=== PATIENT | female | born 1965 | race Caucasian/White ===

== ENCOUNTER 2024-02-08 09:53 | Inpatient (IN) | payer OTHER, SELFPAY ==
[2024-02-07 16:32] VITALS: BP 182/103
--- NOTE | 2024-02-07 19:23 | ED.GENMED ---
History of Present Illness
General
Chief Complaint: Extremity Pain (non-traumatic)
Time Seen by Provider: 02/07/24 19:17
History of Present Illness
History of Present Illness:
58-year-old female presents to the emergency department for evaluation of redness, swelling, warmth, and pain to the right lower extremity for the past 4 to 5 days. Denies any known wounds or trauma, began around the foot and gradually progressed
toward the knee. No fevers or chills. She does have MS and is currently on Tecfidera.
Past History
Past History
ED Past Medical History: Other (MS)
ED Past Surgical History: Appendectomy, and Gynecological
Social History
Tobacco: Non-smoker
Review of Systems
Review of Systems
Allergies reviewed?: Yes
All Other Systems: ROS reviewed and negative except as documented in HPI and ROS
Phy Exam
Physical Exam
Physical Exam:
GEN: Well appearing, NAD, WDWN
HEENT: Oral mucosa moist, no scleral icterus
Cardiac: Regular rate
Lung: No respiratory distress, no tachypnea
MSK: No gross deformity or injuries
Skin: Good color, no pallor or jaundice. Circumferential erythema extending from the right midfoot proximally toward the knee, there is swelling to the right tibial tuberosity with minimal tenderness to palpation. No right knee joint effusion.
Neuro: AO x3, moves all extremities freely
Psych: Calm, cooperative
Course
Orders/Labs/Results
Orders:
Orders
02/07/24 16:35
US Legs, Right [US Periph Venous LOWER Ext RT] Urgent
Comment:
Reason For Exam: swelling/redness
02/07/24 19:23
CeFAZolin 2 GRAM [Ancef] 2 grams in 10 ml IV NOW
02/07/24 19:53
Complete Blood Count/With Diff Urgent
Comprehensive Metabolic Panel Urgent
Abnormal Lab Results
02/07/24
19:53
MCH 31.4 H pg
(27.0-31.0)
MPV 10.5 H fL
(7.4-10.4)
Absolute Neuts (auto) 7.0 H 10^3/uL
(1.4-6.5)
Absolute Monos (auto) 0.8 H 10^3/uL
(0.1-0.6)
Lymphocytes % 15.1 L %
(20.5-51.1)
Creatinine 0.5 L mg/dL
(0.6-1.0)
Glucose 102 H mg/dl
(70-99)
02/07/24 19:53
02/07/24 19:53
Vital Signs
Initial and Last Documented VS:
Initial Vital Signs
Temp Pulse Resp BP Pulse Ox
98.1 F 88 15 182/103 94
02/07/24 16:32 02/07/24 16:32 02/07/24 16:32 02/07/24 16:32 02/07/24 16:32
Last Documented Vital Signs
Temp Pulse Resp BP Pulse Ox
98.1 F 88 15 182/103 94
02/07/24 16:32 02/07/24 16:32 02/07/24 16:32 02/07/24 16:32 02/07/24 16:32
MDM/Problems Addressed
MDM/Problems Addressed:
Although the patient is clinically well she has extensive cellulitis of the right lower extremity with questionable infrapatellar bursa involvement. Given that she has a history of MS on immunomodulators she is higher risk for complicated infection
and feel it would be reasonable to admit this patient for IV antibiotics, IV cefazolin started in the emergency department.
*Critical Care Note
Total Time (30-74mins, 75-104mins- exclusive of procedures): Not Applicable
ED Attending Note
-
Portions of this chart may have been created with voice recognition software.� Occasional wrong word or��sound alike� substitutions may have occurred due to the inherent limitations of voice recognition software.
Discharge Plan
Departure
Patient Disposition: Admit
Date of Disposition: 02/07/24
Time of Disposition: 20:25
Presentation/result/management discussed w/ accepting MD/DO: Hospitalist
Discharge Problem:
Cellulitis of right lower extremity
Prescriptions:
No Action
ofloxacin 0.3 % Drops
1 drp BOTH EYES QID
tizanidine 4 mg Tablet
4 mg PO Q8H
gabapentin 400 mg Capsule
800 mg PO QID
oxycodone 30 mg Tablet
30 mg PO Q4HPRN PRN (Reason: severe pain)
Patient Comments:
02/07/24: last filled 02/06/24 for 180 tablets over 30 days
ibuprofen 600 mg Tablet
600 mg PO Q6HPRN PRN (Reason: mild pain)
Afrin (oxymetazoline) 0.05 % Mist
2 spray INTRANASAL TIDPRN PRN (Reason: conjestion)
pregabalin 100 mg Capsule
100 mg PO TID
dalfampridine 10 mg Tablet Extended Release 12 Hr
10 mg PO Q12H
oxycodone [OxyContin] 20 mg Tablet,Oral Only,Ext.Rel.12 Hr
20 mg PO Q8H
Patient Comments:
02/07/24: last filled 02/06/24 for 90 tablets over 30 days
Referrals:
Chel Oneill CRNP [Family Provider] -
Interventions
Interventions:
*Risk Screen - Suicide Last Done: 02/07/24 16:32
*General Assessment Last Done: 02/07/24 20:00
*Neglect/Abuse Screening Last Done: 02/07/24 20:00
ED-Skin Assessment Last Done: 02/07/24 20:00
ED-Peripheral Vascular Assessment Last Done: 02/07/24 20:00
ED-Musculoskeletal Assessment Last Done: 02/07/24 20:00
Discharge Date and Time
Print Language: BOLIVIAN
[2024-02-07] MEDS: ANCEF 10 IV (19:51)
[2024-02-07 20:16] LABS: % Basophils 0.9 % (0-2); % Eosinophils 1.9 % (0-6); % Immature Granulocytes 0.4 % (0-0.5); % Lymphocytes 15.1 % (20.5-51.1); % Monocytes 8.4 % (1.7-9.3); % Neutrophils 73.3 % (42.2-75.2); Absolute Basophils 0.1 10^3/uL (0-0.2); Absolute Eosinophils 0.2 10^3/uL (0-0.7); Absolute Lymphocytes 1.4 10^3/uL (1.2-3.4); Absolute Monocytes 0.8 10^3/uL (0.1-0.6); Hematocrit 39.7 % (37.0-47.0); Hemoglobin 13.2 g/dL (12.0-16.0); Mean Corp Hgb Conc. 33.2 g/dL (33.0-37.0); Mean Corpuscular Hgb 31.4 pg (27.0-31.0); Mean Corpuscular Volume 94.5 fL (81.0-99.0); Mean Platelet Volume 10.5 fL (7.4-10.4); Nucleated Red Blood Cells % 0 %; Platelet Count 244 10^3/uL (130-400); White Blood Cell Count 9.6 10^3/uL (4.8-10.8)
[2024-02-07 20:19] LABS: ALT (SGPT) 14 U/L (0-35); AST (SGOT) 16 U/L (14-36); Albumin 3.9 g/dl (3.5-5.0); Alkaline Phosphatase 106 U/L (38-126); Blood Urea Nitrogen 10 mg/dl (7-17); Carbon Dioxide 29 mmol/L (22-30); Chloride 102 mmol/L (98-107); Glucose 102 mg/dl (70-99); Potassium 4.6 mmol/L (3.5-5.1); Sodium 140 mmol/L (135-145); Total Bilirubin 0.3 mg/dl (0.2-1.3); Total Protein 6.3 g/dl (6.3-8.2); eGFR > 60.00
--- NOTE | 2024-02-07 20:27 | HPS.HSE ---
Addendum entered and electronically signed by Sung Norton DO 02/07/24 21:46:
Patient seen and examined independently. Agree with findings and plan as set forth by SALINA Courtney.
Patient is a 58y F with PMH significant for MS who presents to ED complaining of swelling and redness in the RLE. Patient denies any preceding injury or trauma; however, she notes that she 'crawls around' on her hardwood floors at home due to
weakness from her MS. Patient noted swelling and redness of the RLE for the past two days. She contacted her PCP today and was advised to present to the ED. Patient denies any fevers / chills, N/V/D, etc.
Ass:
RLE Cellulitis
Multiple Sclerosis
Chronic Pain Syndrome
Chronic Opioid Dependence
Plan:
Observe overnight for further evaluation and treatment.
Patient states that she is not taking Tecfidera at present - dalfampridine is not an immunosuppressant.
IV abx with Ancef for now.
Follow for clinical improvement.
Wound care evaluation for chronic / crusted lesions on bilateral knees and small / superficial ulceration on the R great toe.
Continue usual outpatient medications.
Original Note:
Family Physician
-
Family Physician: SALINA Meza
Chief Complaint
-
Right lower extremity redness and swelling
History of Present Illness
Patient is a 58-year-old female with PMH MS who presented for evaluation of right lower extremity redness and swelling for the past two days. Patient denies any knowledge of open wounds, or trauma to the left. She reports that redness and swelling
started in the foot and worked its way upwards over past two days. Patient denies any fever, chills, cough, shortness of breath, chest pain, urinary symptoms, constipation, diarrhea nausea or vomiting.
Medical History
Past Medical History
Past Medical History: Reports Other
Additional Past Medical History:
MS
Past Surgical History: Reports Other
Additional Past Surgical History:
Appendectomy
Social History
Tobacco: Smoker (1 pk per week)
Alcohol: None
Drug: None
Personal:
Living: With Family
Employment: Not Employed
Family History
Family History: Not pertinent
Allergies / Home Medications
Allergies reflects when Allergies were last updated in [facility].
Home Medications with original date entered in [facility]
Allergy/Medication List:
Allergies
Allergy/AdvReac Type Severity Reaction Status Date / Time
carbamazepine [From Tegretol] Allergy Unknown Verified 10/23/22 08:42
fentanyl Allergy Unknown Verified 10/23/22 08:42
fingolimod [From Gilenya] Allergy Unknown Verified 10/23/22 08:42
morphine Allergy Unknown Verified 10/23/22 08:42
natalizumab [From Tysabri] Allergy Unknown Verified 10/23/22 08:42
topiramate [From Topamax] Allergy Unknown Verified 10/23/22 08:42
Home Medications Table - record
�Medication �Instructions �Recorded �Confirmed
dalfampridine 10 mg 10 mg PO Q12H 02/07/24 02/07/24
tablet,extended release,12 hr
gabapentin 400 mg capsule 800 mg PO QID 02/07/24 02/07/24
ibuprofen 600 mg tablet 600 mg PO Q6HPRN PRN mild pain 02/07/24 02/07/24
ofloxacin 0.3 % eye drops 1 drp BOTH EYES QID 02/07/24 02/07/24
oxycodone 20 mg tablet,crush 20 mg PO Q8H 02/07/24 02/07/24
resistant,extended release 12 hr
(OxyContin)
oxycodone 30 mg tablet 30 mg PO Q4HPRN PRN severe pain 02/07/24 02/07/24
oxymetazoline 0.05 % nasal mist 2 spray intranasal TIDPRN PRN 02/07/24 02/07/24
(Afrin (oxymetazoline)) conjestion
pregabalin 100 mg capsule 100 mg PO TID 02/07/24 02/07/24
tizanidine 4 mg tablet 4 mg PO Q8H 02/07/24 02/07/24
Review of Systems
-
History Source: Patient and Family
Constitutional: Reports No Symptoms
EENT: Reports No Symptoms
Respiratory: Reports No Symptoms
Cardiac: Reports No Symptoms
Abdomen/GI: Reports No Symptoms
: Reports No Symptoms
Musculoskeletal: Reports Edema (right lower extremity redness and swelling)
Skin: Reports Other (right lower extremity redness and swelling)
Neurological: Reports No Symptoms
Endocrine: Reports No Symptoms
Hematologic/Lymphatic: Reports No Symptoms
Psych: Reports No Symptoms
Physical Exam
Vital Signs
Vital Signs
Temp Pulse Resp BP Pulse Ox
98.1 F 88 15 182/103 94
02/07/24 16:32 02/07/24 16:32 02/07/24 16:32 02/07/24 16:32 02/07/24 16:32
Physical Exam
General: Well Developed, Well Nourished, No Apparent Distress, Comfortable and Conversant
HEENT: NormoCephalic, Moist mucous membranes, Atraumatic, PERRLA, [place] Conjunctivae, Nose Appears Normal and Ears Appear Normal
Respiratory: Clear and Non Labored Respirations; No Wheezes, Rales, Rhonchi or Crackles
Cardiac: S1/S2 and Regular Rhythm; No Murmur, Rub or Gallop
Breast: Deferred by me
GI: Soft, Non Tender, Non Distended and Normal Bowel Sounds; No Organomegaly
Rectal: Deferred by Provider
Genito-urinary: Deferred by me
Musculoskeletal: No Clubbing, No Cyanosis, Edema, Right Lower Extremity and Other (wound to bilateral knees, wound to right great toe); No Edema, Left Upper Extremity, Edema, Right Upper Extremity or Edema, Left Lower Extremity
Skin: Warm, Dry and IV/Catheter Site; No Rash
Neuro: Awake, Alert, AO x 3, Nonfocal/grossly intact and Cranial Nerves Intact
Hematologic/Lymphatic: No Lymphadenopathy
Psych: Calm and Intact Judgment/Insight
Laboratory Results
-
02/07/24 19:53
02/07/24:53
Laboratory Results
Total Bilirubin 0.3 mg/dl (0.2-1.3) 02/07/24:53
AST 16 U/L (14-36) 02/07/24:53
ALT 14 U/L (0-35) 02/07/24:53
Alkaline Phosphatase 106 U/L (38-126) 02/07/24:53
Data Reviewed
-
Ultrasound: Report Reviewed by me (No evidence of right lower extremity deep venous thrombosis.)
Lab Data: Labs Reviewed by me
Impression/Plan
-
IMPRESSION/PLAN:
#Right lower extremity cellulitis vs. DVT
- RLE US - No evidence of right lower extremity deep venous thrombosis
- Ancef 2gm q8
- Consult wound care for right great toe and bilateral knee wounds
#MS
- continue home medications: dalfampridine, gabapentin, oxycodone, pregabalin, tizanidine
Full Code
DVT Px: Lovenox
[2024-02-07 21:55] VITALS: BP 129/80
--- NOTE | 2024-02-07 22:30 | PTCARENOTE ---
Pt. admitted from E.D., AAO x 3, vs stable, put pulled over from stretcher to bed, call gomez within reach.
[2024-02-07 22:45] VITALS: BMI 15.9
[2024-02-07] MEDS: NEURONTIN 800 MG PO (23:29)
[2024-02-07] MEDS: OCUFLOX 1 DROP BOTH EYES (23:29)
[2024-02-07] MEDS: LYRICA 100 MG PO (23:29)
[2024-02-07] MEDS: OXYCONTIN (CONTROLLED RELEASE) 20 MG PO (23:30)
[2024-02-07 23:35] VITALS: BP 116/78
[2024-02-08] MEDS: ZANAFLEX 4 MG PO ×2 (00:56→21:39)
[2024-02-08] MEDS: ROXICODONE 30 MG PO ×2 (01:03→12:31)
[2024-02-08] MEDS: AFRIN NASAL SPRAY NASAL (01:37)
[2024-02-08] MEDS: AFRIN NASAL SPRAY 1 SPRAYS NASAL (01:40)
[2024-02-08] MEDS: ANCEF 10 IV ×3 (04:15→20:11)
[2024-02-08 07:30] VITALS: BP 121/78
[2024-02-08] MEDS: LYRICA 100 MG PO ×3 (08:01→21:38)
[2024-02-08] MEDS: NEURONTIN 800 MG PO ×4 (08:01→21:38)
[2024-02-08] MEDS: OXYCONTIN (CONTROLLED RELEASE) 20 MG PO ×2 (08:01→16:21)
[2024-02-08] MEDS: OCUFLOX 1 DROP BOTH EYES ×4 (08:01→21:39)
[2024-02-08 08:27] LABS: Hematocrit 38.2 % (37.0-47.0); Hemoglobin 12.6 g/dL (12.0-16.0); Mean Corpuscular Hgb 31.7 pg (27.0-31.0); Mean Platelet Volume 10.9 fL (7.4-10.4); Platelet Count 231 10^3/uL (130-400); Red Blood Cell Count 3.98 10^6/uL (4.20-5.40); Red Cell Dist. Width 12.7 % (11.5-14.5); White Blood Cell Count 8.3 10^3/uL (4.8-10.8)
[2024-02-08 08:58] LABS: Blood Urea Nitrogen 10 mg/dl (7-17); Calcium 8.8 mg/dl (8.4-10.2); Carbon Dioxide 29 mmol/L (22-30); Chloride 102 mmol/L (98-107); Estimated Creatinine Clearance 67 ml/min; Glucose 87 mg/dl (70-99); Sodium 141 mmol/L (135-145); eGFR > 60.00
--- NOTE | 2024-02-08 09:24 | W.PN.HOSP.TC ---
Today's Communication/Plan
-
Continue cefazolin
Neurology consult
PT/OT
Nutrition consult
Assessment / Plan
Assessment / Plan
Gen-AAOx3, NAD
HEENT-NC, AT, anicteric, clear oral mm
Neck-supple
CV-reg, no M, +S1/S2
Lungs-clear B/L
Abd-soft, NT, ND
Ext-RLE edema
Musculoskeletal-no cyanosis, clubbing
Skin-warm and dry, diffuse right lower extremity erythema from the knee down to the ankle
Neuro-grossly non-focal
Psych-calm, cooperative
Right lower extremity cellulitis - continue cefazolin. Doppler ultrasound negative for DVT.
Bilateral lower extremity weakness -differential diagnosis includes MS flare versus other etiology. Perhaps cellulitis is causing a flare of MS. Patient denies back pain. Will consult neurology.
Consult PT/OT.
Multiple sclerosis -has not seen a neurologist in at least 8 months.
Chronic pain syndrome/chronic opiate dependence
Protein/calorie malnutrition -unknown severity. Consult nutrition. BMI 15.9.
Tobacco dependence
Full code
Anticipated Discharge: > 48 hours
Subjective/Interval History
-
Date of Service: February 08, 2024
Patient seen and examined. Complaining of lower extremity weakness.
Objective Data
-
Labs:
Laboratory Results
02/08/24
07:04
WBC 8.3
Hgb 12.6
Hct 38.2
Plt Count 231
Sodium 141
Potassium 4.0
Chloride 102
Carbon Dioxide 29
BUN 10
Creatinine 0.5 L
Glucose 87
Calcium 8.8
Vital Signs:
Vital Signs
Temp Pulse Resp BP Pulse Ox
98.3 F 71 16 121/78 96
02/08/24 07:30 10/19/24 07:30 02/08/24 07:30 02/08/24 07:30 02/08/24 07:30
Review of Systems
-
History Source: Patient
All other systems: Reviewed and negative
[2024-02-08] MEDS: HEPARIN 5000 UNITS SC ×2 (12:25→20:14)
--- NOTE | 2024-02-08 14:08 | CM ---
Initial assessment completed with pt at bedside.
Pt is a 58yr old female admitted for cellulitis.
Pt on OBS and Obs letter signed.
At baseline, pt lives with her in a split level home with 0steps to enter home, 4 additional to Family room and kitchen, and 8 more to bedroom and bath room. Per pt, she mostly stays on the level of her bedroom and bathroom.
Per pt, she is indep with mobility and getting to the bathroom, but does have her to aide with ADLs.
Pt does have altered demeanor and mental status during this assessment. She is falling asleep and weak.
Pt has the following equipment; RW, transport chair, shower bench, and raised toilet seat with bars.
Pt shares that she has been to [facility] multiple times and has had VN but does not remember thru who.
Pt says her is the only aide she has and has not ever hired caregivers.
PCP; Chel Oneill
Pharm; [facility]
PLAN; DC to home
[2024-02-08 15:00] VITALS: BP 164/89
--- NOTE | 2024-02-08 17:21 | CON.NEURO4 ---
Consultation - Neurology 4
-
CONSULTING PHYSICIAN: Adrian Hoffman MD(Neurology)
REFERRING PHYSICIAN: Hospitalist
DICTATED BY: Adrian Hoffman MD
DATE/TIME OF REQUEST: 02/08/2024
DATE/TIME OF CONSULTATION: 02/08/2024
Reason for Consultation: Weakness
History of Present Illness:
This is a 58 year old right) handed female) who has presented to the hospital with (chief complaint) of bilateral leg weakness and inflammation of her right leg. She gives a h/o MS, LE spasticity s/p Baclofen pump
Pat is on Tecfidera, Ampyra, Gabapentin, pregabalin
Pat stopped Tecfidera months ago as she is unable to obtain a refill.
She receive a refill of Baclofen and Dilaudid for control of LE spasticity and pain
She has been unable to stand and walk over the last 2-3 weeks. She remains incontinent
There are no previous medical records available.
previously seen by [facility]
Past Medical History: MS
Surgical History: Appendectomy,
Family History: NC
Social History: lives at home with her SO, Disabled. Smokes
Allergies: See addendum
Home Medications: See addendum
Review of Symptoms:
Patient denies any fever, headache, chest pain, shortness of breath, GI or symptoms.
�Per the HPI.�All systems are reviewed negative except above.
�-
Vital Signs:
The patient has
Temp Pulse Resp BP Pulse Ox
36.8 C 71 16 121/78 96
Physical Exam:
The patient is afebrile, heart sounds S1 and S2 are (regular / irregular), and chest is clear to auscultation bilaterally.
- If not clear, describe.
Neurologic Examination:
The patient is awake, alert and oriented x 3. She is able to follow commands and answer questions appropriately. Speech is fluent with intact comprehension reading and repetition There is no aphasia or dysarthria. Attention concentration and memory
are spared.
On cranial nerve assessment, pupils are 3 mm bilateral, round and sluggish reactive to light and accommodation. Visual quinones are full. Extraocular movements are intact. Facial sensations are intact and bilaterally symmetrical, there is no facial
asymmetry. Hearing is intact bilaterally to normal conversation volume. Tongue palate and uvula are midline. Sternocleidomastoid strengths are limited bilaterally.
Motor exam reveals increased tone with generalized weakness: :strengths are 4/5 bilateral upper extremities 2/5 and lower extremities..
Deep tendon reflexes are 2+ bilateral upper and lower extremities and Babinski is present bilaterally.
Sensations of pain, touch, temperature and vibration are impaired and asymmetrical. There was extinction noted on double simultaneous stimulation.
Coordination is impaired by finger to nose bilaterally. Rombergs and Gait cannot be tested as pat is bedbound.
Lab Results: See addendum
Neuro Imaging: Pending
Impression: Ms.) ERICA HELLER is a 58 year old F who has presented to the hospital with (symptoms/chief complaint).of cellulitis in her right leg . She also has ataxia secondary to MS exacerbation secondary to infection and may benefit from IV
Solumedrol infusion after initiation of antibiotic therapy
Differentials for the patient's presentation include:
1. Lumbar radiculopathy
2. Cervical/thoracic myelopathy
Recommendations:
1. IV Cefazolin
2. CT head
3. IV Solumedrol delayed initiation following control of cellulitis
4. PT/OT
Discussed patient care with: Hospitalist
Allergies
-
Allergies
Allergy/AdvReac Type Severity Reaction Status Date / Time
carbamazepine [From Tegretol] Allergy Unknown Verified 10/23/22 08:42
fentanyl Allergy Unknown Verified 10/23/22 08:42
fingolimod [From Gilenya] Allergy Unknown Verified 10/23/22 08:42
morphine Allergy Unknown Verified 10/23/22 08:42
natalizumab [From Tysabri] Allergy Unknown Verified 10/23/22 08:42
topiramate [From Topamax] Allergy Unknown Verified 10/23/22 08:42
Vital Signs and Labs
-
Vital Signs and Labs:
Vital Signs
Temp Pulse Resp BP Pulse Ox
36.8 C 71 16 121/78 96
02/08/24 07:30 02/08/24 07:30 02/08/24 07:30 02/08/24 07:30 02/08/24 07:30
Lab Results
02/08/24 07:04
02/08/24 07:04
Sodium 141 mmol/L (135-145) 02/08/24 07:04
Potassium 4.0 mmol/L (3.5-5.1) 02/08/24 07:04
BUN 10 mg/dl (7-17) 02/08/24 07:04
Glucose 87 mg/dl (70-99) 02/08/24 07:04
Calcium 8.8 mg/dl (8.4-10.2) 02/08/24 07:04
Medications
-
Active Medications
Generic Name Dose Route Start Last Admin
Trade Name Freq PRN Reason Stop Dose Admin
Gabapentin 800 mg 02/07/24 22:12 02/08/24 12:25
Gabapentin 400 Mg Capsule PO 03/06/24 22:11 800 mg
QID TROY Administration
Heparin Sodium 5,000 units 02/08/24 12:00 02/08/24 12:25
Heparin 5,000 Units/Ml 1 Ml Vial SC 03/07/24 11:59 5,000 units
Q12 TROY Administration
Cefazolin Sodium 2 grams in 10 mls @ 120 mls/hr 02/08/24 04:00 02/08/24 12:25
Ancef IV 10 mls
Q8H TROY Administration
Non-Formulary Medication 10 mg 02/07/24 22:12
Dalfampridine PO 03/06/24 22:11
Q12H TROY
Ofloxacin 0 drop 02/07/24 22:12 02/08/24 13:21
Ofloxacin 0.3% (Ophthalmic Solution) 5 Ml Bottle BOTH EYES 03/06/24 22:11 1 drop
QID TROY Administration
Oxycodone HCl 30 mg 02/07/24 22:14 02/08/24 12:31
Oxycodone 15 Mg Regular Release Tablet PO 02/21/24 22:13 30 mg
Q4HPRN PRN Administration
severe pain
Oxycodone HCl 20 mg 02/08/24 00:00 02/08/24 16:21
Oxycontin 20 Mg Controlled Release Tablet PO 02/22/24 00:00 20 mg
Q8 TROY Administration
Oxymetazoline HCl 0 sprays 02/08/24 01:03 02/08/24 01:40
Oxymetazoline 0.05% (Nasal [place]) 15 Ml Bottle NASAL 03/07/24 01:02 1 sprays
TIDPRN PRN Administration
nasal congestion
Pregabalin 100 mg 02/07/24 22:12 02/08/24 16:21
Pregabalin 100 Mg Capsule PO 03/06/24 22:11 100 mg
TID TROY Administration
Tizanidine HCl 4 mg 02/08/24 00:15 02/08/24 00:56
Tizanidine 4 Mg Tablet PO 03/07/24 00:14 4 mg
Q8HPRN PRN Administration
MS
Home Medications
�Medication �Instructions �Recorded
dalfampridine 10 mg 10 mg PO Q12H Multiple Sclerosis 02/07/24
tablet,extended release,12 hr
gabapentin 400 mg capsule 800 mg PO QID Neurological 02/07/24
Condition
ibuprofen 600 mg tablet 600 mg PO Q6HPRN PRN mild pain 02/07/24
ofloxacin 0.3 % eye drops 1 drp BOTH EYES QID Eye Condition 02/07/24
oxycodone 20 mg tablet,crush 20 mg PO Q8H Pain 02/07/24
resistant,extended release 12 hr
(OxyContin)
oxycodone 30 mg tablet 30 mg PO Q4HPRN PRN severe pain 02/07/24
oxymetazoline 0.05 % nasal mist 2 spray intranasal TIDPRN PRN 02/07/24
(Afrin (oxymetazoline)) congestion
pregabalin 100 mg capsule 100 mg PO TID Neurological 02/07/24
Condition
tizanidine 4 mg tablet 4 mg PO Q8H Muscle Spasms 02/07/24
[2024-02-08 23:30] VITALS: BP 152/84
[2024-02-09] MEDS: OXYCONTIN (CONTROLLED RELEASE) 20 MG PO ×4 (00:38→23:04)
[2024-02-09] MEDS: ANCEF 10 IV ×3 (04:02→20:11)
[2024-02-09 08:13] VITALS: BP 143/87
[2024-02-09] MEDS: OCUFLOX 1 DROP BOTH EYES ×4 (08:14→22:14)
[2024-02-09] MEDS: NEURONTIN 800 MG PO ×4 (08:14→22:12)
[2024-02-09] MEDS: LYRICA 100 MG PO ×3 (08:14→22:14)
[2024-02-09] MEDS: HEPARIN 5000 UNITS SC ×2 (08:14→20:09)
[2024-02-09 10:59] VITALS: BMI 15.9
--- NOTE | 2024-02-09 11:11 | W.PN.HOSP.TC ---
Today's Communication/Plan
-
Await neurology input
Continue antibiotics
PT/OT
Assessment / Plan
Assessment / Plan
Gen-AAOx3, NAD
HEENT-NC, AT, anicteric, clear oral mm
Neck-supple
CV-reg, no M, +S1/S2
Lungs-clear B/L
Abd-soft, NT, ND
Ext-RLE edema
Musculoskeletal-no cyanosis, clubbing
Skin-warm and dry, diffuse right lower extremity erythema from the knee down to the ankle
Neuro-grossly non-focal
Psych-calm, cooperative
Right lower extremity cellulitis - continue cefazolin. Doppler ultrasound negative for DVT. Erythema improved overnight.
Bilateral lower extremity weakness -differential diagnosis includes MS flare versus other etiology. Perhaps cellulitis is causing a flare of MS. Patient denies back pain. Neurology consult noted.
CT head without contrast shows moderate to severe white matter disease in the parietal lobes and mild periventricular white matter disease in the frontal lobes consistent with demyelinating disease. Recommend starting steroids for MS flare, defer
to neurology.
Multiple sclerosis -has not seen a neurologist in at least 8 months.
Chronic pain syndrome/chronic opiate dependence
Protein/calorie malnutrition -unknown severity. Consult nutrition. BMI 15.9.
Tobacco dependence
Full code
Dispo -anticipate SNF on discharge.
Anticipated Discharge: > 48 hours
Subjective/Interval History
-
Date of Service: February 09, 2024
Patient seen and examined. Still with significant weakness bilateral upper and lower extremities.
Objective Data
-
Vital Signs:
Vital Signs
Temp Pulse Resp BP Pulse Ox
97.8 F 81 18 143/87 94
02/09/24 08:13 02/09/24 08:13 02/09/24 08:13 02/09/24 08:13 02/09/24 08:13
I&O
02/08/24 02/09/24 02/10/24
06:59 06:59 06:59
Intake Total 480 / 480
Balance 480 / 480
Review of Systems
-
History Source: Patient
All other systems: Reviewed and negative
[2024-02-09 13:20] VITALS: BP 135/93; PULSE 91
[2024-02-09 16:05] VITALS: BP 170/90
[2024-02-09] MEDS: SOLU-MEDROL 108 MG IV (20:01)
--- NOTE | 2024-02-09 20:48 | W.PN.NEURO.1 ---
Today's Communication / Plan
-
Solumedrol 500mg IV q 12 daily for 3 days
Neuro Assessment/Plan
Assessment
58 yr. old lady with h/o chronic relapsing progressive MS who has right leg cellulitis responding to Cefazolin
Plan
Start IV Solumedrol 500 mg q 12
Subjective/Objective
Subjective Data
Date of Service: February 09, 2024
Pat legs feeling stronger. Cellulitis responding well to antibiotics erythema resolving. Pat willing to start Solumedrol therapy
Objective Data
Vital Signs
Temp Pulse Resp BP Pulse Ox
36.6 C 84 18 170/90 95
02/09/24 16:05 02/09/24 16:05 02/09/24 16:05 02/09/24 16:05 02/09/24 16:05
Lab Results
02/08/24 07:04
02/08/24 07:04
Sodium 141 mmol/L (135-145) 02/08/24 07:04
Potassium 4.0 mmol/L (3.5-5.1) 02/08/24 07:04
BUN 10 mg/dl (7-17) 02/08/24 07:04
Glucose 87 mg/dl (70-99) 02/08/24 07:04
Calcium 8.8 mg/dl (8.4-10.2) 02/08/24 07:04
Patient Allergies
carbamazepine [From Tegretol] Allergy (Verified 10/23/22 08:42)
Unknown
fentanyl Allergy (Verified 10/23/22 08:42)
Unknown
fingolimod [From Gilenya] Allergy (Verified 10/23/22 08:42)
Unknown
morphine Allergy (Verified 10/23/22 08:42)
Unknown
natalizumab [From Tysabri] Allergy (Verified 10/23/22 08:42)
Unknown
topiramate [From Topamax] Allergy (Verified 10/23/22 08:42)
Unknown
Physical Exam
-
General: Well Developed, No Apparent Distress, Comfortable and Appears Chronically Ill
Eyes: Able to visualize OU, Unremarkable and No Ptosis
HEENT: Normocephalic, Atraumatic and Anicteric
Neck: Full Range of Motion
Respiratory: Clear to Auscultation
Cardiac: Regular Rhythm
Extremities: No Clubbing, No Cyanosis and Other (Right leg cellulitis resolving)
Psych: Unremarkable and Intact Judgement/Insight
Extended Neurological Exam
Mood & Affect: Mood Unremarkable and Affect Unremarkable
Attention Span & Concentration: Awake, Alert, Interactive and No Difficulty with 2 Step Request
Memory: Unremarkable and Able to Recall
Tremor: Hand Tremor Absent and Head Tremor Absent
Involuntary Movement: None
Speech: Quality Unremarkable and Quantity Unremarkable
Cranial Nerve II: Left Eye: Pupillary Reactivity Unremarkable, Pupillary Size Unremarkable and Visual Yap Grossly Intact
Cranial Nerve II: Right Eye: Pupillary Reactivity Unremarkable, Pupillary Size Unremarkable and Visual Yap Grossly Intact
Cranial Nerves III, IV, : Extraocular Movement: Extraocular Movement Full in all Directions
Cranial Nerve V: Facial Sensation: Facial Sensation Unremarkable to Cold and Intact to Light Touch
Cranial Nerve VII: Facial Symmetry: Normal Facial Symmetry
Cranial Nerve VIII: Hearing: Unremarkable Hearing to Normal Conversational Volume
Cranial Nerves IX, X: Palate Movement: Palate Elevation Symmetric
Cranial Nerve XI: Shoulder Shrug: Unremarkable
Cranial Nerve XII: Tongue Protusion: Midline
Muscle Strength, Overall: Reduced Throughout and Reduced (Legs weaker than arms)
Muscle Bulk & Tone: Bulk Unremarkable and Tone Unremarkable
Pronator Drift: No Drift in Upper Extremities
Deep Tendon Reflexes: Trace Throughout
Cold Sensation: Reduced
Vibration Sensation: Reduced
Touch Sensation: Pin Prick Reduced
Coordination: Reaches for Objects without Difficulty
Babinski Sign: Present Bilaterally
Gait & Station: Up from Lying with Difficulty and Other (Unable to stand or walk)
[2024-02-09] MEDS: PEPCID 20 MG PO (22:12)
[2024-02-09 23:04] VITALS: BP 149/84
[2024-02-10] MEDS: ANCEF 10 IV ×3 (05:18→20:36)
[2024-02-10 07:00] VITALS: BP 144/93
[2024-02-10] MEDS: OXYCONTIN (CONTROLLED RELEASE) 20 MG PO ×3 (07:59→23:45)
[2024-02-10] MEDS: LYRICA 100 MG PO (07:59)
[2024-02-10] MEDS: OCUFLOX 1 DROP BOTH EYES ×4 (08:00→21:07)
[2024-02-10] MEDS: HEPARIN 5000 UNITS SC ×2 (08:00→20:35)
[2024-02-10] MEDS: NEURONTIN 800 MG PO (08:00)
[2024-02-10] MEDS: ZANAFLEX 4 MG PO (08:08)
[2024-02-10] MEDS: AFRIN NASAL SPRAY 1 SPRAYS NASAL (08:11)
[2024-02-10] MEDS: SOLU-MEDROL 108 MG IV (09:04)
--- NOTE | 2024-02-10 09:17 | W.PN.NEURO.1 ---
Today's Communication / Plan
-
Started IV methylprednisolone 500 mg q 12, may be discontinued to improve infection improvement
Would only evaluate further for multiple sclerosis if patient has decline
As outpatient, patient needs to restart usual dimethyl fumarate; must consider alternative medication if patient actually does have correct diagnosis of chronic progressive multiple sclerosis
Continue rehabilitation evaluations
Neuro Assessment/Plan
Assessment
58 yr. old with presumed chronic progressive MS who has right leg cellulitis responding to Cefazolin
Plan
Started IV methylprednisolone 500 mg q 12, may be discontinued to improve infection improvement
Would only evaluate further for multiple sclerosis if patient has decline
As outpatient, patient needs to restart usual dimethyl fumarate; must consider alternative medication if patient actually does have correct diagnosis of chronic progressive multiple sclerosis
Continue rehabilitation evaluations
We will follow peripherally
Subjective/Objective
Subjective Data
Date of Service: February 10, 2024
B/L weakness and heavy legs - same as yesterday
Improves as the day progresses
Hx of MS, diagnosed in September 1999
Last MS flare was 7 yrs ago, pt received steroids
Currently using Tecfidera (started 4-5 months ago), previously and failed: Fingolimod, Tysabri (hives)
Pt currently not under care of neurologist, looking for new one
unable to do stairs at home, uses walker in the home, assists with bathing
Objective Data
Vital Signs
Temp Pulse Resp BP Pulse Ox
36.8 C 91 18 149/84 94
02/09/24 23:04 02/09/24 23:04 02/09/24 23:04 02/09/24 23:04 02/09/24 23:04
Lab Results
02/08/24 07:04
02/08/24 07:04
Sodium 141 mmol/L (135-145) 02/08/24 07:04
Potassium 4.0 mmol/L (3.5-5.1) 02/08/24 07:04
BUN 10 mg/dl (7-17) 02/08/24 07:04
Glucose 87 mg/dl (70-99) 02/08/24 07:04
Calcium 8.8 mg/dl (8.4-10.2) 02/08/24 07:04
Patient Allergies
carbamazepine [From Tegretol] Allergy (Verified 10/23/22 08:42)
Unknown
fentanyl Allergy (Verified 10/23/22 08:42)
Unknown
fingolimod [From Gilenya] Allergy (Verified 10/23/22 08:42)
Unknown
morphine Allergy (Verified 10/23/22 08:42)
Unknown
natalizumab [From Tysabri] Allergy (Verified 10/23/22 08:42)
Unknown
topiramate [From Topamax] Allergy (Verified 10/23/22 08:42)
Unknown
Review of Systems
-
History Source: Patient
All other systems: Reviewed and negative
EENT: Negative Other (Dysphagia)
Neuro: Other (grogginess)
Physical Exam
-
plantar flexion 3/5
protonar drift (-)
primary gaze nystagmus
Discussed steroids may improve MS but are likely delaying sepsis improvement, pt demonstrates understanding
General: No Apparent Distress and Appears Stated Age
Eyes: Round OU, Esparto Conjunctivae and No Ptosis
HEENT: Anicteric and Moist Mucous Membranes
Neck: Full Range of Motion
Respiratory: No Dyspnea
Cardiac: No JVD
GI: Non-distended
Skin: Unremarkable
Extremities: No Cyanosis and No Edema; Negative No Clubbing
Psych: Negative Intact Judgement/Insight
Extended Neurological Exam
Mood & Affect: Mood Unremarkable and Affect Unremarkable
Attention Span & Concentration: Awake, Alert and Interactive
Memory: Unable to Recall Personal History (With clarity or prompting)
Tremor: Hand Tremor Absent and Head Tremor Absent
Involuntary Movement: None
Speech: Quality Unremarkable and Quantity Unremarkable
Cranial Nerve II: Left Eye: Pupillary Size Unremarkable and Visual Yap Grossly Intact
Cranial Nerve II: Right Eye: Pupillary Size Unremarkable and Visual Yap Grossly Intact
Cranial Nerves III, IV, : Extraocular Movement: Nystagmus with Extreme Gaze to Left, Nystagmus with Extreme Gaze to Right and Other (Central gaze nystagmus with up beating movement)
Cranial Nerve VIII: Hearing: Unremarkable Hearing to Normal Conversational Volume
Muscle Strength, Overall: Reduced (Globally, proximally slightly greater than distally)
Muscle Bulk & Tone: Tone Unremarkable and Decreased Bulk
Pronator Drift: No Drift in Upper Extremities
Coordination: [id number] Testing Unremarkable
Gait & Station: Unable to Assess
Data Reviewed
-
Labs: Report Reviewed
Reviewed with: Physician and Patient
Old Records: Summarized
--- NOTE | 2024-02-10 09:25 | W.PN.HOSP.TC ---
Today's Communication/Plan
-
Continue IV antibiotics. PT OT eval. Neurology reeval
Assessment / Plan
Assessment / Plan
Gen-AAOx3, NAD
HEENT-NC, AT, anicteric, clear oral mm
Neck-supple
CV-reg, no M, +S1/S2
Lungs-clear B/L
Abd-soft, NT, ND
Ext-RLE edema
Musculoskeletal-no cyanosis, clubbing
Skin-warm and dry, diffuse right lower extremity erythema improving from the knee down to the ankle
Neuro-grossly non-focal
Psych-calm, cooperative
A/P:
Right lower extremity cellulitis - continue cefazolin. Doppler ultrasound negative for DVT. Erythema improving.
Bilateral lower extremity weakness -differential diagnosis includes MS flare versus other etiology. Perhaps cellulitis is causing a flare of MS. Patient denies back pain. Neurology consult noted.
CT head without contrast shows moderate to severe white matter disease in the parietal lobes and mild periventricular white matter disease in the frontal lobes consistent with demyelinating disease. She was started on IV high doses of steroids
yesterday 02/08 by neurology but today on 02/09 reevaluated by neuro and stopped steroids in light of infection and would not do steroids unless patient has declined.
Multiple sclerosis -has not seen a neurologist in at least 8 months.
Chronic pain syndrome/chronic opiate dependence
Protein/calorie malnutrition -unknown severity. Consult nutrition. BMI 15.9.
Tobacco dependence
Full code
Dispo -anticipate SNF on discharge.
Anticipated Discharge: > 48 hours
Subjective/Interval History
-
Date of Service: February 10, 2024
Patient still has some erythema on right lower extremity, she still has generalized weakness. No chest pain or shortness of breath. Afebrile
Objective Data
-
Vital Signs:
Vital Signs
Temp Pulse Resp BP Pulse Ox
98.2 F 91 18 149/84 94
02/09/24 23:04 02/09/24 23:04 02/09/24 23:04 02/09/24 23:04 02/09/24 23:04
I&O
02/09/24 02/10/24 02/11/24
06:59 06:59 06:59
Intake Total 480 / 480 700 / 700
Balance 480 / 480 700 / 700
--- NOTE | 2024-02-10 10:47 | WOUNDNOTE ---
R PLANTAR GREAT TOE
--- NOTE | 2024-02-10 10:47 | WOUNDNOTE ---
R THUMB AND 4TH FINGER
--- NOTE | 2024-02-10 10:48 | WOUNDNOTE ---
SACRUM AND R BUTTOCK
--- NOTE | 2024-02-10 10:54 | WOUNDNOTE ---
[facility] RN note: Patient admitted with R leg cellulitis.
See H&P for complete history.
PMH: MS-on Tecfidera, smoker, melanoma and fibromyalgia.
Wound Location and type/assessment: Patient admitted with: abrasions to R and L knee, patient reports from crawling on floor, R leg much less red and swollen. + palpable pedal pulses both feet. Heels and sacrum are blanchable red. R buttock with
scratch cheyanne, patient confirmed she did scratch her buttock. R thumb and 4th finger with cracked dry scabbed fissures. R 1st toe plantar with tiny dry fissure.
Appetite:Good.
Pressure redistribution devices in place:On [employer] bed, able to turn self.
Plan: Moisturized legs and feet with A&D ointment. Will order Mineral oil for legs and R fingers. Air cushion on pillow under calves. Leg elevation. Can use chair cushion when sitting with legs elevated. Will confirm orders with hospitalist and
updated nurse Brandi.
Updated care plan and will follow as needed.
Note to case management of equipment requested for discharge: None.
Recommend follow with pump stitcher.
[2024-02-10 11:00] VITALS: BP 144/93
[2024-02-10] MEDS: ROXICODONE 30 MG PO ×3 (12:26→22:11)
--- NOTE | 2024-02-10 14:14 | CM ---
production stage manager reviewed patient's chart and met with patient and spoke with patient's spouse by phone, per patient's spouse he works from home, and would be able to help patient. production stage manager reviewed physical therapy notes and offered patient rehab
however patient declined stating that she wants to return to home, patient is agreeable to visiting nurses, visiting nurse options were reviewed and patient has selected [facility], [facility] contacted for home care services.
Plan: Home with [facility].
[2024-02-10 14:22] LABS: TSH Reflex To Free T4 0.12 uIU/ml (0.47-4.68)
[2024-02-10 14:48] LABS: Free T4 1.07 ng/dl (0.78-2.19)
[2024-02-10 14:51] LABS: Vitamin B12 549 pg/ml (239-931)
[2024-02-10 15:00] VITALS: BP 161/96
[2024-02-10] MEDS: LYRICA 200 MG PO ×2 (15:30→20:37)
--- NOTE | 2024-02-10 15:34 | VNURNOTE ---
Home Health Liaison spoke with patient to discuss [facility] nurse/therapy, visits, schedule and homebound status. Patient is agreeable and understands that visits at home will be 2-3 x per week to assess and teach medical management. Patient is aware
that [facility] will contact them for start of care in 1-2 days after discharge from . [facility] referral completed in [facility].
[2024-02-10 21:12] LABS: Folate > 20.0 ng/ml (2.76-20)
[2024-02-10 23:30] VITALS: BP 178/96
--- NOTE | 2024-02-10 23:39 | PTCARENOTE ---
pt b/p noted to be 178/96 HR 70-80's manual. Notified Annabelle HOISTING [employer]INE[employer], will cont to monitor d/t patient was on steriods per [employer].
[2024-02-11] VITALS (7 sets, daily range): BP systolic 113–194; BP diastolic 78–101
[2024-02-11] MEDS: ANCEF 10 IV ×3 (02:46→20:57)
[2024-02-11 08:14] LABS: Blood Urea Nitrogen 24 mg/dl (7-17); Calcium 10.1 mg/dl (8.4-10.2); Carbon Dioxide 32 mmol/L (22-30); Chloride 100 mmol/L (98-107); Estimated Creatinine Clearance 67 ml/min; Glucose 104 mg/dl (70-99); Potassium 4.6 mmol/L (3.5-5.1); Sodium 142 mmol/L (135-145); eGFR > 60.00
[2024-02-11 08:17] LABS: % Basophils 0.1 % (0-2); % Immature Granulocytes 0.6 % (0-0.5); % Lymphocytes 6.8 % (20.5-51.1); % Monocytes 7.4 % (1.7-9.3); % Neutrophils 85.1 % (42.2-75.2); Absolute Immature Granulocytes 0.1 10^3/uL (0-0.05); Absolute Lymphocytes 1.2 10^3/uL (1.2-3.4); Absolute Monocytes 1.3 10^3/uL (0.1-0.6); Absolute Neutrophils 14.6 10^3/uL (1.4-6.5); Hematocrit 45.4 % (37.0-47.0); Hemoglobin 15.5 g/dL (12.0-16.0); Mean Corp Hgb Conc. 34.1 g/dL (33.0-37.0); Mean Corpuscular Hgb 31.4 pg (27.0-31.0); Mean Corpuscular Volume 92.1 fL (81.0-99.0); Mean Platelet Volume 10.3 fL (7.4-10.4); Nucleated Red Blood Cells % 0 %; Platelet Count 356 10^3/uL (130-400); Red Blood Cell Count 4.93 10^6/uL (4.20-5.40); Red Cell Dist. Width 12.5 % (11.5-14.5); White Blood Cell Count 17.1 10^3/uL (4.8-10.8)
[2024-02-11] MEDS: LYRICA 200 MG PO ×3 (08:53→21:05)
[2024-02-11] MEDS: HYDROPHOR 1 APPLIC TOPICAL (08:53)
[2024-02-11] MEDS: APRESOLINE 10 MG IV (08:53)
[2024-02-11] MEDS: OXYCONTIN (CONTROLLED RELEASE) 20 MG PO ×3 (08:53→23:01)
[2024-02-11] MEDS: OCUFLOX 1 DROP BOTH EYES ×3 (08:53→21:05)
[2024-02-11] MEDS: HEPARIN 5000 UNITS SC ×2 (08:54→20:58)
--- NOTE | 2024-02-11 08:56 | W.PN.HOSP.TC ---
Today's Communication/Plan
-
EKG, chest x-ray, echocardiogram.
Assessment / Plan
Assessment / Plan
Gen-AAOx3, in acute distress because of chest discomfort and anxiety
HEENT-NC, AT, anicteric, clear oral mm
Neck-supple
CV-reg, no M, +S1/S2
Lungs-clear B/L
Abd-soft, NT, ND
Ext-RLE edema
Musculoskeletal-no cyanosis, clubbing
Skin-warm and dry, diffuse right lower extremity erythema improving from the knee down to the ankle
Neuro-grossly non-focal
Psych-calm, cooperative
A/P:
Right lower extremity cellulitis - continue cefazolin. Doppler ultrasound negative for DVT. Erythema improving.
Chest pain-sounds atypical, obtain EKG, chest x-ray troponin, BNP, D-dimer. Troponin normal but T wave inversion in V2 V3 (seen EKG and interpreted by myself)-->proceed to Echocardiogram and repeat ekg down the road. Anxiolytics and pain
medications as needed.
Elevated blood pressure without diagnosis of hypertension (probably secondary to steroids or pain)-give 1 dose of IV hydralazine. Monitor blood pressure afterwards.
Bilateral lower extremity weakness -differential diagnosis includes MS flare versus other etiology. Perhaps cellulitis is causing a flare of MS. Patient denies back pain. Neurology consult noted.
CT head without contrast shows moderate to severe white matter disease in the parietal lobes and mild periventricular white matter disease in the frontal lobes consistent with demyelinating disease. She was started on IV high doses of steroids
yesterday 02/08 by neurology but today on 02/09 reevaluated by neuro and stopped steroids in light of infection and would not do steroids unless patient has declined.
Multiple sclerosis -has not seen a neurologist in at least 8 months. Neurology following here. Restart dalfampridine today.
Chronic pain syndrome/chronic opiate dependence
Protein/calorie malnutrition -unknown severity. Consult nutrition. BMI 15.9.
Tobacco dependence
Full code
Dispo -anticipate SNF on discharge.
Total time spent on today's encounter was 52 minutes which included time spent in counseling the patient/family regarding diagnosis and treatment plan as listed above, goals of care, and symptom management. Case was discussed with nursing staff,
specialists, and care coordinators/case management. All labs and imaging personally reviewed by me. Remainder the time spent in detailed review of previous records, lab data, imaging, and other medical provider documentation.
Anticipated Discharge: 24 - 48 hours
Subjective/Interval History
-
Date of Service: February 11, 2024
Patient had some chest pain earlier this morning. She admits to be very 'anxious'. Weak overall.
Objective Data
-
Labs:
Laboratory Results
02/11/24
07:13
WBC 17.1 H
Hgb 15.5 D
Hct 45.4
Plt Count 356 D
Sodium 142
Potassium 4.6
Chloride 100
Carbon Dioxide 32 H
BUN 24 H
Creatinine 0.6
Glucose 104 H
Calcium 10.1
Vital Signs:
Vital Signs
Temp Pulse Resp BP Pulse Ox
98.1 F 72 18 190/94 93
02/11/24 07:30 02/11/24 08:53 02/11/24 07:30 02/11/24 08:53 02/11/24 07:30
I&O
02/10/24 02/11/24 02/12/24
06:59 06:59 06:59
Intake Total 700 / 700 1080 / 1080
Output Total 1650 / 1650
Balance 700 / 700 -570 / -570
--- NOTE | 2024-02-11 09:45 | PTCARENOTE ---
Patient appears anxious, complaining of chest tightness and shortness of breath. Stated 'I feel like I can't breathe.' SpO2 on RA 93%. Encouraged deep breathing and provided therapeutic support. Notified covering provider. Labs, EKG, Portable Chest
X-Ray and one time Ativan ordered per Dr. Sethi.
[2024-02-11] MEDS: NSS (PRESERVATIVE FREE) 0.25 ML IV (10:13)
[2024-02-11] MEDS: ATIVAN 0.5 MG IV (10:13)
--- NOTE | 2024-02-11 10:15 | CM ---
manager in home reviewed patient's chart and met with patient this am, case technician reviewed patient's physical therapy evaluation, offered to send a referral to [facility] [place] [facility] where patient has been in the past however patient declined. Plan
remains to home with [facility].
Plan; Home with [facility].
[2024-02-11 10:50] LABS: D-Dimer 0.46 ug/mlFEU (0.00-0.50)
[2024-02-11 10:53] LABS: NT-proBNP 838 pg/ml; Troponin I < 0.012 ng/ml
[2024-02-11] MEDS: MIRALAX PO ×2 (11:46→12:00)
[2024-02-11] MEDS: NON-FORMULARY ITEM 10 MG PO ×2 (11:46→20:57)
[2024-02-11] MEDS: SENOKOT-S 1 TABLET PO ×2 (11:46→21:00)
[2024-02-11] MEDS: OCUFLOX BOTH EYES (13:00)
[2024-02-11] MEDS: XANAX 0.25 MG PO (17:32)
[2024-02-12] MEDS: ANCEF 10 IV ×3 (03:01→21:03)
[2024-02-12 07:30] VITALS: BP 185/110
[2024-02-12] MEDS: HEPARIN 5000 UNITS SC ×2 (08:35→21:03)
[2024-02-12] MEDS: SENOKOT-S 1 TABLET PO ×2 (08:35→21:02)
[2024-02-12] MEDS: LYRICA 200 MG PO ×3 (08:35→21:02)
[2024-02-12] MEDS: OXYCONTIN (CONTROLLED RELEASE) 20 MG PO ×3 (08:35→23:25)
[2024-02-12] MEDS: MIRALAX PO (08:38)
[2024-02-12 08:47] LABS: % Basophils 0.2 % (0-2); % Eosinophils 0.2 % (0-6); % Immature Granulocytes 0.4 % (0-0.5); % Lymphocytes 16.4 % (20.5-51.1); % Monocytes 8.5 % (1.7-9.3); % Neutrophils 74.3 % (42.2-75.2); Absolute Immature Granulocytes 0.1 10^3/uL (0-0.05); Absolute Lymphocytes 1.9 10^3/uL (1.2-3.4); Absolute Neutrophils 8.5 10^3/uL (1.4-6.5); Hematocrit 48.4 % (37.0-47.0); Hemoglobin 16.6 g/dL (12.0-16.0); Mean Corp Hgb Conc. 34.3 g/dL (33.0-37.0); Mean Corpuscular Hgb 32.5 pg (27.0-31.0); Mean Corpuscular Volume 94.7 fL (81.0-99.0); Mean Platelet Volume 10.3 fL (7.4-10.4); Nucleated Red Blood Cells % 0 %; Platelet Count 332 10^3/uL (130-400); Red Blood Cell Count 5.11 10^6/uL (4.20-5.40); Red Cell Dist. Width 12.5 % (11.5-14.5); White Blood Cell Count 11.4 10^3/uL (4.8-10.8)
--- NOTE | 2024-02-12 09:15 | W.PN.HOSP.TC ---
Today's Communication/Plan
-
Antibiotics. Antihypertensives.
Assessment / Plan
Assessment / Plan
Gen-AAOx3, in acute distress because of chest discomfort and anxiety
HEENT-NC, AT, anicteric, clear oral mm
Neck-supple
CV-reg, no M, +S1/S2
Lungs-clear B/L
Abd-soft, NT, ND
Ext-RLE edema
Musculoskeletal-no cyanosis, clubbing
Skin-warm and dry, diffuse right lower extremity erythema improving from the knee down to the ankle
Neuro-grossly non-focal
Psych-calm, cooperative
A/P:
Right lower extremity cellulitis - continue cefazolin. Doppler ultrasound negative for DVT. Erythema improving. Will change antibiotics to oral tomorrow. Patient does not want to go to rehab rather on going home.
Atypical Chest pain-chest x-ray normal, BNP decent, D-dimer normal. Troponin normal x2. EKG with some T wave inversion in V2 V3 but normalized V2 after repeat. (seen EKG and interpreted by myself)-->proceed to Echocardiogram and normal echo so no
need further cardiac w/u. Anxiolytics and pain medications as needed.
Elevated blood pressure without diagnosis of hypertension but probable diagnosis of hypertension (probably secondary to steroids or pain)-give 1 dose of IV hydralazine yesterday. Blood pressure elevated again. Today on 02/11 will start her on
amlodipine 5 mg p.o. daily and will add IV hydralazine as needed.
Bilateral lower extremity weakness -differential diagnosis includes MS flare versus other etiology. Perhaps cellulitis is causing a flare of MS. Patient denies back pain. Neurology consult noted.
CT head without contrast shows moderate to severe white matter disease in the parietal lobes and mild periventricular white matter disease in the frontal lobes consistent with demyelinating disease. She was started on IV high doses of steroids
yesterday 02/08 by neurology but today on 02/09 reevaluated by neuro and stopped steroids in light of infection and would not do steroids unless patient has declined.
Multiple sclerosis -has not seen a neurologist in at least 8 months. Neurology following here. Restart dalfampridine today.
Chronic pain syndrome/chronic opiate dependence
Protein/calorie malnutrition -unknown severity. Consult nutrition. BMI 15.9.
Tobacco dependence
Full code
Anticipated Discharge: Within 24 hours
Subjective/Interval History
-
Date of Service: February 12, 2024
Patient does feel better overall but still with erythema on the leg and weakness. Blood pressure going up again.
Objective Data
-
Labs:
Laboratory Results
02/12/24
08:12
WBC 11.4 H
Hgb 16.6 H
Hct 48.4 H
Plt Count 332
Sodium Pending
Potassium Pending
Chloride Pending
Carbon Dioxide Pending
BUN Pending
Creatinine Pending
Glucose Pending
Calcium Pending
Vital Signs:
Vital Signs
Temp Pulse Resp BP Pulse Ox
98.5 F 75 18 185/110 90
02/12/24 07:30 02/12/24 07:30 02/12/24 07:30 02/12/24 07:30 02/12/24 07:30
I&O
02/11/24 02/12/24 02/13/24
06:59 06:59 06:59
Intake Total 1080 / 1080 1080 / 1080
Output Total 1650 / 1650 1950 / 1949
Balance -570 / -570 -870 / -870
[2024-02-12 09:20] LABS: Blood Urea Nitrogen 21 mg/dl (7-17); Calcium 9.7 mg/dl (8.4-10.2); Carbon Dioxide 30 mmol/L (22-30); Chloride 97 mmol/L (98-107); Estimated Creatinine Clearance 67 ml/min; Glucose 85 mg/dl (70-99); Potassium 4.6 mmol/L (3.5-5.1); Sodium 139 mmol/L (135-145); eGFR > 60.00
[2024-02-12] MEDS: NON-FORMULARY ITEM 10 MG PO ×2 (09:20→21:03)
[2024-02-12] MEDS: OCUFLOX 1 DROP BOTH EYES ×4 (09:21→21:04)
[2024-02-12] MEDS: HYDROPHOR 1 APPLIC TOPICAL (09:21)
[2024-02-12] MEDS: ZANAFLEX 4 MG PO (09:25)
--- NOTE | 2024-02-12 09:38 | CM ---
Addendum entered by Francy Holland 02/12/24 13:58:
Patient and spouse are now agreeable to rehab. Options reviewed and patient has selected [facility] and [place] as back up. Physiatry consulted.
Original Note:
Chart reviewed and plan remains for patient to return to home when stable, patient has declined rehab, director of casework reached out to patient's spouse who works from home, possible rehab for patient and he stated that patient will make her own decision
on rehab and if she declines then family will respect her decision. Patient's physician made aware.
Plan; Home with spouse and 2 sons and [facility].
[2024-02-12] MEDS: ROXICODONE 30 MG PO ×2 (11:00→19:10)
[2024-02-12] MEDS: NORVASC 5 MG PO (13:10)
[2024-02-12 13:38] VITALS: BP 155/104; PULSE 67; O2SAT 93
[2024-02-12] MEDS: XANAX 0.25 MG PO (13:50)
[2024-02-12 15:20] VITALS: BP 143/91
[2024-02-12 22:57] VITALS: BP 155/88
[2024-02-13] MEDS: ROXICODONE 30 MG PO ×3 (03:03→20:09)
[2024-02-13] MEDS: ANCEF 10 IV ×2 (03:04→12:11)
[2024-02-13 07:46] LABS: % Basophils 0.3 % (0-2); % Eosinophils 0.3 % (0-6); % Immature Granulocytes 0.6 % (0-0.5); % Lymphocytes 14.6 % (20.5-51.1); % Monocytes 9.3 % (1.7-9.3); % Neutrophils 74.9 % (42.2-75.2); Absolute Immature Granulocytes 0.1 10^3/uL (0-0.05); Absolute Lymphocytes 1.7 10^3/uL (1.2-3.4); Absolute Monocytes 1.1 10^3/uL (0.1-0.6); Absolute Neutrophils 8.9 10^3/uL (1.4-6.5); Hematocrit 46.7 % (37.0-47.0); Hemoglobin 16.2 g/dL (12.0-16.0); Mean Corp Hgb Conc. 34.7 g/dL (33.0-37.0); Mean Corpuscular Hgb 31.6 pg (27.0-31.0); Mean Corpuscular Volume 91.2 fL (81.0-99.0); Mean Platelet Volume 10.3 fL (7.4-10.4); Nucleated Red Blood Cells % 0 %; Platelet Count 373 10^3/uL (130-400); Red Blood Cell Count 5.12 10^6/uL (4.20-5.40); Red Cell Dist. Width 12.4 % (11.5-14.5); White Blood Cell Count 11.9 10^3/uL (4.8-10.8)
[2024-02-13 08:09] VITALS: BP 172/89
[2024-02-13 08:25] LABS: Blood Urea Nitrogen 18 mg/dl (7-17); Calcium 9.8 mg/dl (8.4-10.2); Carbon Dioxide 24 mmol/L (22-30); Chloride 94 mmol/L (98-107); Estimated Creatinine Clearance 67 ml/min; Glucose 97 mg/dl (70-99); Potassium 4.8 mmol/L (3.5-5.1); Sodium 133 mmol/L (135-145); eGFR > 60.00
[2024-02-13] MEDS: LYRICA 200 MG PO ×3 (08:41→21:45)
[2024-02-13] MEDS: OXYCONTIN (CONTROLLED RELEASE) 20 MG PO ×3 (08:42→23:21)
[2024-02-13] MEDS: NORVASC 5 MG PO (08:42)
[2024-02-13] MEDS: ZANAFLEX 4 MG PO (08:42)
[2024-02-13] MEDS: MIRALAX 17 GRAMS PO (08:42)
[2024-02-13] MEDS: SENOKOT-S 1 TABLET PO ×2 (08:42→20:07)
[2024-02-13] MEDS: HEPARIN 5000 UNITS SC ×2 (08:44→20:07)
[2024-02-13] MEDS: NON-FORMULARY ITEM 1 MG PO (08:44)
[2024-02-13] MEDS: HYDROPHOR 1 APPLIC TOPICAL (08:48)
[2024-02-13] MEDS: OCUFLOX 1 DROP BOTH EYES ×4 (08:49→21:43)
--- NOTE | 2024-02-13 08:59 | W.PN.HOSP.TC ---
Today's Communication/Plan
-
Changed to oral antibiotics. Discharge planning
Assessment / Plan
Assessment / Plan
Gen-AAOx3, in acute distress because of chest discomfort and anxiety
HEENT-NC, AT, anicteric, clear oral mm
Neck-supple
CV-reg, no M, +S1/S2
Lungs-clear B/L
Abd-soft, NT, ND
Ext-RLE edema
Musculoskeletal-no cyanosis, clubbing
Skin-warm and dry, diffuse right lower extremity erythema improving from the knee down to the ankle
Neuro-grossly non-focal
Psych-calm, cooperative
A/P:
Right lower extremity cellulitis - continue cefazolin. Doppler ultrasound negative for DVT. Erythema improving. Will change antibiotics to oral today. Patient now agreeable to go to rehab-rehab consulted yesterday.
Atypical Chest pain-chest x-ray normal, BNP decent, D-dimer normal. Troponin normal x2. EKG with some T wave inversion in V2 V3 but normalized V2 after repeat. (seen EKG and interpreted by myself)-->proceed to Echocardiogram and normal echo so no
need further cardiac w/u. Anxiolytics and pain medications as needed.
Elevated blood pressure without diagnosis of hypertension but probable diagnosis of hypertension. Blood pressure elevated again. On 02/11 start her on amlodipine 5 mg p.o. daily and will add IV hydralazine as needed.
Bilateral lower extremity weakness -differential diagnosis includes MS flare versus other etiology. Perhaps cellulitis is causing a flare of MS. Patient denies back pain. Neurology consult noted.
CT head without contrast shows moderate to severe white matter disease in the parietal lobes and mild periventricular white matter disease in the frontal lobes consistent with demyelinating disease. She was started on IV high doses of steroids
yesterday 02/08 by neurology but on 02/09 reevaluated by neuro and stopped steroids in light of infection and would not do steroids unless patient has declined.
Multiple sclerosis -has not seen a neurologist in at least 8 months. Neurology following here. Restart dalfampridine today.
Chronic pain syndrome/chronic opiate dependence
Protein/calorie malnutrition -unknown severity. Consult nutrition. BMI 15.9.
Tobacco dependence
Full code
Anticipated Discharge: Today
Subjective/Interval History
-
Date of Service: February 13, 2024
pte feels better overall, afebrile
Objective Data
-
Labs:
Laboratory Results
02/13/24
06:35
WBC 11.9 H
Hgb 16.2 H
Hct 46.7
Plt Count 373
Sodium 133 L
Potassium 4.8
Chloride 94 L
Carbon Dioxide 24
BUN 18 H
Creatinine 0.5 L
Glucose 97
Calcium 9.8
Vital Signs:
Vital Signs
Temp Pulse Resp BP Pulse Ox
98.5 F 76 19 172/89 92
02/13/24 08:09 02/13/24 08:09 02/13/24 08:09 02/13/24 08:09 02/13/24 08:09
I&O
02/12/24 02/13/24 02/14/24
06:59 06:59 06:59
Intake Total 1080 / 1080 1620 / 1620
Output Total 1950 / 1950 1315 / 1315
Balance -870 / -870 305 / 305
--- NOTE | 2024-02-13 09:22 | CM ---
Addendum entered by Francy Holland 02/13/24 16:05:
Patient was accepted at [facility] tomorrow, Auth submitted to patient's insurance [facility], pending reference number [id number], .
Original Note:
Patient and spouse are now agreeable to rehab, physical therapy are recommending acute rehab. Referrals sent to [place] [facility] and [place] [facility]. Physiatry consult pending. Patient will need Auth from her [facility].
Plan; Referrals sent to [place] [facility], will await physiatry recommendations.
[2024-02-13] MEDS: XANAX 0.25 MG PO (12:26)
[2024-02-13] MEDS: KEFLEX 500 MG PO ×2 (16:07→21:43)
[2024-02-13 16:11] VITALS: BP 105/79
--- NOTE | 2024-02-13 17:25 | CON.MD ---
Documented by User: Dulce Maria Chi PA-C 02/14/24 07:14
Consultation - Medical
-
Referring Provider: Dr. Sethi
Chief Complaint: Ambulatory Dysfunction, MS, Cellulitis
History of Present Illness: 58-year-old female with PMH of (Multiple Sclerosis on Tecfidera. ) presented to the emergency department on 02/06 for evaluation of redness, swelling, warmth, and pain to the right lower extremity for the past 4 -5 days.
Found to have cellulitis of the the right lower extremity that is responding to IV antibiotics. Received IV steroids for a few days that was discontinued. She continues to have weakness of lower extremities more than upper due to relapsing
progressing MS. Patient with Baclofen pump that neuro thinks may not be functioning leading to legs weakness and ambulatory dysfunction.
Past Medical History: MS dx in 1999 on Baclofen pump.
Procedure History: Appendectomy,
Family History: non contributory
Social History:
Functional Level Premorbidly: ambulates with RW, assisted with ADLs
Functional Level Currently: ADLs-Max assist, bed mobility-max assist, transfers- max assist, ambulates 1-2 feet with max assist of 2 ,
Tobacco: smokes
Alcohol: Denies
Drug use: Denies
Lives with: family
24-hour assistance available:
Number of floors: split level
# steps to enter: none, 4 to kitchen and FM
# steps to second floor: 8 steps to bedroom
Potential First floor set up: stays in bedroom most of time, second floor
Driving: no
Occupation: unemployed
Allergies:
Allergy/AdvReac Type Severity Reaction Status Date / Time
carbamazepine [From Tegretol] Allergy Unknown Verified 10/23/22 08:42
fentanyl Allergy Unknown Verified 10/23/22 08:42
fingolimod [From Gilenya] Allergy Unknown Verified 10/23/22 08:42
morphine Allergy Unknown Verified 10/23/22 08:42
natalizumab [From Tysabri] Allergy Unknown Verified 10/23/22 08:42
topiramate [From Topamax] Allergy Unknown Verified 10/23/22 08:42
Review of Systems:
Constitutional: (x) Normal _
Eye: (x) Normal _
Ear/Nose/Throat: (x) Normal _
Respiratory: (x) Normal _
Cardiovascular: (x) Normal _
Gastrointestinal: (x) Normal _
Genitourinary: (x) Normal _
Musculoskeletal: (x) legs weakness, spasticity
Integumentary: (x) cellulitis
Neurologic: (x) MS
Psychiatric: (x) Normal _
Endocrine: (x) Normal _
Hematologic/Lymphatic: (x) Normal _
Allergic/Immunologic: (x) Normal _
Medications:
Active Current Visit Medication List
Category Date Time Status
Alprazolam [Xanax] Med 02/11/24 11:01 Active
0.25 mg PO Q8HPRN PRN
Amlodipine [Norvasc] Med 02/12/24 12:00 Active
5 mg PO DAILY
Cephalexin Monohydrate [Keflex] Med 02/13/24 18:00 Active
500 mg PO QID
Dalfampiridine Med 02/11/24 11:00 Active
See Dose Instructions PO BID
Docusate W/Senna [Senokot-S] Med 02/11/24 12:00 Active
1 tablet PO BID
Flush (0.9% Sodium Chloride) [Flush (Nss)] Med 02/09/24 18:00 Active
See Dose Instructions IV PER PROTOCOL
Heparin Med 02/08/24 12:00 Active
5,000 units SC Q12
HydrALAZINE [Apresoline] Med 02/12/24 11:37 Active
10 mg IV Q6HPRN PRN
Ofloxacin [Ocuflox] Med 02/07/24 22:12 Active
See Dose Instructions BOTH EYES QID
Oxycodone Controlled Release [Oxycontin (Controlled Med 02/08/24 00:00 Active
Release)]
20 mg PO Q8
Oxycodone [Roxicodone] Med 02/07/24 22:14 Active
30 mg PO Q4HPRN PRN
Oxymetazoline HCl [Afrin Nasal [place]] Med 02/08/24 01:03 Active
See Dose Instructions NASAL TIDPRN PRN
Petrolatum/Mineral Oil [Hydrophor] Med 02/11/24 08:00 Active
See Dose Instructions TOPICAL DAILY
Polyethylene Glycol Powder [Miralax] Med 02/11/24 12:00 Active
17 grams PO DAILY
Pregabalin [Lyrica] Med 02/10/24 08:23 Active
200 mg PO TID
Tizanidine [Zanaflex] Med 02/08/24 00:15 Active
4 mg PO Q8HPRN PRN
Vitals:
Temp Pulse Resp BP Pulse Ox
98.4 F 80 18 141/86 95
02/13/24 23:47 02/13/24 23:47 02/13/24 23:47 02/13/24 23:47 02/13/24 23:47
Height 5 ft 3 in
Actual Weight 40.823 kg
Body Mass Index (BMI) 15.9
Physical Exam:
General Appearance/Observation: thin individual in no apparent distress.
Pain/Comfort Assessment: Denies
Mood/Affect: Appropriate
Integumentary/Operative Site:
Pressure Ulcer Evaluation: absent over heels.
Eyes: Conjunctiva/Lids: normal Pupils: pupils equal round and reactive to light and Accommodation
Ears/Nose/Throat: oral mucosa moist, throat clear. Lips/Teeth/Gums: normal
Neck: No muscle spasm or tenderness
Cardiovascular: Heart: regular, no murmur
Pulses: dorsalis pedis 2+ bilaterally
Respiratory: Respiratory Effort/Chest Expansion: normal Auscultation: Clear to auscultation bilaterally
Gastrointestinal: abdomen not tender, no distension, normal abdominal bowel sounds
Genitourinary: No Eckert
Extremities: Edema: None Cyanosis: None Trophic changes: None
Neurology Exam:
Orientation: Alert, Oriented to self, Time, Place
Memory: Intact for immediate medical concerns
Comprehension: Intact
Two step command: Intact
Naming: Intact
Cranial Nerves:
CNII: Pupillary light reflex: Intact Visual Field: Intact
CN III, IV, : Extraocular muscles: Intact
CN V: Facial Sensation at Forehead: Intact, Maxilla: Intact, Mandible: Intact
CN VII: Facial movement: Symmetric
CN VIII: Hearing: Normal
CN IX/X: Speech & swallow: Normal, Position of Uvula: Midline
CN XI: Shoulder shrug: Symmetric
CN XII: Tongue protrusion: Midline
Sensory:
Light touch: hypoesthesia in bilateral upper and lower extremities
Reflexes:
Biceps: trace bilaterally
Brachioradialis: trace bilaterally
Triceps: trace bilaterally
Patellar: trace bilaterally
Achilles: trace bilaterally
Babinski: up going bilaterally
Shaquille: Negative bilaterally
Cerebellar: Dysmetria/Ataxia: NT
Musculoskeletal:
Motor: (Manual muscle scale 0-5)
Muscle: bilateral upper extremities- 4/5 bilaterally, HF: 2/5, KE:2/5, DF:0/5, PF:1+/5
Tone: increased
Range of Motion: Passively diminished in all extremities
Lab Results:
Labs
WBC 11.9 10^3/uL (4.8-10.8) H 02/12/ 06:35
RBC 5.12 10^6/uL (4.20-5.40) 02/13/24 06:35
Hgb 16.2 g/dL (12.0-16.0) H 02/13/24 06:35
Hct 46.7 % (37.0-47.0) 02/13/24 06:35
MCV 91.2 fL (81.0-99.0) 02/13/24 06:35
MCH 31.6 pg (27.0-31.0) H 02/13/24 06:35
MCHC 34.7 g/dL (33.0-37.0) 02/13/24 06:35
RDW 12.4 % (11.5-14.5) 02/13/24 06:35
Plt Count 373 10^3/uL (130-400) 02/13/24 06:35
MPV 10.3 fL (7.4-10.4) 02/13/24 06:35
Abs Immat Gran (auto) 0.1 10^3/uL (0-0.05) H 02/13/24 06:35
Absolute Neuts (auto) 8.9 10^3/uL (1.4-6.5) H 02/13/24 06:35
Absolute Lymphs (auto) 1.7 10^3/uL (1.2-3.4) 02/13/24 06:35
Absolute Monos (auto) 1.1 10^3/uL (0.1-0.6) H 02/13/24 06:35
Absolute Eos (auto) 0.0 10^3/uL (0-0.7) 02/13/24 06:35
Absolute Basos (auto) 0.0 10^3/uL (0-0.2) 02/13/24 06:35
Immature Gran % 0.6 % (0-0.5) H 02/13/24 06:35
Neutrophils % 74.9 % (42.2-75.2) 02/13/24 06:35
Lymphocytes % 14.6 % (20.5-51.1) L 02/13/24 06:35
Monocytes % 9.3 % (1.7-9.3) 02/13/24 06:35
Eosinophils % 0.3 % (0-6) 02/13/24 06:35
Basophils % 0.3 % (0-2) 02/13/24 06:35
Nucleated RBC % 0 % 02/13/24 06:35
D-Dimer 0.46 ug/mlFEU (0.00-0.50) 02/11/24 10:11
Sodium 133 mmol/L (135-145) L 02/13/24 06:35
Potassium 4.8 mmol/L (3.5-5.1) 02/13/24 06:35
Chloride 94 mmol/L (98-107) L 02/13/24 06:35
Carbon Dioxide 24 mmol/L (22-30) 02/13/24 06:35
BUN 18 mg/dl (7-17) H 02/13/24 06:35
Creatinine 0.5 mg/dL (0.6-1.0) L 02/13/24 06:35
Estimated Creat Clear 67 ml/min 02/13/24 06:35
eGFR > 60.00 02/13/24 06:35
Glucose 97 mg/dl (70-99) 02/13/24 06:35
Calcium 9.8 mg/dl (8.4-10.2) 02/13/24 06:35
Ferritin 168.0 ng/ml (11.1-264.0) 02/10/24 10:27
Total Bilirubin 0.3 mg/dl (0.2-1.3) 02/07/24 19:53
AST 16 U/L (14-36) 02/07/24 19:53
ALT 14 U/L (0-35) 02/07/24 19:53
Alkaline Phosphatase 106 U/L (38-126) 02/07/24 19:53
Troponin I Cancelled 02/11/24 16:00
Lrl-Y-[id number] Pept 838 pg/ml 02/11/24 10:15
Total Protein 6.3 g/dl (6.3-8.2) 02/07/24 19:53
Albumin 3.9 g/dl (3.5-5.0) 02/07/24 19:53
Vitamin B12 549 pg/ml (239-931) 02/10/24 10:27
Vitamin D 25-Hydroxy 34.0 ng/mL (30-80) 02/10/24 10:27
Folate > 20.0 ng/ml (2.76-20) H 02/10/24 10:27
TSH (Reflex) 0.12 uIU/ml (0.47-4.68) L 02/10/24 10:
Free T4 1.07 ng/dl (0.78-2.19) 02/10/24 10:27
Diagnostic Results: as per HPI
Assessment: 58 yr. old with bilateral legs weakness associated with MS who has right leg cellulitis responding to Cefazolin
Plan
PT/OT to increase independence with ADLs, improve balance, coordination, endurance, strength, mobility, community reintegration, decreased burden of care on others and family education.
Right lower extremity cellulitis - continue cefazolin. Doppler ultrasound negative for DVT. Erythema improving. Will change antibiotics to oral today. Patient now agreeable to go to rehab-rehab consulted yesterday.
Multiple sclerosis -has not seen a neurologist in at least 8 months. Restart dalfampridine
Bilateral lower extremity weakness/ambulatory dysfunction -differential diagnosis includes MS flare versus other etiology. Perhaps cellulitis is causing a flare of MS. Patient denies back pain. Neurology consult noted.
CT head without contrast shows moderate to severe white matter disease in the parietal lobes and mild periventricular white matter disease in the frontal lobes consistent with demyelinating disease. She was started on IV high doses of steroids
yesterday 02/08 by neurology but on 02/09 reevaluated by neuro and stopped steroids in light of infection and would not do steroids unless patient has declined.
Atypical Chest pain-chest x-ray normal, BNP decent, D-dimer normal. Troponin normal x2. EKG with some T wave inversion in V2 V3 but normalized V2 after repeat. (seen EKG and interpreted by myself)-->proceed to Echocardiogram and normal echo so no
need further cardiac w/u. Anxiolytics and pain medications as needed.
Elevated blood pressure without diagnosis of hypertension 02/11 started on amlodipine 5 mg p.o. daily and IV hydralazine as needed.
Chronic pain syndrome: chronic opiate dependence, oxycodone, Lyrica, tizanidine
Protein/calorie malnutrition -. Consult nutrition. BMI 15.9.
Spasticity: Tizanidine. Has baclofen pump- not functional? Adjust medications as needed. Continue range of motion exercises and stretching program.
Psych/anxiety: Psychology consult. Monitor mood, adjust medications as needed.
Skin: monitor for pressure sores/rashes/lesions.
Bowel: Colace and Senna, PRN bisacodyl.
Bladder: Time void, PVRs, PRN straight cath.
GI Prophylaxis: consider adding Pantoprazole
DVT Prophylaxis: Heparin sc
Pulmonary: Incentive spirometry
Safety: Continue to reinforce assistance with all transfers.
Code Status: Full code
Dispo (date/plan/equipment needs): Home with family care. Social history reviewed.
Functional and Medical Goals: Modified Independent with ADL�s, ambulation, transfers
Discharge Destination: Acute Inpatient rehabilitation at [facility]. Patient known to facility.
Summary of recommendations: Acute inpatient rehabilitation at [facility] for diagnostic evaluation and management of baclofen pump therefore improving spasticity, increased tone that is affecting ambulation and PT/OT to increase independence with
ADLs, improve balance, coordination, endurance, strength, mobility back to baseline and functionality.
Bilateral lower extremity weakness/ambulatory dysfunction/MS -differential diagnosis includes MS flare versus other etiology. Perhaps cellulitis is causing a flare of MS. Patient denies back pain. Neurology consult noted.
CT head without contrast shows moderate to severe white matter disease in the parietal lobes and mild periventricular white matter disease in the frontal lobes consistent with demyelinating disease. She was started on IV high doses of steroids
yesterday 02/08 by neurology but on 02/09 reevaluated by neuro and stopped steroids in light of infection and would not do steroids unless patient has declined.
Right lower extremity cellulitis - continue cefazolin.
Skin: monitor for pressure sores/rashes/lesions. Treat accordingly. Would recommend bilateral multi podus boots in patient with immobility to prevent pressure sores.
Bowel: Colace and Senna, PRN bisacodyl.
Bladder: Time void, PVRs, PRN straight cath.
GI Prophylaxis: consider adding Pantoprazole
DVT Prophylaxis: Heparin sc
Pulmonary: Incentive spirometry
Safety: Continue to reinforce assistance with all transfers.
Code Status: Full code
Thank you for allowing me to care for your patient. Please contact me with any questions or concerns.

Documented by User: Pito Ellsworth MD 02/14/24 10:56
Consultation - Medical
-
Referring Provider: Dr. Sethi
Chief Complaint: Ambulatory Dysfunction, MS, Cellulitis
History of Present Illness: 58-year-old female with PMH of (Multiple Sclerosis on T[place]. ) presented to the emergency department on 02/06 for evaluation of redness, swelling, warmth, and pain to the right lower extremity for the past 4 -5 days.
Found to have cellulitis of the the right lower extremity that is responding to IV antibiotics. Received IV steroids for a few days that was discontinued. She continues to have weakness of lower extremities more than upper due to relapsing
progressing MS. Patient with Baclofen pump that neuro thinks may not be functioning leading to legs weakness and ambulatory dysfunction.
Past Medical History: MS dx in 1999 on Baclofen pump.
Procedure History: Appendectomy,
Family History: non contributory
Social History:
Functional Level Premorbidly: ambulates with RW, assisted with ADLs
Functional Level Currently: ADLs-Max assist, bed mobility-max assist, transfers- max assist, ambulates 1-2 feet with max assist of 2 ,
Tobacco: smokes
Alcohol: Denies
Drug use: Denies
Lives with: family
24-hour assistance available: Yes
Number of floors: split level
# steps to enter: none, 4 to kitchen and FM
# steps to second floor: 8 steps to bedroom
Potential First floor set up: stays in bedroom most of time, second floor
Driving: no
Occupation: unemployed
Allergies:
Allergy/AdvReac Type Severity Reaction Status Date / Time
carbamazepine [From Tegretol] Allergy Unknown Verified 10/23/22 08:42
fentanyl Allergy Unknown Verified 10/23/22 08:42
fingolimod [From Gilenya] Allergy Unknown Verified 10/23/22 08:42
morphine Allergy Unknown Verified 10/23/22 08:42
natalizumab [From Tysabri] Allergy Unknown Verified 10/23/22 08:42
topiramate [From Topamax] Allergy Unknown Verified 10/23/22 08:42
Review of Systems:
Constitutional: (x) abNormal _fatigue
Eye: (x) Normal _
Ear/Nose/Throat: (x) Normal _
Respiratory: (x) Normal _
Cardiovascular: (x) Normal _
Gastrointestinal: (x) Normal _
Genitourinary: (x) Normal _
Musculoskeletal: (x) legs weakness, spasticity
Integumentary: (x) cellulitis
Neurologic: (x) MS
Psychiatric: (x) Normal _
Endocrine: (x) Normal _
Hematologic/Lymphatic: (x) Normal _
Allergic/Immunologic: (x) Normal _
Medications:
Active Current Visit Medication List
Category Date Time Status
Alprazolam [Xanax] Med 02/11/24 11:01 Active
0.25 mg PO Q8HPRN PRN
Amlodipine [Norvasc] Med 02/12/24 12:00 Active
5 mg PO DAILY
Cephalexin Monohydrate [Keflex] Med 02/13/24 18:00 Active
500 mg PO QID
Dalfampiridine Med 02/11/24 11:00 Active
See Dose Instructions PO BID
Docusate W/Senna [Senokot-S] Med 02/11/24 12:00 Active
1 tablet PO BID
Flush (0.9% Sodium Chloride) [Flush (Nss)] Med 02/09/24 18:00 Active
See Dose Instructions IV PER PROTOCOL
Heparin Med 02/08/24 12:00 Active
5,000 units SC Q12
HydrALAZINE [Apresoline] Med 02/12/24 11:37 Active
10 mg IV Q6HPRN PRN
Ofloxacin [Ocuflox] Med 02/07/24 22:12 Active
See Dose Instructions BOTH EYES QID
Oxycodone Controlled Release [Oxycontin (Controlled Med 02/08/24 00:00 Active
Release)]
20 mg PO Q8
Oxycodone [Roxicodone] Med 02/07/24 22:14 Active
30 mg PO Q4HPRN PRN
Oxymetazoline HCl [Afrin Nasal [place]] Med 02/08/24 01:03 Active
See Dose Instructions NASAL TIDPRN PRN
Petrolatum/Mineral Oil [Hydrophor] Med 02/11/24 08:00 Active
See Dose Instructions TOPICAL DAILY
Polyethylene Glycol Powder [Miralax] Med 02/11/24 12:00 Active
17 grams PO DAILY
Pregabalin [Lyrica] Med 02/10/24 08:23 Active
200 mg PO TID
Tizanidine [Zanaflex] Med 02/08/24 00:15 Active
4 mg PO Q8HPRN PRN
Vitals:
Temp Pulse Resp BP Pulse Ox
98.4 F 80 18 141/86 95
02/13/24 23:47 02/13/24 23:47 02/13/24 23:47 02/13/24 23:47 02/13/24 23:47
Height 5 ft 3 in
Actual Weight 40.823 kg
Body Mass Index (BMI) 15.9
Physical Exam:
General Appearance/Observation: thin female in no apparent distress.
Pain/Comfort Assessment: Denies
Mood/Affect: Appropriate
Integumentary/Operative Site:
Pressure Ulcer Evaluation: absent over heels.
Eyes: Conjunctiva/Lids: normal Pupils: pupils equal round and reactive to light and Accommodation
Ears/Nose/Throat: oral mucosa moist, throat clear. Lips/Teeth/Gums: normal
Neck: No muscle spasm or tenderness
Cardiovascular: Heart: regular, no murmur
Pulses: dorsalis pedis 2+ bilaterally
Respiratory: Respiratory Effort/Chest Expansion: normal Auscultation: Clear to auscultation bilaterally
Gastrointestinal: abdomen not tender, no distension, normal abdominal bowel sounds
Genitourinary: No Eckert
Extremities: Edema: None Cyanosis: None Trophic changes: None
Neurology Exam:
Orientation: Alert, Oriented to self, Time, Place
Memory: Intact for immediate medical concerns
Comprehension: Intact
Two step command: Intact
Naming: Intact
Cranial Nerves:
CNII: Pupillary light reflex: Intact Visual Field: Intact
CN III, IV, : Extraocular muscles: Intact
CN V: Facial Sensation at Forehead: Intact, Maxilla: Intact, Mandible: Intact
CN VII: Facial movement: Symmetric
CN VIII: Hearing: Normal
CN IX/X: Speech & swallow: Normal, Position of Uvula: Midline
CN XI: Shoulder shrug: Symmetric
CN XII: Tongue protrusion: Midline
Sensory:
Light touch: hypoesthesia in bilateral upper and lower extremities
Reflexes:
Biceps: 0 bilaterally
Brachioradialis: 0 bilaterally
Triceps: 0 bilaterally
Patellar: 0 bilaterally
Achilles: 0 bilaterally
Babinski: up going bilaterally
Shaquille: Negative bilaterally
Cerebellar: Dysmetria/Ataxia: Not tested
Musculoskeletal:
Motor: (Manual muscle scale 0-5)
Muscle: bilateral upper extremities- 4/5 bilaterally, HF: 2/5, KE:2/5, DF:1/5, PF:1/5
Tone: increased in lower extremities
Range of Motion: Passively diminished in all extremities
Lab Results:
Labs
WBC 11.9 10^3/uL (4.8-10.8) H 02/13/24 06:35
RBC 5.12 10^6/uL (4.20-5.40) 02/13/24 06:35
Hgb 16.2 g/dL (12.0-16.0) H 02/13/24 06:35
Hct 46.7 % (37.0-47.0) 02/13/24 06:35
MCV 91.2 fL (81.0-99.0) 02/13/24 06:35
MCH 31.6 pg (27.0-31.0) H 02/13/24 06:35
MCHC 34.7 g/dL (33.0-37.0) 02/13/24 06:35
RDW 12.4 % (11.5-14.5) 02/13/24 06:35
Plt Count 373 10^3/uL (130-400) 02/13/24 06:35
MPV 10.3 fL (7.4-10.4) 02/13/24 06:35
Abs Immat Gran (auto) 0.1 10^3/uL (0-0.05) H 02/13/24 06:35
Absolute Neuts (auto) 8.9 10^3/uL (1.4-6.5) H 02/13/24 06:35
Absolute Lymphs (auto) 1.7 10^3/uL (1.2-3.4) 02/13/24 06:35
Absolute Monos (auto) 1.1 10^3/uL (0.1-0.6) H 02/13/24 06:35
Absolute Eos (auto) 0.0 10^3/uL (0-0.7) 02/13/24 06:35
Absolute Basos (auto) 0.0 10^3/uL (0-0.2) 02/13/24 06:35
Immature Gran % 0.6 % (0-0.5) H 02/13/24 06:35
Neutrophils % 74.9 % (42.2-75.2) 02/13/24 06:35
Lymphocytes % 14.6 % (20.5-51.1) L 02/13/24 06:35
Monocytes % 9.3 % (1.7-9.3) 02/13/24 06:35
Eosinophils % 0.3 % (0-6) 02/13/24 06:35
Basophils % 0.3 % (0-2) 02/13/24 06:35
Nucleated RBC % 0 % 02/13/24 06:35
D-Dimer 0.46 ug/mlFEU (0.00-0.50) 02/11/24 10:11
Sodium 133 mmol/L (135-145) L 02/13/24 06:35
Potassium 4.8 mmol/L (3.5-5.1) 02/13/24 06:35
Chloride 94 mmol/L (98-107) L 02/13/24 06:35
Carbon Dioxide 24 mmol/L (22-30) 02/13/24 06:35
BUN 18 mg/dl (7-17) H 02/13/24 06:35
Creatinine 0.5 mg/dL (0.6-1.0) L 02/13/24 06:35
Estimated Creat Clear 67 ml/min 02/13/24 06:35
eGFR > 60.00 02/13/24 06:35
Glucose 97 mg/dl (70-99) 02/13/24 06:35
Calcium 9.8 mg/dl (8.4-10.2) 02/13/24 06:35
Ferritin 168.0 ng/ml (11.1-264.0) 02/10/24 10:27
Total Bilirubin 0.3 mg/dl (0.2-1.3) 02/07/24 19:53
AST 16 U/L (14-36) 02/07/24 19:53
ALT 14 U/L (0-35) 02/07/24 19:53
Alkaline Phosphatase 106 U/L (38-126) 02/07/24 19:53
Troponin I Cancelled 02/11/24 16:00
Yjw-D-Jbxwvwcabpj Pept 838 pg/ml 02/11/24 10:15
Total Protein 6.3 g/dl (6.3-8.2) 02/07/24 19:53
Albumin 3.9 g/dl (3.5-5.0) 02/07/24 19:53
Vitamin B12 549 pg/ml (239-931) 02/10/24 10:27
Vitamin D 25-Hydroxy 34.0 ng/mL (30-80) 02/10/24 10:27
Folate > 20.0 ng/ml (2.76-20) H 02/10/24 10:27
TSH (Reflex) 0.12 uIU/ml (0.47-4.68) L 02/10/24 10:27
Free T4 1.07 ng/dl (0.78-2.19) 02/10/24 10:27
Diagnostic Results: as per HPI
Assessment: 58 yr. old F with bilateral legs weakness associated with worsening MS, who has right leg cellulitis responding to Cefazolin and resulting in worsening ADL/Ambulatory dysfunction.
Plan
PT/OT to increase independence with ADLs, improve balance, coordination, endurance, strength, mobility, community reintegration, decreased burden of care on others and family education.
Right lower extremity cellulitis - continue cefazolin. Doppler ultrasound negative for DVT. Erythema improving. Will change antibiotics to oral today. Patient now agreeable to go to rehab-rehab consulted yesterday.
Multiple sclerosis exacerbation/progression-has not seen a neurologist in at least 8 months. Restart dalfampridine.
-Bilateral lower extremity weakness/ambulatory dysfunction -MS exacerbation versus cellulitis causing worsening of MS symptoms. Patient denies back pain. Neurology consult noted.
CT head without contrast shows moderate to severe white matter disease in the parietal lobes and mild periventricular white matter disease in the frontal lobes consistent with demyelinating disease. She was started on IV high doses of steroids
yesterday 02/08 by neurology but on 02/09 reevaluated by neuro and stopped steroids in light of infection and would not do steroids unless patient has declined.
Atypical Chest pain-chest x-ray normal, BNP decent, D-dimer normal. Troponin normal x2. EKG with some T wave inversion in V2 V3 but normalized V2 after repeat. (seen EKG and interpreted by myself)-->proceed to Echocardiogram and normal echo so no
need further cardiac w/u. Anxiolytics and pain medications as needed.
Elevated blood pressure without diagnosis of hypertension 02/11 started on amlodipine 5 mg p.o. daily stop IV hydralazine and make PO PRN if still needed.
Chronic pain syndrome: chronic opiate dependence, oxycodone, Lyrica, tizanidine
Protein/calorie malnutrition - Consult nutrition. BMI 15.9.
Spasticity: Tizanidine. Has baclofen pump- Needs refill next week as discussed with Dr. Woods's office. Continue range of motion exercises and stretching program.
Psych/anxiety: Psychology consult. Monitor mood, adjust medications as needed.
Skin: monitor for pressure sores/rashes/lesions.
Bowel: Colace and Senna, PRN bisacodyl.
Bladder: Time void, PVRs, PRN straight cath.
GI Prophylaxis: consider adding Pantoprazole
DVT Prophylaxis: mechanical, Heparin
Pulmonary: Incentive spirometry
Safety: Continue to reinforce assistance with all transfers.
Code Status: Full code
Dispo (date/plan/equipment needs): Acute inpatient rehabilitation. Social history reviewed.
Functional and Medical Goals: Resume to baseline wheelchair user with Mod I for transfers and ADL's.
Discharge Destination: Acute Inpatient rehabilitation at [facility]. Patient known to facility.
Summary of recommendations: Acute inpatient rehabilitation at [facility] for diagnostic evaluation and management of baclofen pump therefore improving spasticity, increased tone that is affecting ambulation and PT/OT to increase independence with
ADLs, improve balance, coordination, endurance, strength, mobility back to baseline and functionality.
Right lower extremity cellulitis - antibiotics per ID.
Multiple sclerosis exacerbation/progression-has not seen a neurologist in at least 8 months. Restart dalfampridine.
-She was started on IV high doses of steroids yesterday 02/08 by neurology but on 02/09 reevaluated by neuro and stopped steroids in light of infection and would not do steroids unless patient has declined.
Atypical Chest pain-Anxiolytics and pain medications as needed.
Elevated blood pressure without diagnosis of hypertension 02/11 started on amlodipine 5 mg p.o. daily stop IV hydralazine and make PO PRN if still needed.
Chronic pain syndrome: chronic opiate dependence, oxycodone, Lyrica, tizanidine
Protein/calorie malnutrition - Consult nutrition.
Spasticity: Tizanidine. Has baclofen pump- Needs refill next week as discussed with Dr. Woods's office. Continue range of motion exercises and stretching program.
Psych/anxiety: Psychology consult.
Bowel: Colace and Senna, PRN bisacodyl.
Bladder: Time void, PVRs, PRN straight cath.
GI Prophylaxis: consider adding Pantoprazole
Thank you for allowing me to care for your patient. Please contact me with any questions or concerns.
Attending Statement:
I saw and examined the patient 02/14/24, late entry.� Reviewed care plan with patient, therapy, nursing, and physician assistant auditor.� I agree with the above subjective and physical exam, and plan as documented by WALTER Chi with adjustments made as
necessary.
A total of 60 minutes were spent with the patient preparing for the evaluation, obtaining history, performing examination and evaluation, counseling, data review, case management, care coordination, back order clerk, and EMR documentation.
[2024-02-13] MEDS: NON-FORMULARY ITEM 10 MG PO (20:08)
[2024-02-13 23:47] VITALS: BP 141/86
[2024-02-14 07:00] VITALS: BP 157/88
[2024-02-14] MEDS: LYRICA 200 MG PO (07:34)
[2024-02-14] MEDS: MIRALAX 17 GRAMS PO (07:34)
[2024-02-14] MEDS: OXYCONTIN (CONTROLLED RELEASE) 20 MG PO (07:34)
[2024-02-14] MEDS: SENOKOT-S 1 TABLET PO (07:35)
[2024-02-14] MEDS: HEPARIN 5000 UNITS SC (07:35)
[2024-02-14] MEDS: KEFLEX 500 MG PO ×2 (07:35→13:11)
[2024-02-14] MEDS: NORVASC 5 MG PO (07:39)
[2024-02-14] MEDS: HYDROPHOR 1 APPLIC TOPICAL (07:39)
[2024-02-14] MEDS: OCUFLOX 1 DROP BOTH EYES ×2 (07:40→13:12)
[2024-02-14] MEDS: NON-FORMULARY ITEM 10 MG PO (07:41)
--- NOTE | 2024-02-14 09:07 | W.PN.HOSP.TC ---
Today's Communication/Plan
-
Discharge planning
Assessment / Plan
Assessment / Plan
Gen-AAOx3, no acute distress
HEENT-NC, AT, anicteric, clear oral mm
Neck-supple
CV-reg, no M, +S1/S2
Lungs-clear B/L
Abd-soft, NT, ND
Ext-RLE edema
Musculoskeletal-no cyanosis, clubbing
Skin-warm and dry, cellulitis improved
Neuro-grossly non-focal
Psych-calm, cooperative
A/P:
Right lower extremity cellulitis - continue cefazolin. Doppler ultrasound negative for DVT. Erythema improving. Already changed antibiotics to oral on 02/12. Patient now agreeable to go to rehab-rehab consulted on 02/11. Planning to discharge
today.
Atypical Chest pain-chest x-ray normal, BNP decent, D-dimer normal. Troponin normal x2. EKG with some T wave inversion in V2 V3 but normalized V2 after repeat. (seen EKG and interpreted by myself)-->proceed to Echocardiogram and normal echo so no
need further cardiac w/u. Anxiolytics and pain medications as needed.
Elevated blood pressure without diagnosis of hypertension but probable diagnosis of hypertension. Blood pressure elevated again. On 02/11 start her on amlodipine 5 mg p.o. daily and will add IV hydralazine as needed.
Bilateral lower extremity weakness -differential diagnosis includes MS flare versus other etiology. Perhaps cellulitis is causing a flare of MS. Patient denies back pain. Neurology consult noted.
CT head without contrast shows moderate to severe white matter disease in the parietal lobes and mild periventricular white matter disease in the frontal lobes consistent with demyelinating disease. She was started on IV high doses of steroids
yesterday 02/08 by neurology but on 02/09 reevaluated by neuro and stopped steroids in light of infection and would not do steroids unless patient has declined.
Multiple sclerosis -has not seen a neurologist in at least 8 months. Neurology following here. Restart dalfampridine today.
Chronic pain syndrome/chronic opiate dependence
Protein/calorie malnutrition -unknown severity. Consult nutrition. BMI 15.9.
Tobacco dependence
Full code
Anticipated Discharge: Today
Subjective/Interval History
-
Date of Service: February 14, 2024
No new complaints.
Objective Data
-
Vital Signs:
Vital Signs
Temp Pulse Resp BP Pulse Ox
98.4 F 83 18 157/88 95
02/13/24 23:47 02/14/24 07:39 02/13/24 23:47 02/14/24 07:39 02/13/24 23:47
I&O
02/13/24 02/14/24 02/15/24
06:59 06:59 06:59
Intake Total 1620 / 1620 480 / 480
Output Total 1315 / 1315 300 / 300
Balance 305 / 305 180 / 180
[2024-02-14] MEDS: ROXICODONE 30 MG PO ×2 (09:33→13:41)
--- NOTE | 2024-02-14 09:40 | W.DCSUMMARY ---
Discharge Summary
Discharge Data
Date of Admission: 02/08/24
Date of Discharge: 02/14/24
-
Pending Results: No
Hospital Course
58 years old female history of multiple sclerosis presented to the hospital with redness swelling warmth and pain on the right lower extremity. She was found to have right lower extremity cellulitis and started on IV antibiotics. Her infection
improved and she was able to be switched to oral antibiotics. She has some worsening weakness and neurology was consulted. Initially started on IV steroids high doses but then subsequently discontinued after neurology reevaluated the patient. Her
baclofen pump has not been refilled and that might be also causing some of the issues. Otherwise, patient is hemodynamically stable and afebrile. She is determined to be a good candidate for acute rehab and physiatry is evaluated the patient. She
is going to be discharged in relatively stable condition today for further rehabilitation.
Discharge duration: 35 minutes
Discharge Plan
-
Patient Disposition: Acute Rehab Facility
Discharge Diagnosis/Procedures: Right lower extremity cellulitis. Chronic pain syndrome with chronic opiate dependence and a baclofen pump. Moderate protein calorie malnutrition. Multiple sclerosis. Anxiety. Hypertension.
Diet: Low Cholesterol and 2 Gram Sodium
Activity: As tolerated
Blood Work: Please PCP to order CBC, BMP within 1 week
Activity Restrictions/Additional Instructions:
Wound Care Instructions
R thumb and 4th finger: clean with soap and water, Mineral oil daily
follow up with gear machine operator general for toe nail trimming
leg elevation when sitting
Air chair cushion when sitting, can take upon discharge.
Referrals:
Chel Oneill CRNP [Family Provider] - in less than 1 week
Adrian Hoffman MD [Active] - in two to four weeks
Prescriptions:
New
cephalexin 500 mg Capsule
500 mg PO QID 5 Days Qty: 20 0RF
polyethylene glycol 3350 [HealthyLax] 17 gram Powder In Packet
17 g PO DAILY Qty: 14 0RF
amlodipine 5 mg Tablet
5 mg PO DAILY Qty: 30 0RF
alprazolam 0.25 mg Tablet
0.25 mg PO Q8HPRN PRN (Reason: anxiety) Qty: 14 0RF
Continued
ofloxacin 0.3 % Drops
1 drp BOTH EYES QID
tizanidine 4 mg Tablet
4 mg PO Q8H
gabapentin 400 mg Capsule
800 mg PO QID
oxycodone 30 mg Tablet
30 mg PO Q4HPRN PRN (Reason: severe pain)
Patient Comments:
02/07/24: last filled 02/06/24 for 180 tablets over 30 days
ibuprofen 600 mg Tablet
600 mg PO Q6HPRN PRN (Reason: mild pain)
Afrin (oxymetazoline) 0.05 % Mist
2 spray INTRANASAL TIDPRN PRN (Reason: congestion)
pregabalin 100 mg Capsule
100 mg PO TID
dalfampridine 10 mg Tablet Extended Release 12 Hr
10 mg PO Q12H
oxycodone [OxyContin] 20 mg Tablet,Oral Only,Ext.Rel.12 Hr
20 mg PO Q8H
Patient Comments:
02/07/24: last filled 02/06/24 for 90 tablets over 30 days
Discharge Orders:
Discharge Patient (As Directed); Ordered 02/14/24
Ordered By: Hernán Sethi
Discharge Date and Time
Discharge Date/Time: 02/14/24 15:41
Print Language: OMANI
[2024-02-14] MEDS: AFLURIA (36 mos+) 2024-2025 FORMULA 0.5 ML IM (10:42)
--- NOTE | 2024-02-14 11:35 | CM ---
Addendum entered by Francy Holland 02/14/24 12:04:
Auth [id number]
Original Note:
Patient has been approved for [facility] at [place] and per admissions at [facility] they have a bed for patient today, Auth received from [facility] for 10 days acute rehab 02/14/24-02/24/24, from [place], patient and spouse
are aware of plan, ambulance has been set up for 3pm.
[facility]
Report [phone]
[2024-02-14 14:30] VITALS: BP 98/61
== END 2024-02-14 15:41 | DRG 603 ==
LOC: 4 WEST ACU 09:53
PROVIDERS: Nurse Practitioner Family; Physician Assistant; ADMITTING PHYSICIAN Hospitalist; ATTENDING PHYSICIAN Hospitalist; CONSULT PHYSICIAN Physical Medicine & Rehabilitation; CONSULT PHYSICIAN Psychiatry & Neurology Neurology; EMERGENCY PHYSICIAN Emergency Medicine; FAMILY PHYSICIAN Registered Nurse
DX: L03.115 Cellulitis of right lower limb (principal); F11.20 Opioid dependence, uncomplicated; E44.0 Moderate protein-calorie malnutrition; Z68.1 Body mass index [BMI] 19.9 or less, adult; G95.9 Disease of spinal cord, unspecified; G35 Multiple sclerosis; G89.4 Chronic pain syndrome; Z56.0 Unemployment, unspecified; F17.200 Nicotine dependence, unspecified, uncomplicated; F41.9 Anxiety disorder, unspecified; I10 Essential (primary) hypertension; M54.16 Radiculopathy, lumbar region; Z90.49 Acquired absence of other specified parts of digestive tract
CPT/HCPCS: 70450; 71045; 80048; 80053; 82306; 82607; 82728; 82746; 83880; 84439; 84443; 84484; 85025; 85027; 85379; 87070; 90686; 93005; 93306; 93971; 96374; 97110; 97163; 97167; 97530; 97535; 99284; 99406; G0008

== ENCOUNTER 2024-12-26 12:40 | Inpatient (IN) | payer OTHER, SELFPAY ==
[2024-12-26] VITALS (43 sets, daily range): BP systolic 72–154; BP diastolic 54–106
--- NOTE | 2024-12-26 11:18 | PHANOTE ---
med rec note- patient unable to help answer medication questions. spouse does not her medication, patient not in ecw and patient came with 2020 medication list
[2024-12-26 11:23] LABS: Venous Blood Gas B.E. -4.1 mmol/L (-4 to +4); Venous Blood Gas O2 Sat % 94.1 %
[2024-12-26 11:26] LABS: ALT (SGPT) < 10 U/L (0-35); AST (SGOT) 19 U/L (14-36); Albumin 3.1 g/dl (3.5-5.0); Alkaline Phosphatase 100 U/L (38-126); Blood Urea Nitrogen 8 mg/dl (7-17); Calcium 8.4 mg/dl (8.4-10.2); Carbon Dioxide 21 mmol/L (22-30); Chloride 82 mmol/L (98-107); Glucose 72 mg/dl (70-99); Potassium 4.2 mmol/L (3.5-5.1); Sodium 112 mmol/L (135-145); Total Protein 5.6 g/dl (6.3-8.2); eGFR > 60.00
[2024-12-26 11:32] LABS: Hematocrit 33.3 % (37.0-47.0); Hemoglobin 11.6 g/dL (12.0-16.0); Mean Corp Hgb Conc. 34.8 g/dL (33.0-37.0); Mean Corpuscular Volume 79.9 fL (81.0-99.0); Nucleated Red Blood Cells % 0 %; Platelet Count 208 10^3/uL (130-400); Red Cell Dist. Width 12.7 % (11.5-14.5)
[2024-12-26 11:33] LABS: Troponin I < 0.012 ng/ml
--- NOTE | 2024-12-26 11:33 | ED.GENMED ---
History of Present Illness
General
Chief Complaint: Fall
Source: patient and spouse
Time Seen by Provider: 12/26/24 09:59
History of Present Illness
History of Present Illness:
Note:
CHIEF COMPLAINT(S)
Severe back pain and recent seizure activity.
HISTORY OF PRESENT ILLNESS
The patient is a 59-year-old female who presented to the emergency department with complaints of severe back pain and a recent seizure. According to the patient, she has experienced chronic back pain in the past, but in the last two days, it has
become significantly worse. The pain, described as 'on fire,' extends to her hips and legs, making movement difficult. Additionally, the patient�s , who called the ambulance, reported increased swelling in her feet, which did not improve
despite elevating her legs. The patient was in such pain that she cried out when moved. She also experienced a tonic-clonic seizure lasting less than one minute during evaluation and became unresponsive following the seizure. The seizure is a newly
emerged symptom not reported in the patient�s medical history.
ADDITIONAL HISTORY OBTAINED FROM SOURCES OTHER THAN THE PATIENT
Per the patients , he initially noticed worsening of back pain two days ago, accompanied by swelling in her feet and increased frequency of falls. He also reported difficulty moving the patient due to her pain, with her pain exacerbated by
movement.
SOCIAL HISTORY
The patient is a smoker, consuming cigarettes throughout the day. There is no reported history of diagnosed chronic lung disease.
REVIEW OF SYSTEMS
- General: Severe pain, recent seizure activity.
- Musculoskeletal: Severe back pain, hip and leg pain, difficulty moving.
- Respiratory: History of smoking, low oxygen saturation upon arrival, no report of chronic lung disease symptoms such as emphysema.
- Neurological: Recent seizure, described as tonic-clonic in nature.
- Cardiovascular: Swelling noted in extremities.
PHYSICAL EXAM
General: Alert post-seizure, significant pain observed.
Skin: Trace bilateral pitting edema, right periorbital edema.
Respiratory: Bilateral wheezing, slightly tachypneic.
Musculoskeletal: Kyphotic posture, severe tenderness in back reported.
Neurological: Alert post-seizure, no focal deficits noted after regaining consciousness.
PLAN
- Initiate pain management for severe back pain.
- Conduct imaging studies to evaluate for possible injury or contributing factors to back pain.
- Order blood work, including a venous blood gas, to evaluate for metabolic or respiratory causes of the seizure.
- Monitor for recurring seizure activity and provide supportive care.
- Administer benzodiazepines if indicated for seizure management.
- Consider potential need for ventilation support if the patients respiratory status declines.
- Investigate potential contributing factors to edema and respiratory symptoms, considering the patients smoking history.
DIFFERENTIAL DIAGNOSIS
The Differential Diagnosis includes, in no particular order and is not limited to:
1. Acute exacerbation of chronic back pain
2. New onset seizure disorder
3. Respiratory compromise due to chronic smoking
4. Lower extremity edema secondary to heart failure
5. Neuropathic pain
6. Medication-induced seizure
7. Postural orthostatic tachycardia syndrome (POTS) related processes
8. Hypoxia-induced seizure
9. Rhabdomyolysis secondary to prolonged immobility
10. Possible electrolyte imbalance
CARE-UPDATE
12/26/24 - 11:41
Severe hyponatremia noted with a sodium level of 112, correlated with recent seizure activity. Nephrology and intercell connector placer consultations conducted. Plan includes administration of a 50cc bolus of 3% saline, then continuous infusion at 10 cc/hr. Due
to concurrent chest pain and lactic acidosis, initiation of broad-spectrum antibiotics is advised. Patient to be admitted to ICU for close monitoring and management.
CARE-UPDATE
12/26/24 - 11:46
Nephrology recommends administering a 30 cc bolus.
CARE-UPDATE
12/26/24 - 11:52
The pharmacy will be providing the patient with a saline solution as discussed with the intensive care team.
EKG
My independent EKG interpretation is:
- Rhythm: Normal sinus rhythm
- Notable Finding: Poor anterior R wave progression
- ST Segment and T Wave: Nonspecific ST and T wave changes
- Intervals: Otherwise normal intervals
Disposition:
SUMMARY OF ENCOUNTER
The patient, a 59-year-old female with a known history of multiple sclerosis and chronic back pain, presented to the emergency department with severe intractable back pain. During her stay, she experienced a seizure that was witnessed and is likely
attributed to severe hyponatremia, which was noted on her chemistry panel with a sodium level of 112 mEq/L. Additionally, the patient had severe lactic acidosis with a lactate level of 3.6 mmol/L. A chest X-ray revealed right lower lobe pneumonia,
which could possibly be contributing to her overall condition. Management in the emergency department included addressing her electrolyte imbalance and respiratory status, assessing the seizures etiology, and planning for intensive monitoring and
treatment in the ICU.
DISPOSITION
Admit to the ICU.
ASSESSMENT
The patient�s seizure appears to be related to severe hyponatremia, possibly influenced by pneumonia or underlying lung disease. The severe back pain and lactic acidosis also contribute to the complexity of her current presentation.
EMERGENCY TREATMENTS ADMINISTERED
Initiation of 3% saline for hyponatremia management.
MANAGEMENT OF THE PATIENTS CARE WAS DISCUSSED WITH
Patients care was discussed with the intercell connector placer and nephrology, who provided recommendations for treatment and monitoring in the ICU.
PLAN
Admit the patient to the ICU for close monitoring and management of his hyponatremia with 3% saline and lactic acidosis. Initiate treatment for suspected pneumonia with broad-spectrum antibiotics. Further evaluation of contributing factors to
seizure activity and respiratory symptoms.
INDEPENDENT REVIEW OF LABS AND INTERPRETATION OF TESTS
- My independent review of the CBC shows a total blood count with 16,000 WBCs and 90% neutrophils, indicating possible infection.
- My independent review of the chemistry panel shows severe hyponatremia at 112 mEq/L and lactic acidosis with a lactate level of 3.6 mmol/L.
- My independent review of the LFTs is normal.
My independent chest x-ray interpretation is indicative of suspected right lower lobe pneumonia.
MEDICAL DECISION MAKING
- Number and Complexity of Problems Addressed: Chronic conditions affecting care, including chronic back pain and multiple sclerosis. Differential diagnosis includes acute exacerbation of chronic back pain, new onset seizure disorder, respiratory
compromise due to chronic smoking, lower extremity edema secondary to heart failure, neuropathic pain, medication-induced seizure, rhabdomyolysis secondary to prolonged immobility, possible electrolyte imbalance.
- Data:
- Category 1: Tests and documents including CBC, chemistry panel, chest X-ray, and LFTs were reviewed.
- Category 2: Clinical information was obtained from an independent historian, the patients .
- Category 3: Discussion of management occurred with the intercell connector placer and nephrology, ensuring comprehensive care planning.
DIAGNOSIS
1. Seizure activity possibly secondary to severe hyponatremia (ICD-10: E87.1).
2. Right lower lobe pneumonia (ICD-10: J18.1).
3. Chronic back pain (ICD-10: M54.9).
4. Multiple sclerosis (ICD-10: G35).
Past History
Past History
ED Past Medical History: Other (MS)
ED Past Surgical History: Appendectomy, and Gynecological
Social History
Tobacco: Non-smoker
Phy Exam
Physical Exam
Physical Exam:
.
Course
Orders/Labs/Results
Orders:
Orders
12/26/24 10:46
EKG [Electrocardiogram (*1)] Urgent
Reason for Study: Fatigue / Weakness
EKG- Treatment ONCE
12/26/24 10:47
Midazolam HCl [Versed] 5 mg .ROUTE .STK-MED ONE
12/26/24 10:52
Cardiac Monitoring- Treatment ONCE
IV Insert/Care/Rem.- Treatment PRN
CR Chest Portable - 1 View Urgent
Comment:
Reason For Exam: sob
Reason Study Needs to be Portable: Patient Unstable
O2 Therapy [RESP] Urgent
Titrate/Wean O2 to maintain O2 sat greater than (%): 90
Special Instructions: Maintain sats >/=90%
Pulse Ox/spot Check [RESP] Urgent
Quantity: 1
Special Instructions: ON ROOM AIR
12/26/24 10:53
Complete Blood Count/With Diff Urgent
Comprehensive Metabolic Panel Urgent
Troponin I Urgent
12/26/24 11:08
Lactic Acid Urgent
Venous Blood Gas Urgent
%Oxygen/Room Air: 100
12/26/24 11:18
CT Head W/o Iv Contrast Urgent
Comment:
Reason For Exam: seizure
12/26/24 11:40
Piperacillin/Tazo 3.375 Gram [Zosyn] 3.375 gram in 50 ml IV NOW
Vancomycin 1 Gram/200 ml [Vancocin] 1 gram in 200 ml IV NOW
12/26/24 11:45
3% Sodium Chloride 50 ml [Sodium Chloride 3%] 30 ml IV ONCE
12/26/24 11:54
Urinalysis Reflex To Culture Urgent
Date Specimen was Collected: 12/26/24
Time Specimen was Collected: 11:38
Urine Microscopic Reflex Cult Urgent
Urine Sodium Urgent
Date Specimen was Collected: 12/26/24
Time Specimen was Collected: 11:38
Blood Culture Q30M
PRNAEETH Source: Blood/Venous
Specimen Description:
Blood Culture Q30M
PRANEETH Source: Blood/Venous
Specimen Description:
Urine Culture Urgent
PRANEETH Source: U
Specimen Description:
Date Specimen was Collected: 12/26/24
Time Specimen was Collected: 11:38
12/26/24 12:00
3% Sodium Chloride 250 ml [Sodium Chloride 3%] 250 ml IV ONCE
12/26/24 12:10
Admit/Transfer Patient As Directed
Co-Sign Provider:
Level of Care: Inpatient admission
Assign to:: ICU
Physician / Group: Hospitalist
Diagnosis: Acute Hyponatremia
Patient Condition: Serious
Reason for Hospitalization: Acute Hyponatremia
Expected length of stay greater than two midnights?: Yes
ELOS- Estimated Length of Stay in days: 3
I certify the patient meets the requirements for IP care: Yes
PRN Pain Medication Management As Directed
May give lesser potent ordered pain med per pt: Yes
preference::
Protocol:: Medication orders for pain may be administered in a
manner that supports deferring to patient preference
when the pt is:
- Requesting an ordered lesser potent pain medication.
Least to most potent pain medications are defined
as: acetaminophen < NSAID < tramadol < opioids
(morphine, oxycodone, hydromorphone).
- Requesting a lesser dose of the same medication IF
ORDERED.
- Requesting a less intrusive route of administration
if both routes are prescribed by the provider (PO <
IV).
12/26/24 12:11
Code Status As Directed
Resuscitation Status: Full Code
12/26/24 12:29
Vancomycin 1 Gram/200 ml [Vancocin] 1 gram in 200 ml .ROUTE .STK-MED
12/26/24 14:42
Operating Room Surgical Technician Consult Routine
Consulting Provider: Geraldo Lopez
Was physician already notified: Yes
Reason for consult: Acute Hyponatremia
Activity As Directed
Activity Level: As Tolerated
Notify MD As Directed
Notify physician if: Bridge Admission orders placed.
Notify attending physician:
-- upon arrival to unit
OR
-- when patient is identified as an ED hold
Vital Signs As Directed
Frequency: Per unit guidelines
O2 Therapy [RESP] Routine
Titrate/Wean O2 to maintain O2 sat greater than (%): 92
DX Deep Vein Thrombosis Video Routine
12/26/24 18:00
Enoxaparin Sodium [Lovenox] 40 mg SC QPM
Abnormal Lab Results
12/26/24 12/26/24 12/26/24
10:53 11:08 11:54
WBC 16.3 H 10^3/uL
(4.8-10.8)
RBC 4.17 L 10^6/uL
(4.20-5.40)
Hgb 11.6 L g/dL
(12.0-16.0)
Hct 33.3 L %
(37.0-47.0)
MCV 79.9 L fL
(81.0-99.0)
MPV 12.0 H fL
(7.4-10.4)
Abs Immat Gran (auto) 0.1 H 10^3/uL
(0-0.05)
Absolute Neuts (auto) 14.8 H 10^3/uL
(1.4-6.5)
Absolute Lymphs (auto) 0.5 L 10^3/uL
(1.2-3.4)
Absolute Monos (auto) 0.9 H 10^3/uL
(0.1-0.6)
Immature Gran % 0.7 H %
(0-0.5)
Neutrophils % 90.3 H %
(42.2-75.2)
Lymphocytes % 3.1 L %
(20.5-51.1)
VBG pH 7.25 L
(7.32-7.43)
VBG pCO2 54 H mmHg
(35-48)
VBG pO2 72 H mmHg
(30-50)
Sodium 112 L* mmol/L
(135-145)
Chloride 82 L mmol/L
(98-107)
Carbon Dioxide 21 L mmol/L
(22-30)
Lactic Acid 3.6 H mmol/L
(0.7-2.0)
Total Bilirubin 1.5 H mg/dl
(0.2-1.3)
Total Protein 5.6 L g/dl
(6.3-8.2)
Albumin 3.1 L g/dl
(3.5-5.0)
Urine Ketones 3+ A
(Negative)
Ur Occult Blood Reflex 2+ A
(Negative)
Urine Urobilinogen 2+ A
(Neg - 1+)
Urine RBC 3-6 A /HPF
(0-2)
Urine Bacteria (Reflex) Moderate A
(Negative)
Urine Albumin (Reflex) 2+ A
(Neg - Trace)
12/26/24 10:53
12/26/24 10:53
Vital Signs
Initial and Last Documented VS:
Initial Vital Signs
Temp Pulse Resp BP Pulse Ox
98.1 F 89 18 136/77 84
12/26/24 09:44 12/26/24 09:44 12/26/24 09:44 12/26/24 09:44 12/26/24 09:44
Last Documented Vital Signs
Temp Pulse Resp BP Pulse Ox
98.0 F 84 16 122/91 96
12/26/24 14:34 12/26/24 14:10 12/26/24 14:10 12/26/24 14:10 12/26/24 14:10
*Pulse Oximetry
SaO2: 90
Nasal Cannula flow liters per minute: 4
Oxygen Mode of Delivery: Room air
Patient hypoxic: yes
*Critical Care Note
Total Time (30-74mins, 75-104mins- exclusive of procedures): 55 minutes
ED Attending Note
-
Portions of this chart may have been created with voice recognition software.� Occasional wrong word or��sound alike� substitutions may have occurred due to the inherent limitations of voice recognition software.
Discharge Plan
Departure
Patient Disposition: Admit
Date of Disposition: 12/26/24
Time of Disposition: 11:34
Admit to: ICU
Presentation/result/management discussed w/ accepting MD/DO: Hospitalist
Discharge Problem:
Acute hyponatremia, Seizure, Chronic back pain, Pneumonia
Interventions
Interventions:
*Risk Screen - Suicide Last Done: 12/26/24 09:44
*General Assessment Last Done: 12/26/24 09:44
*Neglect/Abuse Screening Last Done: 12/26/24 09:44
*ED- Fall Risk Assessment Last Done: 12/26/24 10:10
*ED COVID-19 Vaccine History Last Done: 12/26/24 14:43
*Nursing Disposition Last Done: 12/26/24 14:43
ED-Musculoskeletal Assessment Last Done: 12/26/24 10:10
ED- Neurological Assessment Last Done: 12/26/24 10:10
ED-Skin Assessment Last Done: 12/26/24 10:10
Discharge Date and Time
Discharge Date/Time: 12/26/24 14:34
[2024-12-26] MEDS: ZOSYN 50 IV ×3 (11:51→23:55)
[2024-12-26] MEDS: SODIUM CHLORIDE 3% 30 IV (11:57)
[2024-12-26] MEDS: SODIUM CHLORIDE 3% 250 IV (12:03)
[2024-12-26 12:25] LABS: Urine Character Clear (Clear)
[2024-12-26] MEDS: VANCOCIN 200 IV (12:32)
--- NOTE | 2024-12-26 12:40 | W.CON.NEPH ---
Consultation
-
Date/Time Consultation Requested: 12/26/24 1130
Date/Time Consultation Performed: 12/26/24 1240
Requesting Provider: Donaldo Medrano
Performing Provider: Amanda Teixeira
Reason for Consultation: Hyponatremia
Medical History
-
Chief Complaint: back and leg pain
History of Present Illness:
59-year-old female with progressive multiple sclerosis on Tecfidera, Dalfampridine, cervical myelopathy, hypertension, malnutrition, chronic pain s/p baclofen pump, also on lyrica,oxycontin, gabapentin , current tobacco user that is presenting to
the hospital today with severe back pain and had seizure while in ER. Patient states over the last 2 days her chronic back pain has significantly worsened and feels like 'it is on fire-gallardo' with extension to her hips and legs making ambulation
difficult and she has been taking multiple meds for that including Ibuprofen too. Per her he noticed increased swelling in her feet which did not improve with leg elevation. She drinks lot of liquids >80ounces/day. No change in appetite.
Stacy terese her for pain control, howwever during ER doc visit she has tonic clonic SZ for 1 min. Labs returned with sodium level of 112. Nephrology consulted and 30cc HTS given base don her wt. She is still post ictal and confused.
provided most of the history. He also noted that her eye lids were swollen today. She normally sits in WC or chair and dose not ambulate much. denies any history of seizures prior to this episode. Has chr cough, no h/o fever, n/v, no abd pain or
diarrhea. No dysuria.
Past Medical History
Chronic back pain. Chronic opioid dependence. Baclofen pump. POTS. Multiple sclerosis on Tecfidera. Cigarette smoker. Protein calorie malnutrition. Appendectomy. .
Social History
Tobacco: Smoker (fro several yrs, currently 0.5packperday)
Alcohol: None
Personal:
Living: With Family
Family History
Family History: Not Pertinent
Allergies / Home Medications
Allergy/AdvReac Type Severity Reaction Status Date / Time
carbamazepine (From Tegretol) Allergy Unknown Verified 12/26/24 09:44
fentanyl Allergy Unknown Verified 12/26/24 09:44
fingolimod (From Gilenya) Allergy Unknown Verified 12/26/24 09:44
morphine Allergy Unknown Verified 12/26/24 09:44
natalizumab (From Tysabri) Allergy Unknown Verified 12/26/24 09:44
topiramate (From Topamax) Allergy Unknown Verified 12/26/24 09:44
�Medication �Instructions �Recorded �Confirmed �Type
dalfampridine 10 mg 10 mg PO Q12H Multiple Sclerosis 02/07/24 12/26/24 History
tablet,extended release,12 hr
gabapentin 400 mg capsule 800 mg PO QID Neurological 02/07/24 12/26/24 History
Condition
oxycodone 20 mg tablet,crush 20 mg PO Q8H Pain 02/07/24 12/26/24 History
resistant,extended release 12 hr
(OxyContin)
oxycodone 30 mg tablet 30 mg PO Q4HPRN PRN severe pain 02/07/24 12/26/24 History
pregabalin 100 mg capsule 100 mg PO TID Neurological 02/07/24 12/26/24 History
Condition
dimethyl fumarate 240 mg 240 mg PO BID Multiple Sclerosis 12/26/24 12/26/24 History
capsule,delayed release (Tecfidera)
sumatriptan succinate 100 mg 0 mg PO .COMPLEX Headache 12/26/24 12/26/24 History
tablet (Imitrex)
Review of Systems
-
Unable to obtain full review of systems at this time due to: Acuity
Physical Exam
Vital Signs
Vital Signs
Temp Pulse Resp BP Pulse Ox
98.1 F 84 16 122/91 96
12/26/24 09:44 12/26/24 14:10 12/26/24 14:10 12/26/24 14:10 12/26/24 14:10
Lab Results
WBC 16.3 10^3/uL (4.8-10.8) H 12/26/24 10:53
RBC 4.17 10^6/uL (4.20-5.40) L 12/26/24 10:53
Hgb 11.6 g/dL (12.0-16.0) L 12/26/24 10:53
Hct 33.3 % (37.0-47.0) L 12/26/24 10:53
Plt Count 208 10^3/uL (130-400) 12/26/24 10:53
Sodium 112 mmol/L (135-145) L* 12/26/24 10:53
Potassium 4.2 mmol/L (3.5-5.1) 12/26/24 10:53
Chloride 82 mmol/L (98-107) L 12/26/24 10:53
Carbon Dioxide 21 mmol/L (22-30) L 12/26/24 10:53
BUN 8 mg/dl (7-17) 12/26/24 10:53
Creatinine 0.6 mg/dL (0.6-1.0) 12/26/24 10:53
eGFR > 60.00 12/26/24 10:53
Glucose 72 mg/dl (70-99) 12/26/24 10:53
Calcium 8.4 mg/dl (8.4-10.2) 12/26/24 10:53
Albumin 3.1 g/dl (3.5-5.0) L 12/26/24 10:53
Physical Exam
General: Awake, No Distress and Nontoxic
HEENT: Anicteric, Facial Symmetry and Neck Supple
Respiratory: Rhonchi, Normal Excursion and Nonlabored Respirations
Cardiac: S1/S2 and Regular Rate/Rhythm
Breast: Deferred by me
Abdomen: Soft, Nontender and Nondistended
Musculoskeletal: Edema (1+)
Skin: No Rash
Neuro: Other (difficulty to assess-post ictal, pt able to move extremities)
Psych: Appropriate
Data Reviewed
-
Labs: Labs Reviewed by me, Discussed with Nurse, Discussed with Patient and Discussed with Family
Assessment/Plan
-
IMP:
Severe symptomatic hyponatremia
First-time seizure episode, tonic-clonic.
Acute hypoxemic respiratory insufficiency due to aspiration pneumonia
Periorbital/peripheral edema
Hypercapnia-suspect chronic
Leukocytosis
Mild microcytic anemia
Lactic acidosis
Hypoalbuminemia
Protein calorie malnutrition
UTI suspected
COPD suspected without acute exacerbation
Acute on chronic back pain. S/p baclofen pump.
Secondary progressive multiple sclerosis.
Chronic malnutrition
Plan:
A/w worsening back pain, had SZ in ER with sodium 112
Severe symptomatic hyponatremia likely multifactorial
likely has high ADH state from pain and PNA superimposed with polydipsia
given edema-check BNP
correction of sodium 6-8meq/day strictly
need Q4h checks, await U osmo and S osmo
check TSH and cortisol
she is s/p small bolus HTS and cont 10cc/hr with expected correction 0.5meq/hr
leucocytosis, high Lactate-pending cxs, abx per primary
BP are stable
avoid NSAIDs
d/w at bedside in detail
d/w primary
--- NOTE | 2024-12-26 12:53 | CON.INTV ---
Consultation
Consultation Request
Date/Time Consultation Requested: 12/26/2024-12:30 PM
Date/Time Consultation Performed: 12/26/2024-12:30 PM
Requesting Provider: Hospitalist
Performing Provider: Dr. Lopez
Reason for Consultation: Seizure/pneumonia/critical care management
Medical History
-
Chief Complaint: Pneumonia/hyponatremia/seizure
History of Present Illness:
59-year-old smoking chronically ill-appearing cachectic female with MS, baclofen pump, chronic back pain admitted with periorbital and pedal edema, hyponatremia, seizure, and pneumonia-tool analyst consulted for pneumonia, seizure, severe
hyponatremia and critical care management 12/26/2024. The patient was seen in the emergency room postictal. She cannot answer questions appropriately. She keeps asking 'what time is it'. is at the bedside. She has not any respiratory
distress. reports she was in her usual state of health but in chronic pain and quite sedentary.
Past Medical History
Past Medical History: None (Chronic back pain. Chronic opioid dependence. Baclofen pump. POTS. Multiple sclerosis on Tecfidera. Cigarette smoker. Protein calorie malnutrition. Appendectomy. .)
Social History
Tobacco: Smoker (Less than a half a pack a day)
Alcohol: None
Drug: None
Personal:
Living: With Family
Occupational Exposures: No known asbestos exposure
Environmental Exposures: No known tuberculosis exposure
Family History
Family History: Reviewed & Not Pertinent
Allergies / Home Medications
Allergies
Allergy/AdvReac Type Severity Reaction Status Date / Time
carbamazepine (From Tegretol) Allergy Unknown Verified 12/26/24 09:44
fentanyl Allergy Unknown Verified 12/26/24 09:44
fingolimod (From Gilenya) Allergy Unknown Verified 12/26/24 09:44
morphine Allergy Unknown Verified 12/26/24 09:44
natalizumab (From Tysabri) Allergy Unknown Verified 12/26/24 09:44
topiramate (From Topamax) Allergy Unknown Verified 12/26/24 09:44
Home Medications
�Medication �Instructions �Recorded �Confirmed �Last Taken �Type
dalfampridine 10 mg 10 mg PO Q12H Multiple Sclerosis 02/07/24 12/26/24 Unknown History
tablet,extended release,12 hr
gabapentin 400 mg capsule 800 mg PO QID Neurological 02/07/24 12/26/24 Unknown History
Condition
oxycodone 20 mg tablet,crush 20 mg PO Q8H Pain 02/07/24 12/26/24 Unknown History
resistant,extended release 12 hr
(OxyContin)
oxycodone 30 mg tablet 30 mg PO Q4HPRN PRN severe pain 02/07/24 12/26/24 Unknown History
pregabalin 100 mg capsule 100 mg PO TID Neurological 02/07/24 12/26/24 Unknown History
Condition
dimethyl fumarate 240 mg 240 mg PO BID 12/26/24 12/26/24 Unknown History
capsule,delayed release (Tecfidera)
sumatriptan succinate 100 mg 0 mg PO .COMPLEX 12/26/24 12/26/24 Unknown History
tablet (Imitrex)
Review of Systems
-
Unable to Obtain full review of systems at this time due to: Other (Per HPI)
Vitals / Labs / Diagnostic Testing
Vital Signs
Temp Pulse Resp BP Pulse Ox
98.1 F 85 18 124/77 95
12/26/24 09:44 12/26/24 12:40 12/26/24 12:40 12/26/24 12:40 12/26/24 12:23
Lab Data
12/26/24 10:53
12/26/24 10:53
Diagnostic Testing:
Physical Exam
-
Exam:
patient is a thin chronically ill-appearing cachectic woman appearing older than stated age
HEENT-atraumatic, normocephalic, temporal wasting, cachexia
Neck-supple, no JVD, no bruit
Heart-regular rate and rhythm-no murmurs, rubs or gallops
Chest with diminished breath sounds, prolonged expiratory time, rare basilar crackle and no wheezes
Back-no tenderness
Abdomen-soft, nontender, nondistended, no hepatosplenomegaly
Extremities-no cyanosis, clubbing, edema and good peripheral pulses
Integument-intact, no rashes, lesions or ecchymosis
Neurologically alert, not oriented, moving all extremities
Assessment
-
59-year-old smoking chronically ill-appearing cachectic female with MS, baclofen pump, chronic back pain admitted with periorbital and pedal edema, hyponatremia, seizure, and pneumonia-tool analyst consulted for pneumonia, seizure, severe
hyponatremia and critical care management 12/26/2024.
Community-acquired pneumonia-aspiration risk
Severe hyponatremia-serum sodium 112
Tonic-clonic seizure
Periorbital/peripheral edema
Hypercapnia-suspect chronic
Leukocytosis
Mild microcytic anemia
Lactic acidosis
Hypoalbuminemia
Protein calorie malnutrition
UTI suspected
COPD suspected without acute exacerbation
Conditions present prior to admission:
Chronic back pain.
Chronic opioid dependence.
Baclofen pump.
POTS.
Multiple sclerosis on Tecfidera.
Cigarette smoker.
Multiple bilateral pulmonary nodules incidentally noted measuring up to 1.[address] abdomen 03/2022-PET scan was recommended-never obtained
Protein calorie malnutrition.
Appendectomy. .
Plan
Patient critically ill with severe hyponatremia, seizure and pneumonia-admit to medical intensive care unit
Supplemental oxygen as needed-high flow if needed
BiPAP or noninvasive ventilation if respiratory status declines
Intubated mechanically ventilated if necessary-Dr. Lopez reviewed CODE STATUS with patient's -for now would like full code including intubation, CPR, shocking if needed
Nebulizers
Aspiration precautions
Mucolytic's
Check cultures
Sputum culture
Urine for Legionella and streptococcal antigen
MRSA screen
Empiric antibiotics to cover atypicals as well
Follow leukocytosis and fever curve
Follow radiographically
Follow serum sodium level closely
3% saline-cautious administration
Goal correction 6 mEq/liter in the first 24 hours
Monitor neurologic status closely-rapid correction can rarely leads to osmotic demyelination syndrome
Nephrology evaluation
Diuretics and potential use of Samsca per nephrology
Check TSH
Check cortisol
Check urine osmolarity and sodium
Monitor for recurrent seizure
Seizure probably related to severe hyponatremia-? Timeline and etiology of hyponatremia
Check CT head
Consider MRI head
Ativan and shortage-midazolam or diazepam as needed
EEG
Neurology evaluation
Antiepileptics per neurology
Smoking cessation counseling ongoing
DVT prophylaxis
Early nutrition
Early mobilization
Reviewed with in the emergency room as well as emergency room physician and nursing
Pulmonary nodule recommendation was seen from 04/19/2022-letter was written 05/14/2022 that a pulmonary nodule was seen on an image study done [facility] emergency room and PET scan was recommended-I do not see a PET scan or pulmonary
follow-up thereafter
Outpatient radiographic follow-up recommended
Patient qualifies for yearly low-dose lung cancer screening CT-obtain CT chest and pulmonary follow-up after pneumonia clears
Outpatient pulmonary [id number]-[facility], smoking cessation counseling, yearly low-dose lung cancer screening CT, etc.
Critical care statement: A total of 65 minutes of critical care time was provided for this patient today. This includes management of unstable vital signs, evaluation of the patient at bedside, reviewing the patient�s pertinent medical records
including radiographs, microbiology, laboratory evaluations, and��discussion with primary team, consultants, pharmacy, nutrition, physical therapy, case management, charge nurse, critical care nursing, and respiratory therapy.
Diagnostic data:
Chest x-ray 10/23/2022-NAD
Chest x-ray 02/11/2024-NAD
Chest x-ray 12/26/2024-right basilar pneumonia
CT head 01/22/2024-moderate to severe white matter disease, mild bilateral parietal lobe volume loss,
CT abdomen and pelvis 04/19/2022-no acute fracture T12, severe biliary dilation without obstructing mass, prior cholecystectomy, hepatic hemangioma, severe constipation, multiple solid pulmonary nodules both lower lobes measuring up to 1.2 cm
Echocardiogram 02/11/2024-EF 60-65%, normal diastolic function, mild mitral regurgitation, PA systolic 20
Data Reviewed
-
EKG: Discussed with Physician
Radiology: Discussed with Physician
CT Scan: Discussed with Physician
Labs: Labs reviewed by me
Old Records: Reviewed
Critical Care Time (in minutes): 65
--- NOTE | 2024-12-26 13:10 | HPS.HSE ---
Family Physician
-
Family Physician: Matthew Walls
Chief Complaint
-
Low back, hip, leg pain
History of Present Illness
Eliana Lucas is a 59-year-old female with a past medical history notable for secondary progressive MS and chronic pain who presents with acute worsening of low back, hip, & bilateral leg pain in the s/o chronic decline in appetite, multiple falls
at home, and subacute swelling of bilateral feet.
History obtained from patient's . Reports that patient at baseline spends much time in wheelchair and in bed but is able to ambulate to the bathroom on her own; he usually helps her up out of bed in the morning by lifting her. This morning
patient had extreme tenderness to touch on low back and hips and bilateral legs. States she was screaming in pain with being touched and with moving. This triggered trip to ED.
Also notes that patient noticed bilateral foot swelling last night. Patient does have chronic pain in the setting of her MS. She takes dalfampridine at home for help with walking, and gabapentin (versus pregabalin? not sure of meds) for
neuropathic pain. She also has a baclofen pump implanted in abdomen which was recently refilled; helps with muscle spasms. notes an increase in recent falls at home. Over the last 1 to 2 days she has had a few falls for which she has had
to yell for help from family members. No loss of consciousness, no trauma to the head. Just has bruising/scabs on right arm from falls. Not sure of status of MS progression most recently. No history of seizures, episode of epilepsy.
notes that sometimes she has episodes of consciousness in the setting of hypotension, as well as episodes of tensing up and appearing to be choking and/or struggling to breathe while eating. However, no seizures.
Denies any fever/chills at home. No diarrhea or vomiting. Has had rhinorrhea for the last few days. Has a chronic cough in the setting of lifetime smoking (about 10 cigarettes/day for 'forever '), but no noticeable changes to that cough. No
recent travel except to the [place] last [place]. Lives at home with , father, son, and daughter�daughter has had a sore throat for the last few days and is taking DayQuil.
notes that since October there has been a decline in the patient's overall appetite. She has stopped eating dinner with the family and just use in her room. All she eats every day is a piece of toast and coffee in the breakfast, followed by 2
grilled cheese sandwiches throughout the rest of the day. He endorses good p.o. water intake, she drinks a lot of water each day.
Patient follows with outpatient neurologist; not sure of name, was last seen about a year ago and is part of [facility]. Patient's primary care physician is Chel Oneill in [place]. states that medication list given in ED is
from 4 years ago and that PCP would have updated list; not sure of meds.
In the ED, patient experienced event witnessed by and ED provider thought to be a seizure. describes episode of torso tensing up shaking/twitching of arms/face, grimace. He has not seen an episode like this before. Patient was
given 5 mg midazolam. AVSS on admission. Notable labs on admission: Leukocytosis (WBC 16.3) with right shift, hyponatremia (Na 112), lactic acid 3.6, chloride 82, bicarb 21, albumin 3.1. Chest x-ray in ED demonstrated right basilar opacity
concerning for pneumonia. Head CT in ED demonstrated moderate bilateral volume loss and severe white matter disease in both parietal lobes, mild white matter disease in the frontal lobes, severe sinusitis and right maxillary and right ethmoid air
cells; no evidence of intracranial bleed, mass, ventricular dilation. Patient given 3% saline and vancomycin/Zosyn.
On exam in the ED, patient confused, continually asking what time it is, unable to respond to questions. at bedside.
Medical History
Past Medical History
Past Medical History: Reports None
Additional Past Medical History:
Secondary progressive multiple sclerosis
Past Surgical History: Reports None
Social History
Unable to obtain full social history at this time due to: Acuity
Tobacco: Smoker (20 pack years, current smoker)
Personal:
Living: With Family (With father, son, daughter, at home)
Family History
Family History: Not pertinent
Allergies / Home Medications
Allergies reflects when Allergies were last updated in [facility].
Home Medications with original date entered in [facility]
Allergy/Medication List:
Carbamazepine, fentanyl, fingolimod, morphine, natalizumab, topiramate�historically listed drug allergies
If medication reconciliation has not been performed, why?: Unresponsive and Other
If Other, explain: Patient unresponsive and unsure of meds
Review of Systems
-
Unable to obtain full review of systems at this time due to: Patient Non-verbal
History Source: Family
Constitutional: Reports See HPI
EENT: Reports See HPI
Respiratory: Reports See HPI
Cardiac: Reports No Symptoms
Abdomen/GI: Reports See HPI
: Reports No Symptoms
Musculoskeletal: Reports See HPI
Neurological: Reports See HPI
Physical Exam
Vital Signs
Vital Signs
Temp Pulse Resp BP Pulse Ox
98.1 F 85 18 124/77 95
12/26/24 09:44 12/26/24 12:40 12/26/24 12:40 12/26/24 12:40 12/26/24 12:23
Physical Exam
General: Other (Very thin, appears chronically ill, appears older than stated age, lying in bed appearing disoriented)
HEENT: NormoCephalic, Anicteric, Atraumatic and Good Dentition (Poor dentition)
Respiratory: Clear (Unable to auscultate lower lung quinones due to condition of the patient) and Non Labored Respirations
Cardiac: Regular Rhythm
GI: Soft, Non Tender, Non Distended and Other (Subcutaneous baclofen pump in place)
Musculoskeletal: Other (1+ pitting edema in bilateral feet to ankle)
Skin: Warm, Dry and Lesions (Patient with scabs on bilateral shins; bruising and scabs on right forearm)
Neuro: No Sensory Deficits (Pupils symmetric) and Sedated (Confused, sedated, unable to communicate (status post midazolam and suspected seizure event))
Laboratory Results
-
12/26/24 10:53
12/26/24 10:53
Laboratory Results
Lactic Acid 3.6 mmol/L (0.7-2.0) H 12/26/24 11:08
Total Bilirubin 1.5 mg/dl (0.2-1.3) H 12/26/24 10:53
AST 19 U/L (14-36) 12/26/24 10:53
ALT < 10 U/L (0-35) 12/26/24 10:53
Alkaline Phosphatase 100 U/L (38-126) 12/26/24 10:53
Troponin I < 0.012 ng/ml 12/26/24 10:53
Data Reviewed
-
Critical Care Time (in minutes): 60
Diagnostic Radiology: Image Personally Visualized and interpreted and Report Reviewed by me
Medical Tests (Nuc Med, Echo, EKG etc): Report Reviewed by me
Lab Data: Labs Reviewed by me and Discussed with Physician
Impression/Plan
-
Eliana Lucas is a 59yo F with a pmh notable for secondary progressive MS, chronic back pain, & tobacco use who p/w acute worsening of back/bilateral LE pain, w episode c/f seizure in ED, found to have R-sided PNA & severe hyponatremia.
#Severe hyponatremia
Na 112 on admission. Per , pt stopped eating full dinners in October. She only eats a piece of toast & coffee, plus two cheese sandwiches daily. Does drink a fair amount of water. Not hypotensive on admission. Pt low weight, thin appearing.
Hyponatremia likely in s/o malnutrition, 'tea & toast' syndrome. Pt eating protein-deficient diet, limiting solute excretion. 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 Pending urine osmolality. Pt with normal eGFR. unsure about
recent med changes, but none on the list provided are known to cause hyponatremia other than gabapentin/pregabalin.
- S/p 250ml bolus of 3% saline, followed by 30ml bolus of 3% saline (total 280ml) in ED
- Goal increasing Na by 4-6meq/L over few hours
- Recheck Na in few hours, continue to monitor
- BMP q4hr
- Continue 10ml/hr 3% saline infusion
- Urine osmolality & urine sodium pending
- Request updated medication list from PCP (Dr. Chel Oneill in [place])
- Nephrology consulted, appreciate recs
#Metabolic acidosis, non-gap
Albumin-corrected anion gap of 11.5, suggesting non-gap metabolic acidosis (Na 112, bicarb 12, Cl 82, albumin 3.1). Denies diarrhea. Acidosis & hyponatremia can also co-occur in Homeworth's dz - less likely given lack of hypotension and normal K.
Likely in s/o elevated lactate/seizure.
- Continue to monitor as Na repleted & normalizes
- Could consider checking cortisol levels
- Nephrology consulted, appreciate recs
#Pneumonia
CXR (12/26) demonstrating R basilar airspace opacity concerning for pneumonia. Lactic acid elevated 3.6. Leukocytosis WBC 16.3 w R shift. Sat 93% on 2L NC. Afebrile. Lives w family, daughter has had sore throat for last few days, taking dayquil. Only
recent travel to [place] last week. No change to her chronic (smoker's) cough in last few days, no f/c. Pt did have new rhinorrhea in the last few days. Ddx includes CAP vs. aspiration PNA give RLL location of consolidation and reported hx of
choking events.
- Continue broad spectrum abx, vancomycin & zosyn IV for 24hr (12/26-)
- If improvement & high suspicion for CAP, switch to doxycycline & ceftriaxone
- If SLT demonstrates aspiration, suspicion for aspiration PNA and switch to amox-clav 875/125mg bid
- Blood cx pending
- Wean off O2 NC as tolerated
- Appreciate recs from pulm/ICU - follow additional orders from taem (MRSA screen, legionella, sputum cx)
#Back/hip/leg pain
#Feet swelling
Pt was initially brought to ED because of complaints of severe pain in low back, hips, & legs this am. Per , screaming in pain when touched or trying to get to toilet. Pt with chronic nerve pain in s/o MS, this is different. Muscle cramps
more common in s/o chronic hyponatremia than acute. Potentially worsening baseline neuropathic MS pain in s/o acute inflammatory state 2/2 infection & electrolyte imbalance. Dalfampridine can also cause back pain. Less likely radicular pain but can
eval w MRI. Feet swelling likely 2/2 hyponatremia and over-drinking fluid given low PO solids.
- Continue gabapentin 800mg qid home dose
- Continue home dose oxycodone 20mg q8h & 30mg q4h prn
- MRI lumbar spine to eval for radiculopathy
- Compression socks to address JAYMIE
- Fluid restriction diet to 48oz
#Recent falls
reports a few recent falls at home over the last 2-3 days. Pt never hit head or lost consciousness. Had some scrapes/bruises on R arm 2/2 falls. Usually in wheelchair or bed but ambulates on own to bathroom. 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
weakness in s/o poor nutritional status, deconditioning.
- Fall precautions
- PT/OT consulted
- Continue to address other causes of dz as above
#Seizure
No known hx of seizures. Likely precipitated by severe hyponatremia. S/p 5mg midazolam in ED. CT head (12/26) without signs of ICH, mass effect, ventricular dilation; likely MS progression. Pt also with dx of secondary progressive MS. Unknown date of
last MRI, potential contribution of underlying MS flare or progression. unsure about current med regimen, last documented 4yrs ago as tecfidera 240mg as dz modifying therapy & dalfampridine for sx mgmt. Also w baclofen pump, recently
refilled.
- Hyponatremia mgmt as above
- Order EEG, pending
- Continue MS meds (tecfidera, baclofen via pump, dalfampridine)
- If begins seizing, give midazolam 5g nasal spray PRN; if c/f ongoing seizure, give levetiracetam 1g IV PRN
- Consider MRI head
- Follow up w OP neurologist (seen last yr at , name unknown)
- Neurology consulted, appreciate recs
#Chronic
-Tobacco use - smokes ~5-10 cigarettes/day since 'forever' (likely 40 yrs), 20 pack-yrs; order nicotine patch 14mg
-MS - continue home meds (tecfidera, baclofen via pump, dalfampridine)
#Global
- DVT ppx: lovenox
- Diet: full liquids w fluid restriction until speech eval
- Code: full
- Dispo: lives at home w , father, & son/daughter; pending hyponatremia resolution, consider w VN/PT/OT
--- NOTE | 2024-12-26 13:38 | CM ---
CM reviewed chart and met with pt's bedside in ED. Pt was sleeping.
Lives with in split level home, no GASTON, 4 steps to FR/Kitchen, 8 more steps to BR/full BA. Pt mainly stays on this level.
Needs assistance with ADLs and personal care, is caregiver. Has RW but said she is not using it, stays in her wheelchair, stands to pivot into bathroom. Also has raised toilet seat and grab bar and shower bench.
confirms prescription coverage.
Hx several acute rehab stays at [facility] but unsure of which agency.
PCP: Chel DOWNING
Pharmacy: [facility]
CM will continue to follow for all discharge planning needs.
[2024-12-26] MEDS: VANCOCIN 100 MG IV (14:03)
--- NOTE | 2024-12-26 14:16 | W.PN.UPDATE ---
Update Note
Progress Note Update
59-year-old female with progressive multiple sclerosis, cervical myelopathy, hypertension, malnutrition, chronic pain s/p baclofen pump, current tobacco user that is presenting to the hospital today with severe back pain and recent seizure. Patient
states over the last 2 days her chronic back pain has significantly worsened and feels like 'it is on fire' with extension to her hips and legs making ambulation difficult. Per her he noticed increased swelling in her feet which did not
improve with leg elevation. Also reported a tonic-clonic seizure episode lasting less than 1 minute with subsequent unresponsiveness, denies any history of seizures prior to this episode. AFVSS on arrival with SpO2 90%, improved to 97% on 2 L.
Labs with WBC 16.3 with neutrophilic predominance, Hgb 11.6 with MCV 79.9, sodium 112, chloride 82, lactate 3.6, T. bili 1.5, albumin 3.1. UA with sodium 35, 3+ ketones, 2+ blood and moderate bacteria though no pyuria. VBG with pH 7.25, pCO2 54,
bicarb 24. ECG with poor R wave progression though otherwise unremarkable, no acute ST or T wave abnormality. CXR showed airspace opacity at the right lung base. CT head without contrast without obvious transcortical infarct, ICH, mass effect on
my prelim read. Blood and urine cultures obtained in the ED patient was started on IV vancomycin and Zosyn in the ED as well as 3% saline.
AAO x 4, appears in pain. RRR without murmur, normal S1 and 2. Bilateral rhonchi, mildly tachypneic but no accessory muscle use. Abdomen benign. Trace pedal edema, palpable pulses. Skin warm and dry. Fatigue, postictal though no FND
Severe hyponatremia. Suspect hypervolemic phenotype from polydipsia/tea and toast diet though may also have a degree of SIADH due to pain and hypoxemia, urine osmolality pending. Was evaluated in the ED by nephrology who recommended 3% saline.
Will continue with 3% saline and trend BMP every 4 hours. Goal sodium correction 6 to 8 mEq per 24-hour period, consider DDAVP for overcorrection. Follow-up urine osmolality. Dietary fluid restriction
First-time seizure episode, tonic-clonic. Suspect that this is predominantly driven by severe hyponatremia, which is being corrected as above. Will order EEG and consider neurology consult. Order as needed benzodiazepines for recurrent seizure
episode. Will need [employer] form filled out prior to discharge to restrict driving. Seizure precautions
Acute hypoxemic respiratory insufficiency due to aspiration pneumonia. Describes likely aspiration events prior to arrival. WBC 16.3, CXR with right lower consolidation, rhonchi on exam. Started on IV vancomycin and Zosyn after cultures. Check
sputum culture. Continue broad-spectrum IV antibiotics and follow cultures of blood. Trend CBC and temperature curve. Wean oxygen for SpO2 >90%
Acute on chronic back pain. S/p baclofen pump. Question severe hyponatremia leading to peripheral nerve sensitivity and hyperalgesia. Home regimen includes oxycodone every 8 hours as well as every 4 hours as needed, and pregabalin/gabapentin.
Unclear reason for acute worsening. Will consider MRI with and without contrast of lumbosacral spine to further assess.
Secondary progressive multiple sclerosis. Home regimen includes dimethyl fumarate and dalfampridine. Do not suspect current symptoms associated with MS flare. Will monitor neurologic status closely
Chronic malnutrition. Plan for calorie counts when awake and tolerating oral feeds
FLD with FR pending SHIPS OR BARGES LOADER consult
SQ Lovenox
Full code
I will be admitting Eliana Lucas to ICU. She is at high risk of worsening morbidity due to severe hyponatremia and seizures. She will require intensive monitoring of her labs and neurologic status as well as readjustment of her home pain regimen
and antiepileptic therapy. I have discussed this case with the ED attending, combination technician, neurologist, boat fueler. I reviewed this case with the resident and agree with all documentation unless otherwise specified
Please see resident H&P for more detail when available
--- NOTE | 2024-12-26 15:11 | PHA.VAN.IN ---
Assessment
- Assessment
Renal Function: Appears similar to baseline
Concomitant Antimicrobials: zosyn
Plan
- Plan
Initial / Loading Dose: 1000mg
Maintenance Regimen: prn by level
Monitoring: random 12/27 in am
MRSA Screen: Ordered per protocol
500mg given from 1gm premix, dr. duckworth requested the remaining 500mg to be given from nss bag instead of d5w
Pharmacokinetics Vancomycin I
- -
Patient Age: 59
Patient Sex: Female
Vancomycin Day #: 1
Indication: Pulmonary/Respiratory
Requesting Provider: resident Alf
Height / Weight:
Height 5 ft 3 in
Actual Weight 41.3 kg
- Vital Signs / Lab Results
Temp Pulse Resp BP Pulse Ox
98.0 F 84 16 122/91 96
12/26/24 14:34 12/26/24 14:10 12/26/24 14:10 12/26/24 14:10 12/26/24 14:10
Lab Results - Hematology
12/26/24
10:53
WBC 16.3 H
Lab Results - Chemistry
12/26/24
10:53
BUN 8
Creatinine 0.6
Albumin 3.1 L
12/26/24
11:08
Lactic Acid 3.6 H
Lab Results - Urine
12/26/24
11:54
Urine Nitrite (Reflex) Negative
Leukocyte Esterase Rfl Negative
Urine WBC (Reflex) 3-5
Ur Squamous Epith Cells 3-5
Urine Bacteria (Reflex) Moderate A
[2024-12-26 15:56] LABS: Blood Urea Nitrogen 8 mg/dl (7-17); Calcium 7.8 mg/dl (8.4-10.2); Carbon Dioxide 21 mmol/L (22-30); Chloride 86 mmol/L (98-107); Estimated Creatinine Clearance 67 ml/min; Glucose 73 mg/dl (70-99); Potassium 4.0 mmol/L (3.5-5.1); Sodium 112 mmol/L (135-145); eGFR > 60.00
--- NOTE | 2024-12-26 16:04 | PTCARENOTE ---
pt admitted to icu. pt wakes to touch oriented to self. will wake spont and ask where she is and what time it is. un able to orient. 3% saline running as ordered. foams placed on bilat heels and sacrum. pt at bedside reviewed pt
condition and plan of care. nc2l. breath sounds diminished rhonchi. pt has harsh non productive cough.
[2024-12-26] MEDS: NICODERM TRANSDERMAL TRANSDERM (16:07)
[2024-12-26] MEDS: OXYCONTIN (CONTROLLED RELEASE) PO (16:07)
[2024-12-26] MEDS: NEURONTIN PO ×2 (17:14→21:39)
[2024-12-26] MEDS: LOVENOX 30 MG SC (17:17)
--- NOTE | 2024-12-26 19:30 | PTCARENOTE ---
Received pt. at 1900. Pt. currently in bed. Lethargic but arouses to voice. Oriented to self. Forgetful. Denies pain/discomfort. Afebrile. Heart rhythm sinus. Blood pressure normotensive. Currently on 2L nasal cannula. Lungs sound diminished. NPO.
Purewick drainage device in place. Skin as documented. Discussed plan of care with patient. Vital signs stable at this time.
[2024-12-26] MEDS: LASIX 20 MG IV (19:38)
[2024-12-26 19:49] LABS: Blood Urea Nitrogen 9 mg/dl (7-17); Calcium 7.9 mg/dl (8.4-10.2); Carbon Dioxide 23 mmol/L (22-30); Chloride 86 mmol/L (98-107); Estimated Creatinine Clearance 67 ml/min; Glucose 66 mg/dl (70-99); Potassium 4.2 mmol/L (3.5-5.1); Sodium 113 mmol/L (135-145); eGFR > 60.00
[2024-12-26 22:43] LABS: Blood Urea Nitrogen 9 mg/dl (7-17); Calcium 7.5 mg/dl (8.4-10.2); Carbon Dioxide 23 mmol/L (22-30); Chloride 88 mmol/L (98-107); Estimated Creatinine Clearance 67 ml/min; Glucose 62 mg/dl (70-99); Potassium 3.6 mmol/L (3.5-5.1); Sodium 116 mmol/L (135-145); eGFR > 60.00
[2024-12-26] MEDS: DEXTROSE 50% SYRINGE 25 GRAMS IV (23:07)
[2024-12-26 23:10] LABS: Glucose - Point of Care 66 mg/dl (70-99)
[2024-12-26 23:33] LABS: Glucose - Point of Care 178 mg/dl (70-99)
[2024-12-27] VITALS (36 sets, daily range): BP systolic 66–124; BP diastolic 46–87; PULSE 73–771; O2SAT 96–97; BMI 16.1
--- NOTE | 2024-12-27 | PTCARENOTE ---
Pt. assessment unchanged. Remains confused and forgetful. Trending sodium level. Vital signs stable at this time.
[2024-12-27] MEDS: OXYCONTIN (CONTROLLED RELEASE) 20 MG PO ×2 (00:20→15:47)
[2024-12-27 01:38] LABS: Glucose - Point of Care 115 mg/dl (70-99)
[2024-12-27 03:03] LABS: Blood Urea Nitrogen 9 mg/dl (7-17); Calcium 7.5 mg/dl (8.4-10.2); Carbon Dioxide 24 mmol/L (22-30); Chloride 86 mmol/L (98-107); Estimated Creatinine Clearance 67 ml/min; Glucose 93 mg/dl (70-99); Potassium 3.2 mmol/L (3.5-5.1); Sodium 116 mmol/L (135-145); eGFR > 60.00
--- NOTE | 2024-12-27 03:30 | PTCARENOTE ---
Hypoglycemic over night. IV dextrose given. Blood glucose initially increased. Rechecked blood glucose at 3:30 am per protocol, glucometer reading 76. Notified FILM REPRODUCER. Another dose of IV dextrose given to prevent patient becoming hypoglycemic again.
Continuing to trend BMPs. Vital signs stable at this time.
[2024-12-27] MEDS: KCL 270 MEQ IV (03:33)
[2024-12-27] MEDS: DEXTROSE 50% SYRINGE 25 GRAMS IV ×2 (03:37→22:15)
[2024-12-27] MEDS: SODIUM CHLORIDE 3% 250 IV ×2 (04:14→22:24)
[2024-12-27] MEDS: ZOSYN 50 IV (05:54)
--- NOTE | 2024-12-27 06:04 | W.PN.UPDATE ---
Update Note
Progress Note Update
12/26/[address] Quigley, environmental advisor updated on Na result 113, unchanged from previous result. Hypertonic saline order rate increased recently to 20ml/hr, continue with current rate and repeat at 2200.
2200- Bmp resulted Na 116, results communicated with Dr. Quigley. Urine output from lasix now 250cc, yellow. Hold hypertonic not to correct too quickly, repeat labs at 0200.
0200- Na resultsed 116, resume hypertonic saline at 10ml/hr, results communicated with Dr. Quigley environmental advisor and repeat labs 0600.
[2024-12-27 06:06] LABS: Hematocrit 33.1 % (37.0-47.0); Hemoglobin 11.7 g/dL (12.0-16.0); Mean Corp Hgb Conc. 35.3 g/dL (33.0-37.0); Mean Corpuscular Volume 80.9 fL (81.0-99.0); Nucleated Red Blood Cells % 0 %; Platelet Count 204 10^3/uL (130-400); Red Cell Dist. Width 12.6 % (11.5-14.5)
[2024-12-27 06:11] LABS: INR 0.97; PT 13.2 Sec (11.4-14.6)
[2024-12-27 06:12] LABS: APTT 28.8 Sec (23.4-35.0)
[2024-12-27 06:40] LABS: ALT (SGPT) < 10 U/L (0-35); AST (SGOT) 17 U/L (14-36); Albumin 2.6 g/dl (3.5-5.0); Alkaline Phosphatase 80 U/L (38-126); Blood Urea Nitrogen 9 mg/dl (7-17); Calcium 7.7 mg/dl (8.4-10.2); Carbon Dioxide 23 mmol/L (22-30); Chloride 90 mmol/L (98-107); Estimated Creatinine Clearance 66 ml/min; Glucose 106 mg/dl (70-99); Magnesium 1.8 mg/dl (1.6-2.3); Potassium 5.1 mmol/L (3.5-5.1); Sodium 117 mmol/L (135-145); Total Protein 5.0 g/dl (6.3-8.2); eGFR > 60.00
--- NOTE | 2024-12-27 07:41 | PHA.VAN.FU ---
Vancomycin Assessment / Plan
- Assessment
Renal Function: Stable
WBC's are: Trending Down
In the past 24 hrs, patient has been: Afebrile
Concomitant Antimicrobials: ZOSYN
- Assessment - Therapeutic Drug Monitoring
Random Level: 5.8
- Dosing Plan
Adjust Regimen to: 500MG Q12H
Dosing by Level: Re-dose today (750MG)
- Monitoring Plan
No level(s) ordered at this time: CONSIDER AT STEADY STATE
- Follow Up
Pharmacy will continue to follow.
Vancomycin Follow UP
- -
Patient Age: 59
Patient Sex: Female
Vancomycin Day #: 2
Indication: Pulmonary/Respiratory
Requesting Provider: Amy Magana resident
Height / Weight:
Height 5 ft 3 in
Actual Weight 41.2 kg
- Vital Signs / Lab Results
Temp Pulse Resp BP Pulse Ox
98.2 F 67 9 108/70 94
12/26/24 19:45 12/27/24 06:30 12/27/24 06:30 12/27/24 06:00 12/27/24 06:30
Lab Results - Hematology
12/26/24 12/27/24
10:53 05:47
WBC 16.3 H 14.2 H
Lab Results - Chemistry
12/26/24 12/26/24 12/26/24
10:53 15:17 19:13
BUN 8 8 9
Creatinine 0.6 0.4 L 0.6
Estimated Creat Clear 67 67
Albumin 3.1 L
12/26/24 12/27/24 12/27/24
22:15 01:56 05:47
BUN 9 9 9
Creatinine 0.6 0.6 0.5 L
Estimated Creat Clear 67 67 66
Albumin 2.6 L
12/26/24 12/26/24
11:08 19:13
Lactic Acid 3.6 H 0.8
Lab Results - Urine
12/26/24
11:54
Urine Nitrite (Reflex) Negative
Leukocyte Esterase Rfl Negative
Ur Squamous Epith Cells 3-5
Therapeutic Drug Monitoring
Random Vancomycin 5.8 ug/ml 12/27/24 05:47
[2024-12-27] MEDS: NEURONTIN PO ×3 (07:43→21:53)
[2024-12-27] MEDS: OXYCONTIN (CONTROLLED RELEASE) PO ×2 (07:43→23:53)
--- NOTE | 2024-12-27 07:48 | PTCARENOTE ---
pt wakes to name oriented to self. refuses to take any liquids unable to take po meds. inc of urine. pt repositioned.
[2024-12-27] MEDS: NICODERM TRANSDERMAL 14 MG TRANSDERM (07:58)
--- NOTE | 2024-12-27 08:03 | W.PN.HOSP.TC ---
Today's Communication/Plan
-
- Continue 10ml/hr 3% saline infusion until Na>120
- BMP q4hr
- Nephrology consulted, appreciate recs
- Switch abx to unasyn given high suspicion for aspiration PNA (12/27- ; s/vanc & zosyn 12/26-12/27)
- Blood cx, urine legionella, urine strep pneumo, MRSA screen pending
- Pending speech eval
- Wean off O2 NC as tolerated
- Appreciate recs from pulm team
- Continue gabapentin 800mg qid home dose
- Continue home dose oxycodone 20mg q8h & 30mg q4h prn
- Compression socks to address JAYMIE
- Fluid restriction diet to 48oz
- Continue MS meds (tecfidera, baclofen via pump, dalfampridine)
- EEG pending
Assessment / Plan
Assessment / Plan
Eliana Lucas is a 59yo F with a pmh notable for secondary progressive MS, chronic back pain, & tobacco use who p/w acute worsening of back/bilateral LE pain, w episode c/f seizure in ED, found to have R-sided PNA & severe hyponatremia.
#Severe hyponatremia
Na 112 on admission. Per , pt stopped eating full dinners in October; only eats a piece of toast & coffee, plus two cheese sandwiches daily. Does drink a fair amount of water. Not hypotensive on admission. Pt low weight, thin appearing.
Hyponatremia likely in s/o malnutrition, 'tea & toast' syndrome. Pt eating protein-deficient diet, limiting solute excretion. 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 Urine Na 35, urine osm order cancelled. Pt with normal eGFR.
unsure about recent med changes, but none on the list provided are known to cause hyponatremia other than gabapentin/pregabalin.
S/p 250ml bolus of 3% saline, followed by 30ml bolus of 3% saline (total 280ml) in ED; yesterday 10ml/hr 3% saline, increased to 20ml/hr overnight for 1-2 hrs. Today 6am, Na 117.
- Continue 10ml/hr 3% saline infusion until Na>120
- BMP q4hr
- Nephrology consulted, appreciate recs
- Requested updated medication list from PCP (Dr. Chel Oneill in [place])
#Pneumonia, likely 2/2 aspiration
CXR (12/26) demonstrating R basilar airspace opacity concerning for pneumonia. On admission, lactic acid elevated 3.6. Leukocytosis WBC 16.3 w R shift. Sat 93% on 2L NC. Afebrile. Lives w family, daughter has had sore throat for last few days, taking
dayquil. Only recent travel to [place] last week. No change to her chronic (smoker's) cough in last few days, no f/c. Pt did have new rhinorrhea in the last few days. Ddx includes CAP vs. aspiration PNA (suspected) given RLL location of
consolidation and reported hx of choking events.
This am, satting 96% on 2L NC. Afebrile. WBC: 16.3>14.2 downtrending.
- Switch abx to unasyn 1.5g q6hr for 5-day course given high suspicion for aspiration PNA (12/27- ; s/vanc & zosyn 12/26-12/27)
- Blood cx, urine legionella, urine strep pneumo, MRSA screen pending
- Pending speech eval
- Wean off O2 NC as tolerated
- Appreciate recs from pulm team
#Back/hip/leg pain
#Feet swelling
Pt was initially brought to ED because of complaints of severe pain in low back, hips, & legs this am. Per , screaming in pain when touched or trying to get to toilet. Pt with chronic nerve pain in s/o MS, this is different. Muscle cramps
more common in s/o chronic hyponatremia than acute. Potentially worsening baseline neuropathic MS pain in s/o acute inflammatory state 2/2 infection & electrolyte imbalance. Dalfampridine can also cause back pain. Less likely radicular pain but can
eval w MRI. Feet swelling likely 2/2 hyponatremia and over-drinking fluid given low PO solids.
Today, feet appear less swollen.
- Continue gabapentin 800mg qid home dose
- Continue home dose oxycodone 20mg q8h & 30mg q4h prn
- Compression socks to address JAYMIE
- Fluid restriction diet to 48oz
#Seizure
#Encephalopathy
No known hx of seizures. Likely precipitated by severe hyponatremia. S/p 5mg midazolam in ED. CT head (12/26) without signs of ICH, mass effect, ventricular dilation; likely MS progression. Pt also with dx of secondary progressive MS. Unknown date of
last MRI, potential contribution of underlying MS flare or progression. unsure about current med regimen, last documented 4yrs ago as tecfidera 240mg as dz modifying therapy & dalfampridine for sx mgmt. Also w baclofen pump, recently
refilled. 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
No events overnight c/f seizure.
- Hyponatremia mgmt as above
- Continue MS meds (tecfidera, baclofen via pump, dalfampridine)
- To confirm if baclofen pump also includes dilaudid
- EEG pending
- Consider MRI head
- If begins seizing, give midazolam 5g nasal spray PRN; if c/f ongoing seizure, give levetiracetam 1g IV PRN
#Metabolic acidosis, non-gap, resolving
On admission, albumin-corrected anion gap of 11.5, suggesting non-gap metabolic acidosis (Na 112, bicarb 12, Cl 82, albumin 3.1). Denies diarrhea. Acidosis & hyponatremia can also co-occur in Chaffee's dz - less likely given lack of hypotension and
normal K. Likely in s/o elevated lactate/seizure.
Today, bicarb normalized 23, Cl trending up 90, Na trending up 117.
- Continue to monitor as Na repleted & normalizes
- Nephrology consulted, appreciate recs
#Recent falls
reports a few recent falls at home over the last 2-3 days. Pt never hit head or lost consciousness. Had some scrapes/bruises on R arm 2/2 falls. Usually in wheelchair or bed but ambulates on own to bathroom. 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
weakness in s/o poor nutritional status, deconditioning.
- Fall precautions
- PT/OT consulted
- Continue to address other causes of dz as above
#Chronic
-Tobacco use - smokes ~5-10 cigarettes/day since 'forever' (likely 40 yrs), 20 pack-yrs; order nicotine patch 14mg
-MS - continue home meds (tecfidera, baclofen via pump, dalfampridine)
#Global
- DVT ppx: lovenox
- Diet: full liquids w fluid restriction until speech eval
- Code: full
- Dispo: lives at home w , father, & son/daughter; pending hyponatremia resolution, consider w VN/PT/OT
Anticipated Discharge: > 48 hours
Subjective/Interval History
-
Date of Service: December 27, 2024
Patient in bed this morning, hard to arouse. Opens eyes and says hello. But then unable to respond to any questions. Fell back asleep. Seems to be sleeping comfortably with nonlabored respirations. Per RN, patient occasionally wakes up and has
the same couple of questions/statement such as 'where am I?', 'what time is it?', 'help me.' No acute changes in mental status. No events concerning for seizure overnight.
Objective Data
-
Labs:
Laboratory Results
12/26/24 12/27/24 12/27/24
22:15 01:56 05:47
WBC 14.2 H
Hgb 11.7 L
Hct 33.1 L
Plt Count 204
PT 13.2
INR 0.97
APTT 28.8
Sodium 116 L* 116 L* 117 L*
Potassium 3.6 3.2 L 5.1 D
Chloride 88 L 86 L 90 L
Carbon Dioxide 23 24 23
BUN 9 9 9
Creatinine 0.6 0.6 0.5 L
Glucose 62 L 93 106 H
Calcium 7.5 L 7.5 L 7.7 L
Total Bilirubin 0.8
AST 17
ALT < 10
Alkaline Phosphatase 80
12/27/24 12/27/24 12/27/24
09:30 13:30 17:30
WBC
Hgb
Hct
Plt Count
PT
INR
APTT
Sodium Pending Pending Pending
Potassium
Chloride
Carbon Dioxide
BUN
Creatinine
Glucose
Calcium
Total Bilirubin
AST
ALT
Alkaline Phosphatase
12/27/24
21:30
WBC
Hgb
Hct
Plt Count
PT
INR
APTT
Sodium Pending
Potassium
Chloride
Carbon Dioxide
BUN
Creatinine
Glucose
Calcium
Total Bilirubin
AST
ALT
Alkaline Phosphatase
Vital Signs:
Vital Signs
Temp Pulse Resp BP Pulse Ox
98.0 F 82 19 119/73 96
12/27/24 07:48 12/27/24 07:38 12/27/24 07:38 12/27/24 07:38 12/27/24 07:38
I&O
12/26/24 12/27/24 12/28/24
06:59 06:59 06:59
Intake Total 130 / 140
Output Total 400 / 400
Balance -270 / -260
Review of Systems
-
Unable to obtain full review of systems at this time due to: Acuity and Patient Non-verbal
Physical Exam
-
General: Other (Thin, appears chronically ill)
HEENT: Normocephalic, Atraumatic and Anicteric
Respiratory: Non Labored Respirations and Chest Tubes (nasal cannula)
Cardiac: Regular Rhythm and S1/S2
GI: Nontender, Nondistended and Other (Baclofen pump subcutaneous and abdomen)
Musculoskeletal: Other (Feet appear less swollen than on admission)
Neuro: Other (Asleep, confused upon awakening, nonconversant)
Data Reviewed
-
Total Time Spent with Patient (in minutes): 5
Critical Care Time (in minutes): 45
Labs: Labs Reviewed by me
[2024-12-27] MEDS: VANCOCIN 150 IV (08:15)
--- NOTE | 2024-12-27 09:32 | W.PN.INTV ---
Today's Communication / Plan
Recommendations
Slow sodium correction
Antibiotics
Monitor for recurrent seizures
Assessment
-
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
hyponatremia and critical care management 12/26/2024.
Community-acquired pneumonia-aspiration risk
Severe hyponatremia-serum sodium 112
Tonic-clonic seizure
Periorbital/peripheral edema
Hypercapnia-suspect chronic
Leukocytosis
Mild microcytic anemia
Lactic acidosis
Hypoalbuminemia
Protein calorie malnutrition
UTI suspected
COPD suspected without acute exacerbation
Severe right maxillary and right ethmoid sinusitis
Conditions present prior to admission:
Chronic back pain.
Chronic opioid dependence.
Baclofen pump.
POTS.
Multiple sclerosis on Tecfidera.
Cigarette smoker.
Multiple bilateral pulmonary nodules incidentally noted measuring up to 1.[address] abdomen 03/2022-PET scan was recommended-never obtained
Protein calorie malnutrition.
Appendectomy. .
Plan
Patient critically ill with severe hyponatremia, seizure and pneumonia (suspected aspiration)-admit to medical intensive care unit
Supplemental oxygen as needed-high flow if needed
BiPAP or noninvasive ventilation if respiratory status declines
Intubated mechanically ventilated if necessary-Dr. Lopez reviewed CODE STATUS with patient's 12/26/2024-for now would like full code including intubation, CPR, shocking if needed
Nebulizers as needed-currently not bronchospastic
Aspiration precautions
Mucolytic's
Cultures reviewed
Sputum culture-unable to produce
Urine for Legionella and streptococcal antigen-pending
MRSA screen-pending
Pneumonia and severe sinusitis noted
Empiric antibiotics-vancomycin and Zosyn initiated-if MRSA screen negative can discontinue vancomycin
Follow leukocytosis and fever curve-afebrile and WBCs improved
Follow radiographically-recheck chest x-ray 12/28/2024
Follow serum sodium level closely-increased from 112 on admission to 117 in 24 hours
3% saline-cautious administration
Goal correction 6 mEq/liter in the first 24 hours
Monitor neurologic status closely-rapid correction can rarely leads to osmotic demyelination syndrome
Nephrology evaluation ongoing-correspondence reviewed
Diuretics and potential use of Samsca per nephrology
TSH-normal 2.4
Random cortisol-36
Check urine osmolarity -pending
Urine sodium 35
Monitor for recurrent seizure-no recurrence
Seizure probably related to severe hyponatremia
Check EEG
Consider neurology evaluation
CT head 12/26/2024-moderate bilateral volume loss with severe white matter disease probably demyelinating disease from multiple sclerosis which is increased since 01/2024, severe right maxillary and right ethmoid air cell sinusitis
Consider MRI head
Ativan and shortage-midazolam or diazepam as needed
EEG pending
Smoking cessation counseling ongoing
DVT prophylaxis-on Lovenox
Early nutrition with aspiration precautions
Bedside range of motion/early mobilization/eventual physical therapy/Occupational Therapy
Dr. Lopez reviewed with in the emergency room as well as emergency room physician and nursing 12/26/2024
Pulmonary nodule recommendation was seen from 04/19/2022-letter was written 05/14/2022 that a pulmonary nodule was seen on an image study done [facility] emergency room and PET scan was recommended-I do not see a PET scan or pulmonary
follow-up thereafter
Outpatient radiographic follow-up recommended
Patient qualifies for yearly low-dose lung cancer screening CT-obtain CT chest and pulmonary follow-up after pneumonia clears
Outpatient pulmonary [id number], smoking cessation counseling, yearly low-dose lung cancer screening CT, etc.
Critical care statement: A total of 45 minutes of critical care time was provided for this patient today. This includes management of unstable vital signs, evaluation of the patient at bedside, reviewing the patient�s pertinent medical records
including radiographs, microbiology, laboratory evaluations, and��discussion with primary team, consultants, pharmacy, nutrition, physical therapy, case management, charge nurse, critical care nursing, and respiratory therapy.
Diagnostic data:
Chest x-ray 10/23/2022-NAD
Chest x-ray 02/11/2024-NAD
Chest x-ray 12/26/2024-right basilar pneumonia
CT head 01/22/2024-moderate to severe white matter disease, mild bilateral parietal lobe volume loss,
CT abdomen and pelvis 04/19/2022-no acute fracture T12, severe biliary dilation without obstructing mass, prior cholecystectomy, hepatic hemangioma, severe constipation, multiple solid pulmonary nodules both lower lobes measuring up to 1.2 cm
Echocardiogram 02/11/2024-EF 60-65%, normal diastolic function, mild mitral regurgitation, PA systolic 20
Subjective Dataa
Subjective Data
Date of Service:
Date of Service: December 27, 2024
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
Subjective:
Lethargic, inappropriate and answering questions, arousable, no shortness of breath or complaints of pain
Review of Systems
General: Other (Per HPI)
Objective Data
Data Reviewed
Vital Signs / I&O / Oxygen:
Vital Signs
Temp Pulse Resp BP Pulse Ox
98.0 F 82 19 119/73 96
12/27/24 07:48 12/27/24 07:38 12/27/24 07:38 12/27/24 07:38 12/27/24 07:38
Intake and Output
12/26/24 12/27/24 12/28/24
06:59 06:59 06:59
Intake Total 130 / 140 20 / 20
Output Total 400 / 400
Balance -270 / -260 20 / 20
SaO2 96
Nasal Cannula flow liters per 2
minute
Physical Exam
General: Respiratory Distress (n) and Comfortable
HEENT: Normocephalic, Anicteric and Moist Mucous Membranes
Cardiovascular: Regular Rhythm
Respiratory: Clear ( diminished breath sounds and prolonged expiratory time), Crackles, Non-Labored Respirations, Accessory Resp Muscle Use (n) and Stridor
GI: Soft, Non Distended and Non Tender
Neurology: Alert, No Motor Deficits, Lethargic and Other (Confused)
Skin: Warm, Good Color, Cyanosis, Jaundice (n) and Other (Cachexia)
Labs/Micro/Reports
Lab Data
12/27/24 05:47
Laboratory Results
12/27/24
05:47
PT 13.2
INR 0.97
APTT 28.8
[2024-12-27 10:21] LABS: Sodium 117 mmol/L (135-145)
[2024-12-27 10:56] LABS: Cortisol, Random 35.9 ug/dl; TSH 2.41 uIU/ml (0.47-4.68)
--- NOTE | 2024-12-27 11:13 | W.PN.NEPH.PH ---
Today's Communication / Plan
-
see plan
Assessment/Plan
-
IMP:
Severe symptomatic hyponatremia
First-time seizure episode, tonic-clonic.
Acute hypoxemic respiratory insufficiency due to aspiration pneumonia
Periorbital/peripheral edema
Hypercapnia-suspect chronic
Leukocytosis
Mild microcytic anemia
Lactic acidosis
Hypoalbuminemia
Protein calorie malnutrition
UTI suspected
COPD suspected without acute exacerbation
Acute on chronic back pain. S/p baclofen pump.
Secondary progressive multiple sclerosis.
Chronic malnutrition
Plan:
A/w worsening back pain, had SZ in ER with sodium 112
Severe symptomatic hyponatremia likely multifactorial
likely has high ADH state from pain and PNA superimposed with polydipsia, osmo still pending
BNP is high suspect she also has mild hypervolemia-check echo
will increase HTS at 20cc/hr, adjust rate accordingly with lasix
correction of sodium 6-8meq/day strictly
cont Q4h checks, pending U osmo and S osmo
normal TSH and cortisol
abx per primary
hypoalbuminemia-check U PCR
BP are soft, monitor
avoid NSAIDs
d/w nursing
-
-
Date of Service: December 27, 2024
CC / HPI / ROS
-
Chief Complaint:
Hypoantremia
History of Present Illness:
na improving to 117 this am, non oliguric
Bp soft
no fever, on 2lit of O2
Review of Systems:
confused and limited history
offers no cp or sob
Labs
-
Labs:
WBC 14.2 10^3/uL (4.8-10.8) H 12/27/24 05:47
RBC 4.09 10^6/uL (4.20-5.40) L 12/27/24 05:47
Hgb 11.7 g/dL (12.0-16.0) L 12/27/24 05:47
Hct 33.1 % (37.0-47.0) L 12/27/24 05:47
Plt Count 204 10^3/uL (130-400) 12/27/24 05:47
Potassium 5.1 mmol/L (3.5-5.1) D 12/27/24 05:47
Chloride 90 mmol/L (98-107) L 12/27/24 05:47
Carbon Dioxide 23 mmol/L (22-30) 12/27/24 05:47
BUN 9 mg/dl (7-17) 12/27/24 05:47
Creatinine 0.5 mg/dL (0.6-1.0) L 12/27/24 05:47
eGFR > 60.00 12/27/24 05:47
Glucose 106 mg/dl (70-99) H 12/27/24 05:47
Calcium 7.7 mg/dl (8.4-10.2) L 12/27/24 05:47
Phosphorus 3.2 mg/dl (2.5-4.5) 12/27/24 05:47
Riy-T-Xdzimhyfvvh Pept 3060 pg/ml 12/26/24 15:17
Albumin 2.6 g/dl (3.5-5.0) L 12/27/24 05:47
Physical Exam
-
Vital Signs:
Vital Signs
Temp Pulse Resp BP Pulse Ox
98.0 F 63 9 88/61 97
12/27/24 07:48 12/27/24 09:30 12/27/24 09:30 12/27/24 09:00 12/27/24 09:30
Cardiovascular:: Regular rate and rhythm
Respiratory:: Bilateral: Coarse and Bilateral: Rhonchi
Lung Excursion:: Normal
Abdomen:: Nontender and Soft
Extremity Edema:: +1: Bilateral:
Eckert Catheter: No
[2024-12-27] MEDS: UNASYN IV ×3 (11:54→23:53)
[2024-12-27 12:08] LABS: Glucose - Point of Care 75 mg/dl (70-99)
[2024-12-27] MEDS: LASIX 20 MG IV (13:31)
--- NOTE | 2024-12-27 13:31 | EEGC.RPT ---
Continuous EEG Report
Recording
Start Date of Data Reviewed: 12/26/24
Start Time of Data Reviewed: 11:21
End Date of Data Reviewed: 12/26/24
End Time of Data Reviewed: 12:27
Type of EEG: Continuous
Done with Video Recording: No
Report
Clinical Background:�she is a 59 year old woman with tonic clonic seizure, severe hyponatremia
Introduction: An emergent EEG was done using Cerib[employer] device in the ED
Background: In the most alert state, the there is continuous generalized slowing with polymorphic delta and theta activity.
Sleep: No sleep is seen.�
Focal/epileptiform: There were no focal or epileptiform discharges. No clinical or electrographic seizures occurred during this recording.
Impression: Moderate generalized cerebral dysfunction
[2024-12-27] MEDS: NON-FORMULARY ITEM PO ×2 (13:32→20:30)
[2024-12-27 14:11] LABS: Sodium 117 mmol/L (135-145)
[2024-12-27] MEDS: NEURONTIN 800 MG PO (15:47)
[2024-12-27] MEDS: LOVENOX 30 MG SC (17:30)
[2024-12-27 18:01] LABS: Sodium 119 mmol/L (135-145)
--- NOTE | 2024-12-27 20:00 | PTCARENOTE ---
Rec'd pt lethargic,but arousable, forgetful, follows simple commands w/ stimulation, UJN at 2mm, no seizure activity noted, SR, weak distal pulses, skin warm/dry, denies pain, o2 2 liters nc, lungs decr, scat rhonchi, sat 98, npc, hypo bowel
sounds, inc sm amt brown stool, paddy care given, npo due to lthargy, bladder scanned for 216 ml; 3%NSS at 20ml/hr
[2024-12-27 21:11] LABS: Sodium 121 mmol/L (135-145)
--- NOTE | 2024-12-27 21:20 | PTCARENOTE ---
Dr lopes notified of NA 121- to cont present treatment
[2024-12-27] MEDS: LEVOPHED 250 IV (22:05)
--- NOTE | 2024-12-27 22:05 | PTCARENOTE ---
levophed gtt started at 2mic- to keep MAP > 65- see flow sheet for updates
--- NOTE | 2024-12-27 22:15 | PTCARENOTE ---
accu-60, 1 amp d50 IV given, repeat accu 160
[2024-12-27 22:26] LABS: Glucose - Point of Care 60 mg/dl (70-99)
[2024-12-27 22:46] LABS: Glucose - Point of Care 160 mg/dl (70-99)
[2024-12-28] VITALS (65 sets, daily range): BP systolic 77–150; BP diastolic 51–114; BMI 14.6
--- NOTE | 2024-12-28 | PTCARENOTE ---
sys reviewed, still lethargic, but arousable, bladder scanned for 340ml
[2024-12-28 00:10] LABS: Glucose - Point of Care 161 mg/dl (70-99)
[2024-12-28 01:36] LABS: Blood Urea Nitrogen 9 mg/dl (7-17); Calcium 8.2 mg/dl (8.4-10.2); Carbon Dioxide 24 mmol/L (22-30); Chloride 94 mmol/L (98-107); Estimated Creatinine Clearance 66 ml/min; Glucose 127 mg/dl (70-99); Potassium 3.4 mmol/L (3.5-5.1); Sodium 124 mmol/L (135-145); eGFR > 60.00
--- NOTE | 2024-12-28 02:00 | PTCARENOTE ---
Sd Antonio NP aware of chem result, 40 kcl/250 hung over 4hr per order, bladder scanned for 600ml, str cath for 700ml yellow urine, CHG bath done, linens changed
[2024-12-28] MEDS: KCL 270 MEQ IV (02:25)
--- NOTE | 2024-12-28 04:03 | PTCARENOTE ---
3%nss dc'd per order
[2024-12-28 05:28] LABS: Sodium 125 mmol/L (135-145)
--- NOTE | 2024-12-28 05:36 | PTCARENOTE ---
Sd Antonio NP aware of na level
[2024-12-28] MEDS: LEVOPHED 250 IV ×2 (05:53→13:48)
[2024-12-28 06:06] LABS: Glucose - Point of Care 130 mg/dl (70-99)
[2024-12-28] MEDS: UNASYN IV ×3 (06:35→17:02)
[2024-12-28] MEDS: NON-FORMULARY ITEM PO ×2 (07:26→20:40)
[2024-12-28] MEDS: NEURONTIN PO ×4 (07:26→22:24)
[2024-12-28] MEDS: OXYCONTIN (CONTROLLED RELEASE) PO ×2 (07:26→15:05)
[2024-12-28] MEDS: NICODERM TRANSDERMAL 14 MG TRANSDERM (07:52)
--- NOTE | 2024-12-28 07:53 | PTCARENOTE ---
Received patient from shift manager, patient is extremely lethargic, arousable to repeated tactile stimuli. Is cachetic appearing, barely opening her eyes, but was able to state she is at the hospital. patient is on 2L nasal cannula, she is sinus
rhythm on monitor with levophed running at 8mcg for MAP>65. Patient will be kept NPO due to lethargy. has been straight cathed x3, will ask for potential use of salas. SKin to be charted in focused shift assessment. all orders reviewed.
--- NOTE | 2024-12-28 07:55 | PTCARENOTE ---
Call to PICC team for line placement
--- NOTE | 2024-12-28 08:04 | W.PN.HOSP.TC ---
Addendum entered and electronically signed by Sean Maria MD 12/30/24 16:26:
h3% saline held overnight
na up on morning recheck
per neph no additional fluids
no further sexiures
mri ordered but since seziure likely related to na will hold off
case disccused with ICU attending while on round
wean pressors are tolerated.
Original Note:
Today's Communication/Plan
-
- See plan for details
- continue levophed
- full liquid diet
- pending speech eval
- continue unasyn
- brain MRI today
- repeat urine Na, osm, Cr
Assessment / Plan
Assessment / Plan
Eliana Lucas is a 59yo F with a pmh notable for secondary progressive MS, chronic back pain, & tobacco use who p/w acute worsening of back/bilateral LE pain, w episode c/f seizure in ED, found to have R-sided PNA & severe hyponatremia.
#Severe hyponatremia
Na 112 on admission. Per , pt stopped eating full dinners in October; only eats a piece of toast & coffee, plus two cheese sandwiches daily. Does drink a fair amount of water. Not hypotensive on admission. Pt low weight, thin appearing.
Hyponatremia likely in s/o malnutrition, 'tea & toast' syndrome. Pt eating protein-deficient diet, limiting solute excretion. 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 Urine Na 35, urine osm order cancelled. Random cortisol
unremarkable. Pt with normal eGFR. unsure about recent med changes, but none on the list provided are known to cause hyponatremia other than gabapentin/pregabalin.
S/p hypertonic saline 12/26-12/27 w lasix. Na: 125 this am.
- BMP q4hr
- Repeat urine osm, cr, na today
- Nephrology consulted, appreciate recs
- Requested updated medication list from PCP (Dr. Chel Oneill in [place])
#Bradycardia
#Hypotension, resolving
#Depressed RR
Pt w systolic BP in 60s & 70s in evening of 12/27 - started on levophed 12/27. RR has been in low teens with some dips to 8-9 over last few days; likely 2/2 opioid pain mgmt.
This am, normotensive (113/81), HR 57. RR 7-8 this am. O2 sat 99% on 2L NC. Fingers/toes cold but without discoloration today.
- Continue to monitor
- Continue 4mg Levophed
- Warm blanket
- Add nonrebreather, bipap if respiratory status declines
#Pneumonia, likely 2/2 aspiration
#Sinusitis
CXR (12/26) demonstrating R basilar airspace opacity concerning for pneumonia. On admission, lactic acid elevated 3.6. Leukocytosis WBC 16.3 w R shift. Sat 93% on 2L NC. Afebrile. Lives w family, daughter has had sore throat for last few days, taking
dayquil. Only recent travel to [place] last week. No change to her chronic (smoker's) cough in last few days, no f/c. Pt did have new rhinorrhea in the last few days. Ddx includes CAP vs. aspiration PNA (suspected) given RLL location of
consolidation and reported hx of choking events. Urine antigen negative for legionella & strep pneumo. Blood cx negative.
This am, afebrile. WBC: 16.3>14.2 downtrending.
- Unasyn 1.5g q6hr for 5-day course given high suspicion for aspiration PNA (12/27- ; s/vanc & zosyn 12/26-12/27)
- MRSA screen pending
- Pending speech eval, pt thus far not alert enough for eval
- Saline nasal spray mucolytic
- Appreciate recs from pulm team
#Seizure
#Metabolic encephalopathy
No known hx of seizures. Likely precipitated by severe hyponatremia. S/p 5mg midazolam in ED. CT head (12/26) without signs of ICH, mass effect, ventricular dilation; likely MS progression. Pt also with dx of secondary progressive MS. Unknown date of
last MRI, potential contribution of underlying MS flare or progression. unsure about current med regimen, last documented 4yrs ago as tecfidera 240mg as dz modifying therapy & dalfampridine for sx mgmt. Also w baclofen pump, recently
refilled - this pump contains dilaudid (dose pending, Dr. Woods at [place]). 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
No new events c/f seizure. EEG (12/27) with moderate generalized cerebral dysfunction, no focal epileptiform activity.
- Hyponatremia mgmt as above
- Continue MS meds (tecfidera, baclofen via pump, dalfampridine)
- MRI head today (confirmed baclofen pump MRI safe)
- Adjust pain med dosing given dilaudid from baclofen pump, pending info from Dr. Peters
- If begins seizing, give midazolam 5g nasal spray PRN; if c/f ongoing seizure, give levetiracetam 1g IV PRN
#Metabolic acidosis, non-gap, resolved
On admission, albumin-corrected anion gap of 11.5, suggesting non-gap metabolic acidosis (Na 112, bicarb 12, Cl 82, albumin 3.1). Denies diarrhea. Acidosis & hyponatremia can also co-occur in [place]'s dz - less likely given lack of hypotension and
normal K. Likely in s/o elevated lactate/seizure.
Today, bicarb normalized, Cl trending up, Na trending up.
- Continue to monitor as Na repleted & normalizes
- Nephrology consulted, appreciate recs
#Back/hip/leg pain
#Feet swelling
Pt was initially brought to ED because of complaints of severe pain in low back, hips, & legs this am. Per , screaming in pain when touched or trying to get to toilet. Pt with chronic nerve pain in s/o MS, this is different. Muscle cramps
more common in s/o chronic hyponatremia than acute. Potentially worsening baseline neuropathic MS pain in s/o acute inflammatory state 2/2 infection & electrolyte imbalance. Dalfampridine can also cause back pain. Less likely radicular pain but can
eval w MRI. Feet swelling likely 2/2 hyponatremia and over-drinking fluid given low PO solids.
Today, swelling in feet improved.
- Continue gabapentin 800mg qid home dose
- Continue home dose oxycodone 20mg q8h & 30mg q4h prn
- Adjust pain med dosing given dilaudid from baclofen pump as above
- Compression socks to address JAYMIE
- Fluid restriction diet to 48oz
#Recent falls
reports a few recent falls at home over the last 2-3 days. Pt never hit head or lost consciousness. Had some scrapes/bruises on R arm 2/2 falls. Usually in wheelchair or bed but ambulates on own to bathroom. 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
weakness in s/o poor nutritional status, deconditioning.
- Fall precautions
- PT/OT consulted
- Continue to address other causes of dz as above
#Chronic
-Tobacco use - smokes ~5-10 cigarettes/day since 'forever' (likely 40 yrs), 20 pack-yrs; order nicotine patch 14mg
-MS - continue home meds (tecfidera, baclofen via pump, dalfampridine)
#Global
- DVT ppx: lovenox
- Diet: full liquids w fluid restriction until speech eval
- Code: full
- Dispo: lives at home w , father, & son/daughter; pending hyponatremia resolution, consider w VN/PT/OT
Anticipated Discharge: > 48 hours
Subjective/Interval History
-
Date of Service: December 28, 2024
Patient with improvement of status today, more conversant and awake than prior. Able to respond to questions appropriately. Patient states that she is having pain in her low back and a little bit in her legs. Denies any shortness of breath or
chest pain. Says that she feels cold, requesting warm blankets. Just finished having PICC placed.
Objective Data
-
Labs:
Laboratory Results
12/27/24 12/28/24 12/28/24
20:55 01:01 05:06
WBC
Hgb
Hct
Plt Count
Sodium 121 L 124 L Pending
Potassium 3.4 L D
Chloride 94 L
Carbon Dioxide 24
BUN 9
Creatinine 0.5 L
Glucose 127 H
Calcium 8.2 L
Total Bilirubin
AST
ALT
Alkaline Phosphatase
12/28/24 12/28/24
05:06 06:00
WBC Pending
Hgb Pending
Hct Pending
Plt Count Pending
Sodium 125 L
Potassium Pending
Chloride Pending
Carbon Dioxide Pending
BUN Pending
Creatinine Pending
Glucose Pending
Calcium Pending
Total Bilirubin Pending
AST Pending
ALT Pending
Alkaline Phosphatase Pending
Vital Signs:
Vital Signs
Temp Pulse Resp BP Pulse Ox
97.6 F 57 8 113/81 99
12/28/24 03:48 12/28/24 07:30 12/28/24 07:30 12/28/24 07:30 12/28/24 07:00
I&O
12/27/24 12/28/24 12/29/24
06:59 06:59 06:59
Intake Total 130 / 140 870.0 / 900.0
Output Total 400 / 400 1925 / 1925
Balance -270 / -260 -1055.0 / -1025.0
Review of Systems
-
History Source: Patient
Constitutional: Reports Chills (Cold)
Respiratory: Reports Trouble Breathing (Denies)
Cardiac: Reports Chest Pain (Denies)
Musculoskeletal: Reports Other (Back pain, leg pain)
Physical Exam
-
General: Appears Chronically Ill (Thin, frail-appearing) and Other (Conversant intermittently with closing eyes, somewhat groggy)
HEENT: Normocephalic, Atraumatic and Anicteric
Respiratory: Clear to Auscultation and Non Labored Respirations
Cardiac: Regular Rhythm and Other (Fingers, toes cold but without discoloration)
GI: Nontender, Nondistended and Other (Baclofen pump in place)
Musculoskeletal: Other (Edema bilateral feet much improved, trace in both feet)
Skin: IV Access / Catheter Site (R brachial PICC )
Neuro: Other (Mental status much improved from yesterday, awake, able to respond to questions; still groggy/somnolent)
Data Reviewed
-
Total Time Spent with Patient (in minutes): 15
Critical Care Time (in minutes): 45
Labs: Labs Reviewed by me
--- NOTE | 2024-12-28 08:10 | W.PN.INTV ---
Today's Communication / Plan
Recommendations
Slow sodium correction
Antibiotics
Vasopressors, weaning down as tolerated
MRI brain
Monitor for recurrent seizures
Consider neuro eval
Property Management Coordinator will continue to follow along given she remains on vasopressors
Assessment
-
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
hyponatremia and critical care management 12/26/2024.
Community-acquired pneumonia involving RLL/RML-aspiration risk
Severe hyponatremia-serum sodium 112
Circulatory shock on vasopressors
Tonic-clonic seizure
Periorbital/peripheral edema
Hypercapnia-suspect chronic
Leukocytosis
Mild microcytic anemia
Lactic acidosis - resolved as of 12/26/2024
Hypoalbuminemia
Protein calorie malnutrition
UTI suspected
COPD suspected without acute exacerbation
Severe right maxillary and right ethmoid sinusitis
Conditions present prior to admission:
Chronic back pain.
Chronic opioid dependence.
Baclofen pump.
POTS.
Multiple sclerosis on Tecfidera.
Cigarette smoker.
Multiple bilateral pulmonary nodules incidentally noted measuring up to 1.[address] abdomen 03/2022-PET scan was recommended-never obtained
Protein calorie malnutrition.
Appendectomy. .
Plan
Pt remains minimally responsive although is arousable to verbal + tactile stimulation and tries answering questions appropriately but then quickly falls back asleep
Serum Na is improving; 3% NS off since this AM
MRI brain is ordered tadeo given her Hx of MS, pt is also has a baclofen pump, unclear if functioning or what dose thats being infused --> will confirm this today
Remains on vasopressors, which we will wean down as tolerated while keeping MAP >65
Administer calcium gluconate and trend ionized calcium level, also administer albumin
Supplemental oxygen as needed-high flow if needed
BiPAP or noninvasive ventilation if respiratory status declines
Intubated mechanically ventilated if necessary-Dr. Lopez reviewed CODE STATUS with patient's 12/26/2024-for now would like full code including intubation, CPR, shocking if needed
Nebulizers as needed-currently not bronchospastic
Aspiration precautions
Mucolytics
Cultures reviewed
Sputum culture-unable to produce
Urine for Legionella and streptococcal antigen-pending
MRSA screen-negative
Pneumonia and severe right maxillary + ethmoid air cell sinusitis noted
Continue with antibiotics, currently on Unasyn s/p vanc/Zosyn
Trend WBC and monitor temperature curve
Follow radiographically; ultimately she will need repeat CXR in 4-6 weeks to assess for resolution of her pneumonia
Follow serum sodium level closely
Goal correction of <8-10 mmol/L in 24 hours and <16-18 mL/L in 48 hours
Monitor neurologic status closely-rapid correction can rarely lead to osmotic demyelination syndrome
Nephrology evaluation ongoing-correspondence reviewed
Diuretics and potential use of Samsca per nephrology
TSH-normal 2.4
Random cortisol-36
Check urine osmolarity -pending
Urine sodium 35
Monitor for recurrent seizure-no recurrence
Seizure probably related to severe hyponatremia
Consider neurology evaluation with EEG if seizures recur or if mental status worsens
CT head 12/26/2024-moderate bilateral volume loss with severe white matter disease probably demyelinating disease from multiple sclerosis which is increased since 01/2024, severe right maxillary and right ethmoid air cell sinusitis
Awaiting MRI brain as stated above
Ativan and shortage-midazolam or diazepam as needed
Smoking cessation counseling ongoing
DVT prophylaxis-on Lovenox
Early nutrition with aspiration precautions
Bedside range of motion/early mobilization/eventual physical therapy/Occupational Therapy
Dr. Lopez reviewed with in the emergency room as well as emergency room physician and nursing 12/26/2024
Pulmonary nodule recommendation was seen from 04/19/2022-letter was written 05/14/2022 that a pulmonary nodule was seen on an image study done [facility] emergency room and PET scan was recommended-I do not see a PET scan or pulmonary
follow-up thereafter
Outpatient radiographic follow-up recommended
Patient qualifies for yearly low-dose lung cancer screening CT-obtain CT chest and pulmonary follow-up after pneumonia clears
Outpatient pulmonary [id number], smoking cessation counseling, yearly low-dose lung cancer screening CT, etc.
Critical care statement: A total of 38 minutes of critical care time was provided for this patient today. This includes management of unstable vital signs, evaluation of the patient at bedside, reviewing the patient�s pertinent medical records
including radiographs, microbiology, laboratory evaluations, and��discussion with primary team, consultants, pharmacy, nutrition, physical therapy, case management, charge nurse, critical care nursing, and respiratory therapy.
Diagnostic data:
Chest x-ray 10/23/2022-NAD
Chest x-ray 02/11/2024-NAD
Chest x-ray 12/26/2024-right basilar pneumonia
CT head 01/22/2024-moderate to severe white matter disease, mild bilateral parietal lobe volume loss,
CT abdomen and pelvis 04/19/2022-no acute fracture T12, severe biliary dilation without obstructing mass, prior cholecystectomy, hepatic hemangioma, severe constipation, multiple solid pulmonary nodules both lower lobes measuring up to 1.2 cm
Echocardiogram 02/11/2024-EF 60-65%, normal diastolic function, mild mitral regurgitation, PA systolic 20
Subjective Dataa
Subjective Data
Date of Service:
Date of Service: December 28, 2024
Chief Complaint: Property Management Coordinator Follow Up and Pulmonary Follow Up
Subjective:
Patient seen and evaluated this morning. Resting in bed no acute distress. Current heart rate is 75, saturating 97% and BP 88/60 open on Levophed at 8 mcg/min. Patient is lethargic this morning and responsive by stimulation only.
Review of Systems
General: Unobtainable - Pat Unresp
Objective Data
Data Reviewed
Vital Signs / I&O / Oxygen:
Vital Signs
Temp Pulse Resp BP Pulse Ox
97.5 F 63 7 82/59 96
12/28/24 08:00 12/28/24 10:00 12/28/24 10:00 12/28/24 10:00 12/28/24 09:30
Intake and Output
12/27/24 12/28/24 12/29/24
06:59 06:59 06:59
Intake Total 130 / 140 870.0 / 900.0 105.0 / 105.0
Output Total 400 / 400 1925 / 1925 575 / 575
Balance -270 / -260 -1055.0 / -1025.0 -470.0 / -470.0
SaO2 96
Nasal Cannula flow liters per 2
minute
Physical Exam
General: Respiratory Distress (n) and Comfortable
HEENT: Normocephalic, Anicteric and Moist Mucous Membranes
Cardiovascular: S1-S2 and Peripheral Edema (+1 LE edema b/l)
Respiratory: Crackles (bilateral), Non-Labored Respirations, Accessory Resp Muscle Use (n), Stridor (n) and Other ( diminished breath sounds and prolonged expiratory time)
GI: Soft, Non Distended and Non Tender
Neurology: Tremors (n), Lethargic (Arousable to tactile + verbal stimulation and answering questions appropriately but then quickly falls back asleep) and Other (Confused)
Skin: Warm, Dry, Good Color, Cyanosis, Jaundice (n) and Other (Cachexia)
Labs/Micro/Reports
Lab Data
12/28/24 09:54
12/28/24 09:54
Microbiology
12/26/24 11:54 Blood/Venous Blood Culture - Preliminary
No Growth in 48 hours- Final report to follow
12/26/24 11:54 Blood/Venous Blood Culture - Preliminary
No Growth in 48 hours- Final report to follow
12/26/24 15:17 Nose MRSA Screen - Final
No Methicillin Resistant Staphylococcus aureus isolated.
12/27/24 09:38 Urine Legionella Urinary Antigen - Final
Negative for Legionella pneumophila Serogroup 1 antigen.
A negative result does not rule out the possiblity of
Legionella infection due to other serogroups or species of
Legionella. Clinical correlation is recommended.
12/27/24 09:38 Urine Streptococcus pneumoniae Antigen (M - Final
Negative for Streptococcus pneumoniae antigen.
A negative result does not exclude infection with
Streptococcus pneumoniae. Clinical correlation is
recommended.
12/26/24 11:54 Urine Urine Culture - Final
NO GROWTH
[2024-12-28 09:40] LABS: Glucose - Point of Care 76 mg/dl (70-99)
--- NOTE | 2024-12-28 10:07 | PTCARENOTE ---
PICC placement confirmed, labs sent and iv tubing switched.
[2024-12-28 10:31] LABS: Hematocrit 32.0 % (37.0-47.0); Hemoglobin 10.7 g/dL (12.0-16.0); Mean Corp Hgb Conc. 33.4 g/dL (33.0-37.0); Mean Corpuscular Volume 86.0 fL (81.0-99.0); Platelet Count 215 10^3/uL (130-400); Red Cell Dist. Width 13.2 % (11.5-14.5)
[2024-12-28 10:54] LABS: ALT (SGPT) < 10 U/L (0-35); AST (SGOT) 12 U/L (14-36); Albumin 2.0 g/dl (3.5-5.0); Alkaline Phosphatase 65 U/L (38-126); Blood Urea Nitrogen 5 mg/dl (7-17); Calcium 6.9 mg/dl (8.4-10.2); Carbon Dioxide 24 mmol/L (22-30); Chloride 106 mmol/L (98-107); Estimated Creatinine Clearance 60 ml/min; Glucose 109 mg/dl (70-99); Magnesium 1.8 mg/dl (1.6-2.3); Potassium 3.4 mmol/L (3.5-5.1); Sodium 131 mmol/L (135-145); Total Protein 4.1 g/dl (6.3-8.2); eGFR > 60.00
[2024-12-28 11:19] LABS: Nucleated Red Blood Cells % 0 %
[2024-12-28 11:56] LABS: Glucose - Point of Care 122 mg/dl (70-99)
--- NOTE | 2024-12-28 13:05 | W.PN.NEPH.PH ---
Today's Communication / Plan
-
follow BMP
Assessment/Plan
-
IMP:
Severe symptomatic hyponatremia
First-time seizure episode, tonic-clonic.
Acute hypoxemic respiratory insufficiency due to aspiration pneumonia
Periorbital/peripheral edema
Hypercapnia-suspect chronic
Leukocytosis
Mild microcytic anemia
Lactic acidosis
Hypoalbuminemia
Protein calorie malnutrition
UTI suspected
COPD suspected without acute exacerbation
Acute on chronic back pain. S/p baclofen pump.
Secondary progressive multiple sclerosis.
Chronic malnutrition
Plan:
follow BMP
replete lytes
recheck urine studies
no 3% this morning
continue pressors, keep MAP > 65
critical care time 31 minutes
-
-
Date of Service: December 28, 2024
CC / HPI / ROS
-
Chief Complaint:
Hypoantremia
History of Present Illness:
Na improving to 131 this am after 3%
critically ill in ICU on pressors
BP low stable
no fever, on 2lit of O2
Calcium low 6.9
K low 3.4
Review of Systems:
no fever
offers no cp or sob
Labs
-
Labs:
WBC 20.2 10^3/uL (4.8-10.8) H 12/28/24 09:54
RBC 3.72 10^6/uL (4.20-5.40) L 12/28/24 09:54
Hgb 10.7 g/dL (12.0-16.0) L 12/28/24 09:54
Hct 32.0 % (37.0-47.0) L 12/28/24 09:54
Plt Count 215 10^3/uL (130-400) 12/28/24 09:54
eGFR > 60.00 12/28/24 09:54
Syd-N-Pwikydaeuti Pept 3060 pg/ml 12/26/24 15:17
Albumin 2.0 g/dl (3.5-5.0) L 12/28/24 09:54
Physical Exam
-
Vital Signs:
Vital Signs
Temp Pulse Resp BP Pulse Ox
97.8 F 63 7 82/59 96
12/28/24 12:00 12/28/24 10:00 12/28/24 10:00 12/28/24 10:00 12/28/24 09:30
Cardiovascular:: Regular rate and rhythm
Respiratory:: Bilateral: Coarse
Lung Excursion:: Normal
Abdomen:: Nontender and Soft
Bowel Sounds:: Normal
Extremity Edema:: None: Bilateral:
[2024-12-28] MEDS: CALCIUM GLUCONATE 100 IV (13:48)
--- NOTE | 2024-12-28 14:15 | PTCARENOTE ---
Pt yelling out ' help, help, help' and stated she had to go to the bathroom. Bladder scanned for 97 ml's at this time.
[2024-12-28] MEDS: FLEXBUMIN 100 IV ×3 (15:03→22:18)
--- NOTE | 2024-12-28 15:33 | PTCARENOTE ---
MRI on hold pending official report of pump to see if patient's baclofen pump is MRI compatible.
--- NOTE | 2024-12-28 15:48 | W.PN.UPDATE ---
Update Note
Progress Note Update
Confirmed w Dr. Woods at [facility] - patient's baclofen pump was refilled within the last month and contains the followin mcg/day of baclofen and 5.5 mg/day of hydromorphone. It is MRI safe.
--- NOTE | 2024-12-28 16:06 | CM ---
Addendum entered by Magdi Lopez 12/28/24 16:18:
not in room. Patient sleeping. Will provide [employer] list when able.
Original Note:
IV/Levophed/AB/Flexbumin, full liq diet, speech eval, MRI brain. Discharge POC: Therapy recommending SNF. Will provide [employer] list and request 4-5 preferences.
--- NOTE | 2024-12-28 16:06 | PN.CDI ---
CDI
- -
CDI:
Physician Documentation Request
Admit Date: 12/26/24 12:40
Dear Doctor Amy,
Patient is being managed for severe hyponatremia.
Progress notes include a diagnosis of 'Encephalopathy'
12/27 PN states 'Patient in bed this morning, hard to arouse...Per RN, patient occasionally wakes up and has the same couple of questions/statement such as 'where am I?', 'what time is it?', 'help me.'
Could you please further clarify the type of encephalopathy:
Metabolic Encephalopathy
Toxic metabolic
Other- please specify
Use of terms such as suspected, likely, concern for, or probable (associated with a specific diagnosis that is being evaluated, monitored, or treated as if it exists) are acceptable and can be coded in the inpatient setting, when documented at the
time of discharge.
Thank you,
Sirisha Cueto RN, BSN
CDI Specialist
tiger text
Please use your independent medical judgment in providing your response.
[2024-12-28] MEDS: LOVENOX 30 MG SC (17:03)
[2024-12-28 17:28] LABS: Blood Urea Nitrogen 3 mg/dl (7-17); Calcium 8.1 mg/dl (8.4-10.2); Carbon Dioxide 26 mmol/L (22-30); Chloride 101 mmol/L (98-107); Estimated Creatinine Clearance 60 ml/min; Glucose 146 mg/dl (70-99); Magnesium 1.8 mg/dl (1.6-2.3); Potassium 3.5 mmol/L (3.5-5.1); Sodium 130 mmol/L (135-145); eGFR > 60.00
[2024-12-28 18:00] LABS: Glucose - Point of Care 111 mg/dl (70-99)
[2024-12-28] MEDS: POTASSIUM PHOSPHATE 259.0909 MEQ IV (20:39)
[2024-12-28 21:22] LABS: Glucose - Point of Care 97 mg/dl (70-99)
[2024-12-28] MEDS: REMOVE NICOTINE PATCH 1 PATCH REMOVE (22:19)
[2024-12-28 23:32] LABS: Glucose - Point of Care 92 mg/dl (70-99)
[2024-12-29] VITALS (25 sets, daily range): BP systolic 109–170; BP diastolic 59–105; PULSE 94–96; O2SAT 94; BMI 14.7
[2024-12-29] MEDS: OXYCONTIN (CONTROLLED RELEASE) PO (00:19)
[2024-12-29] MEDS: UNASYN IV ×5 (00:50→23:01)
[2024-12-29 04:57] LABS: Hematocrit 29.1 % (37.0-47.0); Hemoglobin 9.5 g/dL (12.0-16.0); Mean Corp Hgb Conc. 32.6 g/dL (33.0-37.0); Mean Corpuscular Volume 86.1 fL (81.0-99.0); Nucleated Red Blood Cells % 0 %; Platelet Count 182 10^3/uL (130-400); Red Cell Dist. Width 13.2 % (11.5-14.5)
[2024-12-29 05:21] LABS: ALT (SGPT) < 10 U/L (0-35); AST (SGOT) 11 U/L (14-36); Albumin 3.4 g/dl (3.5-5.0); Alkaline Phosphatase 54 U/L (38-126); Blood Urea Nitrogen 3 mg/dl (7-17); Calcium 8.5 mg/dl (8.4-10.2); Carbon Dioxide 29 mmol/L (22-30); Chloride 99 mmol/L (98-107); Estimated Creatinine Clearance 60 ml/min; Glucose 77 mg/dl (70-99); Potassium 4.0 mmol/L (3.5-5.1); Sodium 134 mmol/L (135-145); Total Protein 5.2 g/dl (6.3-8.2); eGFR > 60.00
[2024-12-29 05:39] LABS: Glucose - Point of Care 76 mg/dl (70-99)
--- NOTE | 2024-12-29 06:36 | PTCARENOTE ---
Pt drowsy, awakens with gentle touch/voice. Aox2, mentation waxes and weans. NSR on the monitor. LEVO off. Antibiotic continued. PICC in right upper arm. Straight completed. Rectal trumpet in place for liquid brown stool.
--- NOTE | 2024-12-29 07:55 | W.PN.HOSP.TC ---
Addendum entered and electronically signed by Sean Maria MD 12/30/24 16:30:
mri l and t spine pending
on novmenitn for potentioal aspiration
-eventually transition to augmentin
video study per speech
Original Note:
Today's Communication/Plan
-
- Downgrade to tele
- Continue pain mgmt
- Continue unasyn
- Trend CMP
- Video swallow study
- MRI lumbar/thoracic spine
- Diet advanced per SLT
Assessment / Plan
Assessment / Plan
Eliana Lucas is a 59yo F with a pmh notable for secondary progressive MS, chronic back pain, & tobacco use who p/w acute worsening of back/bilateral LE pain, w episode c/f seizure in ED, found to have R-sided PNA & severe hyponatremia, now
improving.
#Severe hyponatremia
Na 112 on admission. Per , pt stopped eating full dinners in October; only eats a piece of toast & coffee, plus two cheese sandwiches daily. Does drink a fair amount of water. Not hypotensive on admission. Pt low weight, thin appearing.
Hyponatremia likely in s/o malnutrition, 'tea & toast' syndrome. Pt eating protein-deficient diet, limiting solute excretion. Likely also element of SIADH in s/o MENU PLANNER dz (MS) and pain. Urine Na 35, urine osm order cancelled. Random cortisol
unremarkable. Pt with normal eGFR. unsure about recent med changes, but none on the list provided are known to cause hyponatremia other than gabapentin/pregabalin.
S/p hypertonic saline 12/26-12/27 w lasix. Na: 134 this am.
- BMP q4hr
- Repeat urine osm, cr, na pending (incomplete)
- Nephrology consulted, appreciate recs
#Pneumonia, likely 2/2 aspiration
#Sinusitis
CXR (12/26) demonstrating R basilar airspace opacity concerning for pneumonia. On admission, lactic acid elevated 3.6. Leukocytosis WBC 16.3 w R shift. Sat 93% on 2L NC. Afebrile. Lives w family, daughter has had sore throat for last few days, taking
dayquil. Only recent travel to [place] last week. No change to her chronic (smoker's) cough in last few days, no f/c. Pt did have new rhinorrhea in the last few days. Ddx includes CAP vs. aspiration PNA (suspected) given RLL location of
consolidation and reported hx of choking events. Urine antigen negative for legionella & strep pneumo. Blood cx negative. MRSA negative.
This am, afebrile, without dyspnea. WBC: 16.3>14.2>16.0.
- Unasyn 1.5g q6hr for 5-day course given high suspicion for aspiration PNA (12/27- ; s/vanc & zosyn 12/26-12/27)
- Pending video swallow study
- Saline nasal spray mucolytic
- Appreciate recs from pulm team
#Urinary retention
Pt last independent void on 12/27. Does not straight cath at home. RN has been doing straight cath. On bladder scan 12/29, had 400 cc. Given low back pain, bilat LE pain, new urinary retention, lumbar MRI indicated. Pt with bilat LE weakness at baseline
& chronic neuropathic pain at baseline in s/o MS.
- Lumbar & thoracic MRI today
- Continue straight cath for now
#Bradycardia
#Hypotension, resolving
#Depressed RR
Pt w systolic BP in 60s & 70s in evening of 12/27 - started on levophed 12/27. RR has been in low teens with some dips to 8-9 over last few days; likely 2/2 opioid pain mgmt.
This am, increases in BP 141/91, HR 82, RR 15. O2 sat 96% on 3L NC.
- Continue to monitor
- Discontinue 4mg Levophed (12/27-12/28)
- Downgrade to telemetry
- Wean off O2 NC today, discussed w RN
#Metabolic encephalopathy, improving
#Seizure, one-time
No known hx of seizures. Likely precipitated by severe hyponatremia. S/p 5mg midazolam in ED. CT head (12/26) without signs of ICH, mass effect, ventricular dilation; likely MS progression. Pt also with dx of secondary progressive MS. Unknown date of
last MRI, potential contribution of underlying MS flare or progression. unsure about current med regimen, last documented 4yrs ago as tecfidera 240mg as dz modifying therapy & dalfampridine for sx mgmt. Also w baclofen pump, recently
refilled - this pump contains dilaudid (dose pending, Dr. Woods at [place]). Encephalopathic/AMS likely 2/2 hyponatremia +/- pain meds & underlying MENU PLANNER dz.
No new events c/f seizure. EEG (12/27) with moderate generalized cerebral dysfunction, no focal epileptiform activity.
- Hyponatremia mgmt as above
- Continue MS meds (tecfidera, baclofen via pump, dalfampridine)
- Will hold on MRI head given improved mental status w Na normalization; to be followed by her outpatient MS neurologist
- F/u w neurology outpatient
#Back/hip/leg pain
#Feet swelling, improving
Pt was initially brought to ED because of complaints of severe pain in low back, hips, & legs this am. Per , screaming in pain when touched or trying to get to toilet. Pt with chronic nerve pain in s/o MS, this is different. Muscle cramps
more common in s/o chronic hyponatremia than acute. Potentially worsening baseline neuropathic MS pain in s/o acute inflammatory state 2/2 infection & electrolyte imbalance. Dalfampridine can also cause back pain. Less likely radicular pain but can
eval w MRI outpatient. Feet swelling likely 2/2 hyponatremia and over-drinking fluid given low PO solids.
Today, swelling in feet improved. Pt continues to endorse chronic back/leg pain, worse given lack of PO pain meds yesterday.
- Continue home dose oxycodone 20mg q8h & 30mg q4h prn
- Dilaudid via baclofen pump
- Continue gabapentin 800mg qid home dose
- Compression socks to address JAYMIE
- Fluid restriction diet to 48oz
#Recent falls
reports a few recent falls at home over the last 2-3 days. Pt never hit head or lost consciousness. Had some scrapes/bruises on R arm 2/2 falls. Usually in wheelchair or bed but ambulates on own to bathroom. 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
weakness in s/o poor nutritional status, deconditioning.
- Fall precautions
- PT/OT consulted
- Continue to address other causes of dz as above
#Chronic
-Tobacco use - smokes ~5-10 cigarettes/day since 'forever' (likely 40 yrs), 20 pack-yrs; order nicotine patch 14mg
-MS - continue home meds (tecfidera, baclofen via pump, dalfampridine)
-Malnutrition - chronic, severe via ASPEN criteria (in s/o <75% dietary intake for >1 mo, muscle & fat loss); in s/o chronic dz, MS; advancing diet inpt IDDsl
#Global
- DVT ppx: lovenox
- Diet: per SLT (12/29) - IDDsl 5 minced & moist solids & thin liquids
- Code: full
- Dispo: lives at home w , father, & son/daughter; pending hyponatremia resolution, consider w VN/PT/OT
Anticipated Discharge: 24 - 48 hours
Subjective/Interval History
-
Date of Service: December 29, 2024
Patient awake and alert this morning, requesting to be sat up from lying in bed. Watching TV. States that she is in a lot of pain in her back and legs because her pain medications were not given over the last 24 hours. Per bedside nurse, this is
because she was lethargic so was temporarily made NPO. Her ordered diet has been full liquids for the duration of her stay. We discussed that she can have foods such as puddings and Jell-O's for today; she will be ordering breakfast. Discussed
plans for speech to come see her and evaluate for her swallowing. Patient understands that she is being treated for suspected aspiration pneumonia. States that she is not on O2 NC at home, denies any dyspnea or shortness of breath currently. Not
complaining of cold/chills this am.
Objective Data
-
Labs:
Laboratory Results
12/29/24
04:44
WBC 16.0 H
Hgb 9.5 L
Hct 29.1 L
Plt Count 182
Sodium 134 L
Potassium 4.0
Chloride 99
Carbon Dioxide 29
BUN 3 L
Creatinine 0.4 L
Glucose 77
Calcium 8.5
Total Bilirubin 0.8
AST 11 L
ALT < 10
Alkaline Phosphatase 54
Vital Signs:
Vital Signs
Temp Pulse Resp BP Pulse Ox
98.1 F 82 15 141/91 96
12/29/24 07:46 12/29/24 05:30 12/29/24 05:30 12/29/24 05:30 12/29/24 05:30
I&O
12/28/24 12/29/24 12/30/24
06:59 06:59 06:59
Intake Total 870.0 / 900.0 710.0 / 710.0
Output Total 1924 / 1924 975 / 975
Balance -1055.0 / -1025.0 -265.0 / -265.0
Review of Systems
-
History Source: Patient
Respiratory: Reports Cough (mild) and Trouble Breathing (denies)
Musculoskeletal: Reports Other (low back & leg pain, severe )
Physical Exam
-
General: Conversant and Appears Chronically Ill (Thin, frail-appearing)
HEENT: Normocephalic, Atraumatic and Anicteric
Respiratory: Clear to Auscultation and Non Labored Respirations
Cardiac: Regular Rhythm
GI: Nontender, Nondistended and Other (Baclofen pump in place)
Musculoskeletal: Other (Edema bilateral feet much improved, trace in both feet)
Skin: IV Access / Catheter Site (R brachial PICC )
Neuro: Awake, Alert and Oriented
Psych: Calm
Data Reviewed
-
Total Time Spent with Patient (in minutes): 15
Critical Care Time (in minutes): 40
Labs: Labs Reviewed by me
[2024-12-29 08:32] LABS: Glucose - Point of Care 89 mg/dl (70-99)
[2024-12-29] MEDS: PROTONIX 40 MG PO (09:11)
[2024-12-29] MEDS: NEURONTIN 800 MG PO ×4 (09:11→21:29)
[2024-12-29] MEDS: OXYCONTIN (CONTROLLED RELEASE) 20 MG PO ×3 (09:11→23:01)
[2024-12-29] MEDS: NON-FORMULARY ITEM 240 MG PO ×2 (09:12→19:55)
[2024-12-29] MEDS: NICODERM TRANSDERMAL 14 MG TRANSDERM (09:17)
--- NOTE | 2024-12-29 09:27 | PN.CDI ---
CDI
- -
CDI:
Physician Documentation Request
Admit Date: 12/26/24 12:40
Dear Doctor Amy,
Progress notes include a diagnosis of malnutrition.
12/28 note states ' pt low weight, thin appearing. Due to decreased intakes estimated as <75% estimated energy needs for > 1 month and appearance of fat/muscle loss, pt meeting criteria for severe protein/calorie malnutrition (ASPEN/AND guidelines,
chronic illness).'
Please provide in your progress notes, additional specificity regarding the severity of the malnutrition:
Severe
Other (please specify)
Proctor Criteria ([facility] Hospitalist 2017)
2 or more criteria must be present for either
non severe or severe malnutrition
Note that the criteria differs related to the
presence of an acute or chronic illness
Acute Illness Chronic Illness
Energy Intake Non Severe: <75% for >7 days Non Severe: <75% for >1 month
Severe: <50% for >5 days Severe: <75% for >1 month
Weight Loss Non Severe: 1-2% over 1 week Non Severe: 5% over 1 month
5% over 1 month 7.5% over 3 months
7.5% over 3 months 10% over 6 months
1 year N/A 20% over 1 year
Severe: >2% over 1 week Severe: >5% over 1 month
>5% over 1 month >7.5% over 3 months
>7.5% over 3 months >10% over 6 months
1 year N/A >20% over 1 year
Body Fat Non Severe: Mild Decrease Non Severe: Mild Loss
Severe: Moderate Decrease Severe: Severe Loss
Muscle Mass Non Severe: Mild Decrease Non Severe: Mild Loss
Severe: Moderate Decrease Severe: Severe Loss
Fluid Accumulation Non Severe: Mild Accumulation Non Severe: Mild Accumulation
Severe: Moderate to severe Severe: Moderate to severe
accumulation accumulation
Reduced Consultative Sales Associate Strength Non Severe: N/A Non Severe: N/A
Severe: Measurably reduced Severe: Measurably reduced
Use of terms such as suspected, likely, concern for, or probable (associated with a specific diagnosis that is being evaluated, monitored, or treated as if it exists) are acceptable and can be coded in the inpatient setting, when documented at the
time of discharge.
Thank you,
Sirisha Cueto RN, BSN
CDI Specialist
tiger text
Please use your independent medical judgment in providing your response.
--- NOTE | 2024-12-29 09:29 | W.PN.NEPH.PH ---
Today's Communication / Plan
-
await urine
Assessment/Plan
-
IMP:
Severe symptomatic hyponatremia
First-time seizure episode, tonic-clonic.
Acute hypoxemic respiratory insufficiency due to aspiration pneumonia
Periorbital/peripheral edema
Hypercapnia-suspect chronic
Leukocytosis
Mild microcytic anemia
Lactic acidosis
Hypoalbuminemia
Protein calorie malnutrition
UTI suspected
COPD suspected without acute exacerbation
Acute on chronic back pain. S/p baclofen pump.
Secondary progressive multiple sclerosis.
Chronic malnutrition
Plan:
follow BMP
recheck urine studies
no 3%
-
-
Date of Service: December 29, 2024
CC / HPI / ROS
-
Chief Complaint:
Hypoantremia
History of Present Illness:
Na improving to 134
off pressors, BP high now
Calcium better now 8.5
K better 4.0
Review of Systems:
no fever
offers no cp or sob
Labs
-
Labs:
WBC 16.0 10^3/uL (4.8-10.8) H 12/29/24 04:44
RBC 3.38 10^6/uL (4.20-5.40) L 12/29/24 04:44
Hgb 9.5 g/dL (12.0-16.0) L 12/29/24 04:44
Hct 29.1 % (37.0-47.0) L 12/29/24 04:44
Plt Count 182 10^3/uL (130-400) 12/29/24 04:44
Sodium 134 mmol/L (135-145) L 12/29/24 04:44
Potassium 4.0 mmol/L (3.5-5.1) 12/29/24 04:44
Chloride 99 mmol/L (98-107) 12/29/24 04:44
Carbon Dioxide 29 mmol/L (22-30) 12/29/24 04:44
BUN 3 mg/dl (7-17) L 12/29/24 04:44
Creatinine 0.4 mg/dL (0.6-1.0) L 12/29/24 04:44
eGFR > 60.00 12/29/24 04:44
Glucose 77 mg/dl (70-99) 12/29/24 04:44
Calcium 8.5 mg/dl (8.4-10.2) 12/29/24 04:44
Phosphorus 2.4 mg/dl (2.5-4.5) L 12/28/24 16:54
Juw-W-Omkbizhtoer Pept 3060 pg/ml 12/26/24 15:17
Albumin 3.4 g/dl (3.5-5.0) L 12/29/24 04:44
Physical Exam
-
Vital Signs:
Vital Signs
Temp Pulse Resp BP Pulse Ox
98.1 F 83 12 148/79 94
12/29/24 07:46 12/29/24 08:00 12/29/24 08:00 12/29/24 08:00 12/29/24 09:20
Cardiovascular:: Regular rate and rhythm
Respiratory:: Bilateral: Coarse
Lung Excursion:: Normal
Abdomen:: Nontender and Soft
Bowel Sounds:: Normal
Extremity Edema:: None: Bilateral:
--- NOTE | 2024-12-29 10:05 | PTCARENOTE ---
Patient downgraded to tele level. VSS.
--- NOTE | 2024-12-29 10:17 | PTOTSP ---
Dysphagia Evaluation
Patient presents with signs concerning for prolonged oral stage related to many missing teeth and pharyngeal vs esophageal dysphagia resulting in difficulty swallowing larger pills, sensation of stasis, and delayed coughing. Acute dysphagia risk
factors include encephalopathy related to acute processes (UTI, PNA) and need for feeding assistance. Chronic dysphagia risk factors include MS and COPD.
Recommend:
1. IDDSI 5 Minced/moist, Thin Liquids
2. Full supervision and assist
3. Medications: crushed in puree if medically cleared
4. Strategies: upright to 90 degrees, small single sips/bites, slow rate, alternate sips/bites, reflux precautions
5. Video swallow study to objectively assess pharyngeal swallow, screen esophageal stage of swallowing, and further develop tx plan. Consider using barium tablet during test to assess ability to swallow pills.
--- NOTE | 2024-12-29 10:39 | PTCARENOTE ---
Patient transported to [facility].
--- NOTE | 2024-12-29 10:40 | PTOTSP ---
Speech Language Pathology
VIDEOFLUOROSCOPIC SWALLOWING EXAMINATION (VSE) completed. Mild-mod oral and mild pharyngeal dysphagia noted. No penetration/aspiration or pharyngeal residue noted despite pt continuously stating she was having trouble swallowing/complaining of
globus sensation in throat. Also seen with barium tablet with no difficulty noted.
Recommend:
(1) IDDSI Level 6 (soft/bite-sized) and thin liquids
(2) Aspiration precautions: slow rate, assist as needed
(3) Meds can be trialed whole with liquids as tolerated
(4) CLOTHING MANAGER to continue to follow
--- NOTE | 2024-12-29 10:50 | W.PN.PUL3 ---
Today's Communication / Plan
-
Slow sodium correction - Na almost at normal range
Antibiotics
MAP>65
MRI brain
Monitor for recurrent seizures
Consider neuro eval
Start DuoNebs and mucinex due to wet-sounding cough with difficulty expectorating; low threshold to start 3% +/- vest; start acapella
Pulmonary service will continue to briefly follow along
Assessment
-
59-year-old smoking chronically ill-appearing cachectic female with MS, baclofen pump, chronic back pain admitted with periorbital and pedal edema, hyponatremia, seizure, and pneumonia-benefits officer consulted for pneumonia, seizure, severe
hyponatremia and critical care management 12/26/2024.
Impression:
Community-acquired pneumonia involving RLL/RML-increased aspiration risk with oral + pharyngeal dysphagia per video swallow exam on 12/29/2024
Severe hyponatremia-serum sodium 112 - now near normal at 134 as of 12/29/2024
Circulatory shock on vasopressors - resolved as of 12/28/2024
Tonic-clonic seizure - resolved
Periorbital/peripheral edema
Hypercapnia-suspect chronic
Leukocytosis
Mild microcytic anemia
Lactic acidosis - resolved as of 12/26/2024
Hypoalbuminemia
Protein calorie malnutrition
UTI suspected (although negative UCx)
COPD suspected without acute exacerbation
Severe right maxillary and right ethmoid sinusitis
Conditions present prior to admission:
Chronic back pain.
Chronic opioid dependence.
Baclofen pump.
POTS.
Multiple sclerosis on Tecfidera.
Cigarette smoker.
Multiple bilateral pulmonary nodules incidentally noted measuring up to 1.[address] abdomen 03/2022-PET scan was recommended-never obtained
Protein calorie malnutrition.
Appendectomy. .
Plan
Patient's mental status has markedly improved compared to 12/28/2024 where she was minimally responsive
Serum sodium continues to improve; she is s/p 3% NS per nephrology (last dose given on evening of 12/27)
MRI brain is ordered tadeo given her Hx of MS
Pt also has a baclofen pump --> per ICU pharmacist, patient's pump includes baclofen and hydromorphone. She receives 5.5 mg/day of hydromorphone and 1070 mcg/day of baclofen. Pump last filled on 12/08/2024. No recent change in dose. Patient
follows with Dr. Woods ([phone]), with next appointment 01/19 and next time to fill pump is 01/27/2025
Patient off vasopressors since evening of 12/28/2024; keep MAP>65
Supplemental oxygen as needed-currently on room air breathing comfortably, saturating 94% as of 12/29
Intubated mechanically ventilated if necessary-Dr. Lopez reviewed CODE STATUS with patient's 12/26/2024-for now would like full code including intubation, CPR, shocking if needed
Nebulizers as needed-currently not bronchospastic
Aspiration precautions
Mucolytics
Cultures reviewed
Sputum culture-unable to produce
Urine for Legionella and streptococcal antigen-pending
MRSA screen-negative
Pneumonia and severe right maxillary + ethmoid air cell sinusitis noted
Continue with antibiotics, currently on Unasyn s/p vanc/Zosyn
Given her shock state, would favor 10-14-day course of antibiotics assuming she continues to clinically improve and remains afebrile for 48 hours prior to stopping antibiotics
Trend WBC and monitor temperature curve
Follow radiographically; ultimately she will need repeat CXR in 4-6 weeks to assess for resolution of her pneumonia
Patient has a wet sounding cough with difficulty expectorating
Start DuoNebs TID with mucinex
Low threshold to start hypertonic 3% with vest therapy if mucus thickens or if cough worsens
Follow serum sodium level closely
Goal correction of <8-10 mmol/L in 24 hours and <16-18 mL/L in 48 hours
Monitor neurologic status closely-rapid correction can rarely lead to osmotic demyelination syndrome
Nephrology evaluation ongoing-correspondence reviewed
Diuretics and potential use of Samsca per nephrology
TSH-normal 2.4
Random cortisol-36
Urine osmolarity - 533 (12/29/2024)
Urine sodium 35 --> 109 (12/29/2024)
Monitor for recurrent seizure-no recurrence
Seizure probably related to severe hyponatremia in setting of infection
Consider neurology evaluation with EEG if seizures recur or if mental status worsens
CT head 12/26/2024-moderate bilateral volume loss with severe white matter disease probably demyelinating disease from multiple sclerosis which is increased since 01/2024, severe right maxillary and right ethmoid air cell sinusitis
Awaiting MRI brain as stated above, however now that she is improving each day unclear if this MRI is still needed; defer to primary team
Ativan and shortage-midazolam or diazepam as needed
Smoking cessation counseling ongoing
DVT prophylaxis-on Lovenox
Early nutrition with aspiration precautions
Bedside range of motion/early mobilization/eventual physical therapy/Occupational Therapy
Dr. Lopez reviewed with in the emergency room as well as emergency room physician and nursing 12/26/2024
Pulmonary nodule recommendation was seen from 04/19/2022-letter was written 05/14/2022 that a pulmonary nodule was seen on an image study done [facility] emergency room and PET scan was recommended-I do not see a PET scan or pulmonary
follow-up thereafter
Outpatient radiographic follow-up recommended
Patient qualifies for yearly low-dose lung cancer screening CT-obtain CT chest and pulmonary follow-up after pneumonia clears
Outpatient pulmonary edyrps-tl-PBGk, smoking cessation counseling, yearly low-dose lung cancer screening CT, etc.
Pulmonary service will continue to briefly follow along.
Diagnostic data:
Chest x-ray 10/23/2022-NAD
Chest x-ray 02/11/2024-NAD
Chest x-ray 12/26/2024-right basilar pneumonia
CT head 01/22/2024-moderate to severe white matter disease, mild bilateral parietal lobe volume loss,
CT abdomen and pelvis 04/19/2022-no acute fracture T12, severe biliary dilation without obstructing mass, prior cholecystectomy, hepatic hemangioma, severe constipation, multiple solid pulmonary nodules both lower lobes measuring up to 1.2 cm
Echocardiogram 02/11/2024-EF 60-65%, normal diastolic function, mild mitral regurgitation, PA systolic 20
Total time spent today was 56 minutes for this encounter. Time includes reviewing laboratory test/imaging results, reviewing pertinent medical records, obtaining and reviewing medical history, performing an appropriate exam, ordering medications,
tests and procedures. Time also includes documentation of this encounter, coordinating patient care and communicating with other healthcare professionals. Total time does not include separately billed tests performed on this date of service.
Subjective Data
-
Date of Service:
Date of Service: December 29, 2024
Chief Complaint: Pulmonary Follow Up
Subjective:
Patient seen this morning. Much more awake today compared to yesterday. Currently saturating 94% on room air with heart rate 86 and BP 109/91. She has a wet sounding cough and has difficulty bringing up phlegm. Currently denies chest pain, DOSS,
nausea, fevers or chills. She feels generalized weakness.
Review of Systems
General: Other (Negative unless mentioned above)
Objective Data
Data Reviewed
Vital Signs / I&O / Oxygen:
Vital Signs
Temp Pulse Resp BP Pulse Ox
97.5 F 79 16 149/92 92
12/29/24 19:00 12/29/24 19:35 12/29/24 19:35 12/29/24 19:00 12/29/24 19:35
Intake and Output
12/28/24 12/29/24 12/30/24
06:59 06:59 06:59
Intake Total 870.0 / 900.0 710.0 / 710.0 60 / 60
Output Total 1925 / 1925 975 / 975 430 / 430
Balance -1055.0 / -1025.0 -265.0 / -265.0 -370 / -370
SaO2 92
Nasal Cannula flow liters per 3
minute
Physical Exam
General: Respiratory Distress (negative), Comfortable, Chills (negative), Sweats (negative) and Other (chronically ill-appearing/deconditioned)
HEENT: Normocephalic and Anicteric
Cardiovascular: S1-S2, Regular Rhythm and Peripheral Edema (negative)
Respiratory: Wheeze (negative), Crackles (negative), Rhonchi (Bilaterally), Non-Labored Respirations and Stridor (negative)
GI: Soft, Non Distended, Non Tender and Normal Bowel Sounds
Neurology: Tremors (negative) and Lethargic (Easily arousable and answer my questions appropriately)
Skin: Warm, Dry, Cyanosis (negative) and Jaundice (negative)
Labs/Micro/Reports
Lab Data
12/29/24 04:44
12/29/24 04:44
Microbiology
12/26/24 11:54 Blood/Venous Blood Culture - Preliminary
No Growth in 72 hours- Final report to follow
12/26/24 11:54 Blood/Venous Blood Culture - Preliminary
No Growth in 72 hours- Final report to follow
12/26/24 15:17 Nose MRSA Screen - Final
No Methicillin Resistant Staphylococcus aureus isolated.
12/27/24 09:38 Urine Legionella Urinary Antigen - Final
Negative for Legionella pneumophila Serogroup 1 antigen.
A negative result does not rule out the possiblity of
Legionella infection due to other serogroups or species of
Legionella. Clinical correlation is recommended.
12/27/24 09:38 Urine Streptococcus pneumoniae Antigen (M - Final
Negative for Streptococcus pneumoniae antigen.
A negative result does not exclude infection with
Streptococcus pneumoniae. Clinical correlation is
recommended.
12/26/24 11:54 Urine Urine Culture - Final
NO GROWTH
--- NOTE | 2024-12-29 11:40 | PTCARENOTE ---
VSE completed. Patient requiring intermittent straight caths since 12/27. Hospitalist notified. RN instructed to continue to straight cath. 430 cc's of yellow urine drained. Urine sample obtained for ordered tests. MRI of thoracic and lumbar spine
ordered. Vitals stable. Pulse ox 95% on RA.
[2024-12-29 11:59] LABS: Glucose - Point of Care 165 mg/dl (70-99)
--- NOTE | 2024-12-29 13:45 | VATNOTE ---
Spoke with extractor operator helper re: need for PICC line, states we should leave the line for 24 hours more, will address 12/30.
--- NOTE | 2024-12-29 15:38 | TRANSFER ---
Patient transferred in bed to 4W.
[2024-12-29] MEDS: LOVENOX 30 MG SC (15:49)
[2024-12-29] MEDS: MUCINEX 1200 MG PO ×2 (15:49→19:56)
--- NOTE | 2024-12-29 15:54 | CM ---
Video Swallow, Diet increased, MRI Lumbar/thoracic spine, IV/Unasyn. Discharge POC: SNF. Medicare [employer] list provided to patient today. She will have her review and choose 5 preferences.
--- NOTE | 2024-12-29 16:24 | PTCARENOTE ---
Received patient from ICU via bed, awake and alert. Answering questions appropriately. Denied pain when asked. Limited mobility. Took meds crushed in applesauce without difficulty. She spoke with her via phone . Oriented to room , call
gomez in reach
[2024-12-29 17:22] LABS: Glucose - Point of Care 124 mg/dl (70-99)
[2024-12-29] MEDS: DUONEB 3 ML INH (19:32)
[2024-12-29] MEDS: REMOVE NICOTINE PATCH 1 PATCH REMOVE (21:29)
[2024-12-30 04:38] VITALS: BP 142/84
[2024-12-30] MEDS: UNASYN IV ×4 (05:11→23:54)
[2024-12-30 06:04] LABS: Venous Blood Gas B.E. 1.7 mmol/L (-4 to +4); Venous Blood Gas O2 Sat % 94.5 %
[2024-12-30 06:09] LABS: Hematocrit 30.7 % (37.0-47.0); Hemoglobin 9.9 g/dL (12.0-16.0); Mean Corp Hgb Conc. 32.2 g/dL (33.0-37.0); Mean Corpuscular Volume 86.0 fL (81.0-99.0); Platelet Count 161 10^3/uL (130-400); Red Cell Dist. Width 13.2 % (11.5-14.5)
[2024-12-30 06:33] LABS: Blood Urea Nitrogen 7 mg/dl (7-17); Calcium 8.5 mg/dl (8.4-10.2); Carbon Dioxide 29 mmol/L (22-30); Chloride 96 mmol/L (98-107); Estimated Creatinine Clearance 61 ml/min; Glucose 98 mg/dl (70-99); Magnesium 1.8 mg/dl (1.6-2.3); Potassium 3.7 mmol/L (3.5-5.1); Sodium 131 mmol/L (135-145); eGFR > 60.00
[2024-12-30 07:29] VITALS: BP 123/63
[2024-12-30] MEDS: DUONEB 3 ML INH ×3 (07:37→19:22)
--- NOTE | 2024-12-30 07:41 | W.PN.HOSP.TC ---
Addendum entered and electronically signed by Izzy Reyes MD, Resident 01/01/25 13:21:
CDI: SIRs criteria was without end organ dysfunction
Addendum entered and electronically signed by Sean Maria MD 12/30/24 16:32:
Presented with severe hyponatremia precipitating seizures requiring hypertonic saline. Suspect SIADH in the setting of pain and pain meds. Continue fluid restriction. No further seizure activity. Initially was going to obtain MRI however now
that we suspect related to sodium we will hold off on this. Per nephrology avoid salt tabs due to le edema on admission and cocnern this could worsen. kalani 48oz fwr
Noted to have urinary retention lower extremity weakness along with baclofen/Dilaudid pump. Will check a L/T spine MRI.
Original Note:
Today's Communication/Plan
-
- Consider salt tabs, pending nephrology
- MRI lumbar/thoracic spine today
- Reduce opioid analgesia in s/o difficult arousal
- Finish unasyn course tmrw
- Duonebs & guaifenisin
Assessment / Plan
Assessment / Plan
Eliana Lucas is a 59yo F with a pmh notable for secondary progressive MS, chronic back pain, & tobacco use who p/w acute worsening of back/bilateral LE pain, w episode c/f seizure in ED, found to have R-sided PNA & severe hyponatremia, now
improving.
#Severe hyponatremia, resolved
Na 112 on admission. Per , pt stopped eating full dinners in October; only eats a piece of toast & coffee, plus two cheese sandwiches daily. Does drink a fair amount of water. Not hypotensive on admission. Pt low weight, thin appearing.
Hyponatremia likely in s/o malnutrition, 'tea & toast' syndrome. Pt eating protein-deficient diet, limiting solute excretion. 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 Urine Na 35, urine osm order cancelled. Random cortisol
unremarkable. Pt with normal eGFR. No meds on home list are known to cause hyponatremia other than gabapentin/pregabalin. S/p hypertonic saline 12/26-12/27 w lasix.
12/29: Urine Cr 52.9, urine Na 109, urine osm 533. Hyponatremia w urine osm>100 supports suspected SIADH.
Na: 134 on 12/29, down to 131 this am (12/30). Potentially 2/2 ongoing SIADH. Pt began PO solid intake 12/29.
- Monitor BMP
- Consider salt tablets, t/b with nephrology
- Continue to encourage PO intake
- 48oz fluid restriction to diet
- Nephrology consulted, appreciate recs
#Pneumonia, likely 2/2 aspiration
#Sinusitis
CXR (12/26) demonstrating R basilar airspace opacity concerning for pneumonia. On admission, lactic acid elevated 3.6. Leukocytosis WBC 16.3 w R shift. Sat 93% on 2L NC. Afebrile. Lives w family, daughter has had sore throat for last few days, taking
dayquil. Only recent travel to [place] last week. No change to her chronic (smoker's) cough in last few days, no f/c. Pt did have new rhinorrhea in the last few days. Ddx includes CAP vs. aspiration PNA (suspected) given RLL location of
consolidation and reported hx of choking events. Urine antigen negative for legionella & strep pneumo. Blood cx negative. MRSA negative.
On thin liquids w IDDSl6 diet per video swallow study 12/29 ('No fluoroscopic evidence for airway aspiration').
CXR 12/29 (for picc placement verification) showed: 'parenchymal opacity within the right lower lung; mild blunting of the right lateral costophrenic angle compatible with a small right pleural effusion; peribronchial thickening in the left lower
lung, suggesting bronchitis; patchy parenchymal opacity within the medial left lower lung, increased from earlier radiograph.'
This am, afebrile (slight hypothermia). Satting 93-94% on RA (off NC 12/29). WBC: 16.3>14.2>20.2>16.0>14.0.
- Unasyn 1.5g q6hr for 5-day course given suspected aspiration PNA (12/27- ; s/vanc & zosyn 12/26-12/27)
- Sputum cx ordered, incomplete
- Saline nasal spray mucolytic
- Per pulm, start DuoNebs TID & mucinex 1200mg q12h due to wet-sounding cough with difficulty expectorating
- Low threshold to start 3% +/- vest; start acapella
- Pulm following, appreciate recs
#Low temperature
#SIRS criteria, resolving
Pt temperatures 96.7-96.9 from 12/29 evening to 12/30 morning. Does not meet hypothermia criteria. Temp<96.8F is component of SIRS criteria (96.9 this am) & pt has WBC>12 & suspected source of infection. Temp normalized by 10am 12/30.
- Continue PNA mgmt as above
- Warming blanket/bearhugger PRN
#Urinary retention
Pt last independent void on 12/27. Does not straight cath at home. RN has been doing straight cath since 12/28. On bladder scan 12/29, had 400 cc. Given low back pain, bilat LE pain, new urinary retention, lumbar MRI indicated. Pt with bilat LE weakness
at baseline & chronic neuropathic pain at baseline in s/o MS.
- Lumbar & thoracic MRI ordered, pending
- Continue straight cath for now
#Back/hip/leg pain
#Feet swelling, improving
Pt was initially brought to ED because of complaints of severe pain in low back, hips, & legs this am. Per , screaming in pain when touched or trying to get to toilet. Pt with chronic nerve pain in s/o MS, this is different. Muscle cramps
more common in s/o chronic hyponatremia than acute. Potentially worsening baseline neuropathic MS pain in s/o acute inflammatory state 2/2 infection & electrolyte imbalance. Dalfampridine can also cause back pain. Less likely radicular pain but can
eval w MRI outpatient. Feet swelling likely 2/2 hyponatremia and over-drinking fluid given low PO solids. Swelling in feet improved over admission.
Pt continues to endorse back/leg pain.
- Given patient difficult to arouse this am, will hold oxycodone PRN & touch base with gilbert re: adjusting dilaudid dose in pump
- Continue home dose oxycodone 20mg q8h & 30mg q4h prn
- Dilaudid via baclofen pump
- Continue gabapentin 800mg qid home dose
- Compression socks to address JAYMIE
- Fluid restriction diet to 48oz
#Metabolic encephalopathy, improving
#Seizure, one-time
No known hx of seizures. Likely precipitated by severe hyponatremia. S/p 5mg midazolam in ED. CT head (12/26) without signs of ICH, mass effect, ventricular dilation; likely MS progression. Pt also with dx of secondary progressive MS. Unknown date of
last MRI, potential contribution of underlying MS flare or progression. unsure about current med regimen, last documented 4yrs ago as tecfidera 240mg as dz modifying therapy & dalfampridine for sx mgmt. Also w baclofen pump, recently
refilled - this pump contains dilaudid (dose pending, Dr. Woods at [facility]). 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
No new events c/f seizure. EEG (12/27) with moderate generalized cerebral dysfunction, no focal epileptiform activity.
Pt with improved mental status to baseline one Na >130.
- Hyponatremia mgmt as above
- Continue MS meds (tecfidera, baclofen via pump, dalfampridine)
- F/u outpatient with neurologist who follows her MS
#Bradycardia, resolved
#Hypotension, resolved
#Depressed RR, resolved
Pt w systolic BP in 60s & 70s in evening of 12/27 - started on levophed 12/27. RR has been in low teens with some dips to 8-9 over last few days; likely 2/2 opioid pain mgmt.
BP, RR, and HR now normalized.
- Continue to monitor
- Discontinue PICC
#Recent falls
reports a few recent falls at home over the last 2-3 days. Pt never hit head or lost consciousness. Had some scrapes/bruises on R arm 2/2 falls. Usually in wheelchair or bed but ambulates on own to bathroom. 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
weakness in s/o poor nutritional status, deconditioning.
- Fall precautions
- PT/OT consulted
- Continue to address other causes of dz as above
#Chronic
-Tobacco use - smokes ~5-10 cigarettes/day since 'forever' (likely 40 yrs), 20 pack-yrs; order nicotine patch 14mg
-MS - continue home meds (tecfidera, baclofen via pump, dalfampridine)
-Malnutrition - chronic, severe via ASPEN criteria (in s/o <75% dietary intake for >1 mo, muscle & fat loss); in s/o chronic dz, MS; advancing diet inpt IDDsl
#Global
- DVT ppx: lovenox
- Diet: per SLT (12/29) - IDDsl 6 w thin liquids, with fluid restriction 48oz
- Code: full
- Dispo: lives at home w , father, & son/daughter; pending hyponatremia resolution, consider w VN/PT/OT
Anticipated Discharge: 24 - 48 hours
Subjective/Interval History
-
Date of Service: December 30, 2024
Pt somnolent this am, difficult to arouse. Opened eyes briefly and said hello, then back to sleep. Per RN, patient had just finished eating breakfast & had been awake for that/able to eat most of bfast. She had been conversant with nurse, although
with some confusion. Pt denied feeling cold. Per RN, patient has not been having worsening of cough.
Objective Data
-
Labs:
Laboratory Results
12/30/24
05:51
WBC 14.0 H
Hgb 9.9 L
Hct 30.7 L
Plt Count 161
Sodium 131 L
Potassium 3.7
Chloride 96 L
Carbon Dioxide 29
BUN 7
Creatinine 0.4 L
Glucose 98
Calcium 8.5
Vital Signs:
Vital Signs
Temp Pulse Resp BP Pulse Ox
96.9 F L 73 16 142/84 93
12/30/24 04:38 12/30/24 07:38 12/30/24 07:38 12/30/24 04:38 12/30/24 07:38
I&O
12/29/24 12/30/24 12/31/24
06:59 06:59 06:59
Intake Total 710.0 / 710.0 300 / 300
Output Total 975 / 975 430 / 430
Balance -265.0 / -265.0 -130 / -130
Review of Systems
-
Unable to obtain full review of systems at this time due to: Dementia and Other (difficult to arouse)
History Source: Patient
Constitutional: Reports No Symptoms
Physical Exam
-
General: Conversant and Appears Chronically Ill (Thin, frail-appearing)
HEENT: Normocephalic, Atraumatic and Anicteric
Respiratory: Non Labored Respirations
Cardiac: Regular Rhythm and Other (extremities do not feel cold to the touch )
GI: Nontender, Nondistended and Other (Baclofen pump in place)
Musculoskeletal: Other (Edema bilateral feet resolved)
Skin: IV Access / Catheter Site (R brachial PICC )
Neuro: Other (somnolent)
Data Reviewed
-
Total Time Spent with Patient (in minutes): 10
Critical Care Time (in minutes): 50
Diagnostic Radiology: Report Reviewed by me
Labs: Labs Reviewed by me
[2024-12-30] MEDS: NICODERM TRANSDERMAL 14 MG TRANSDERM (08:08)
[2024-12-30] MEDS: NON-FORMULARY ITEM 240 MG PO ×2 (08:10→21:24)
[2024-12-30] MEDS: NEURONTIN 800 MG PO ×3 (08:11→21:24)
[2024-12-30] MEDS: MUCINEX 1200 MG PO ×2 (08:11→21:24)
[2024-12-30] MEDS: PROTONIX 40 MG PO (08:12)
[2024-12-30] MEDS: OXYCONTIN (CONTROLLED RELEASE) 20 MG PO ×2 (08:12→15:11)
--- NOTE | 2024-12-30 08:53 | VATNOTE ---
Discussed need for PICC line with internal medicine resident, states no need and will place a D/C PICC order.
--- NOTE | 2024-12-30 10:04 | CM ---
Chart reviewed. Patient being rec for SNF at d/c. Per chart, patient was provided a SNF list to be reviewed w/ spouse.
CM spoke w/ spouse as patient was in bed resting. Spouse stated he wasn't aware of a list and patient was 'out of it' yesterday. Spouse stated he didn't have plans to come to the hospital until later this evening as he is currently working. Spouse
stated he only is aware of [facility] and would like patient to go there for therapy. CM explained to spouse that patient's last admission and current admission are different and that patient is not being recommended for acute rehab. Spouse understood
this and stated he prefers facilities in the [facility] or nearby.
CM will discuss w/ patient as well but will place referrals according to spouse's preference
Will need insurance auth prior to d/c
Plan: SNF
[2024-12-30 11:02] VITALS: BP 156/82
--- NOTE | 2024-12-30 12:47 | PTCARENOTE ---
Patient awake and yelling for help this am, when I answered her she stated that she 'needed help getting into bed' I reoriented her and she was able to tell me she was in [facility]. She did not know what the day or date were . Was incont
liquid bm x2 today . Stated her back pain was 'excruciating'. Appetite 50 percent at breakfast. 1130 pt was asleep , aroused when changing and bladder scanning. Bladder scanned for 414, straight cathed without difficulty for 400 levi color
urine .
--- NOTE | 2024-12-30 13:24 | W.PN.UPDATE ---
Update Note
Progress Note Update
Spoke with patient's , updated him on pt status & care plan.
provided updates on patient's baseline status: she is able to move herself from bed, to wheelchair, to toilet, to chair. Usually she can dress herself, sometimes with assistance. She typically stays upstairs during the day watching TV. Her
daughter is a home health aid and helps with her care daily (not there all day, comes in evenings).
Often sleeps during the day but is typically easy to arouse.
She does not straight cath at home. Typically is able to urine & defecate. However, notes that recently she has complained of instances of feeling like she needs to urinate or defecate but nothing comes out.
They have had home PT/nursing in the past after her prior discharges. She goes to [facility] for outpatient rehab. Would be interested in home PT after discharge to address any deconditioning.
She has '6-7 water bottles' next to her during the day that the family comes up to refill throughout the day. Drinks a lot of water. Only has toast with jam/butter and cheese sandwich during the day. Very low appetite, will order a baked potato at
dinner when at restaurant. We discussed importance of limiting over-hydration with water in the setting of poor PO intake to avoid another episode of severe hyponatremia.
Pt has tried nutritional supplements like Ensure in the past, with limited success (does not like the taste).
Confirmed desire for full code status.
--- NOTE | 2024-12-30 15:02 | W.PN.NEPH.PH ---
Today's Communication / Plan
-
lasix 20mg MWF
Assessment/Plan
-
IMP:
Severe symptomatic hyponatremia
First-time seizure episode, tonic-clonic.
Acute hypoxemic respiratory insufficiency due to aspiration pneumonia
Periorbital/peripheral edema
Hypercapnia-suspect chronic
Leukocytosis
Mild microcytic anemia
Lactic acidosis
Hypoalbuminemia
Protein calorie malnutrition
UTI suspected
COPD suspected without acute exacerbation
Acute on chronic back pain. S/p baclofen pump.
Secondary progressive multiple sclerosis.
Chronic malnutrition
Plan:
sodium slightly down to 131, U OSmo 533
no HTS needed
she had hypervolemia on admit with edema, high BNP
may benefit from low dose lasix MWF at d/c
salt tab likely will worsen her edema so avoid use
echo normal EF, mild to mod TR
for now maintain FR 48ounces/day and follow BMP
increase solute intake
follow bladder scan and sc as needed-may benefit from out pt
Bp now increasing trend
d/w resident
-
-
Date of Service: December 30, 2024
CC / HPI / ROS
-
Chief Complaint:
Hypoantremia
History of Present Illness:
Na down to 131
BP high now
Calcium better now 8.5
K better 4.0
Review of Systems:
no fever
required SC x1
too sleepy during visit
Labs
-
Labs:
WBC 14.0 10^3/uL (4.8-10.8) H 12/30/24 05:51
RBC 3.57 10^6/uL (4.20-5.40) L 12/30/24 05:51
Hgb 9.9 g/dL (12.0-16.0) L 12/30/24 05:51
Hct 30.7 % (37.0-47.0) L 12/30/24 05:51
Plt Count 161 10^3/uL (130-400) 12/30/24 05:51
Sodium 131 mmol/L (135-145) L 12/30/24 05:51
Potassium 3.7 mmol/L (3.5-5.1) 12/30/24 05:51
Chloride 96 mmol/L (98-107) L 12/30/24 05:51
Carbon Dioxide 29 mmol/L (22-30) 12/30/24 05:51
BUN 7 mg/dl (7-17) 12/30/24 05:51
Creatinine 0.4 mg/dL (0.6-1.0) L 12/30/24 05:51
eGFR > 60.00 12/30/24 05:51
Glucose 98 mg/dl (70-99) 12/30/24 05:51
Calcium 8.5 mg/dl (8.4-10.2) 12/30/24 05:51
Phosphorus 2.3 mg/dl (2.5-4.5) L 12/30/24 05:51
Tpf-N-Xkfbiqmcyvz Pept 3060 pg/ml 12/26/24 15:17
Albumin 3.4 g/dl (3.5-5.0) L 12/29/24 04:44
Physical Exam
-
Vital Signs:
Vital Signs
Temp Pulse Resp BP Pulse Ox
97.5 F 74 18 156/82 99
12/30/24 11:02 12/30/24 12:10 12/30/24 12:10 12/30/24 11:02 12/30/24 12:10
Cardiovascular:: Regular rate and rhythm
Respiratory:: Bilateral: Coarse
Lung Excursion:: Normal
Abdomen:: Nontender and Soft
Bowel Sounds:: Normal
Extremity Edema:: +1: Bilateral: (trace)
Eckert Catheter: No
[2024-12-30] MEDS: NEURONTIN PO (15:11)
[2024-12-30] MEDS: LYRICA 50 MG PO ×2 (15:12→21:28)
[2024-12-30] MEDS: LASIX 20 MG PO (15:13)
[2024-12-30 15:50] VITALS: BP 99/63
[2024-12-30] MEDS: LOVENOX 30 MG SC (16:58)
--- NOTE | 2024-12-30 19:04 | PTCARENOTE ---
Patient refused her dinner, was sleeping , woke and yelled,'no!' Will offer again .
[2024-12-30 19:38] VITALS: BP 162/93
[2024-12-30] MEDS: REMOVE NICOTINE PATCH 1 PATCH REMOVE (22:02)
[2024-12-30 23:02] VITALS: BP 138/88
[2024-12-30] MEDS: OXYCONTIN (CONTROLLED RELEASE) PO (23:55)
[2024-12-31] VITALS (67 sets, daily range): BP systolic 82–166; BP diastolic 49–98
[2024-12-31 03:31] LABS: Glucose - Point of Care 110 mg/dl (70-99)
--- NOTE | 2024-12-31 03:33 | PTCARENOTE ---
Pt noted to be 85% on 4L on VS check. Pt increased to 7L NC to bring O2 sat to 90-92%. BP 141/98, HR 94, rectal T 98.5. Pt not responding to verbal or tactile stimuli when she had been responding earlier in shift, although quite drowsy. Accucheck
110. Rapid response called and pt transferred to ICU.
--- NOTE | 2024-12-31 03:37 | RR ---
A Rapid Response was called on this patient, please see Rapid Response form.
[2024-12-31 03:52] LABS: B.E. 8.6 mmol/L; HCO3 34.4 mmol/L (21-28); O2 Saturation % 97.5 % (94-98); O2 Therapy 7L NG RIGHT RADIAL; PCO2 53 mmHg (32-35); PO2 71 mmHg (83-108)
--- NOTE | 2024-12-31 03:55 | W.PN.ANESINT ---
Anesthesia Intubation Note
- Intubation Note
Intubation Note:
Diagnosis: acute respiratory failure
Blade: mac 4
Tube Size: 8.0
Depth: 22cm
Side Taped: right
Drugs Used: propofol 30mg, succ 60mg, phenlyephrine 100mcg
Grade View: 1
EtCO2 Present: yes
Atraumatic: yes
Attempts: 1
Insertion Start and Stop Time:
SaO2 Pre: 92
SaO2 Post: 100
Glidescope Used: yes
Other Airway Adjustments:
Pre-Oxygenated: yes
Portable Chest X-Ray: pending
RSI: yes
Suctioned: no
Bilateral Breath Sounds Confirmed: yes
Vent Settings:
Settings per Attending Physician
[2024-12-31] MEDS: LEVOPHED 250 IV ×3 (04:00→17:27)
--- NOTE | 2024-12-31 04:00 | PTCARENOTE ---
Resumed care of pt. Tsx'd pt post rapid response to ICU. Pt unresponsive. Pt intubated in the unit. Levo gtt initiated via peripheral IV site. OG inserted connected to low intermitten suctioning. Eckert cath placed.
[2024-12-31 04:18] LABS: Hematocrit 28.6 % (37.0-47.0); Hemoglobin 9.4 g/dL (12.0-16.0); Mean Corp Hgb Conc. 32.9 g/dL (33.0-37.0); Mean Corpuscular Volume 86.4 fL (81.0-99.0); Nucleated Red Blood Cells % 0 %; Platelet Count 172 10^3/uL (130-400); Red Cell Dist. Width 13.2 % (11.5-14.5)
--- NOTE | 2024-12-31 04:20 | W.PN.UPDATE ---
Update Note
Progress Note Update
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
-Patient is not responding to verbal / tactile stimuli, hypoxic with Spo2 85 % on 4 L, and noted with slow breathing. Afebrile. BP 141/98, hr 94, BS 110.
-Did not receive Narc/Pain meds during the night time.
-Patient was transferred urgently to ICU for intubation.
-Spoke to the and updated with the changes including intubation and transfer to ICU.
--- NOTE | 2024-12-31 05:05 | W.PN.UPDATE ---
Update Note
Progress Note Update
12/31/2024
0340- Patient transferred to ICU, after rapid response was called for unresponsiveness. Patient was found to be hypoxic and unresponsive to noxious stimuli. She continued to be unresponsive to noxious stimuli and required bagging via ambu bag for
oxygenation. No reported witness seizure activity or abnormal shaking. Patient upon transfer to the ICU was still unresponsive to noxious stimuli. It was felt she could no protect her airway and anesthesia LEAD CUSTODIAN was called for intubation. Abg
results showed hypoxemic and hypercapnic respiratory failure. Rapid EEG, Ceribell, was applied for change in mental status to evaluate for seizure activity. Sedation will be held until patient becomes more responsive (nightshift nurse did not give
nighttime narcotics/opioids). Patient remains afebrile. Levophed gtt for hypotension. Chest xray ordered for ETT placement and evaluation of pneumonia. Ctscan of the head ordered for change in mental status.
[2024-12-31 05:12] LABS: ALT (SGPT) < 10 U/L (0-35); AST (SGOT) 13 U/L (14-36); Albumin 2.9 g/dl (3.5-5.0); Alkaline Phosphatase 58 U/L (38-126); Blood Urea Nitrogen 8 mg/dl (7-17); Calcium 8.0 mg/dl (8.4-10.2); Carbon Dioxide 33 mmol/L (22-30); Chloride 95 mmol/L (98-107); Estimated Creatinine Clearance 61 ml/min; Glucose 97 mg/dl (70-99); Potassium 4.4 mmol/L (3.5-5.1); Sodium 130 mmol/L (135-145); Total Protein 4.9 g/dl (6.3-8.2); Triglycerides 75 mg/dl (10-149); eGFR > 60.00
--- NOTE | 2024-12-31 06:00 | PTCARENOTE ---
Pt brought to CT for imaging per order. Post scan pt is responsive. Pt able to nod head appropriately to yes or no questions. Pt can also move upper extremities.
[2024-12-31] MEDS: UNASYN IV ×4 (06:37→23:50)
[2024-12-31 06:44] LABS: B.E. 9.3 mmol/L; HCO3 35.7 mmol/L (21-28); O2 Saturation % 98.8 % (94-98); PCO2 55 mmHg (32-35); PO2 84 mmHg (83-108)
--- NOTE | 2024-12-31 07:00 | PTCARENOTE ---
07:00 Assumed care. Patient intubated, Not on Sedation; Restraints to b/l UE for protection; on Levophed 12 mcg infusing via Rt AC; +gag reflex; +cough; react to pain stimuli
RASS -3 (open eye to voice, able to follow simple commands, not able to make eye contact). Pupils reactive, Equal;
Normal Sinus Rhythm 66; BP via RT upper arm: 1025/88 MAP 69; Levophed 12mcg for Goal of MAP 65; Will try to wean down levophed
ETT: #8/center; Vent: (S)CMV: 20/300/+5/40% Peak 23; own VT 331; own RR 20; Suction small white thin secretion. Oral care done
Abdomen soft flat, Hypoactive bowel sound, Last BM: 12/31 during previous shift ; Incontinent Baclofen pump left lower quadrant
indwelling salas in place, draining clear yellow urine, Monitor I/O salas care done
Peripheral lines : RT AC _levophed; left aC capped
pt's at bedside updated on plan of care
--- NOTE | 2024-12-31 07:06 | W.PN.HOSP.TC ---
Addendum entered and electronically signed by Sean Maria MD 12/31/24 13:33:
Acute hypoxemic respiratory failure overnight requiring mechanical ventilation
Intubated for airway protection as altered
Daily SAT SBT
GI prophylaxis with PPI
Chest x-ray in the morning
ICD manage mechanical ventilator
Right-sided likely aspiration
Continue Unasyn. He completed 5 days will extend
Hyponatremia�severe improved to 134 downtrending again
Initiate tube feeds when possible
Follow recommendations per nephrology
Multiple sclerosis
Concern for progressive MS with decompensation
Unsure if some of this hypoxemia is related to restrictive lung disease. Would only be able to diagnose that with PFTs/flow-volume unfortunately not able to do that at this time due to her being intubated
Will speak with outpatient neurologist
Original Note:
Today's Communication/Plan
-
- Goals of care conversation with family today
- Patient intubated and sedated on ventilator
- Sodium 130 continuing to monitor for now
- Today is day 5 of Unasyn for suspected aspiration pneumonia
- Appreciate ICU team recs and management
- Much her presentation is secondary to progression of underlying MS
- See rest of plan above for details
Assessment / Plan
Assessment / Plan
Eliana Lucas is a 59yo F with a pmh notable for secondary progressive MS, chronic back pain, & tobacco use who p/w acute worsening of back/bilateral LE pain, w episode c/f seizure in ED, found to have R-sided PNA & severe hyponatremia, now
improving.
#Pneumonia, likely 2/2 aspiration
#Sinusitis
CXR (12/26) demonstrating R basilar airspace opacity concerning for pneumonia. On admission, lactic acid elevated 3.6. Leukocytosis WBC 16.3 w R shift. Sat 93% on 2L NC. Afebrile. Lives w family, daughter has had sore throat for last few days, taking
dayquil. Only recent travel to [place] last week. No change to her chronic (smoker's) cough in last few days, no f/c. Pt did have new rhinorrhea in the last few days. Ddx includes CAP vs. aspiration PNA (suspected) given RLL location of
consolidation and reported hx of choking events. Urine antigen negative for legionella & strep pneumo. Blood cx negative. MRSA negative.
On thin liquids w IDDSl6 diet per video swallow study 12/29 ('No fluoroscopic evidence for airway aspiration').
CXR 12/29 (for picc placement verification) showed: 'parenchymal opacity within the right lower lung; mild blunting of the right lateral costophrenic angle compatible with a small right pleural effusion; peribronchial thickening in the left lower
lung, suggesting bronchitis; patchy parenchymal opacity within the medial left lower lung, increased from earlier radiograph.'
WBC: 16.3>14.2>20.2>16.0>14.0>10.6. Normalized today. Patient this a.m. spiked a fever of 101.1.
- Unasyn 1.5g q6hr for 5-day course given suspected aspiration PNA (12/27- ; s/vanc & zosyn 12/26-12/27)
- Today is day 5, likely continue to extend course or alter antibiotics given fever this morning, will consult with ICU team, appreciate recs
- Sputum cx ordered, incomplete
- S/p DuoNebs TID & mucinex 1200mg q12h due to wet-sounding cough with difficulty expectorating, prior to intubation overnight 12/30
- Pulm following, appreciate recs
#Hypercapneic hypoxemic resp failure
12/31 early am: not responding to verbal / tactile stimuli, hypoxic with Spo2 85 % on 4 L, and noted with slow breathing; transferred to ICU and intubated. Pt RR was ranging 16-18 in lead-up to decompensation on 12/31 early am, so unlikely 2/2
opioid-induced respiratory depression. Pt remained afebrile with WBC tending down to wnl on 12/31 on unasyn abx course for RLL PNA (likely aspiration), so unlikely to be able to pneumonia. Most likely cause is her underlying secondary progressive MS
and ongoing progression, leading to a restrictive�type of picture of poor oxygenation and ventilation.
- Intubated & ventilated (12/31-)
- Ventilator mgmt per ICU/pulm teams
#Hypotension
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
- Continue management of Levophed per ICU team
#Severe hyponatremia, resolving
Na 112 on admission. Per , pt stopped eating full dinners in October; only eats a piece of toast & coffee, plus two cheese sandwiches daily. Does drink a fair amount of water. Not hypotensive on admission. Pt low weight, thin appearing.
Hyponatremia likely in s/o malnutrition, 'tea & toast' syndrome. Pt eating protein-deficient diet, limiting solute excretion. 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 Urine Na 35, urine osm order cancelled. Random cortisol
unremarkable. Pt with normal eGFR. No meds on home list are known to cause hyponatremia other than gabapentin/pregabalin. S/p hypertonic saline 12/26-12/27 w lasix.
12/29: Urine Cr 52.9, urine Na 109, urine osm 533. Hyponatremia w urine osm>100 supports suspected SIADH.
Na: 134 on 12/29, down to 130 this am (12/31). Potentially 2/2 ongoing SIADH. Pt began PO solid intake 12/29-12/30. S/p 20mg lasix 12/30.
- Monitor BMP
- Per nephro, will continue to monitor Na levels while respiratory/hemodynamic status stabilized
- Nephrology consulted, appreciate recs
- 48oz fluid restriction to diet
#AMS
#Seizure, one-time
No known hx of seizures. Likely precipitated by severe hyponatremia. S/p 5mg midazolam in ED. CT head (12/26) without signs of ICH, mass effect, ventricular dilation; likely MS progression. Pt also with dx of secondary progressive MS. Unknown date of
last MRI, potential contribution of underlying MS flare or progression. unsure about current med regimen, last documented 4yrs ago as tecfidera 240mg as dz modifying therapy & dalfampridine for sx mgmt. Also w baclofen pump, recently
refilled - this pump contains dilaudid (dose pending, Dr. Woods at [place]). 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
No new events c/f seizure. EEG (12/27) with moderate generalized cerebral dysfunction, no focal epileptiform activity. Patient mental status had been improving to baseline when sodium levels had increased to 134. However, on morning of 12/30 patient
was more tired/groggy. 12/30 night, patient narcotic medications were held. Patient unresponsive to noxious stimuli on 12/31 terrazzo worker apprentice. EEG at that time did not demonstrate any epileptiform activity. CT scan of the head did not demonstrate any
intracranial hemorrhage or mass effect. AMS is likely multifactorial but primarily driven by progression of underlying secondary progressive MS, ongoing resolution of severe hyponatremia event, malnutrition, narcotic use, poor respiratory effort
and hypoxemia.
- Continue MS meds (tecfidera, baclofen via pump, dalfampridine)
- Continue management of other conditions as above
- Will follow-up with outpatient neurologist today to discuss patient's overall decline in status (Pito Colvin [phone])
- To plan for goals of care conversation with family today
#Pulmonary congestion
CXR on 12/31 demonstrated increase of pulmonary congestion throughout bilateral lung quinones. Appearance not concerning for ARDS. Increased congestion potentially in the setting of increased PEEP due to intubation/ventilation terrazzo worker apprentice 12/31,
leading to increased preload and venous congestion. Patient is overall not volume overloaded; received 20 mg Lasix on 12/30 afternoon.
-Continue to monitor respiratory status per respiratory team and ICU team on ventilation
#Malnutrition
Patient with BMI 14 and subacute decline in p.o. intake at home, per . Patient only intaking pieces of toast, occasional cheese sandwiches. Drinking lots of water. Per , patient previously failed trial of Ensure. Patient appears
malnourished. Per nutrition and neurology curbside, likely in setting of underlying secondary progressive MS. Patient lacking motivation to eat. At this time not considering appetite stimulant medications, as options like Remeron are also
sedating. Patient could be candidate for PEG tube, however this will be influenced by upcoming goals of care conversation with family.
- Could consider PEG tube placement, pending goals of care conversation with family
- Nutrition following, appreciate recs
#Urinary retention
Pt last independent void on 12/27. Does not straight cath at home. RN has been doing straight cath since 12/28. On bladder scan 12/29, had 400 cc. Pt with bilat LE weakness at baseline & chronic neuropathic pain at baseline in s/o MS. per , patient
had began to complain of episodes of urge to urinate but inability to urinate over the past few weeks at home prior to admission, although she had been able to still urinate independently at times. Patient intubated/ventilated on 12/31 terrazzo worker apprentice,
now with Eckert catheter in place. Worsening urinary retention likely a symptom of suspected progression of her underlying MS; neurology curbside agreed 12/31.
- Eckert catheter while intubated in ICU
- Pending goals of care conversation with family and likely permanent/progression of retention in setting of her progressing MS, patient to be discharged with straight cathing versus chronic Eckert with antibiotic prophylaxis; to be discussed at
later point in time
#Back/hip/leg pain
#Feet swelling, improving
Pt was initially brought to ED because of complaints of severe pain in low back, hips, & legs this am. Per , screaming in pain when touched or trying to get to toilet. Pt with chronic nerve pain in s/o MS, this is different. Muscle cramps
more common in s/o chronic hyponatremia than acute. Potentially worsening baseline neuropathic MS pain in s/o acute inflammatory state 2/2 infection & electrolyte imbalance. Dalfampridine can also cause back pain. Less likely radicular pain but can
eval w MRI outpatient. Feet swelling likely 2/2 hyponatremia and over-drinking fluid given low PO solids. Swelling in feet improved over admission.
- Holding home dose oxycodone 20mg q8h & 30mg q4h prn
- Dilaudid via baclofen pump
- Consider holding home gabapentin & pregabalin
- Compression socks to address JAYMIE
- Fluid restriction diet to 48oz
#Recent falls
reports a few recent falls at home over the last 2-3 days. Pt never hit head or lost consciousness. Had some scrapes/bruises on R arm 2/2 falls. Usually in wheelchair or bed but ambulates on own to bathroom. 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
weakness in s/o poor nutritional status, deconditioning.
- Fall precautions
- PT/OT consulted
- Continue to address other causes of dz as above
#Chronic
-Tobacco use - smokes ~5-10 cigarettes/day since 'forever' (likely 40 yrs), 20 pack-yrs; order nicotine patch 14mg
-MS - continue home meds (tecfidera, baclofen via pump, dalfampridine)
-Malnutrition - chronic, severe via ASPEN criteria (in s/o <75% dietary intake for >1 mo, muscle & fat loss); in s/o chronic dz, MS; advancing diet inpt IDDsl
#Global
- DVT ppx: lovenox
- Diet: Ventilated/intubated currently (prior with IDDSI 6 with thin liquids)
- Code: full; pending goals of care conversation with family
- Dispo: lives at home w , father, & son/daughter; likely discharge to SNF; pending goals of care conversation with family, hopefully today
Anticipated Discharge: > 48 hours
Subjective/Interval History
-
Date of Service: December 31, 2024
Patient intubated and sedated this morning. Opens eyes slightly when you say her name.
Objective Data
-
Labs:
Laboratory Results
12/31/24 12/31/2412/31/25
03:40 03:56 06:17
WBC 10.6
Hgb 9.4 L
Hct 28.6 L
Plt Count 172
HCO3 34.4 H 35.7 H
Sodium 130 L
Potassium 4.4
Chloride 95 L
Carbon Dioxide 33 H
BUN 8
Creatinine 0.4 L
Glucose 97
Calcium 8.0 L
Total Bilirubin 0.6
AST 13 L
ALT < 10
Alkaline Phosphatase 58
Vital Signs:
Vital Signs
Temp Pulse Resp BP Pulse Ox
98.5 F 66 20 83/65 99
12/31/24 03:15 12/31/24 06:35 12/31/24 06:35 12/31/24 06:35 12/31/24 06:35
I&O
12/30/24 12/31/24 01/01/25
06:59 06:59 06:59
Intake Total 300 / 300 180.0 / 180.0
Output Total 430 / 430 1191 / 1191
Balance -130 / -130 -1011.0 / -1011.0
Review of Systems
-
Unable to obtain full review of systems at this time due to: Acuity
History Source: Patient
Physical Exam
-
General: Intubated, Appears Chronically Ill and Cachectic
HEENT: Normocephalic, Atraumatic and Anicteric
Respiratory: Clear to Auscultation, Non Labored Respirations and Other (intubated, ventilated)
Cardiac: Regular Rhythm
GI: Nondistended
Genito-urinary: Eckert
Musculoskeletal: No Edema and Other (Patient with capillary refill in bilateral upper and lower digits; radial pulses palpable; fingertips and tips of toes feel cold, but without discoloration)
Neuro: Sedated
Data Reviewed
-
Total Time Spent with Patient (in minutes): 10
Critical Care Time (in minutes): 60
Diagnostic Radiology: Report Reviewed by me
Labs: Labs Reviewed by me
[2024-12-31] MEDS: DUONEB 3 ML INH ×3 (07:41→20:00)
[2024-12-31 08:11] LABS: Magnesium 1.8 mg/dl (1.6-2.3)
--- NOTE | 2024-12-31 08:11 | W.PN.INTV ---
Today's Communication / Plan
Recommendations
Mechanical ventilation
Daily SAT/SBT � hopefully I can extubate her tomorrow if she wakes up
Antibiotics
Vasopressors, weaning down as tolerated
MRI brain although need to coordinate with Dr. Woods to assure pump does not turn off and also to lower the dose being pumped
Monitor for recurrent seizures
Continue ICU level of care for this critically ill patient
Assessment
-
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
hyponatremia and critical care management 12/26/2024.
Impression:
Unresponsiveness s/p intubation for airway protection
Acute hypoxic respiratory failure now on mechanical ventilation (intubated 12/31/2024)
Community-acquired pneumonia involving RLL/RML-increased aspiration risk with oral + pharyngeal dysphagia per video swallow exam on 12/29/2024
Severe hyponatremia-serum sodium 112 - now near normal at 134 as of 12/29/2024
Circulatory shock on vasopressors - resolved as of 12/28/2024
Tonic-clonic seizure - resolved
Periorbital/peripheral edema (improved)
Hypercapnia-suspect chronic
Leukocytosis (resolved as of 12/31/2024)
Mild microcytic anemia
Lactic acidosis - resolved as of 12/26/2024
Hypoalbuminemia
Protein calorie malnutrition
UTI suspected (although negative UCx)
COPD suspected without acute exacerbation
Severe right maxillary and right ethmoid sinusitis
Conditions present prior to admission:
Chronic back pain.
Chronic opioid dependence.
Baclofen pump.
POTS.
Multiple sclerosis on Tecfidera.
Cigarette smoker.
Multiple bilateral pulmonary nodules incidentally noted measuring up to 1.[address] abdomen 03/2022-PET scan was recommended-never obtained
Protein calorie malnutrition.
Appendectomy. .
Plan
Patient was just in the ICU on 12/29/2024 and downgraded to IMU where she was found to be minimally responsive overnight and was subsequently intubated and brought here to the ICU and required Levophed
Patient at baseline is lethargic and sleeps a lot and believe this is due to her baclofen/hydromorphone pump and her use of oxycodone, gabapentin and Lyrica
Believe that in the setting of her recent pneumonia and hyponatremia with deconditioning that the narcotics combined with her pump caused her to become unresponsive
I do not feel that she is having worsening sepsis although her CXR today does show increased opacification in the right lower lobe consistent with worsening pneumonia; her WBC count is improved and she has had no fevers overnight.
Previously she was minimally responsive on 12/28/2024 and then this improved on 12/29/2024
Her serum sodium is stable at 130 and she is s/p 3% NS (last dose given on the evening of 12/27)
MRI brain is ordered tadeo given her Hx of MS --> it would be good to see if her MS has worsened radiographically ( would likely need to compare to prior studies done with her neurologist)
Per ICU pharmacist, patient's pump includes baclofen and hydromorphone. She receives 5.5 mg/day of hydromorphone and 1070 mcg/day of baclofen. Pump last filled on 12/08/2024. No recent change in dose. Patient follows with Dr. Woods ([phone]),
with next appointment 01/19 and next time to fill pump is 01/27/2025
- I would like Dr. Woods to come here to hospital to lower the dose that she is receiving through this pump - it could always be adjusted later. Also we were told by radiology that the MRI machine may turn off the pump, hence we would need to check
to see if the pump is functional after the MRI
Patient was off vasopressors since evening of 12/28/2024, and now she is back on levophed
Titrate to keep MAP>65
Continue with mechanical ventilation with daily SAT/SBT if clinically appropriate
- Maintain plateau pressure <30 and titrate FiO2 + PEEP to keep SpO2 >90-94%
- Continue aspiration precautions; keep HOB >30-45�
- prn nebulized bronchodilators - not currently bronchospastic
- Oropharyngeal + deep ETT suctioning with subglottic as needed
- Daily CXR + blood gas
- Daily vent adjustments as needed based on blood gas and SaO2
- Low level of sedation with goal RASS as 0 to -2
Dr. Lopez reviewed CODE STATUS with patient's 12/26/2024-for now would like full code including intubation, CPR, shocking if needed
Cultures reviewed
Sputum culture-previously patient was unable to produce however now that she is intubated I will get a sputum culture from the ETT especially in the setting of her worsening pneumonia on CXR
Urine for Legionella and streptococcal antigen-negative
MRSA screen-negative
Pneumonia and severe right maxillary + ethmoid air cell sinusitis noted
Continue with antibiotics, currently on Unasyn s/p vanc/Zosyn
Given her shock state, would favor 10-14-day course of antibiotics assuming she continues to clinically improve and remains afebrile for 48 hours prior to stopping antibiotics
Trend WBC and monitor temperature curve
Follow radiographically; ultimately she will need repeat CXR in 4-6 weeks to assess for resolution of her pneumonia
Patient had a wet sounding cough with difficulty expectorating
Continue DuoNebs TID with mucinex
Low threshold to start hypertonic 3% with vest therapy if mucus thickens or if cough worsens
Given the patient's significant right arm swelling, check RUE duplex US to rule out DVT; if thrombus is seen in the deep veins then will transition from prophylactic Lovenox to heparin drip
Follow serum sodium level closely
Goal correction of <8-10 mmol/L in 24 hours and <16-18 mL/L in 48 hours
Monitor neurologic status closely-rapid correction can rarely lead to osmotic demyelination syndrome
Nephrology evaluation ongoing-correspondence reviewed
Diuretics and potential use of Samsca per nephrology
TSH-normal 2.4
Random cortisol-36
Urine osmolarity - 533 (12/29/2024)
Urine sodium 35 --> 109 (12/29/2024)
Monitor for recurrent seizure-no recurrence
Ceribell placed onto patient on 12/31 overnight after coming to ICU, and there was zero percent burden of status epilepticus
Here initial seizure earlier this hospital course was probably related to severe hyponatremia in setting of infection
Consider neurology evaluation with EEG if seizures recur or if mental status worsens
CT head 12/26/2024-moderate bilateral volume loss with severe white matter disease probably demyelinating disease from multiple sclerosis which is increased since 01/2024, severe right maxillary and right ethmoid air cell sinusitis
Awaiting MRI brain as stated above
Ativan and shortage-midazolam or diazepam as needed
Smoking cessation counseling ongoing
DVT prophylaxis-on Lovenox
Early nutrition with aspiration precautions
Bedside range of motion/early mobilization/eventual physical therapy/Occupational Therapy
Dr. Michelle reviewed case with her , Estuardo, and answered all his questions
Pulmonary nodule recommendation was seen from 04/19/2022-letter was written 05/14/2022 that a pulmonary nodule was seen on an image study done [facility] emergency room and PET scan was recommended-I do not see a PET scan or pulmonary
follow-up thereafter
Outpatient radiographic follow-up recommended
Patient qualifies for yearly low-dose lung cancer screening CT-obtain CT chest and pulmonary follow-up after pneumonia clears
Outpatient pulmonary [id number], smoking cessation counseling, yearly low-dose lung cancer screening CT, etc.
Continue ICU level of care for this critically ill patient.
Critical care statement: A total of 43 minutes of critical care time was provided for this patient today. This includes management of unstable vital signs, evaluation of the patient at bedside, reviewing the patient�s pertinent medical records
including radiographs, microbiology, laboratory evaluations, and��discussion with primary team, consultants, pharmacy, nutrition, physical therapy, case management, charge nurse, critical care nursing, and respiratory therapy.
Diagnostic data:
Chest x-ray 10/23/2022-NAD
Chest x-ray 02/11/2024-NAD
Chest x-ray 12/26/2024-right basilar pneumonia
CT head 01/22/2024-moderate to severe white matter disease, mild bilateral parietal lobe volume loss,
CT abdomen and pelvis 04/19/2022-no acute fracture T12, severe biliary dilation without obstructing mass, prior cholecystectomy, hepatic hemangioma, severe constipation, multiple solid pulmonary nodules both lower lobes measuring up to 1.2 cm
Echocardiogram 02/11/2024-EF 60-65%, normal diastolic function, mild mitral regurgitation, PA systolic 20
Subjective Dataa
Subjective Data
Date of Service:
Date of Service: December 31, 2024
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
Subjective:
Pt transferred here to ICU due to AMS and hypotension. Intubated and started on levophed. Levophed currently at 10mcg/min. BP 145/68, HR 74 and saturating 100% on AC/CMV at 28/300/5/40% with PIP 21 cmH2O, VTe 491 cc and breathing at 20
breaths/min. RUE is swollen and she recently had a PICC line that was removed 2 days ago. Ceribell applied overnight showing 0% burden of status epilepticus. The patient's , Estuardo, was present at bedside and all questions were answered.
Review of Systems
General: Unobtainable - Pat Unresp
Objective Data
Data Reviewed
Vital Signs / I&O / Oxygen:
Vital Signs
Temp Pulse Resp BP Pulse Ox
98.6 F 56 20 83/65 100
12/31/24 08:00 12/31/24 07:42 12/31/24 07:42 12/31/24 06:35 12/31/24 08:00
Intake and Output
12/30/24 12/31/24 01/01/25
06:59 06:59 06:59
Intake Total 300 / 300 180.0 / 225.0 172.5 / 172.5
Output Total 430 / 430 1191 / 1216 150 / 150
Balance -130 / -130 -1011.0 / -991.0 22.5 / 22.5
SaO2 [A/C] 100
SaO2 100
Nasal Cannula flow liters per 7
minute
Physical Exam
General: Respiratory Distress (n) and Comfortable
HEENT: Normocephalic, Anicteric, Moist Mucous Membranes and Other (ETT in place)
Cardiovascular: S1-S2 and Peripheral Edema (Negative)
Respiratory: Wheeze (Negative), Crackles (bilateral), Rhonchi (Negative), Non-Labored Respirations, Accessory Resp Muscle Use (n), Stridor (n), ET Tube and Other ( diminished breath sounds and prolonged expiratory time)
GI: Soft, Non Distended and Non Tender
Neurology: Tremors (n) and Lethargic (Arousable to tactile stimulation)
Skin: Warm, Dry, Cyanosis (Negative), Jaundice (n) and Other (Cachexia)
Labs/Micro/Reports
Lab Data
12/31/24 03:56
12/31/24 03:56
Laboratory Results
12/31/24 12/31/24
03:40 06:17
pH 7.42 7.42
pCO2 53 H 55 H
pO2 71 L 84
HCO3 34.4 H 35.7 H
O2 Delivery Level 7l ng right radial
Microbiology
12/26/24 11:54 Blood/Venous Blood Culture - Preliminary
No Growth in 4 days- Final report to follow
12/26/24 11:54 Blood/Venous Blood Culture - Preliminary
No Growth in 4 days- Final report to follow
12/26/24 15:17 Nose MRSA Screen - Final
No Methicillin Resistant Staphylococcus aureus isolated.
--- NOTE | 2024-12-31 10:38 | CM ---
Addendum entered by Airam Mayo 12/31/24 10:48:
[facility] called; unable to accept; no bed
Original Note:
Chart reviewed. [facility] unable to accept patient; referral status for [facility] pending; called and left a voice mail for referral status.
Expanded bed search; sent additional referrals via [facility]
Plan: Discharge to SNF when medically stable pending bed availability and Authorization approval
--- NOTE | 2024-12-31 10:53 | W.PN.NEPH.PH ---
Today's Communication / Plan
-
see plan
Assessment/Plan
-
IMP:
Severe symptomatic hyponatremia
First-time seizure episode, tonic-clonic.
Acute hypoxemic respiratory insufficiency due to aspiration pneumonia
Periorbital/peripheral edema
Hypercapnia-suspect chronic
Leukocytosis
Mild microcytic anemia
Lactic acidosis
Hypoalbuminemia
Protein calorie malnutrition
UTI suspected
COPD suspected without acute exacerbation
Acute on chronic back pain. S/p baclofen pump.
Secondary progressive multiple sclerosis.
Chronic malnutrition
Plan:
noted events pt now intubated
sodium slightly down to 130, U OSmo was 533
no HTS needed , hold lasix too
If she start TF ,likely minimize FWF
she had hypervolemia on admit with edema, high BNP
echo normal EF, mild to mod TR
has U retention ow on salas
hypotension , pressors to maintain MAP>65
abx per primary, febrile but improving WBC
CXR shows likely aspiration
neuro consulted
long d/w in detail and reviewed poor mcc prognosis if she did not improve
he is hesitant to make decision on his own
d/w nursing
CC time spent 31min
-
-
Date of Service: December 31, 2024
CC / HPI / ROS
-
Chief Complaint:
Hypoantremia
History of Present Illness:
Na down to 130
BP low on pressors
Calcium down to 8
K better 4.4
AMS and hypoxic last night requiring intubation now in ICU
Review of Systems:
fever
salas catheter -non oliguric
intubated , not sedated
Labs
-
Labs:
WBC 10.6 10^3/uL (4.8-10.8) 12/31/24 03:56
RBC 3.31 10^6/uL (4.20-5.40) L 12/31/24 03:56
Hgb 9.4 g/dL (12.0-16.0) L 12/31/24 03:56
Hct 28.6 % (37.0-47.0) L 12/31/24 03:56
Plt Count 172 10^3/uL (130-400) 12/31/24 03:56
Sodium 130 mmol/L (135-145) L 12/31/24 03:56
Potassium 4.4 mmol/L (3.5-5.1) 12/31/24 03:56
Chloride 95 mmol/L (98-107) L 12/31/24 03:56
Carbon Dioxide 33 mmol/L (22-30) H 12/31/24 03:56
BUN 8 mg/dl (7-17) 12/31/24 03:56
Creatinine 0.4 mg/dL (0.6-1.0) L 12/31/24 03:56
eGFR > 60.00 12/31/24 03:56
Glucose 97 mg/dl (70-99) 12/31/24 03:56
Calcium 8.0 mg/dl (8.4-10.2) L 12/31/24 03:56
Phosphorus 3.3 mg/dl (2.5-4.5) 12/31/24 03:56
Imi-F-Ndahccmhotx Pept 3060 pg/ml 12/26/24 15:17
Albumin 2.9 g/dl (3.5-5.0) L 12/31/24 03:56
Physical Exam
-
Vital Signs:
Vital Signs
Temp Pulse Resp BP Pulse Ox
101.5 F H 56 20 83/65 100
12/31/24 12:07 12/31/24 07:42 12/31/24 07:42 12/31/24 06:35 12/31/24 12:00
Cardiovascular:: Regular rate and rhythm
Respiratory:: Bilateral: Coarse
Lung Excursion:: Normal
Abdomen:: Nontender and Soft
Bowel Sounds:: Normal
Extremity Edema:: None: Bilateral:
Salas Catheter: Yes
--- NOTE | 2024-12-31 11:22 | W.RAPID.EEG ---
Rapid EEG
-
Procedure Date: 12/31/24
Results:
Findings:
The EEG demonstrates lateralized periodic discharges (LPDs) over the left hemisphere, most prominent in the left temporal region. The discharges consist of sharp waves or spikes occurring rarely, with or without associated rhythmic or fast activity.
Clinical Correlation/Impression:
There are Lateralized periodic discharges (LPDs) on this record, which can be associated with underlying cerebral injury and/or hyperexcitability
Patient Demographics:
Patient Name: ERICA HELLER Date of : 1965
Location: ICU/MICU Sex: Age: 59
Primary Indication: Prior Seizure
Order Details:
Site: [facility]
Recording Information:
Diagnostic Recording Time: 01:57:33 (118 minutes)
Recording 1:
Start Time: Dec 31, 2024 04:04 AM End Time: Dec 31, 2024 06:01 AM
Recording Technique: This EEG was obtained using a 10 lead, 8 channel system positioned circumferentially without any parasagittal coverage (rapid EEG).Computer selected EEG is reviewed as well as background features and all clinically significant
events. Clarity algorithm utilized and implemented to provide analysis of underlying activity and seizure detection used to facilitate reading. ICD-10 Code [id number]
Clinical History: ERICA HELLER is a 59 year old Prior Seizure patient undergoing EEG to screen for non-convulsive status epilepticus.
Disclaimer: EEG findings should be interpreted in the context of clinical history and other tests. A normal EEG does not rule out epilepsy or other conditions, and an abnormal EEG is not diagnostic on its own. Technical factors may affect
interpretation. Clinical context is required.
Signed by:
SARABJIT FABIAN MD
BOARD-CERTIFIED NEUROLOGIST
BOARD-CERTIFIED SLEEP SPECIALIST
[2024-12-31] MEDS: LYRICA PO (11:59)
[2024-12-31] MEDS: NEURONTIN PO (12:00)
[2024-12-31] MEDS: OXYCONTIN (CONTROLLED RELEASE) PO (12:00)
[2024-12-31] MEDS: NICODERM TRANSDERMAL 14 MG TRANSDERM (12:00)
[2024-12-31] MEDS: NON-FORMULARY ITEM PO (13:15)
--- NOTE | 2024-12-31 13:16 | PTCARENOTE ---
Called Dr Woods's office nursing staff, per provided phone number by office staff: ([phone]) message left with request for call back.
[2024-12-31] MEDS: PROTONIX IV 40 MG IV (13:24)
[2024-12-31] MEDS: NSS (PRESERVATIVE FREE) 10 ML IV (13:25)
[2024-12-31] MEDS: TYLENOL ORAL SOLUTION 650 MG TUBE (13:25)
[2024-12-31] MEDS: ROBITUSSIN 200 MG TUBE ×3 (13:25→22:29)
[2024-12-31 15:34] LABS: Hematocrit 31.5 % (37.0-47.0); Hemoglobin 10.3 g/dL (12.0-16.0); Mean Corp Hgb Conc. 32.7 g/dL (33.0-37.0); Mean Corpuscular Volume 84.9 fL (81.0-99.0); Red Cell Dist. Width 13.3 % (11.5-14.5)
[2024-12-31 15:36] LABS: APTT 23.4 Sec (23.4-35.0)
--- NOTE | 2024-12-31 15:42 | PTCARENOTE ---
US +RT UE DVT. RT peripheral line removed . Levophed infusing via Left Upper arm peripheral line # 22
[2024-12-31] MEDS: PROTONIX PO (16:08)
[2024-12-31] MEDS: MUCINEX PO (16:08)
[2024-12-31] MEDS: HEPARIN 3000 UNITS IV (16:31)
[2024-12-31 16:33] LABS: Platelet Count 78 10^3/uL (130-400)
[2024-12-31] MEDS: HEPARIN 25000 UNITS/250 ML IV (16:36)
--- NOTE | 2024-12-31 16:40 | PTCARENOTE ---
RASS 0; Patient Awake, follows commands, moves upper and lower extremities. No on Sedation, Intubated: (S)CMV: 20/300/+5/40% Peak 22; VT 305; RR 21; BP via RT le/66; Levophed at 4mcg /15ml . HOB elevated
[2024-12-31] MEDS: NSS 1000 IV (16:54)
[2024-12-31] MEDS: SUBLIMAZE 50 MCG IV ×4 (18:38→22:30)
--- NOTE | 2024-12-31 20:00 | PTCARENOTE ---
on assessment pt awake and alert and able to follows simple commands, FERGUSON, family at bedside, c/o of chronic full body pain, SR on the monitor, on hep gtt see MAR, #8 ETT 22 at the lip, AC 20/300/40%/5, OGT 55 at the lip, josue, L foot IV and LUE
IV, repositioned q2, call gomez in reach
[2024-12-31] MEDS: FLEXBUMIN 100 IV ×2 (20:43→23:50)
[2024-12-31] MEDS: NORMOSOL-R/PLASMALYTE-A 1000 IV (22:29)
[2024-12-31] MEDS: REMOVE NICOTINE PATCH 1 PATCH REMOVE (22:31)
[2025-01-01] VITALS (41 sets, daily range): BP systolic 76–172; BP diastolic 43–93; BMI 15.7
[2025-01-01 00:03] LABS: APTT 49.7 Sec (23.4-35.0)
[2025-01-01] MEDS: HEPARIN 3000 UNITS IV (00:21)
[2025-01-01] MEDS: SUBLIMAZE 50 MCG IV ×3 (00:35→06:53)
[2025-01-01 04:07] LABS: Hematocrit 23.4 % (37.0-47.0); Hemoglobin 7.5 g/dL (12.0-16.0); Mean Corp Hgb Conc. 32.1 g/dL (33.0-37.0); Mean Corpuscular Volume 87.3 fL (81.0-99.0); Platelet Count 141 10^3/uL (130-400); Red Cell Dist. Width 13.3 % (11.5-14.5)
--- NOTE | 2025-01-01 04:09 | PTCARENOTE ---
Hgb dropped from 10.3 to 7.5 with AM labs, CONDUCTOR AND ENGINEER made aware, type and screen ordered, no signs of bleeding noted at this time
[2025-01-01 04:48] LABS: ALT (SGPT) < 10 U/L (0-35); AST (SGOT) 12 U/L (14-36); Albumin 3.3 g/dl (3.5-5.0); Alkaline Phosphatase 50 U/L (38-126); Blood Urea Nitrogen 9 mg/dl (7-17); Calcium 8.2 mg/dl (8.4-10.2); Carbon Dioxide 33 mmol/L (22-30); Chloride 96 mmol/L (98-107); Estimated Creatinine Clearance 65 ml/min; Glucose 81 mg/dl (70-99); Magnesium 1.9 mg/dl (1.6-2.3); Potassium 3.6 mmol/L (3.5-5.1); Sodium 133 mmol/L (135-145); Total Protein 5.1 g/dl (6.3-8.2); eGFR > 60.00
[2025-01-01 05:52] LABS: B.E. 9.4 mmol/L; HCO3 32.2 mmol/L (21-28); O2 Saturation % 100.0 % (94-98); PCO2 36 mmHg (32-35); PO2 170 mmHg (83-108)
[2025-01-01 06:00] LABS: O2 Therapy 40
[2025-01-01 06:04] LABS: Nucleated Red Blood Cells % 0 %
[2025-01-01 06:06] LABS: APTT 71.7 Sec (23.4-35.0)
[2025-01-01] MEDS: UNASYN IV (06:10)
[2025-01-01] MEDS: HEPARIN 1500 UNITS IV (06:24)
[2025-01-01] MEDS: DUONEB 3 ML INH ×3 (07:22→21:20)
--- NOTE | 2025-01-01 08:21 | W.PN.HOSP.TC ---
Addendum entered and electronically signed by Sean Maria MD 01/01/25 15:46:
Acute hypoxemic respiratory failure overnight requiring mechanical ventilation
Intubated for airway protection as altered
Daily SAT SBT
GI prophylaxis with PPI
Chest x-ray in the morning
ICU manage mechanical ventilator
Right-sided likely aspiration
Continue Unasyn. He completed 5 days will extend
Hyponatremia�severe improved to 134 downtrending again
Initiate tube feeds when possible
Follow recommendations per nephrology
Multiple sclerosis
Concern for progressive MS with decompensation
Unsure if some of this hypoxemia is related to restrictive lung disease. Would only be able to diagnose that with PFTs/flow-volume unfortunately not able to do that at this time due to her being intubated
Will speak with outpatient neurologist
Original Note:
Today's Communication/Plan
-
- Convert abx to vancomycin & zosyn for broader spectrum coverage given c/f HAP (01/01- ; s/p unasyn 1.5g q6hr 12/27-12/31; s/p vanc & zosyn 12/26-12/27)
- Vent & pressor mgmt per ICU team, potential extubation trial
- MRI brain today
- [facility]/pre vocational counselor to bedside today to adjust pump (dilaudid/baclofen)
- See plan for details above
Assessment / Plan
Assessment / Plan
Eliana Lucas is a 59yo F with a pmh notable for secondary progressive MS, chronic back pain, & tobacco use who p/w acute worsening of back/bilateral LE pain, w episode c/f seizure in ED, found to have R-sided PNA & severe hyponatremia (improved),
on abx but with development of minimal responsiveness & hypoxia, now intubated/ventilated.
#Pneumonia, likely 2/2 aspiration
#Sinusitis
CXR (12/26) demonstrating R basilar airspace opacity concerning for pneumonia. On admission, lactic acid elevated 3.6. Leukocytosis WBC 16.3 w R shift. Sat 93% on 2L NC. Afebrile. Lives w family, daughter has had sore throat for last few days, taking
dayquil. Only recent travel to [place] last week. No change to her chronic (smoker's) cough in last few days, no f/c. Pt did have new rhinorrhea in the last few days. Ddx includes CAP vs. aspiration PNA (suspected) given RLL location of
consolidation and reported hx of choking events. Urine antigen negative for legionella & strep pneumo. Blood cx negative. MRSA negative.
On thin liquids w [id number] diet per video swallow study 12/29 ('No fluoroscopic evidence for airway aspiration').
CXR 12/29 (for picc placement verification) showed: 'parenchymal opacity within the right lower lung; mild blunting of the right lateral costophrenic angle compatible with a small right pleural effusion; peribronchial thickening in the left lower
lung, suggesting bronchitis; patchy parenchymal opacity within the medial left lower lung, increased from earlier radiograph.' Patient spiked fevers of 101.1-101.7 on 12/31, although WBC continued to decrease (wnl). S/p acetaminophen 12/31. CXR 01/01
am: 'large amount of opacity in the right middle lobe, moderate airspace opacity in the inferior right upper lobe, and large amount of subpleural ground-glass opacity in the peripheral left midlung. SEVERE BILATERAL PNEUMONIA is considered most
likely given the distribution of the airspace opacities.'
WBC: 16.3>14.2>20.2>16.0>14.0>10.6>6.0>6.9. This am, afebrile (99).
- Convert abx to vancomycin & zosyn for broader spectrum coverage given c/f HAP (01/01- ; s/p unasyn 1.5g q6hr 12/27-12/31; s/p vanc & zosyn 12/26-12/27)
- S/p DuoNebs TID & mucinex 1200mg q12h due to wet-sounding cough with difficulty expectorating, prior to intubation overnight 12/30
- Pulm following, appreciate recs
#Acute hypercapnic hypoxemic respiratory failure
12/31 early am: not responding to verbal / tactile stimuli, hypoxic with Spo2 85 % on 4 L, and noted with slow breathing; transferred to ICU and intubated. Pt RR was ranging 16-18 in lead-up to decompensation on 12/31 early am, so unlikely 2/2
opioid-induced respiratory depression. Pt remained with WBC tending down to wnl on 12/31 on unasyn abx course for RLL PNA (likely aspiration), so unlikely attributable to pneumonia, although intermittent fever 12/31 leaves PNA/sepsis on differential.
Likely cause is her underlying secondary progressive MS and ongoing progression, leading to a restrictive�type of picture of poor oxygenation and ventilation.
- Intubated & ventilated (12/31-)
- Ventilator mgmt per ICU/pulm teams
- Attempt to wean off ventilator as able
#Hypotension
Patient BP ranging from 80s/40s to 120s/60s. On levophed in ICU since 12/31.
- Continue levophed 4mg gtt, mgmt per ICU team
- Wean off as able
#AMS
#Unresponsive to noxious stimuli
#Secondary progressive MS
CT head (12/26) without signs of ICH, mass effect, ventricular dilation; likely MS progression, given dx of secondary progressive MS. Unknown date of last MRI. On tecfidera 240mg as dz modifying therapy & dalfampridine for sx mgmt. Pt smokes. On
chronic oxycodone, gabapentin, pregabalin; also w baclofen pump, recently refilled - this pump contains dilaudid (dose pending, Dr. Woods at [facility]). Encephalopathic/AMS likely 2/2 hyponatremia +/- pain meds & underlying POLITICAL AIDE dz on admission. Patient
mental status had been improving to baseline when sodium levels had increased to 134. However, on morning of 12/30 patient was more tired/groggy. 12/30 night, patient narcotic medications were held. Patient unresponsive to noxious stimuli on 12/31
instructor ground services. EEG at that time did not demonstrate any epileptiform activity. CT scan of the head did not demonstrate any intracranial hemorrhage or mass effect. Pt intubated 12/31. Current AMS episode is likely multifactorial but primarily driven
by progression of underlying secondary progressive MS, malnutrition, sedating pain medication use, poor respiratory effort.
- Attempt extubation trial per ICU team (currently on precedex & propofol)
- Continue MS meds (tecfidera, baclofen via pump, dalfampridine)
- Holding sedating pain meds - oxycodone, gabapentin, pregabalin (holding since 12/30 pm)
- [facility] copy room technician to come to bedside today (01/01) to lower rate of dilaudid pump to 20%
- MRI brain, pending [facility] rehab pump tech today
- Called outpatient neurologist 12/31, voicemail; to call again today (Pito Colvin [phone]) for prior brain MRI, MS records
- Ongoing GOC conversation with family, broached idea w on phone 12/31
- Continue management of other conditions as above
#DVT in RUE
R arm swelling 12/31. US (12/31) demonstrated: 'acute DVT within the upper arm. There is nonocclusive thrombus within the central subclavian and jugular veins and occlusive thrombus within the distal brachial vein within the upper arm. Occlusive
thrombus also appreciated within the cephalic vein and nonocclusive thrombus within the basilic vein.' Likely in s/o PICC line.
- Continue IV heparin
#Malnutrition
Patient with BMI 14 and subacute decline in p.o. intake at home, per . Patient only intaking pieces of toast, occasional cheese sandwiches. Drinking lots of water. Per , patient previously failed trial of Ensure. Patient appears
malnourished. Per nutrition and neurology curbside, likely in setting of underlying secondary progressive MS. Patient lacking motivation to eat. At this time not considering appetite stimulant medications, as options like Remeron are also
sedating. Patient could be candidate for PEG tube, however this will be influenced by upcoming goals of care conversation with family.
- Pending extubation trial, may resume PO intake inpt vs. consider initiation of tube feeds while intubated, per ICU team
- Longer term consider PEG tube placement, pending goals of care
- Nutrition following, appreciate recs
#Severe hyponatremia, resolving
Na 112 on admission. Per , pt stopped eating full dinners in October; only eats a piece of toast & coffee, plus two cheese sandwiches daily. Does drink a fair amount of water. Not hypotensive on admission. Pt low weight, thin appearing.
Hyponatremia likely in s/o malnutrition, 'tea & toast' syndrome. Pt eating protein-deficient diet, limiting solute excretion. Likely also element of SIADH in s/o POLITICAL AIDE dz (MS) and pain. Urine Na 35, urine osm order cancelled. Random cortisol
unremarkable. Pt with normal eGFR. No meds on home list are known to cause hyponatremia other than gabapentin/pregabalin. S/p hypertonic saline 12/26-12/27 w lasix.
12/29: Urine Cr 52.9, urine Na 109, urine osm 533. Hyponatremia w urine osm>100 supports suspected SIADH. Likely an element of ongoing SIADH. Pt had PO solid intake 12/29-12/30. S/p 20mg lasix 12/30.
Na: 134 on 12/29, down to 130 12/31, up to 133 today (01/01).
- Monitor BMP
- Per renal, will continue to monitor Na levels while respiratory/hemodynamic status stabilized
- Nephrology consulted, appreciate recs
- 48oz fluid restriction to diet when/if able to tolerate PO
#Urinary retention
Pt last independent void on 12/27. Does not straight cath at home. RN has been doing straight cath since 12/28. On bladder scan 12/29, had 400 cc. Pt with bilat LE weakness at baseline & chronic neuropathic pain at baseline in s/o MS. per , patient
had began to complain of episodes of urge to urinate but inability to urinate over the past few weeks at home prior to admission, although she had been able to still urinate independently at times. Patient intubated/ventilated on 12/31 instructor ground services,
now with Eckert catheter in place. Worsening urinary retention likely a symptom of suspected progression of her underlying MS; neurology sharon agreed 12/31.
- Eckert catheter while intubated in ICU
- Pending goals of care conversation with family and likely permanent/progression of retention in setting of her progressing MS, patient to be discharged with straight cathing versus chronic Eckert with antibiotic ppx; to be discussed at later point
in time
#Seizure, one-time
No known hx of seizures. Event in ED on admission likely precipitated by severe hyponatremia. S/p 5mg midazolam in ED. No new events c/f seizure throughout admission. EEG (12/27) with moderate generalized cerebral dysfunction, no focal epileptiform
activity. EEG (12/31): There are Lateralized periodic discharges (LPDs) on this record, which can be associated with underlying cerebral injury and/or hyperexcitability.
- Continue to monitor
#Pulmonary congestion
CXR on 12/31 demonstrated increase of pulmonary congestion throughout bilateral lung quinones. Appearance not concerning for ARDS. Increased congestion potentially in the setting of increased PEEP due to intubation/ventilation instructor ground services 12/31,
leading to increased preload and venous congestion. Patient is overall not volume overloaded; received 20 mg Lasix on 12/30 afternoon.
-Continue to monitor respiratory status per respiratory team and ICU team on ventilation
#Back/hip/leg pain, chronic
#Feet swelling, improved
Pt was initially brought to ED because of complaints of severe pain in low back, hips, & legs this am. Per , screaming in pain when touched or trying to get to toilet. Pt with chronic nerve pain in s/o MS, this is different. Muscle cramps
more common in s/o chronic hyponatremia than acute. Potentially worsening baseline neuropathic MS pain in s/o acute inflammatory state 2/2 infection & electrolyte imbalance. Dalfampridine can also cause back pain. Less likely radicular pain but can
eval w MRI outpatient. Feet swelling likely 2/2 hyponatremia and over-drinking fluid given low PO solids. Swelling in feet improved over admission.
- See plan for pain mgmt above in s/o sedation
- Dilaudid via baclofen pump
- Compression socks to address JAYMIE
- Fluid restriction diet to 48oz
#Recent falls
reports a few recent falls at home over the last 2-3 days. Pt never hit head or lost consciousness. Had some scrapes/bruises on R arm 2/2 falls. Usually in wheelchair or bed but ambulates on own to bathroom. 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
weakness in s/o poor nutritional status, deconditioning.
- PT/OT consulted
- Continue to address other causes of dz as above
#Chronic
-Tobacco use - smokes ~5-10 cigarettes/day since 'forever' (likely 40 yrs), 20 pack-yrs; order nicotine patch 14mg
-MS - continue home meds (tecfidera, baclofen via pump, dalfampridine)
-Malnutrition - chronic, severe via ASPEN criteria (in s/o <75% dietary intake for >1 mo, muscle & fat loss); in s/o chronic dz, MS; advancing diet inpt IDDsl
#Global
- DVT ppx: lovenox
- Diet: Ventilated/intubated currently (prior with IDDSI 6 with thin liquids)
- Code: full; pending goals of care conversation with family
- Dispo: lives at home w , father, & son/daughter; likely discharge to SNF; pending ongoing goals of care conversations with family & outcome of extubation trial
Anticipated Discharge: > 48 hours
Subjective/Interval History
-
Date of Service: January 01, 2025
Pt this morning more awake than yesterday, eyes open, responding to questions with nodding/shaking head. Intubated/ventilated.
Objective Data
-
Labs:
Laboratory Results
12/31/24 12/31/24 01/01/25
23:08 23:44 03:21
WBC 6.9
Hgb 7.5 L D
Hct 23.4 L
Plt Count 141 D
APTT Cancelled 49.7 H
HCO3
Sodium 133 L
Potassium 3.6
Chloride 96 L
Carbon Dioxide 33 H
BUN 9
Creatinine 0.4 L
Glucose 81
Calcium 8.2 L
Total Bilirubin 0.6
AST 12 L
ALT < 10
Alkaline Phosphatase 50
01/01/25 01/01/25 01/01/25
05:30 05:36 12:30
WBC
Hgb
Hct
Plt Count
APTT 71.7 H Pending
HCO3 32.2 H
Sodium
Potassium
Chloride
Carbon Dioxide
BUN
Creatinine
Glucose
Calcium
Total Bilirubin
AST
ALT
Alkaline Phosphatase
Vital Signs:
Vital Signs
Temp Pulse Resp BP Pulse Ox
99 F 81 21 83/46 100
01/01/25 05:50 01/01/25 07:23 01/01/25 07:23 01/01/25 06:00 01/01/25 07:27
I&O
12/31/24 01/01/25 01/02/25
06:59 06:59 06:59
Intake Total 180.0 / 225.0 292.5 / 292.5
Output Total 1191 / 1216 480 / 480
Balance -1011.0 / -991.0 -187.5 / -187.5
Review of Systems
-
Unable to obtain full review of systems at this time due to: Acuity
History Source: Patient
Physical Exam
-
General: Intubated, Appears Chronically Ill and Cachectic
HEENT: Normocephalic, Atraumatic and Anicteric
Respiratory: Clear to Auscultation, Non Labored Respirations and Other (intubated, ventilated)
Cardiac: Regular Rhythm
GI: Nondistended
Genito-urinary: Eckert
Musculoskeletal: Edema, Right Upper Extrem (R hand swollen; RUE not swollen ), Edema, Left Upper Extrem (L hand swollen) and Other (Patient with capillary refill in bilateral upper and lower digits; radial pulses palpable)
Skin: Warm and Dry
Neuro: Awake and Alert
Data Reviewed
-
Total Time Spent with Patient (in minutes): 10
Critical Care Time (in minutes): 60
Diagnostic Radiology: Report Reviewed by me
Labs: Labs Reviewed by me
--- NOTE | 2025-01-01 08:30 | W.PN.INTV ---
Today's Communication / Plan
Recommendations
Mechanical ventilation
Daily SAT/SBT � hopefully I can extubate her tomorrow (01/02 as she had apnea today during SBT, she has increased secretions which are thin + frothy and I have concern for pulmonary edema
Stop IVF and give diuretic
Antibiotics
Vasopressors, weaning down as tolerated
MRI brain although need to coordinate with Dr. Woods to assure pump does not turn off and also to lower the dose being pumped
Monitor for recurrent seizures
Continue ICU level of care for this critically ill patient
Assessment
-
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
hyponatremia and critical care management 12/26/2024.
Impression:
Unresponsiveness s/p intubation for airway protection
Acute hypoxic respiratory failure now on mechanical ventilation (intubated 12/31/2024)
Community-acquired pneumonia involving RLL/RML-increased aspiration risk with oral + pharyngeal dysphagia per video swallow exam on 12/29/2024
Severe hyponatremia-serum sodium 112 - now near normal at 133 as of 01/01/2025
Circulatory shock on vasopressors - resolved as of 12/28/2024
Tonic-clonic seizure - resolved
Periorbital/peripheral edema (improved)
Hypercapnia-suspect chronic
Leukocytosis (resolved as of 12/31/2024)
Mild microcytic anemia
Lactic acidosis - resolved as of 12/26/2024
Hypoalbuminemia
Protein calorie malnutrition
UTI suspected (although negative UCx)
COPD suspected without acute exacerbation
Severe right maxillary and right ethmoid sinusitis
Conditions present prior to admission:
Chronic back pain.
Chronic opioid dependence.
Baclofen pump.
POTS.
Multiple sclerosis on Tecfidera.
Cigarette smoker.
Multiple bilateral pulmonary nodules incidentally noted measuring up to 1.[address] abdomen 03/2022-PET scan was recommended-never obtained
Protein calorie malnutrition.
Appendectomy. .
Plan
Patient was just in the ICU on 12/29/2024 and downgraded to IMU where she was found to be minimally responsive overnight and was subsequently intubated and brought here to the ICU and required Levophed
Patient at baseline is lethargic and sleeps a lot and believe this is due to her baclofen/hydromorphone pump and her use of oxycodone, gabapentin and Lyrica
Believe that in the setting of her recent pneumonia and hyponatremia with deconditioning that the narcotics combined with her pump caused her to become unresponsive; her progressive MS is also likely contributing
I do not feel that she is having worsening sepsis although her CXR on 01/01 showed increased opacification in the right lower lobe consistent with worsening pneumonia; her WBC count is improved and she has had no fevers overnight.
Previously she was minimally responsive on 12/28/2024 and then this improved on 12/29/2024
Her serum sodium is stable at 130-134 and she is s/p 3% NS (last dose given on the evening of 12/27)
MRI brain is ordered tadeo given her Hx of MS --> it would be good to see if her MS has worsened radiographically ( would likely need to compare to prior studies done with her neurologist)
Per ICU pharmacist, patient's pump includes baclofen and hydromorphone. She receives 5.5 mg/day of hydromorphone and 1070 mcg/day of baclofen. Pump last filled on 12/08/2024. No recent change in dose. Patient follows with Dr. Woods ([phone]),
with next appointment 01/19 and next time to fill pump is 01/27/2025
- I would like Dr. Woods to come here to hospital to lower the dose that she is receiving through this pump - he is out of town; I spoke with him and was advised it was safe to drop dose by 20%. So now she is receiving 856.3mcg/24 hrs of baclofen
(from 1072mcg/24 hrs), and now getting 23.1 mcg/hr of hydromorphone. We were told by radiology that the MRI machine may turn off the pump, hence we would need to check to see if the pump is functional after the MRI - the rep will be available here
to assure the pump will turned back on after the MRI today
Patient was off vasopressors since evening of 12/28/2024, and required levophed once back in ICU. She has now been off since 12/31 evening
Titrate to keep MAP>65
Continue with mechanical ventilation with daily SAT/SBT if clinically appropriate
- Maintain plateau pressure <30 and titrate FiO2 + PEEP to keep SpO2 >90-94%
- Continue aspiration precautions; keep HOB >30-45�
- prn nebulized bronchodilators - not currently bronchospastic
- Oropharyngeal + deep ETT suctioning with subglottic as needed
- Daily CXR + blood gas
- Daily vent adjustments as needed based on blood gas and SaO2
- Low level of sedation with goal RASS as 0 to -[address] Lopez reviewed CODE STATUS with patient's 12/26/2024-for now would like full code including intubation, CPR, shocking if needed
Cultures reviewed
Sputum culture-previously patient was unable to produce however sputum Cx collected now from ETT; follow up results
Urine for Legionella and streptococcal antigen-negative
MRSA screen-negative
Pneumonia and severe right maxillary + ethmoid air cell sinusitis noted
Continue with antibiotics, currently on Unasyn s/p vanc/Zosyn --> may switch to Zosyn given her risk for HAP
Given her recent shock state, would favor 10-14-day course of antibiotics assuming she continues to clinically improve and remains afebrile for 48 hours prior to stopping antibiotics
Trend WBC and monitor temperature curve
Follow radiographically; ultimately she will need repeat CXR in 4-6 weeks to assess for resolution of her pneumonia
Patient had a wet sounding cough with difficulty expectorating
Continue DuoNebs TID with mucinex
Low threshold to start hypertonic 3% with vest therapy if mucus thickens or if cough worsens
Given the patient's significant right arm swelling, RUE duplex US performed showing extensive DVT in R-IJ and subclavian veins (non-occlusive), and also occlusive thrombus in cephalic and brachial veins, and non-occlusive thrombus in basilic vein.
Heparin gtt started on 12/31
Follow serum sodium level closely
Nephrology evaluation ongoing-correspondence reviewed
Diuretics and potential use of Samsca per nephrology
TSH-normal 2.4
Random cortisol-36
Urine osmolarity - 533 (12/29/2024)
Urine sodium 35 --> 109 (12/29/2024)
Monitor for recurrent seizure-no recurrence
Ceribell placed onto patient on 12/31 overnight after coming to ICU, and there was zero percent burden of status epilepticus
Here initial seizure earlier this hospital course was probably related to severe hyponatremia in setting of infection
Consider neurology evaluation with EEG if seizures recur or if mental status worsens
CT head 12/26/2024-moderate bilateral volume loss with severe white matter disease probably demyelinating disease from multiple sclerosis which is increased since 01/2024, severe right maxillary and right ethmoid air cell sinusitis
Awaiting MRI brain as stated above
Ativan and shortage-midazolam or diazepam as needed
Smoking cessation counseling ongoing
DVT prophylaxis-on heparin gtt
Early nutrition with aspiration precautions
Bedside range of motion/early mobilization/eventual physical therapy/Occupational Therapy
Dr. Michelle reviewed case with her , Estuardo, and answered all his questions
Pulmonary nodule recommendation was seen from 04/19/2022-letter was written 05/14/2022 that a pulmonary nodule was seen on an image study done [facility] emergency room and PET scan was recommended-I do not see a PET scan or pulmonary
follow-up thereafter
Outpatient radiographic follow-up recommended
Patient qualifies for yearly low-dose lung cancer screening CT-obtain CT chest and pulmonary follow-up after pneumonia clears
Outpatient pulmonary [id number], smoking cessation counseling, yearly low-dose lung cancer screening CT, etc.
Continue ICU level of care for this critically ill patient.
(Patient seen and evaluated on 01/01/2025) Critical care statement: A total of 38 minutes of critical care time was provided for this patient today. This includes management of unstable vital signs, evaluation of the patient at bedside, reviewing the
patient�s pertinent medical records including radiographs, microbiology, laboratory evaluations, and��discussion with primary team, consultants, pharmacy, nutrition, physical therapy, case management, charge nurse, critical care nursing, and
respiratory therapy.
Diagnostic data:
Chest x-ray 10/23/2022-NAD
Chest x-ray 02/11/2024-NAD
Chest x-ray 12/26/2024-right basilar pneumonia
CT head 01/22/2024-moderate to severe white matter disease, mild bilateral parietal lobe volume loss,
CT abdomen and pelvis 04/19/2022-no acute fracture T12, severe biliary dilation without obstructing mass, prior cholecystectomy, hepatic hemangioma, severe constipation, multiple solid pulmonary nodules both lower lobes measuring up to 1.2 cm
Echocardiogram 02/11/2024-EF 60-65%, normal diastolic function, mild mitral regurgitation, PA systolic 20
Subjective Dataa
Subjective Data
Date of Service:
Date of Service: January 01, 2025
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
Subjective:
Seen today at bedside. present, and all questions answered. Rep here from [place] to lower dose of pain pump by 20%. Pt remains intubated on AC/CMV at 20/300/40%/5 with PIP 34itL3H, VTe 304mL and breathing at 23 b/min. She is more
awake today but since the pain pump was lowered she is now having more pain.
Review of Systems
General: Other (Unobtainable - intubated/lethargic)
Objective Data
Data Reviewed
Vital Signs / I&O / Oxygen:
Vital Signs
Temp Pulse Resp BP Pulse Ox
97.9 F 64 20 131/83 100
01/01/25 15:18 01/01/25 15:09 01/01/25 15:09 01/01/25 13:55 01/01/25 15:50
Intake and Output
12/31/24 01/01/25 01/02/25
06:59 06:59 06:59
Intake Total 180.0 / 225.0 292.5 / 351.5 481 / 481
Output Total 1191 / 1216 480 / 500 430 / 430
Balance -1011.0 / -991.0 -187.5 / -148.5 51 / 51
SaO2 [A/C] 99
SaO2 100
Nasal Cannula flow liters per 7
minute
Physical Exam
General: Respiratory Distress (n) and Comfortable
HEENT: Normocephalic, Anicteric, Moist Mucous Membranes and Other (ETT in place)
Cardiovascular: S1-S2 and Peripheral Edema (Negative)
Respiratory: Wheeze (Negative), Crackles (bilateral), Rhonchi (Negative), Non-Labored Respirations, Accessory Resp Muscle Use (n), Stridor (n), ET Tube and Other (diminished breath sounds and prolonged expiratory time)
GI: Soft, Non Distended, Non Tender and Other (Circular pump visible and palpable in lower abdomen)
Neurology: Tremors (n) and Lethargic (Arousable to verbal + tactile stimulation)
Skin: Warm, Dry, Cyanosis (Negative), Jaundice (n) and Other (Cachexia)
Labs/Micro/Reports
Lab Data
01/01/25 12:49
01/01/25 03:21
Laboratory Results
12/31/24 12/31/24 01/01/25
23:08 23:44 05:30
APTT Cancelled 49.7 H
pH 7.56 H
pCO2 36 H
pO2 170 H
HCO3 32.2 H
O2 Delivery Level 40
01/01/25 01/01/25 01/01/25
05:36 11:39 12:49
APTT 71.7 H 76.4 H
pH 7.44
pCO2 49 H
pO2 167 H
HCO3 33.3 H
O2 Delivery Level
Microbiology
01/01/25 11:50 Nose Nasal Screen MRSA (PCR) - Final
MRSA not detected - performed by PCR methodology.
12/31/24 14:36 Sputum Respiratory Culture - Preliminary
Gram negative bacilli
12/31/24 14:36 Sputum Gram Stain - Preliminary
12/26/24 11:54 Blood/Venous Blood Culture - Final
No Growth - Final Report
12/26/24 11:54 Blood/Venous Blood Culture - Final
No Growth - Final Report
[2025-01-01] MEDS: ROBITUSSIN 200 MG TUBE ×4 (08:44→22:02)
[2025-01-01] MEDS: MIRALAX TUBE (08:44)
[2025-01-01] MEDS: NICODERM TRANSDERMAL 14 MG TRANSDERM (08:45)
[2025-01-01] MEDS: PROTONIX IV 40 MG IV (08:45)
[2025-01-01] MEDS: NSS (PRESERVATIVE FREE) 10 ML IV (08:45)
--- NOTE | 2025-01-01 10:53 | PHA.VAN.IN ---
Assessment
- Assessment
Renal Function: Appears similar to baseline
Concomitant Antimicrobials: piperacillin/tazobactam
AUC Dosing Plan
- Dosing Variables
Dosing Weight (kg): 52 (IBW)
Dosing CrCl (ml/min): 65
Vd coefficient (L/kg): 0.7
- Empiric Dosing
Initial / Loading Dose: 750mg - administration pending
Maintenance Regimen: Vanc 500mg Q12H starting at 1800 in lieu of full loading dose
Estimated AUC (mcg*h/mL): 485
Estimated Peak (mcg*h/mL): 27
Estimated Trough (mcg/ml): 14.4
Estimated Half Life (H): 11.9
Dosed using IBW for dosing weight given BMI < 18.5
May also have increased clearance and est CrCl may underpredict true vanc clearance
Will continue with dosing off CrCl ~65 ml/min for now given history of MS but follow
- Monitoring
No levels ordered at this time: consider levels in next few days
MRSA Screen: Ordered per protocol
Pharmacokinetics Vancomycin I
- -
Patient Age: 59
Patient Sex: Female
Vancomycin Day #: 1
Indication: Pulmonary/Respiratory
Requesting Provider: Amy Magana resident
Pertinent Antimicrobial Allergies:
no pertinent antibiotic allergies
Height / Weight:
Height 5 ft 3 in
Actual Weight 40.3 kg
IBW in k
Pertinent Past Medical History: BMI ~15.7, MS
- Vital Signs / Lab Results
Temp Pulse Resp BP Pulse Ox
98.6 F 79 21 83/46 100
01/01/25 08:00 01/01/25 10:48 01/01/25 10:48 01/01/25 06:00 01/01/25 10:48
Lab Results - Hematology
12/30/24 12/31/24 12/31/24
05:51 03:56 15:17
WBC 14.0 H 10.6 6.0
01/01/25
03:21
WBC 6.9
Lab Results - Chemistry
12/30/24 12/31/24 01/01/25
05:51 03:56 03:21
BUN 7 8 9
Creatinine 0.4 L 0.4 L 0.4 L
Estimated Creat Clear 61 61 65
Albumin 2.9 L 3.3 L
12/31/24
04:00
Lactic Acid 1.0
Microbiology Results
12/31/24 14:36 Gram Stain - Preliminary
Sputum
12/26/24 11:54 Blood Culture - Final
Blood/Venous No Growth - Final Report
12/26/24 11:54 Blood Culture - Final
Blood/Venous No Growth - Final Report
--- NOTE | 2025-01-01 11:10 | PN.CDI ---
CDI
- -
CDI:
Physician Documentation Request
Admit Date: 12/26/24 12:40
Dear Doctor Amy
12/30 hospitalist progress note states 'SIRS criteria, resolving'
Please further clarify the diagnosis of SIRS:
With associated organ dysfunction, such as renal or respiratory failure
With out associated organ dysfunction
Other
Use of terms such as suspected, likely, concern for, or probable (associated with a specific diagnosis that is being evaluated, monitored, or treated as if it exists) are acceptable and can be coded in the inpatient setting, when documented at the
time of discharge.
Thank you,
Sirisha Cueto RN, BSN
CDI Specialist
tiger text
Please use your independent medical judgment in providing your response.
--- NOTE | 2025-01-01 11:13 | PTCARENOTE ---
Pt's and father visiting at bedside. Updated on pt's present condition/plan of care, questions answered. Pt continues to rest quietly, no distress. Less coughing since scheduled Robitussin given. Vent wean in progress since 906. Pt
tolerating well Pox 99% w/ RR low to mid 20's. No resp. distress. No additional changes from previous assessment findings. Safe environment maintained.
--- NOTE | 2025-01-01 11:14 | PN.CDI ---
CDI
- -
CDI:
Physician Documentation Request
Admit Date: 12/26/24 12:40
Dear Doctor Amy
12/31 a rapid response was called. Patient was not responding.
INTERNATIONAL ACCOUNT MANAGER notes states 'Patient was found to be hypoxic and unresponsive to noxious stimuli.
12/31 hospitalist progress note states 'Acute hypoxemic respiratory failure overnight requiring mechanical ventilation. Intubated for airway protection as altered'
Note also states '#Hypercapnic hypoxemic resp failure'
Staff Interpreter note states 'Unresponsiveness s/p intubation for airway protection. Acute hypoxic respiratory failure now on mechanical ventilation (intubated 12/31/2024)'
Please clarify the reason for intubation:
Acute hypoxic respiratory failure
Acute hypercapnic hypoxemic respiratory failure
Airway protection only
Other
Use of terms such as suspected, likely, concern for, or probable (associated with a specific diagnosis that is being evaluated, monitored, or treated as if it exists) are acceptable and can be coded in the inpatient setting, when documented at the
time of discharge.
Thank you,
Sirisha Cueto RN, BSN
CDI Specialist
tiger text
Please use your independent medical judgment in providing your response.
[2025-01-01] MEDS: VANCOCIN 150 IV (11:44)
[2025-01-01 11:47] LABS: B.E. 8.2 mmol/L; HCO3 33.3 mmol/L (21-28); O2 Saturation % 100.0 % (94-98); PCO2 49 mmHg (32-35); PO2 167 mmHg (83-108)
--- NOTE | 2025-01-01 12:34 | W.PN.NEPH.PH ---
Today's Communication / Plan
-
NSS
Assessment/Plan
-
IMP:
Severe symptomatic hyponatremia
First-time seizure episode, tonic-clonic.
Acute hypoxemic respiratory insufficiency due to aspiration pneumonia
Periorbital/peripheral edema
Hypercapnia-suspect chronic
Leukocytosis
Mild microcytic anemia
Lactic acidosis
Hypoalbuminemia
Protein calorie malnutrition
UTI suspected
COPD suspected without acute exacerbation
Acute on chronic back pain. S/p baclofen pump.
Secondary progressive multiple sclerosis.
Chronic malnutrition
Plan:
follow BMP
NSS 50mg/hr
SBT
if TF, jevity 1.5 20ml/hr, no FWF
-
-
Date of Service: January 01, 2025
CC / HPI / ROS
-
Chief Complaint:
Hypoantremia
History of Present Illness:
Na up to 133
BP low but off pressors
Hgb lower 7.7
remains on vent in ICU
Review of Systems:
salas catheter -non oliguric
intubated, not sedated
Labs
-
Labs:
WBC 6.9 10^3/uL (4.8-10.8) 01/01/25 03:21
RBC 2.68 10^6/uL (4.20-5.40) L 01/01/25 03:21
Hgb 7.5 g/dL (12.0-16.0) L D 01/01/25 03:21
Hct 23.4 % (37.0-47.0) L 01/01/25 03:21
Plt Count 141 10^3/uL (130-400) D 01/01/25 03:21
Sodium 133 mmol/L (135-145) L 01/01/25 03:21
Potassium 3.6 mmol/L (3.5-5.1) 01/01/25 03:21
Chloride 96 mmol/L (98-107) L 01/01/25 03:21
Carbon Dioxide 33 mmol/L (22-30) H 01/01/25 03:21
BUN 9 mg/dl (7-17) 01/01/25 03:21
Creatinine 0.4 mg/dL (0.6-1.0) L 01/01/25 03:21
eGFR > 60.00 01/01/25 03:21
Glucose 81 mg/dl (70-99) 01/01/25 03:21
Calcium 8.2 mg/dl (8.4-10.2) L 01/01/25 03:21
Phosphorus 2.7 mg/dl (2.5-4.5) 01/01/25 03:21
Xkh-W-Sxpegzskarx Pept 3060 pg/ml 12/26/24 15:17
Albumin 3.3 g/dl (3.5-5.0) L 01/01/25 03:21
Physical Exam
-
Vital Signs:
Vital Signs
Temp Pulse Resp BP Pulse Ox
98.6 F 82 22 122/77 100
01/01/25 08:00 01/01/25 11:29 01/01/25 11:29 01/01/25 11:09 01/01/25 11:29
Cardiovascular:: Regular rate and rhythm
Respiratory:: Bilateral: Coarse
Lung Excursion:: Normal
Abdomen:: Nontender and Soft
Bowel Sounds:: Normal
Extremity Edema:: None: Bilateral:
[2025-01-01] MEDS: NSS 1000 IV (12:58)
[2025-01-01] MEDS: ZOSYN 50 IV ×2 (12:58→20:03)
[2025-01-01 13:10] LABS: Hematocrit 27.0 % (37.0-47.0); Hemoglobin 8.9 g/dL (12.0-16.0)
[2025-01-01 13:14] LABS: APTT 76.4 Sec (23.4-35.0)
--- NOTE | 2025-01-01 13:45 | PTCARENOTE ---
Vent alarming apnea- pt noted to have periods of apnea w/ RR=9. HR prevously 70-80's now down to low 60's. POx remained 98%. Pt appeared asleep but easily arousable to name. RR improved to 20-22 upon awakening but once pt undisturbed, RR again
slowed to 9-11 with periods of apnea noted. Resp Therapy notified of findings and pt placed back on previous vent settings.
[2025-01-01] MEDS: LASIX 20 MG IV (13:55)
--- NOTE | 2025-01-01 15:19 | CM ---
Addendum entered by Magdi Lopez 01/01/25 15:22:
Therapy rec on 12/29 was SNF. Unable to follow-up with evals due to medical instability. SNF referrals were previously forwarded.
Original Note:
Remains intubated. IV/Levophed, wean as able, IV/Zosyn and now with IV/Vanco also. Discharge POC: TBD.
--- NOTE | 2025-01-01 15:35 | W.PN.UPDATE ---
Update Note
Progress Note Update
Spoke with neurology office for this pt. Dr. Curry is the correct neurologist for this patient. (Same office # as listed in progress note). Left message for him to contact us to discuss case.
[2025-01-01] MEDS: LOVENOX 40 MG SC (16:11)
[2025-01-01] MEDS: ROXICODONE ORAL SOLUTION 5 MG TUBE (16:11)
--- NOTE | 2025-01-01 18:00 | PTCARENOTE ---
Pt transported to MRI at 1615 for ordered Brain MRI w/ this RN and Resp Therapy in attendance. Returned to room at 1750 w/o complication. Tolerated well. Thermistor Eckert removed prior to MRI per protocol and a new 16F Thermistor Eckert placed once
returned to room- immediate return of 390ml clear, pale yellow urine. Pt tolerated insertion well- secured w/ stat lock device. Pt remains on vent at ordered settings w/ POx 99-100%. Frequent oral and ETT suctioning of large amounts of clear/white
tinged frothy/thin secretions. Tube Feedings continue at 20ml/hr via OGT. [employer] rep in room to confirm appropriate reactivation of abdominal medication pump. Comfort care/hygiene/repositioning provided q2hr or more frequently.
[2025-01-01] MEDS: VANCOCIN HCL 500 MG 100 IV (18:07)
--- NOTE | 2025-01-01 20:00 | PTCARENOTE ---
Resumed care of pt laying in bed intubated on vent. Pt awake, alert, and able to nod head, mouths words, follows commands. #[address] at 22 to left lip. Pt with frequent productive cough, thin clear secretions, as well as orally. Oral care
provided. HR low 100's, ST on the monitor. Pt with 101.2 core temp, Tylenol administered as ordered. Lung course with scattered Rhonchi. OGT in place at 55cm infusing Jevity 1.5 @20ml/hr, pt tolerating. Pt inc of stool, paddy care provided. Eckert
cath in place for acute retention. Abd Baclofen pump present. + bowel, round abd. Left midling in place. +1 B/L hand edema. Pale skin. Sacral foam in place for protection. B/L heel foams in place. Weak pedal pulses. heels elevated on pillows. Pt
very weak. Cachectic. B/L wrist restraints in place for pt safety. Pt repositioned per comfort. Family at bedside. Will continue to monitor.
[2025-01-01] MEDS: TYLENOL ORAL SOLUTION 650 MG TUBE (20:03)
[2025-01-01] MEDS: REMOVE NICOTINE PATCH 1 PATCH REMOVE (22:02)
[2025-01-02] VITALS (30 sets, daily range): BP systolic 75–124; BP diastolic 42–73; PULSE 2–84; BMI 15.1
[2025-01-02] MEDS: ROXICODONE ORAL SOLUTION 5 MG TUBE ×3 (00:19→18:34)
--- NOTE | 2025-01-02 00:28 | PTCARENOTE ---
Pt requesting pain medication, PRN pain medication administered as ordered. Pt inc of scant amount of loose stool, paddy care provided. Pt repositioned per comfort. No issues to report at this time. Vital signs stable. No other changes in assessment
noted. Will continue to monitor.
[2025-01-02] MEDS: ZOSYN 50 IV ×2 (03:24→12:14)
[2025-01-02] MEDS: HEPARIN 3000 UNITS IV ×2 (04:16→10:43)
[2025-01-02] MEDS: HEPARIN 25000 UNITS/250 ML IV (04:17)
[2025-01-02 04:37] LABS: Hematocrit 24.5 % (37.0-47.0); Hemoglobin 7.7 g/dL (12.0-16.0); Mean Corp Hgb Conc. 31.4 g/dL (33.0-37.0); Mean Corpuscular Volume 86.6 fL (81.0-99.0); Platelet Count 144 10^3/uL (130-400); Red Cell Dist. Width 13.1 % (11.5-14.5)
[2025-01-02 05:18] LABS: Blood Urea Nitrogen 12 mg/dl (7-17); Calcium 8.6 mg/dl (8.4-10.2); Carbon Dioxide 36 mmol/L (22-30); Chloride 91 mmol/L (98-107); Estimated Creatinine Clearance 62 ml/min; Glucose 145 mg/dl (70-99); Magnesium 2.0 mg/dl (1.6-2.3); Potassium 3.6 mmol/L (3.5-5.1); Sodium 131 mmol/L (135-145); eGFR > 60.00
[2025-01-02] MEDS: VANCOCIN HCL 500 MG 100 IV (05:59)
[2025-01-02] MEDS: DUONEB 3 ML INH ×3 (07:17→20:52)
[2025-01-02] MEDS: ROBITUSSIN 200 MG TUBE ×2 (07:54→12:14)
[2025-01-02] MEDS: NICODERM TRANSDERMAL 14 MG TRANSDERM (07:54)
[2025-01-02] MEDS: MIRALAX TUBE (07:54)
[2025-01-02] MEDS: NSS (PRESERVATIVE FREE) 10 ML IV (07:55)
[2025-01-02] MEDS: PROTONIX IV 40 MG IV (07:55)
--- NOTE | 2025-01-02 08:11 | W.PN.INTV ---
Today's Communication / Plan
Recommendations
Mechanical ventilation
Daily SAT/SBT � hopefully I can extubate her today - yesterday she had periods of apnea on SBT, and had increased secretions which were thin + frothy and I have concern for pulmonary edema
Given additional lasix this AM
Antibiotics
Pressors now off
MRI brain shows left SLINGER SEQUINS infarct --> if additional MRI is obtained then will need pump rep to assure pump is turned back on after study performed
Monitor for recurrent seizures
Neurochecks + NIHSS per protocol
Continue ICU level of care for this critically ill patient
Assessment
-
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
hyponatremia and critical care management 12/26/2024.
Impression:
Unresponsiveness s/p intubation for airway protection
Acute left occipital lobe infarction - suspected embolic etiology per neurology
Acute hypoxic respiratory failure now on mechanical ventilation (intubated 12/31/2024)
Community-acquired pneumonia involving RLL/RML-increased aspiration risk with oral + pharyngeal dysphagia per video swallow exam on 12/29/2024; CTA neck showed opacities in upper lobes (L>R)
Severe hyponatremia-serum sodium 112 - now near normal at 133 as of 01/01/2025
Circulatory shock on vasopressors - resolved as of 12/28/2024
Tonic-clonic seizure - resolved
Periorbital/peripheral edema (improved)
Hypercapnia-suspect chronic
Leukocytosis (resolved as of 12/31/2024)
Mild microcytic anemia
Lactic acidosis - resolved as of 12/26/2024
Hypoalbuminemia
Protein calorie malnutrition
UTI suspected (although negative UCx)
COPD suspected without acute exacerbation
Severe right maxillary and right ethmoid sinusitis
Conditions present prior to admission:
Chronic back pain.
Chronic opioid dependence.
Baclofen pump.
POTS.
Multiple sclerosis on Tecfidera.
Cigarette smoker.
Multiple bilateral pulmonary nodules incidentally noted measuring up to 1.[address] abdomen 03/2022-PET scan was recommended-never obtained
Protein calorie malnutrition.
Appendectomy. .
Plan
Patient was in the ICU on 12/29/2024 and downgraded to IMU where she was found to be minimally responsive overnight and was subsequently intubated and brought here to the ICU and required Levophed
Patient at baseline is lethargic and sleeps a lot and believe this is due to her baclofen/hydromorphone pump and her use of oxycodone, gabapentin and Lyrica
Believe that in the setting of her recent pneumonia and hyponatremia with deconditioning that the narcotics combined with her pump caused her to become unresponsive; her progressive MS is also likely contributing
I do not feel that she is having worsening sepsis although her CXR on 01/01 showed increased opacification in the right lower lobe consistent with worsening pneumonia --> possibly aspiration pneumonitis; her WBC count has normalized since 12/31,
although she been spiking fevers since 12/31
Previously she was minimally responsive on 12/28/2024 and then this improved on 12/29/2024
Her serum sodium is stable at 130-134 and she is s/p 3% NS (last dose given on the evening of 12/27)
MRI brain is ordered tadeo given her Hx of MS --> it would be good to see if her MS has worsened radiographically ( would likely need to compare to prior studies done with her neurologist)
Per ICU pharmacist, patient's pump includes baclofen and hydromorphone. She receives 5.5 mg/day of hydromorphone and 1070 mcg/day of baclofen. Pump last filled on 12/08/2024. No recent change in dose. Patient follows with Dr. Woods [phone]),
with next appointment 01/19 and next time to fill pump is 01/27/2025
- On 01/01, the dose of the patient's pump was reduced by 20%. So now she is receiving 856.3mcg/24 hrs of baclofen (from 1072mcg/24 hrs), and now getting 23.1 mcg/hr of hydromorphone. If patient goes for another MRI then the pump rep would need to
be available to assure that the pump is turned back on after the studies performed
Patient was off vasopressors since evening of 12/28/2024, and required levophed once back in ICU. She has now been off since 12/31 evening
Titrate to keep MAP>65
Continue with mechanical ventilation with daily SAT/SBT if clinically appropriate --> hopefully I can extubate today s/p diuresis as I feel she has pulmonary edema on CXR
- Maintain plateau pressure <30 and titrate FiO2 + PEEP to keep SpO2 >90-94%
- Continue aspiration precautions; keep HOB >30-45�
- prn nebulized bronchodilators - not currently bronchospastic
- Oropharyngeal + deep ETT suctioning with subglottic as needed
- Daily CXR + blood gas
- Daily vent adjustments as needed based on blood gas and SaO2
- Low level of sedation with goal RASS as 0 to -[address]
Dr[address] Lopez reviewed CODE STATUS with patient's 12/26/2024-for now would like full code including intubation, CPR, shocking if needed
Cultures reviewed
Sputum culture-previously patient was unable to produce however sputum Cx collected now from ETT; follow up results
Urine for Legionella and streptococcal antigen-negative
MRSA screen-negative
Pneumonia and severe right maxillary + ethmoid air cell sinusitis noted
Continue with antibiotics, currently on ceftriaxone s/p vanc/Zosyn which was changed to Unasyn and then changed again on 01/01 back to Zosyn; sputum Cx from 12/31 grew Serratia marcescens
Given her recent shock state, would favor 10-14-day course of antibiotics assuming she continues to clinically improve and remains afebrile for 48 hours prior to stopping antibiotics
Trend WBC and monitor temperature curve
Follow radiographically; ultimately she will need repeat CXR in 4-6 weeks to assess for resolution of her pneumonia
Patient had a wet sounding cough with difficulty expectorating
Continue DuoNebs TID with mucinex
Low threshold to start hypertonic 3% with vest therapy if mucus thickens or if cough worsens
Given the patient's significant right arm swelling, RUE duplex US performed showing extensive DVT in R-IJ and subclavian veins (non-occlusive), and also occlusive thrombus in cephalic and brachial veins, and non-occlusive thrombus in basilic vein.
Heparin gtt started on 12/31
Follow serum sodium level closely
Nephrology evaluation ongoing-correspondence reviewed
Diuretics and potential use of Samsca per nephrology
TSH-normal 2.4
Random cortisol-36
Urine osmolarity - 533 (12/29/2024)
Urine sodium 35 --> 109 (12/29/2024)
Monitor for recurrent seizure-no recurrence
Ceribell placed onto patient on 12/31 overnight after coming to ICU, and there was zero percent burden of status epilepticus
Here initial seizure earlier this hospital course was probably related to severe hyponatremia in setting of infection
Neurology has been consulted given the acute left SLINGER SEQUINS territory infarct.
- CTA head/neck ordered, showing no significant stenosis, aneurysm or LVO
- TTE with bubble study and if negative then she will need TAWANNA
- T/L spine MRI
- Start ASA
- Usually I would recommend high intensity statin but her LDL is 27 --> hold off on statin for now
- If extubated, she will need [employer] evaluation in addition to PT/OT
CT head 12/26/2024-moderate bilateral volume loss with severe white matter disease probably demyelinating disease from multiple sclerosis which is increased since 01/2024, severe right maxillary and right ethmoid air cell sinusitis
Ativan shortage-midazolam or diazepam as needed for seizure activity
Smoking cessation counseling ongoing
She has centrilobular emphysema seen on CTA neck today --> suspect she has COPD
Continue DuoNebs; recommend outpatient pulmonary follow up with PFTs
DVT prophylaxis-on heparin gtt
Early nutrition with aspiration precautions
Bedside range of motion/early mobilization/eventual physical therapy/Occupational Therapy
Dr. Michelle reviewed case with her , Estuardo, and answered all his questions
Pulmonary nodule recommendation was seen from 04/19/2022-letter was written 05/14/2022 that a pulmonary nodule was seen on an image study done [facility] emergency room and PET scan was recommended-I do not see a PET scan or pulmonary
follow-up thereafter
Outpatient radiographic follow-up recommended
Patient qualifies for yearly low-dose lung cancer screening CT-obtain CT chest and pulmonary follow-up after pneumonia clears
Outpatient pulmonary [id number]-[id number], smoking cessation counseling, yearly low-dose lung cancer screening CT, etc.
Continue ICU level of care for this critically ill patient.
Critical care statement: A total of 43 minutes of critical care time was provided for this patient today. This includes management of unstable vital signs, evaluation of the patient at bedside, reviewing the patient�s pertinent medical records
including radiographs, microbiology, laboratory evaluations, and��discussion with primary team, consultants, pharmacy, nutrition, physical therapy, case management, charge nurse, critical care nursing, and respiratory therapy.
Diagnostic data:
Chest x-ray 10/23/2022-NAD
Chest x-ray 02/11/2024-NAD
Chest x-ray 12/26/2024-right basilar pneumonia
CT head 01/22/2024-moderate to severe white matter disease, mild bilateral parietal lobe volume loss,
Brain MRI 01/01/2025-There is a 5.6 mm focus of restricted diffusion within the posterior left occipital lobe which may represent an infarction, less likely a demyelinating plaque. There is extensive periventricular and subcortical white matter
T2/FLAIR hyperintense signal which is likely related to known multiple sclerosis and likely chronic small vessel disease.
CT abdomen and pelvis 04/19/2022-no acute fracture T12, severe biliary dilation without obstructing mass, prior cholecystectomy, hepatic hemangioma, severe constipation, multiple solid pulmonary nodules both lower lobes measuring up to 1.2 cm
Echocardiogram 02/11/2024-EF 60-65%, normal diastolic function, mild mitral regurgitation, PA systolic 20
Subjective Dataa
Subjective Data
Date of Service:
Date of Service: January 02, 2025
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
Subjective:
Patient was seen and evaluated today at bedside. Brain MRI performed last night shows a 5.6 mm focus of restricted diffusion concerning for an infarction in the posterior left occipital lobe. She is awake this morning, wants the tube out of her
throat. Currently intubated on a CPAP trial on 5/5 and 40% FiO2, with PIP 12 cmH2O, VTe 324 cc and breathing at 18 breaths/min. ETCO2: 42, BP 104/64, heart rate 79 and saturating 100%. , Estuardo, at bedside and all questions were answered
Review of Systems
General: Other (Unobtainable as patient is intubated)
Objective Data
Data Reviewed
Vital Signs / I&O / Oxygen:
Vital Signs
Temp Pulse Resp BP Pulse Ox
99 F 82 14 120/64 97
01/02/25 07:29 01/02/25 09:00 01/02/25 09:00 01/02/25 06:00 01/02/25 09:00
Intake and Output
01/01/25 01/02/25 01/03/25
06:59 06:59 06:59
Intake Total 292.5 / 351.5 1355 / 1402 241 / 241
Output Total 480 / 500 1390 / 1390 110 / 110
Balance -187.5 / -148.5 -35 / 12 131 / 131
SaO2 [CPAP/PSV] 98
SaO2 [A/C] 97
SaO2 97
Nasal Cannula flow liters per 7
minute
Physical Exam
General: Respiratory Distress (n) and Comfortable
HEENT: Normocephalic, Anicteric, Moist Mucous Membranes and Other (ETT in place)
Cardiovascular: S1-S2 and Peripheral Edema (Negative)
Respiratory: Wheeze (Negative), Crackles (bilateral), Rhonchi (Negative), Non-Labored Respirations, Accessory Resp Muscle Use (n), Stridor (n), ET Tube and Other (diminished breath sounds and prolonged expiratory time)
GI: Soft, Non Distended, Non Tender and Other (Circular pump visible and palpable in lower abdomen)
Neurology: Awake, Alert, Tremors (n) and Other (Moving all 4 extremities)
Skin: Warm, Dry, Cyanosis (Negative), Jaundice (n) and Other (Cachexia)
Labs/Micro/Reports
Lab Data
01/02/25 04:10
01/02/25 04:10
Laboratory Results
01/01/25 01/01/25 01/01/25
11:39 12:49 18:45
APTT 76.4 H Cancelled
pH 7.44
pCO2 49 H
pO2 167 H
HCO3 33.3 H
O2 Delivery Level
Microbiology
12/31/24 14:36 Sputum Respiratory Culture - Final
Serratia marcescens
12/31/24 14:36 Sputum Gram Stain - Final
01/01/25 11:50 Nose Nasal Screen MRSA (PCR) - Final
MRSA not detected - performed by PCR methodology.
12/26/24 11:54 Blood/Venous Blood Culture - Final
No Growth - Final Report
12/26/24 11:54 Blood/Venous Blood Culture - Final
No Growth - Final Report
--- NOTE | 2025-01-02 08:31 | PTCARENOTE ---
report received, assessments per work list. c/o pain. see MAR. alert and oriented, making needs known by writing notes. restraints off as patient cooperative and oriented. monitor nsr, generalized trace anasarca. heparin gtt per work list. left
midline and foot INT with good blood returns. et to vent, placed on cpap wean by RT. suctions for large amounts thin white sputum. lungs with diminished coarse breath sounds. ogt placement verified bu air auscultation, markings. tube feeds at goal.
no residual. incontinent moderate amount loose brown stool. heme negative. salas draining yellow urine. call gomez in reach
--- NOTE | 2025-01-02 09:40 | CON.NEURO ---
Consultation
Order
Date of Consultation: 01/02/25
Requesting Provider: Sean Maria MD
Reason for Consult: Stroke
Neurology Consultation Note.
HPI: This is a 59-year-old woman who presented to [facility] on 12/26/2024 with leg and pelvic pain.
According to patient's Ms. Badillo was screaming about her muscles feeling like they were 'ripping and on fire.' The pain was so severe that when her attempted to move her, it caused significant discomfort, leading to a 911 call.
Neurology consultation was requested for an evaluation and management of management of abnormal brain MRI findings.
Ms. Leija was found to have severe hyponatremia. She developed hypoxic respiratory failure as well as had a seizure during the hospitalization.
Brain MRI (01/01/2025) moderate atrophy, 5.6 mm focus of restricted diffusion within the posterior left occipital lobe; extensive periventricular and subcortical white matter T2/FLAIR hyperintensities.
EMS VS: 144/80, 84, 95% on room air, respiratory rate�14.
ER VS: 136/77, 89, afebrile.
EKG:NSR
TELE: intermittent bradycardia.
Labs(12/26/2024) sodium�112, lactic acid�3.6, normal TFTs, proBNP�3060.
Review of vital signs was notable for fever of up to 38.7 C on 12/31/2024.
CXR(01/01/2025) Large amount of opacity in the right middle lobe, moderate airspace opacity in the inferior right upper lobe, and large amount of subpleural ground-glass opacity in the peripheral left midlung. SEVERE BILATERAL PNEUMONIA is
considered most likely given the distribution of the airspace opacities. Alveolar pulmonary edema or pulmonary hemorrhage are less likely alternative diagnostic possibilities.
PDMP:Oxycodone Hcl (Ir) 30 Mg 180 tabs filled in on 12/11/2024, 11/13/2024, Oxycontin Er 20 Mg 90 tabs filled in on 12/11/2024, 11/13/2024, Pregabalin 100 Mg 90 caps filled in on 12/11/2024, 11/13/2024
The patient has been on Tecfidera as disease modifying therapy. She previously used a walker but switched to a custom wheelchair in July due to developing a sore on her heel, which led to the discontinuation of physical therapy. Currently, she can
transfer from bed to wheelchair, sitting chair, and toilet using a handrail. She experiences urinary urgency and constipation.
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
PSH: Baclofen pump, appendectomy, , cholecystectomy
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
FH: Mother had lung cancer, from COVID, father is alive and healthy
All: Tysabri, fentanyl, Gilenya, morphine, Topamax, Tegretol
ROS: Limited due to intubation.
General: Intubated, not sedated. Cachectic.
Cardio: Regular rate and rhythm. Extremities are without cyanosis or edema.
Neuro:
Mental Status: Alert, oriented to self. Follows complex requests consistently. No hemineglect.
Cranial Nerves: Pupils are equally round and reactive to light. EOMs full. Blinks to threat bilaterally. Hearing is preserved.
Motor: Increased motor tone in lower extremities. Moves upper extremities antigravity right more than left, moves both lower extremities within bed plane upon request
Reflexes: Limited exam due to positioning. Clonus negative bilaterally
Sensory: Localizes noxious stimuli
Coordination: No tremors myoclonic movement
Gait: Unable.
Assessment and Plan:
I. Acute left OCCUPATIONAL SAFETY SPECIALIST territory infarct. Likely etiology�embolic.
II. Nonocclusive thrombus within the central subclavian and jugular veins and occlusive thrombus of the R brachial vein
III. Symptomatic seizure due to severe hyponatremia. RRMS
IV. RRMS
-Seizure and aspiration precautions
-No triptans or Eliquis in the future
-Hold Tecfidera.
-CTA head and neck
-TAWANNA if she TTE is unremarkable
-T/LS spine MRI w/wo lux
-Start aspirin 300 mg UT with close hemoglobin and platelet monitoring.
-Start nicotine
I personally reviewed all radiology and labs along with past medical records pertinent to current medical problems. Total time spent in patient care is 60 minutes.
Thank you for allowing us to participate in the care of this patient. We will continue to follow. Please do not hesitate to contact us with any questions or concerns.
Subjective/Objective
Subjective Data
Date of Service: January 02, 2025
Objective Data
Vital Signs
Temp Pulse Resp BP Pulse Ox
37.2 C 93 28 120/64 98
01/02/25 07:29 01/02/25 07:28 01/02/25 07:28 01/02/25 06:00 01/02/25 08:15
Lab Results
01/02/25 04:10
01/02/25 04:10
PT 13.2 Sec (11.4-14.6) 12/27/24 05:47
INR 0.97 12/27/24 05:47
APTT Cancelled 01/01/25 18:45
Sodium 131 mmol/L (135-145) L 01/02/25 04:10
Potassium 3.6 mmol/L (3.5-5.1) 01/02/25 04:10
BUN 12 mg/dl (7-17) 01/02/25 04:10
Glucose 145 mg/dl (70-99) H 01/02/25 04:10
Calcium 8.6 mg/dl (8.4-10.2) 01/02/25 04:10
Phosphorus 2.7 mg/dl (2.5-4.5) 01/01/25 03:21
Aip-E-Eaihtjyfzjl Pept 558 pg/ml 01/01/25 03:21
Patient Allergies
carbamazepine (From Tegretol) Allergy (Verified 12/26/24 09:44)
Unknown
fentanyl Allergy (Verified 12/31/24 18:45)
PATCH
fingolimod (From Gilenya) Allergy (Verified 12/26/24 09:44)
Unknown
morphine Allergy (Verified 12/26/24 09:44)
Unknown
natalizumab (From Tysabri) Allergy (Verified 12/26/24 09:44)
Unknown
topiramate (From Topamax) Allergy (Verified 12/26/24 09:44)
Unknown
Medications
-
Active Medications
Generic Name Dose Route Start Last Admin
Trade Name Freq PRN Reason Stop Dose Admin
Acetaminophen 650 mg 12/31/24 12:36 01/01/25 20:03
Acetaminophen (Oral Solution) 650 Mg/20.3 Ml Cup TUBE 01/28/25 12:35 650 mg
Q4HPRN PRN Administration
Temperature >100.4/mild pain
Albuterol/Ipratropium 3 ml 12/27/24 11:01
Ipratropium 0.5/Albuterol 3 Mg (3 Ml Ampul) INH
R Q4HPRN PRN
Wheeze
Protocol
Albuterol/Ipratropium 3 ml 12/29/24 20:00 01/02/25 07:17
Ipratropium 0.5/Albuterol 3 Mg (3 Ml Ampul) INH 01/03/25 14:01 3 ml
R TID TROY Administration
Protocol
Bisacodyl 10 mg 12/26/24 14:42
Bisacodyl 10 Mg Rectal Suppository RECTAL 01/23/25 14:41
[id number] PRN
constipation
Device 0 each 12/28/24 16:00
Patient's Own Medication Pump- Baclofen And Hydromorphone SC 01/25/25 15:59
DIRECTED TROY
Dextrose 12.5 grams 12/27/24 22:17
Dextrose 50% (0.5 Grams/Ml) 50 Ml Syringe IV 01/24/25 22:16
[id number] PRN
hypoglycemia
Protocol
Fentanyl Citrate 50 mcg 12/31/24 18:33 01/01/25 06:53
Fentanyl (50 Mcg/Ml) 100 Mcg/2 Ml Ampul IV 01/14/25 18:32 50 mcg
[id number] PRN Administration
see protocol
Protocol
Gabapentin 800 mg 12/26/24 18:00 12/31/24 12:00
Gabapentin 400 Mg Capsule PO 01/23/25 17:59 Not Given
On Hold: 12/31/24 11:47 QID TROY
Glucagon 1 mg 12/27/24 22:17
Glucagon 1 Mg Vial IM 01/24/25 22:16
PRN PRN
hypoglycemia
Protocol
Guaifenesin 200 mg 12/31/24 13:00 01/02/25 07:54
Guaifenesin Oral Solution (200 Mg/10 Ml) Cup TUBE 01/07/25 08:01 200 mg
QID TROY Administration
Heparin Sodium 3,000 units 12/31/24 15:00 01/02/25 04:16
Heparin 80 Units/Kg Rebolus-Do Not Discard IV 01/28/25 14:59 3,000 units
PRN PRN Administration
PTT < OR = 64 seconds
Heparin Sodium 1,500 units 12/31/24 15:00 01/01/25 06:24
Heparin 40 Units/Kg Rebolus-Do Not Discard IV 01/28/25 14:59 1,500 units
PRN PRN Administration
PTT = 64.1 to 72.9 seconds
Heparin Sodium 25,000 units in 250 mls @ 0 mls/hr 12/31/24 14:45 01/02/25 04:17
Heparin 22043 Units/250 Ml IV 250 mls
PER PROTOCOL TORY Administration
Protocol
Per Protocol
Piperacillin Sod/Tazobactam Sod 3.375 gram in 50 mls @ 100 mls/hr 01/01/25 12:00 01/02/25 03:24
Zosyn IV 50 mls
Q8H TROY Administration
Vancomycin HCl 100 mls @ 100 mls/hr 01/01/25 18:00 01/02/25 05:59
Vancocin Hcl 500 Mg IV 100 mls
Q12H TROY Administration
Protocol
Nicotine 14 mg 12/26/24 15:00 01/02/25 07:54
Nicotine 14 Mg Patch TRANSDERM 01/23/25 14:59 14 mg
DAILY TROY Administration
Dimethyl Fumarate [ 0 mg 12/27/24 13:00 12/31/24 13:15
Tecfidera] [address] PO 01/24/25 12:59 Not Given
Capsule Po Bid BID TROY
On Hold: 12/31/24 12:43
Comment: Patient intubated,
cannot crush medication or
open capsule
Oxycodone HCl 30 mg 12/26/24 14:52
Oxycodone 15 Mg Regular Release Tablet PO 01/09/25 14:51
On Hold: 12/31/24 11:38 Q4HPRN PRN
severe pain
Oxycodone HCl 20 mg 12/26/24 16:00 12/31/24 12:00
Oxycontin 20 Mg Controlled Release Tablet PO 01/09/25 15:59 Not Given
On Hold: 12/31/24 11:38 Q8 TROY
Oxycodone HCl 5 mg 01/01/25 15:44 01/02/25 07:34
Oxycodone Oral Solution (5 Mg/5 Ml) Cup TUBE 01/15/25 15:43 5 mg
Q6HPRN PRN Administration
MODERATE PAIN
Pantoprazole Sodium 40 mg 12/31/24 12:00 01/02/25 07:55
Protonix 40 Mg Iv Push IV 01/28/25 11:59 40 mg
DAILY TROY Administration
Patch Removal 0 patch 12/28/24 22:00 01/01/25 22:02
Remove Nicotine Patch REMOVE 01/25/25 21:59 1 patch
HS TROY Administration
Polyethylene Glycol 17 grams 12/26/24 14:42
Polyethylene Glycol Powder 17 Grams Packet PO 01/23/25 14:41
DAILYPRN PRN
constipation
Polyethylene Glycol 17 grams 01/01/25 08:00 01/02/25 07:54
Polyethylene Glycol Powder 17 Grams Packet TUBE 01/29/25 07:59 Not Given
DAILY TROY
Pregabalin 50 mg 12/30/24 16:00 12/31/24 11:59
Pregabalin 50 Mg Capsule PO 01/27/25 15:59 Not Given
On Hold: 12/31/24 11:46 TID TROY
Senna/Docusate Sodium 1 tablet 12/26/24 14:42
Docusate W/Senna (Bree-Colace) Tablet PO 01/23/25 14:41
BIDPRN PRN
constipation
Sodium Chloride 0 flush 12/27/24 12:00
Sodium Chloride 0.9% (Flush) Syringe IV 01/24/25 11:59
PER PROTOCOL TROY
Sodium Chloride 0 applic 12/27/24 12:20
Alpine (Sodium Chloride/Aloe Vera) Nasal Gel 14.1 Gm Tube NASAL 01/24/25 12:19
Q2HPRN PRN
congestion
Sodium Chloride 10 ml 12/31/24 12:00 01/02/25 07:55
Sodium Chloride 0.9% (Preservative Free) 10 Ml Vial IV 01/28/25 11:59 10 ml
DAILY TROY Administration
Sumatriptan Succinate 100 mg 12/26/24 14:58
Sumatriptan (Imitrex) 50 Mg Tablet PO 01/23/25 14:57
DAILYPRN PRN
HEADACHE
Home Medications
�Medication �Instructions �Recorded
dalfampridine 10 mg 10 mg PO Q12H Multiple Sclerosis 02/07/24
tablet,extended release,12 hr
gabapentin 400 mg capsule 800 mg PO QID Neurological 02/07/24
Condition
oxycodone 20 mg tablet,crush 20 mg PO Q8H Pain 02/07/24
resistant,extended release 12 hr
(OxyContin)
oxycodone 30 mg tablet 30 mg PO Q4HPRN PRN severe pain 02/07/24
pregabalin 100 mg capsule 100 mg PO TID Neurological 02/07/24
Condition
dimethyl fumarate 240 mg 240 mg PO BID Multiple Sclerosis 12/26/24
capsule,delayed release (Tecfidera)
sumatriptan succinate 100 mg 0 mg PO .COMPLEX Headache 12/26/24
tablet (Imitrex)
Baclofen/Hydromorphone Pump See Rx Instructions .Route .COMPLEX 12/28/24
fluticasone propionate 50 1 spray intranasal BID Allergies 12/28/24
mcg/actuation nasal
spray,suspension
loratadine 10 mg tablet (Claritin) 10 mg PO DAILY PRN allergies 12/28/24
Vital Signs and Labs
-
Vital Signs and Labs:
Vital Signs
Temp Pulse Resp BP Pulse Ox
37.2 C 93 28 120/64 98
01/02/25 07:29 01/02/25 07:28 01/02/25 07:28 01/02/25 06:00 01/02/25 08:15
Lab Results
01/02/25 04:10
01/02/25 04:10
PT 13.2 Sec (11.4-14.6) 12/27/24 05:47
INR 0.97 12/27/24 05:47
APTT Cancelled 01/01/25 18:45
Sodium 131 mmol/L (135-145) L 01/02/25 04:10
Potassium 3.6 mmol/L (3.5-5.1) 01/02/25 04:10
BUN 12 mg/dl (7-17) 01/02/25 04:10
Glucose 145 mg/dl (70-99) H 01/02/25 04:10
Calcium 8.6 mg/dl (8.4-10.2) 01/02/25 04:10
Phosphorus 2.7 mg/dl (2.5-4.5) 01/01/25 03:21
Lzd-O-Dfdogsjliye Pept 558 pg/ml 01/01/25 03:21
Medications
-
Medications:
Generic Name Dose Route Start Last Admin
Trade Name Freq PRN Reason Stop Dose Admin
Acetaminophen 650 mg 12/31/24 12:36 01/01/25 20:03
Acetaminophen (Oral Solution) 650 Mg/20.3 Ml Cup TUBE 01/28/25 12:35 650 mg
Q4HPRN PRN Administration
Temperature >100.4/mild pain
Albuterol/Ipratropium 3 ml 12/27/24 11:01
Ipratropium 0.5/Albuterol 3 Mg (3 Ml Ampul) INH
R Q4HPRN PRN
Wheeze
Protocol
Albuterol/Ipratropium 3 ml 12/29/24 20:00 01/02/25 07:17
Ipratropium 0.5/Albuterol 3 Mg (3 Ml Ampul) INH 01/03/25 14:01 3 ml
R TID TROY Administration
Protocol
Bisacodyl 10 mg 12/26/24 14:42
Bisacodyl 10 Mg Rectal Suppository RECTAL 01/23/25 14:41
[id number] PRN
constipation
Device 0 each 12/28/24 16:00
Patient's Own Medication Pump- Baclofen And Hydromorphone SC 01/25/25 15:59
DIRECTED TROY
Dextrose 12.5 grams 12/27/24 22:17
Dextrose 50% (0.5 Grams/Ml) 50 Ml Syringe IV 01/24/25 22:16
[id number] PRN
hypoglycemia
Protocol
Fentanyl Citrate 50 mcg 12/31/24 18:33 01/01/25 06:53
Fentanyl (50 Mcg/Ml) 100 Mcg/2 Ml Ampul IV 01/14/25 18:32 50 mcg
[id number] PRN Administration
see protocol
Protocol
Gabapentin 800 mg 12/26/24 18:00 12/31/24 12:00
Gabapentin 400 Mg Capsule PO 01/23/25 17:59 Not Given
On Hold: 12/31/24 11:47 QID TROY
Glucagon 1 mg 12/27/24 22:17
Glucagon 1 Mg Vial IM 01/24/25 22:16
PRN PRN
hypoglycemia
Protocol
Guaifenesin 200 mg 12/31/24 13:00 01/02/25 07:54
Guaifenesin Oral Solution (200 Mg/10 Ml) Cup TUBE 01/07/25 08:01 200 mg
QID TROY Administration
Heparin Sodium 3,000 units 12/31/24 15:00 01/02/25 04:16
Heparin 80 Units/Kg Rebolus-Do Not Discard IV 01/28/25 14:59 3,000 units
PRN PRN Administration
PTT < OR = 64 seconds
Heparin Sodium 1,500 units 12/31/24 15:00 01/01/25 06:24
Heparin 40 Units/Kg Rebolus-Do Not Discard IV 01/28/25 14:59 1,500 units
PRN PRN Administration
PTT = 64.1 to 72.9 seconds
Heparin Sodium 25,000 units in 250 mls @ 0 mls/hr 12/31/24 14:45 01/02/25 04:17
Heparin 30409 Units/250 Ml IV 250 mls
PER PROTOCOL TROY Administration
Protocol
Per Protocol
Piperacillin Sod/Tazobactam Sod 3.375 gram in 50 mls @ 100 mls/hr 01/01/25 12:00 01/02/25 03:24
Zosyn IV 50 mls
Q8H TROY Administration
Vancomycin HCl 100 mls @ 100 mls/hr 01/01/25 18:00 01/02/25 05:59
Vancocin Hcl 500 Mg IV 100 mls
Q12H TROY Administration
Protocol
Nicotine 14 mg 12/26/24 15:00 01/02/25 07:54
Nicotine 14 Mg Patch TRANSDERM 01/23/25 14:59 14 mg
DAILY TROY Administration
Dimethyl Fumarate [ 0 mg 12/27/24 13:00 12/31/24 13:15
Tecfidera] [address] PO 01/24/25 12:59 Not Given
Capsule Po Bid BID TROY
On Hold: 12/31/24 12:43
Comment: Patient intubated,
cannot crush medication or
open capsule
Oxycodone HCl 30 mg 12/26/24 14:52
Oxycodone 15 Mg Regular Release Tablet PO 01/09/25 14:51
On Hold: 12/31/24 11:38 Q4HPRN PRN
severe pain
Oxycodone HCl 20 mg 12/26/24 16:00 12/31/24 12:00
Oxycontin 20 Mg Controlled Release Tablet PO 01/09/25 15:59 Not Given
On Hold: 12/31/24 11:38 Q8 TROY
Oxycodone HCl 5 mg 01/01/25 15:44 01/02/25 07:34
Oxycodone Oral Solution (5 Mg/5 Ml) Cup TUBE 01/15/25 15:43 5 mg
Q6HPRN PRN Administration
MODERATE PAIN
Pantoprazole Sodium 40 mg 12/31/24 12:00 01/02/25 07:55
Protonix 40 Mg Iv Push IV 01/28/25 11:59 40 mg
DAILY TROY Administration
Patch Removal 0 patch 12/28/24 22:00 01/01/25 22:02
Remove Nicotine Patch REMOVE 01/25/25 21:59 1 patch
HS TROY Administration
Polyethylene Glycol 17 grams 12/26/24 14:42
Polyethylene Glycol Powder 17 Grams Packet PO 01/23/25 14:41
DAILYPRN PRN
constipation
Polyethylene Glycol 17 grams 01/01/25 08:00 01/02/25 07:54
Polyethylene Glycol Powder 17 Grams Packet TUBE 01/29/25 07:59 Not Given
DAILY TROY
Pregabalin 50 mg 12/30/24 16:00 12/31/24 11:59
Pregabalin 50 Mg Capsule PO 01/27/25 15:59 Not Given
On Hold: 12/31/24 11:46 TID TROY
Senna/Docusate Sodium 1 tablet 12/26/24 14:42
Docusate W/Senna (Bree-Colace) Tablet PO 01/23/25 14:41
BIDPRN PRN
constipation
Sodium Chloride 0 flush 12/27/24 12:00
Sodium Chloride 0.9% (Flush) Syringe IV 01/24/25 11:59
PER PROTOCOL TROY
Sodium Chloride 0 applic 12/27/24 12:20
Alpine (Sodium Chloride/Aloe Vera) Nasal Gel 14.1 Gm Tube NASAL 01/24/25 12:19
Q2HPRN PRN
congestion
Sodium Chloride 10 ml 12/31/24 12:00 01/02/25 07:55
Sodium Chloride 0.9% (Preservative Free) 10 Ml Vial IV 01/28/25 11:59 10 ml
DAILY TROY Administration
Sumatriptan Succinate 100 mg 12/26/24 14:58
Sumatriptan (Imitrex) 50 Mg Tablet PO 01/23/25 14:57
DAILYPRN PRN
HEADACHE
Home Medications
-
Home Medications
dalfampridine 10 mg tablet,extended release,12 hr 10 mg PO Q12H Multiple Sclerosis 02/07/24
gabapentin 400 mg capsule 800 mg PO QID Neurological Condition 02/07/24
oxycodone 20 mg tablet,crush resistant,extended release 12 hr (OxyContin) 20 mg PO Q8H Pain 02/07/24
oxycodone 30 mg tablet 30 mg PO Q4HPRN PRN severe pain 02/07/24
pregabalin 100 mg capsule 100 mg PO TID Neurological Condition 02/07/24
dimethyl fumarate 240 mg capsule,delayed release (Tecfidera) 240 mg PO BID Multiple Sclerosis 12/26/24
sumatriptan succinate 100 mg tablet (Imitrex) 0 mg PO .COMPLEX Headache 12/26/24
Baclofen/Hydromorphone Pump See Rx Instructions .Route .COMPLEX 12/28/24
fluticasone propionate 50 mcg/actuation nasal spray,suspension 1 spray intranasal BID Allergies 12/28/24
loratadine 10 mg tablet (Claritin) 10 mg PO DAILY PRN allergies 12/28/24
--- NOTE | 2025-01-02 09:58 | W.PN.NEPH.PH ---
Today's Communication / Plan
-
lasix
Assessment/Plan
-
IMP:
Severe symptomatic hyponatremia
First-time seizure episode, tonic-clonic.
Acute hypoxemic respiratory insufficiency due to aspiration pneumonia
Periorbital/peripheral edema
Hypercapnia-suspect chronic
Leukocytosis
Mild microcytic anemia
Lactic acidosis
Hypoalbuminemia
Protein calorie malnutrition
UTI suspected
COPD suspected without acute exacerbation
Acute on chronic back pain. S/p baclofen pump.
Secondary progressive multiple sclerosis.
Chronic malnutrition
Plan:
follow BMP
SBT
if TF, jevity 1.5 20ml/hr, no FWF
lasix daily
-
-
Date of Service: January 02, 2025
CC / HPI / ROS
-
Chief Complaint:
Hypoantremia
History of Present Illness:
Na down to 131
BP low but off pressors
Hgb low stable
remains on vent in ICU, on SBT
Review of Systems:
intubated, not sedated
Labs
-
Labs:
WBC 9.0 10^3/uL (4.8-10.8) 01/02/25 04:10
RBC 2.83 10^6/uL (4.20-5.40) L 01/02/25 04:10
Hgb 7.7 g/dL (12.0-16.0) L 01/02/25 04:10
Hct 24.5 % (37.0-47.0) L 01/02/25 04:10
Plt Count 144 10^3/uL (130-400) 01/02/25 04:10
Sodium 131 mmol/L (135-145) L 01/02/25 04:10
Potassium 3.6 mmol/L (3.5-5.1) 01/02/25 04:10
Chloride 91 mmol/L (98-107) L 01/02/25 04:10
Carbon Dioxide 36 mmol/L (22-30) H 01/02/25 04:10
BUN 12 mg/dl (7-17) 01/02/25 04:10
Creatinine 0.5 mg/dL (0.6-1.0) L 01/02/25 04:10
eGFR > 60.00 01/02/25 04:10
Glucose 145 mg/dl (70-99) H 01/02/25 04:10
Calcium 8.6 mg/dl (8.4-10.2) 01/02/25 04:10
Phosphorus 2.7 mg/dl (2.5-4.5) 01/01/25 03:21
Yos-A-Swphdctqhlu Pept 558 pg/ml 01/01/25 03:21
Albumin 3.3 g/dl (3.5-5.0) L 01/01/25 03:21
Physical Exam
-
Vital Signs:
Vital Signs
Temp Pulse Resp BP Pulse Ox
99 F 82 14 120/64 97
01/02/25 07:29 01/02/25 09:00 01/02/25 09:00 01/02/25 06:00 01/02/25 09:00
Cardiovascular:: Regular rate and rhythm
Respiratory:: Bilateral: Coarse
Lung Excursion:: Normal
Abdomen:: Nontender and Soft
Bowel Sounds:: Normal
Extremity Edema:: +1: Bilateral:
[2025-01-02] MEDS: LASIX 20 MG IV ×2 (10:12→14:20)
[2025-01-02 10:27] LABS: APTT 63.1 Sec (23.4-35.0)
[2025-01-02] MEDS: LOW STRENGTH ASPIRIN 81 MG PO (12:14)
[2025-01-02] MEDS: MIRALAX 17 GRAMS TUBE (12:14)
--- NOTE | 2025-01-02 12:42 | PTCARENOTE ---
patient taken and returned from CT scan without issue. patient with copious secretions suctioned orally and by ETT. labs sent. patient noted to have very large fecal impaction protruding from rectum. patient assisted with bowel ,movement. loose
stool with some blood from external hemorrhoid noted after passing large hard stool. miralax given. tube feeds placed on hold per sterilizer operator due to potential extubation and pending MRI. spouse at bedside, updated
--- NOTE | 2025-01-02 13:15 | W.PN.HOSP.TC ---
Addendum entered and electronically signed by Sean Maria MD 01/02/25 17:13:
Acute hypoxemic respiratory failure overnight requiring mechanical ventilation
Intubated for airway protection as altered
Daily SAT SBT
GI prophylaxis with PPI
Chest x-ray in the morning
ICU manage mechanical ventilator
Right-sided likely aspiration
Continue Unasyn. He completed 5 days will extend
Hyponatremia�severe improved to 134 downtrending again
Initiate tube feeds when possible
Follow recommendations per nephrology
Multiple sclerosis
Concern for progressive MS with decompensation
Unsure if some of this hypoxemia is related to restrictive lung disease. Would only be able to diagnose that with PFTs/flow-volume unfortunately not able to do that at this time due to her being intubated
Will speak with outpatient neurologist
Original Note:
Today's Communication/Plan
-
SBT today, likely extubation. Await MRI lumbar and thoracic spine
For CTA
Start asp for posterior circulation infarc.
Echo
Assessment / Plan
Assessment / Plan
Eliana Lucas is a 59yo F with a pmh notable for secondary progressive MS, chronic back pain, & tobacco use who p/w acute worsening of back/bilateral LE pain, w episode c/f seizure in ED, found to have R-sided PNA & severe hyponatremia (improved),
on abx but with development of minimal responsiveness & hypoxia, now intubated/ventilated.
#Pneumonia, likely 2/2 aspiration
#Sinusitis
CXR 01/01 am: Concern for pneumonia
Afebrile overnight white count resolved
Currently on Zosyn and vancomycin. Will de-escalate to ceftriaxone (discontinue vanc and Zosyn) given sputum culture positive for Serratia and MRSA swab negative
- Duonebs, mucinex
- Pulm following, appreciate recs
#Acute hypercapnic hypoxemic respiratory failure
- Intubated 12/31
- Ventilator mgmt per ICU/pulm teams
- SBT today and wean off vent if able
#Hypotension
now off levophed with stable BP
- Resolved
#AMS
- Appears improved today. Patient is responsive and is able to make needs known via writing on pad while intubated.
- MRI brain showed area of restricted diffusion in posterior occipital lobe - likley infarction vs demyelinating plaque
- continue MS meds now (tecfidera, baclofen via pump, dalfampridine)
- Hold sedative medication
- Appreciate neurology input. Acute DRAW IN HAND territory infarct, likely embolic etiology. CTA head and neck, TTE (TAWANNA if unremarkable), thoracic and lumbar spine MRI. No triptans or Eliquis in the future
- Start Aspirin and monitor CBC
#DVT in RUE
Ultrasound 12/31 with acute DVT
- Continue IV heparin
# Severe protein calorie malnutrition
BMI 14, patient admits to reduced p.o. intake at home and failed trial of Ensure at home.
Pt could be candidate for PEG tube depending on family goals of care
- Pending extubation trial, will get speech eval and trial p.o. intake
- Nutrition following, appreciate recs
#Severe hyponatremia
Resolving. 131 today
Na 112 on admission. likely in s/o malnutrition 'tea & toast' diet. S/p hypertonic saline 12/26-12/27 w lasix.
- Monitor BMP
- Per renal, will continue to monitor Na levels while respiratory/hemodynamic status stabilized
- Nephrology consulted, appreciate recs
#Urinary retention
Likely neurogenic from progressive MS
- Eckert catheter while intubated in ICU
- Pending goals of care conversation with family and likely permanent/progression of retention in setting of her progressing MS, patient to be discharged with straight cathing versus chronic Eckert with antibiotic ppx; to be discussed at later point
in time
#Seizure, one-time
No known hx of seizures. Presumed secondary to severe hyponatremia. S/p 5mg midazolam in ED.
No new events c/f seizure throughout admission. EEG (12/27) with moderate generalized cerebral dysfunction, no focal epileptiform activity. EEG (12/31): There are Lateralized periodic discharges (LPDs) on this record, which can be associated with
underlying cerebral injury and/or hyperexcitability.
- Seizure precautions
#Pulmonary congestion
CXR on 12/31 demonstrated increase of pulmonary congestion throughout bilateral lung quinones. Appearance not concerning for ARDS. Increased congestion potentially in the setting of increased PEEP due to intubation/ventilation manager inventory 12/31,
leading to increased preload and venous congestion. Patient is overall not volume overloaded; received 20 mg Lasix on 12/30 afternoon.
-Continue to monitor respiratory status per respiratory team and ICU team on ventilation
#Back/hip/leg pain, chronic
- Await MRI thoracic and MRI lumbar spine
- Pain control
#Recent falls
reports a few recent falls at home without head trauma or LOC. Limited independent ambulatory status at home ambulates on own to bathroom. Likely 2/2 MS, poor nutritional status, deconditioning.
- PT/OT
- Continue to address other causes of dz as above
#Chronic
-Tobacco use - smokes ~5-10 cigarettes/day since 'forever' (likely 40 yrs), 20 pack-yrs; order nicotine patch 14mg
-MS - continue home meds (tecfidera, baclofen via pump, dalfampridine)
#Global
- DVT ppx: on heparin drip
- Diet: Ventilated/intubated currently (prior with IDDSI 6 with thin liquids). Speech eval after extubation
- Code: full; pending goals of care conversation with family
- Dispo: lives at home w , father, & son/daughter; likely discharge to SNF; pending ongoing goals of care conversations with family & outcome of extubation trial
Anticipated Discharge: > 48 hours
Subjective/Interval History
-
Date of Service: January 02, 2025
Off pressors. Reports no complaints
Objective Data
-
Labs:
Laboratory Results
01/02/25 01/02/25 01/02/25
04:10 10:06 16:45
WBC 9.0
Hgb 7.7 L
Hct 24.5 L
Plt Count 144
APTT 63.1 H Pending
Sodium 131 L
Potassium 3.6
Chloride 91 L
Carbon Dioxide 36 H
BUN 12
Creatinine 0.5 L
Glucose 145 H
Calcium 8.6
Vital Signs:
Vital Signs
Temp Pulse Resp BP Pulse Ox
99.2 F 95 24 122/71 100
01/02/25 11:12 01/02/25 12:30 01/02/25 12:30 01/02/25 12:00 01/02/25 12:16
I&O
01/01/25 01/02/25 01/03/25
06:59 06:59 06:59
Intake Total 292.5 / 351.5 1355 / 1402 468 / 468
Output Total 480 / 500 1390 / 1390 1040 / 1040
Balance -187.5 / -148.5 -35 / 12 -572 / -572
Review of Systems
-
Unable to obtain full review of systems at this time due to: Patient Intubation
History Source: Patient
Constitutional: Reports No Symptoms
Respiratory: Denies Trouble Breathing
Cardiac: Denies Chest Pain
Abdomen/GI: Denies Abdominal Pain or Nausea
Physical Exam
-
General: No Apparent Distress, Appears Chronically Ill and Other (underweight)
HEENT: Normocephalic, Atraumatic and Other
Respiratory: Rhonchi (right hemithorax anterior auscultation) and Other (Ventilator set to spontaneous breathing ); Negative Wheezes
Cardiac: Regular Rhythm and S1/S2; Negative Murmur, Rub or Calf Tenderness
GI: Soft, Nontender, Nondistended and Normal Bowel Sounds
Genito-urinary: Clear Urine
Musculoskeletal: No Clubbing, No Cyanosis and No Edema
Skin: Warm and Dry
Neuro: Awake and Alert
Psych: Calm
[2025-01-02 13:52] LABS: HDL Cholesterol 27 mg/dl; LDL Cholesterol, Calculated 27 mg/dl; Very Low Density Lipoprotein 10 mg/dl (0-30)
[2025-01-02] MEDS: ROCEPHIN 1000 MG IV (14:05)
[2025-01-02] MEDS: STERILE WATER FOR INJECTION 10 ML IV (14:05)
[2025-01-02 14:42] LABS: Vitamin B12 687 pg/ml (239-931)
--- NOTE | 2025-01-02 14:55 | PTCARENOTE ---
patient peep decreased to 0 by post graduate intern, Lasix given, RT updated with need for abg 30 minutes after Lasix. spouse, daughters at bedside. updated with plan of care
[2025-01-02 15:10] LABS: B.E. 15.7 mmol/L; O2 Saturation % 100.0 % (94-98); PCO2 55 mmHg (32-35); PO2 123 mmHg (83-108)
[2025-01-02 15:13] LABS: HCO3 41.0 mmol/L (21-28); O2 Therapy 40
[2025-01-02 17:12] LABS: Hematocrit 24.7 % (37.0-47.0); Hemoglobin 8.0 g/dL (12.0-16.0); Mean Corp Hgb Conc. 32.4 g/dL (33.0-37.0); Mean Corpuscular Volume 85.8 fL (81.0-99.0); Platelet Count 151 10^3/uL (130-400); Red Cell Dist. Width 13.2 % (11.5-14.5)
[2025-01-02] MEDS: ROBITUSSIN TUBE ×2 (17:16→22:09)
--- NOTE | 2025-01-02 17:16 | PTCARENOTE ---
patient extubated, ogt removed @time of extubation without issues. placed on bipap. patient voice soft, hoarse. weak cough. repositioned. labs sent. incontinent moderate sized hard stool.. call gomez in hand
[2025-01-02 17:21] LABS: APTT 65.6 Sec (23.4-35.0)
[2025-01-02] MEDS: HEPARIN 1500 UNITS IV (17:32)
--- NOTE | 2025-01-02 21:46 | PTCARENOTE ---
Assumed care of the patient. Patient received on heparin drip at 900 units/hr (9 ml/hr). AAOx3 and able to make her needs known. Plan of care for the shift reviewed with the patient. Questions regarding her diet answered. Mouth swaps to keep her
mouth moist explained. NSR on the monitor. Temp 99 F via temp sensing salas catheter. Left midline and foot INT are patent. Audible bowel sounds. The patient is incontinent of small loose stool. Patient cleansed with CHG wipes. Salas care completed
and is draining yellow urine. Pt brushed her teeth and coughed with small amount of water. NPO status reviewed with the patient and her spouse and are agreeable. Linens changed. Call gomez is within reach.
[2025-01-02] MEDS: REMOVE NICOTINE PATCH 1 PATCH REMOVE (22:08)
[2025-01-03] VITALS (23 sets, daily range): BP systolic 71–120; BP diastolic 50–88; PULSE 2–83; O2SAT 100; BMI 14.6
[2025-01-03 00:23] LABS: APTT 43.6 Sec (23.4-35.0)
[2025-01-03] MEDS: HEPARIN 3000 UNITS IV (00:31)
[2025-01-03 03:49] LABS: Venous Blood Gas B.E. 16.7 mmol/L (-4 to +4); Venous Blood Gas O2 Sat % 99.6 %
[2025-01-03 03:57] LABS: Hematocrit 23.0 % (37.0-47.0); Hemoglobin 7.4 g/dL (12.0-16.0); Mean Corp Hgb Conc. 32.2 g/dL (33.0-37.0); Mean Corpuscular Volume 88.5 fL (81.0-99.0); Platelet Count 145 10^3/uL (130-400); Red Cell Dist. Width 13.1 % (11.5-14.5)
--- NOTE | 2025-01-03 04:22 | PTCARENOTE ---
Patient reassessed. Verbalizes not feeling comfortable, but declines medication. incontinent of BM. Patient cleaned with CHG cloth wipes. PAds changed and pt repositioned. Afebrile with them 97.6. Pt's tolerating her BiPAP. SpO2 at 96%.
[2025-01-03 05:03] LABS: Potassium 3.1 mmol/L (3.5-5.1)
[2025-01-03 05:04] LABS: Blood Urea Nitrogen 11 mg/dl (7-17); Calcium 8.6 mg/dl (8.4-10.2); Chloride 87 mmol/L (98-107); Estimated Creatinine Clearance 62 ml/min; Glucose 74 mg/dl (70-99); Sodium 132 mmol/L (135-145); Triglycerides 77 mg/dl (10-149); eGFR > 60.00
[2025-01-03 05:14] LABS: Carbon Dioxide 41 mmol/L (22-30)
[2025-01-03] MEDS: KCL 270 MEQ IV ×2 (05:28→12:28)
--- NOTE | 2025-01-03 05:32 | PTCARENOTE ---
Potassium chloride 40 meq IV for potassium of 3.1.
[2025-01-03 06:46] LABS: APTT 85.5 Sec (23.4-35.0)
[2025-01-03] MEDS: MIRALAX TUBE (07:07)
[2025-01-03] MEDS: ROBITUSSIN TUBE (07:07)
[2025-01-03] MEDS: DUONEB 3 ML INH ×3 (07:19→19:49)
[2025-01-03] MEDS: NICODERM TRANSDERMAL 14 MG TRANSDERM (07:35)
[2025-01-03] MEDS: LOW STRENGTH ASPIRIN 81 MG PO (07:36)
[2025-01-03] MEDS: NSS (PRESERVATIVE FREE) 10 ML IV (07:36)
[2025-01-03] MEDS: PROTONIX IV 40 MG IV (07:36)
--- NOTE | 2025-01-03 08:00 | PTCARENOTE ---
report received, assessments per work lsit. patient alert and oirented, nih unchanged. preexisting weakness due to MS. monitor nsr. lungs with coarse breath sounds, very diminished. moist weak non productive cough. received on nasal cannula. denies
dyspnea. able to take oral meds crushed in applesauce without overt signs aspiration. cough with thin liquids. patient with fecal impaction protruding from rectum. assisted to expel small hard stool. salas draining yellow urine. c/o hunger. reviewed
plan of care, need fror ST evaluation and MRI pending today. call gomez in reach
--- NOTE | 2025-01-03 08:26 | W.PN.INTV ---
Today's Communication / Plan
Recommendations
Extubated yesterday
Give dose of Diamox today and trend blood gas later today to assure pH remains stable
Antibiotics
Pressors remain off
MRI brain shows left GLASS CALIBRATOR infarct --> MRI T/L spine is pending --> will need pump rep to assure pump is turned back on after study performed
Monitor for recurrent seizures
Neurochecks + NIHSS per protocol
Given her significant back pain, she has an MRI of the T+ L-spine pending. Continue management in the ICU for today, and hopefully can downgrade out of ICU to IMU tomorrow. Pulmonary service will continue to follow along.
Assessment
-
59-year-old smoking chronically ill-appearing cachectic female with MS, baclofen pump, chronic back pain admitted with periorbital and pedal edema, hyponatremia, seizure, and pneumonia-sample preparation supervisor consulted for pneumonia, seizure, severe
hyponatremia and critical care management 12/26/2024.
Impression:
Unresponsiveness s/p intubation for airway protection
Acute left occipital lobe infarction - suspected embolic etiology per neurology
Acute hypoxic respiratory failure requiring mechanical ventilation (intubated 12/31/2024 - extubated 01/02)
Community-acquired pneumonia involving RLL/RML-increased aspiration risk with oral + pharyngeal dysphagia per video swallow exam on 12/29/2024; CTA neck showed opacities in upper lobes (L>R)
Severe hyponatremia-serum sodium 112
Circulatory shock on vasopressors - resolved as of 12/28/2024
Tonic-clonic seizure - resolved
Periorbital/peripheral edema (improved)
Hypercapnia-suspect chronic
Leukocytosis (resolved as of 12/31/2024)
Mild microcytic anemia
Lactic acidosis - resolved as of 12/26/2024
Hypoalbuminemia
Protein calorie malnutrition
UTI suspected (although negative UCx)
COPD suspected without acute exacerbation
Severe right maxillary and right ethmoid sinusitis
Conditions present prior to admission:
Chronic back pain.
Chronic opioid dependence.
Baclofen pump.
POTS.
Multiple sclerosis on Tecfidera.
Cigarette smoker.
Multiple bilateral pulmonary nodules incidentally noted measuring up to 1.[address] abdomen 03/2022-PET scan was recommended-never obtained
Protein calorie malnutrition.
Appendectomy. .
Plan
Patient was in the ICU on 12/29/2024 and downgraded to IMU where she was found to be minimally responsive overnight and was subsequently intubated and brought here to the ICU and required Levophed
Patient at baseline is lethargic and sleeps a lot and believe this is due to her baclofen/hydromorphone pump and her use of oxycodone, gabapentin and Lyrica
Believe that in the setting of her recent pneumonia and hyponatremia with deconditioning that the narcotics combined with her pump caused her to become unresponsive; her progressive MS is also likely contributing
Per ICU pharmacist, patient's pump includes baclofen and hydromorphone. She receives 5.5 mg/day of hydromorphone and 1070 mcg/day of baclofen. Pump last filled on 12/08/2024. No recent change in dose. Patient follows with Dr. Woods ([phone]),
with next appointment 01/19 and next time to fill pump is 01/27/2025
- On 01/01, the dose of the patient's pump was reduced by 20%. So now she is receiving 856.3mcg/24 hrs of baclofen (from 1072mcg/24 hrs), and now getting 23.1 mcg/hr of hydromorphone. If patient goes for another MRI then the pump rep would need to
be available to assure that the pump is turned back on after the studies performed
CXR on 01/01 showed increased opacification in the right lower lobe consistent with worsening pneumonia --> possibly aspiration pneumonitis; her WBC count has normalized since 12/31, although she spiked fevers from 12/31 - 01/01
Patient now extubated as of 01/02 and breathing comfortably on room air
Keep SpO2 >90-94%
Continue aspiration precautions; keep HOB >30-45�
Previously she was minimally responsive on 12/28/2024 and then this improved on 12/29/2024
Her serum sodium is stable at 130-134 and she is s/p 3% NS (last dose given on the evening of 12/27)
MRI brain performed on 01/01/2025 showed a 5.6 mm focus of restricted diffusion within the posterior left occipital lobe suspicious for infarction
Neurology following and recs appreciated
Patient was off vasopressors since evening of 12/28/2024, and required levophed once back in ICU. She has now been off since 12/31 evening
Keep MAP>[address] Lopez reviewed CODE STATUS with patient's 12/26/2024-for now would like full code including intubation, CPR, shocking if needed
Cultures reviewed
Urine for Legionella and streptococcal antigen-negative
MRSA screen-negative
Pneumonia and severe right maxillary + ethmoid air cell sinusitis noted
Continue with antibiotics, currently on ceftriaxone s/p vanc/Zosyn which was changed to Unasyn and then changed again on 01/01 back to Zosyn; sputum Cx from 12/31 grew Serratia marcescens
Given her recent shock state, would favor 10-14-day course of antibiotics assuming she continues to clinically improve and remains afebrile for 48 hours prior to stopping antibiotics
Trend WBC and monitor temperature curve
Follow radiographically; ultimately she will need repeat CXR in 4-6 weeks to assess for resolution of her pneumonia
Patient had a wet sounding cough with difficulty expectorating
Continue DuoNebs TID with mucinex
Low threshold to start hypertonic 3% with vest therapy if mucus thickens or if cough worsens
Given the patient's significant right arm swelling, RUE duplex US performed showing extensive DVT in R-IJ and subclavian veins (non-occlusive), and also occlusive thrombus in cephalic and brachial veins, and non-occlusive thrombus in basilic vein.
Heparin gtt started on 12/31
Continue to trend serum Na
Nephrology evaluation ongoing-correspondence reviewed
Diuretics and potential use of Samsca per nephrology
TSH-normal 2.4
Random cortisol-36
Urine osmolarity - 533 (12/29/2024)
Urine sodium 35 --> 109 (12/29/2024)
Monitor for recurrent seizure-no recurrence
Ceribell placed onto patient on 12/31 overnight after coming to ICU, and there was zero percent burden of status epilepticus
Her initial seizure earlier this hospital course was probably related to severe hyponatremia in setting of infection
Neurology has been consulted given the acute left GLASS CALIBRATOR territory infarct.
- CTA head/neck ordered, showing no significant stenosis, aneurysm or LVO
- TTE with bubble study and if negative then she will need TAWANNA
- T/L spine MRI
- Continue ASA
- Usually I would recommend high intensity statin but her LDL is 27 --> hold off on statin for now
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
- PT/OT
CT head 12/26/2024-moderate bilateral volume loss with severe white matter disease probably demyelinating disease from multiple sclerosis which is increased since 01/2024, severe right maxillary and right ethmoid air cell sinusitis
Ativan shortage-midazolam or diazepam as needed for seizure activity
Smoking cessation counseling ongoing
She has centrilobular emphysema seen on CTA neck from 01/02 --> suspect she has COPD
Continue DuoNebs; recommend outpatient pulmonary follow up with PFTs
DVT prophylaxis-on heparin gtt
Early nutrition with aspiration precautions
Bedside range of motion/early mobilization/eventual physical therapy/Occupational Therapy
Dr. Michelle reviewed case with her , Estuardo, and answered all his questions
Pulmonary nodule recommendation was seen from 04/19/2022-letter was written 05/14/2022 that a pulmonary nodule was seen on an image study done [facility] emergency room and PET scan was recommended-I do not see a PET scan or pulmonary
follow-up thereafter
Outpatient radiographic follow-up recommended
Patient qualifies for yearly low-dose lung cancer screening CT-obtain CT chest and pulmonary follow-up after pneumonia clears
Outpatient pulmonary [id number], smoking cessation counseling, yearly low-dose lung cancer screening CT, etc.
Given her significant back pain, she has an MRI of the T+ L-spine pending. Continue management in the ICU for today, and hopefully can downgrade out of ICU to IMU tomorrow. Pulmonary service will continue to follow along.
Diagnostic data:
Chest x-ray 10/23/2022-NAD
Chest x-ray 02/11/2024-NAD
Chest x-ray 12/26/2024-right basilar pneumonia
CT head 01/22/2024-moderate to severe white matter disease, mild bilateral parietal lobe volume loss,
Brain MRI 01/01/2025-There is a 5.6 mm focus of restricted diffusion within the posterior left occipital lobe which may represent an infarction, less likely a demyelinating plaque. There is extensive periventricular and subcortical white matter
T2/FLAIR hyperintense signal which is likely related to known multiple sclerosis and likely chronic small vessel disease.
CT abdomen and pelvis 04/19/2022-no acute fracture T12, severe biliary dilation without obstructing mass, prior cholecystectomy, hepatic hemangioma, severe constipation, multiple solid pulmonary nodules both lower lobes measuring up to 1.2 cm
Echocardiogram 02/11/2024-EF 60-65%, normal diastolic function, mild mitral regurgitation, PA systolic 20
Total time spent today was 79 minutes for this encounter. Time includes reviewing laboratory test/imaging results, reviewing pertinent medical records, obtaining and reviewing medical history, performing an appropriate exam, ordering medications,
tests and procedures. Time also includes documentation of this encounter, coordinating patient care and communicating with other healthcare professionals. Total time does not include separately billed tests performed on this date of service.
Subjective Dataa
Subjective Data
Date of Service:
Date of Service: January 03, 2025
Chief Complaint: Claims Counsel Follow Up and Pulmonary Follow Up
Subjective:
Patient seen and evaluated today at bedside. Afebrile overnight. Patient was extubated yesterday. Blood gas this morning shows mixed metabolic alkalosis + mild respiratory acidosis (under compensated respiratory rdidle). She remains awake and
alert. Current heart rate 78, saturating 97% on room air and BP 113/65. She complains of back pain during movement forward for me to listen to lung quinones. Wore BiPAP overnight on 10/5 cmH2O bled with 2 L/min.
Review of Systems
General: Other (Negative unless mentioned above)
Objective Data
Data Reviewed
Vital Signs / I&O / Oxygen:
Vital Signs
Temp Pulse Resp BP Pulse Ox
98 F 68 10 96/59 100
01/03/25 07:12 01/03/25 09:00 01/03/25 09:00 01/03/25 09:00 01/03/25 09:00
Intake and Output
01/02/25 01/03/25 01/04/25
06:59 06:59 06:59
Intake Total 1355 / 1402 680 / 965 295 / 295
Output Total 1390 / 1390 3445 / 3475 60 / 60
Balance -35 / 12 -2765 / -2510 235 / 235
SaO2 [CPAP/PSV] 96
SaO2 [A/C] 97
SaO2 100
Nasal Cannula flow liters per 2
minute
Physical Exam
General: Respiratory Distress (n) and Comfortable
HEENT: Normocephalic, Anicteric and Moist Mucous Membranes
Cardiovascular: S1-S2 and Peripheral Edema (Negative)
Respiratory: Wheeze (Negative), Crackles (bilateral), Rhonchi (Negative), Non-Labored Respirations, Accessory Resp Muscle Use (n), Stridor (n) and Other (diminished breath sounds and prolonged expiratory time)
GI: Soft, Non Distended, Non Tender and Other (Circular pump visible and palpable in lower abdomen)
Neurology: Awake, Alert, Oriented and Tremors (n)
Skin: Warm, Dry, Cyanosis (Negative), Jaundice (n) and Other (Cachexia)
Labs/Micro/Reports
Lab Data
01/03/25 03:41
01/03/25 03:41
Laboratory Results
01/02/25 01/02/25 01/02/25
10:06 15:02 16:54
APTT 63.1 H 65.6 H
pH 7.48 H
pCO2 55 H
pO2 123 H
HCO3 41.0 H*
O2 Delivery Level 40
01/02/25 01/03/25
23:30 06:24
APTT 43.6 H 85.5 H
pH
pCO2
pO2
HCO3
O2 Delivery Level
Microbiology
12/31/24 14:36 Sputum Respiratory Culture - Final
Serratia marcescens
12/31/24 14:36 Sputum Gram Stain - Final
01/01/25 11:50 Nose Nasal Screen MRSA (PCR) - Final
MRSA not detected - performed by PCR methodology.
12/26/24 11:54 Blood/Venous Blood Culture - Final
No Growth - Final Report
12/26/24 11:54 Blood/Venous Blood Culture - Final
No Growth - Final Report
[2025-01-03] MEDS: DULCOLAX 10 MG RECTAL (08:49)
--- NOTE | 2025-01-03 09:10 | W.PN.NEURO.1 ---
Today's Communication / Plan
-
.
Subjective/Objective
Subjective Data
Date of Service: January 03, 2025
Neurology Follow Up Note
24h events: extubated, hypotensive down to 71/50, 85/51, febrile up to 38.4 C.
Ms. Hernandez admits to chronic nonradicular lower back pain. No reports of headache, change in vision or strength.
CTA�aortic origin of left vertebral artery. No aneurysms or hemodynamically significant stenosis.
LDL�27, normal B12, platelets�145.
TTE(12/28/2024) Mild to moderate tricuspid regurgitation.
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
PSH: Baclofen/Dilaudid pump, appendectomy, , cholecystectomy
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
FH: Mother had lung cancer, from COVID, father is alive and healthy
All: Tysabri, fentanyl, Gilenya, morphine, Topamax, Tegretol
ROS: Limited due to intubation.
General: Intubated, in no acute distress.
Cardio: Regular rate and rhythm. Extremities are without cyanosis or edema.
Neuro:
Mental Status: Alert, oriented to self, location, year, months. Date was close. Impaired attention and preserved comprehension follows simple requests consistently. No hemineglect.
Cranial Nerves: Pupils are equally round and reactive to light. EOMs full. Right ptosis, no visual field deficits. No facial weakness hearing is preserved. Hearing is preserved. No dysarthria.
Motor: Increased motor tone in lower extremities. Moves upper extremities antigravity right more than left, moves both lower extremities within bed plane upon request
Coordination: No dysmetria, clonus.
Gait: Unable.
Assessment and Plan:
I. Acute left CONTINUOUS IMPROVEMENT ANALYST territory infarct. Likely etiology�embolic.
II. Nonocclusive thrombus within the central subclavian and jugular veins and occlusive thrombus of the R brachial vein
III. Symptomatic seizure due to severe hyponatremia.
IV. RRMS
-Seizure and aspiration precautions
-No triptans or ergots in the future
-TAWANNA when stable
-T/LS spine MRI w/wo lux MARY
-Continue aspirin 81 mg once a day with close platelet monitoring.
- DVT prophylaxis.
I personally reviewed all radiology and labs along with past medical records pertinent to current medical problems. Total time spent in patient care is 40 minutes.
Thank you for allowing us to participate in the care of this patient. We will continue to follow. Please do not hesitate to contact us with any questions or concerns
Objective Data
Vital Signs
Temp Pulse Resp BP Pulse Ox
36.6 C 68 10 96/59 100
01/03/25 07:12 01/03/25 09:00 01/03/25 09:00 01/03/25 09:00 01/03/25 09:00
Lab Results
01/03/25 03:41
01/03/25 03:41
PT 13.2 Sec (11.4-14.6) 12/27/24 05:47
INR 0.97 12/27/24 05:47
APTT 85.5 Sec (23.4-35.0) H 01/03/25 06:24
Sodium 132 mmol/L (135-145) L 01/03/25 03:41
Potassium 3.1 mmol/L (3.5-5.1) L 01/03/25 03:41
BUN 11 mg/dl (7-17) 01/03/25 03:41
Glucose 74 mg/dl (70-99) 01/03/25 03:41
Calcium 8.6 mg/dl (8.4-10.2) 01/03/25 03:41
Phosphorus 2.7 mg/dl (2.5-4.5) 01/01/25 03:21
Bgu-M-Qbjvetdjesf Pept 558 pg/ml 01/01/25 03:21
LDL Cholesterol, Calc 27 mg/dl 01/02/25 12:08
Vitamin B12 687 pg/ml (239-931) 01/02/25 12:08
Patient Allergies
carbamazepine (From Tegretol) Allergy (Verified 12/26/24 09:44)
Unknown
fentanyl Allergy (Verified 12/31/24 18:45)
PATCH
fingolimod (From Gilenya) Allergy (Verified 12/26/24 09:44)
Unknown
morphine Allergy (Verified 12/26/24 09:44)
Unknown
natalizumab (From Tysabri) Allergy (Verified 12/26/24 09:44)
Unknown
topiramate (From Topamax) Allergy (Verified 12/26/24 09:44)
Unknown
Vital Signs and Labs
-
Vital Signs and Labs:
Vital Signs
Temp Pulse Resp BP Pulse Ox
36.6 C 68 10 96/59 100
01/03/25 07:12 01/03/25 09:00 01/03/25 09:00 01/03/25 09:00 01/03/25 09:00
Lab Results
01/03/25 03:41
01/03/25 03:41
PT 13.2 Sec (11.4-14.6) 12/27/24 05:47
INR 0.97 12/27/24 05:47
APTT 85.5 Sec (23.4-35.0) H 01/03/25 06:24
Sodium 132 mmol/L (135-145) L 01/03/25 03:41
Potassium 3.1 mmol/L (3.5-5.1) L 01/03/25 03:41
BUN 11 mg/dl (7-17) 01/03/25 03:41
Glucose 74 mg/dl (70-99) 01/03/25 03:41
Calcium 8.6 mg/dl (8.4-10.2) 01/03/25 03:41
Phosphorus 2.7 mg/dl (2.5-4.5) 01/01/25 03:21
Mer-Y-Aqnqauewhdm Pept 558 pg/ml 01/01/25 03:21
LDL Cholesterol, Calc 27 mg/dl 01/02/25 12:08
Vitamin B12 687 pg/ml (103-931) 01/02/25 12:08
Medications
-
Medications:
Generic Name Dose Route Start Last Admin
Trade Name Freq PRN Reason Stop Dose Admin
Acetaminophen 650 mg 12/31/24 12:36 01/01/25 20:03
Acetaminophen (Oral Solution) 650 Mg/20.3 Ml Cup TUBE 01/28/25 12:35 650 mg
Q4HPRN PRN Administration
Temperature >100.4/mild pain
Albuterol/Ipratropium 3 ml 12/27/24 11:01
Ipratropium 0.5/Albuterol 3 Mg (3 Ml Ampul) INH
R Q4HPRN PRN
Wheeze
Protocol
Albuterol/Ipratropium 3 ml 12/29/24 20:00 01/03/25 07:19
Ipratropium 0.5/Albuterol 3 Mg (3 Ml Ampul) INH 01/03/25 14:01 3 ml
R TID TROY Administration
Protocol
Aspirin 81 mg 01/02/25 12:00 01/03/25 07:36
Aspirin 81 Mg Chewable Tablet PO 01/30/25 11:59 81 mg
DAILY TROY Administration
Bisacodyl 10 mg 12/26/24 14:42 01/03/25 08:49
Bisacodyl 10 Mg Rectal Suppository RECTAL 01/23/25 14:41 10 mg
[id number] PRN Administration
constipation
Ceftriaxone Sodium 1,000 mg 01/02/25 14:00 01/02/25 14:05
Ceftriaxone 1000 Mg / 10 Ml Vial IV 1,000 mg
Q24H TROY Administration
Device 0 each 12/28/24 16:00
Patient's Own Medication Pump- Baclofen And Hydromorphone SC 01/25/25 15:59
DIRECTED TROY
Dextrose 12.5 grams 12/27/24 22:17
Dextrose 50% (0.5 Grams/Ml) 50 Ml Syringe IV 01/24/25 22:16
[id number] PRN
hypoglycemia
Protocol
Fentanyl Citrate 50 mcg 12/31/24 18:33 01/01/25 06:53
Fentanyl (50 Mcg/Ml) 100 Mcg/2 Ml Ampul IV 01/14/25 18:32 50 mcg
[id number] PRN Administration
see protocol
Protocol
Gabapentin 800 mg 12/26/24 18:00 12/31/24 12:00
Gabapentin 400 Mg Capsule PO 01/23/25 17:59 Not Given
On Hold: 12/31/24 11:47 QID TROY
Glucagon 1 mg 12/27/24 22:17
Glucagon 1 Mg Vial IM 01/24/25 22:16
PRN PRN
hypoglycemia
Protocol
Guaifenesin 200 mg 12/31/24 13:00 01/03/25 07:07
Guaifenesin Oral Solution (200 Mg/10 Ml) Cup TUBE 01/07/25 08:01 Not Given
QID TROY
Heparin Sodium 3,000 units 12/31/24 15:00 01/03/25 00:31
Heparin 80 Units/Kg Rebolus-Do Not Discard IV 01/28/25 14:59 3,000 units
PRN PRN Administration
PTT < OR = 64 seconds
Heparin Sodium 1,500 units 12/31/24 15:00 01/02/25 17:32
Heparin 40 Units/Kg Rebolus-Do Not Discard IV 01/28/25 14:59 1,500 units
PRN PRN Administration
PTT = 64.1 to 72.9 seconds
Heparin Sodium 25,000 units in 250 mls @ 0 mls/hr 12/31/24 14:45 01/02/25 04:17
Heparin 19931 Units/250 Ml IV 250 mls
PER PROTOCOL TROY Administration
Protocol
Per Protocol
Norepinephrine Bitartrate 4 mg in 250 mls @ 0 mls/hr 01/03/25 01:15
Levophed IV
PER PROTOCOL TROY
Protocol
Per Protocol
Nicotine 14 mg 12/26/24 15:00 01/03/25 07:35
Nicotine 14 Mg Patch TRANSDERM 01/23/25 14:59 14 mg
DAILY TROY Administration
Dimethyl Fumarate [ 0 mg 12/27/24 13:00 12/31/24 13:15
Tecfidera] [address] PO 01/24/25 12:59 Not Given
Capsule Po Bid BID TROY
On Hold: 12/31/24 12:43
Comment: Patient intubated,
cannot crush medication or
open capsule
Oxycodone HCl 30 mg 12/26/24 14:52
Oxycodone 15 Mg Regular Release Tablet PO 01/09/25 14:51
On Hold: 12/31/24 11:38 Q4HPRN PRN
severe pain
Oxycodone HCl 20 mg 12/26/24 16:00 12/31/24 12:00
Oxycontin 20 Mg Controlled Release Tablet PO 01/09/25 15:59 Not Given
On Hold: 12/31/24 11:38 Q8 TROY
Oxycodone HCl 5 mg 01/01/25 15:44 01/02/25 18:34
Oxycodone Oral Solution (5 Mg/5 Ml) Cup TUBE 01/15/25 15:43 5 mg
Q6HPRN PRN Administration
MODERATE PAIN
Pantoprazole Sodium 40 mg 12/31/24 12:00 01/03/25 07:36
Protonix 40 Mg Iv Push IV 01/28/25 11:59 40 mg
DAILY TROY Administration
Patch Removal 0 patch 12/28/24 22:00 01/02/25 22:08
Remove Nicotine Patch REMOVE 01/25/25 21:59 1 patch
HS TROY Administration
Polyethylene Glycol 17 grams 12/26/24 14:42
Polyethylene Glycol Powder 17 Grams Packet PO 01/23/25 14:41
DAILYPRN PRN
constipation
Polyethylene Glycol 17 grams 01/01/25 08:00 01/03/25 07:07
Polyethylene Glycol Powder 17 Grams Packet TUBE 01/29/25 07:59 Not Given
DAILY TROY
Pregabalin 50 mg 12/30/24 16:00 12/31/24 11:59
Pregabalin 50 Mg Capsule PO 01/27/25 15:59 Not Given
On Hold: 12/31/24 11:46 TID TROY
Senna/Docusate Sodium 1 tablet 12/26/24 14:42
Docusate W/Senna (Bree-Colace) Tablet PO 01/23/25 14:41
BIDPRN PRN
constipation
Sodium Chloride 0 flush 12/27/24 12:00
Sodium Chloride 0.9% (Flush) Syringe IV 01/24/25 11:59
PER PROTOCOL TROY
Sodium Chloride 0 applic 12/27/24 12:20
[place] (Sodium Chloride/Aloe Vera) Nasal Gel 14.1 Gm Tube NASAL 01/24/25 12:19
Q2HPRN PRN
congestion
Sodium Chloride 10 ml 12/31/24 12:00 01/03/25 07:36
Sodium Chloride 0.9% (Preservative Free) 10 Ml Vial IV 01/28/25 11:59 10 ml
DAILY TROY Administration
Sterile Water 10 ml 01/02/25 14:00 01/02/25 14:05
Sterile Water For Injection 10 Ml Vial IV 01/30/25 13:59 10 ml
Q24H TROY Administration
Sumatriptan Succinate 100 mg 12/26/24 14:58
Sumatriptan (Imitrex) 50 Mg Tablet PO 01/23/25 14:57
DAILYPRN PRN
HEADACHE
Home Medications
-
Home Medications
dalfampridine 10 mg tablet,extended release,12 hr 10 mg PO Q12H Multiple Sclerosis 02/07/24
gabapentin 400 mg capsule 800 mg PO QID Neurological Condition 02/07/24
oxycodone 20 mg tablet,crush resistant,extended release 12 hr (OxyContin) 20 mg PO Q8H Pain 02/07/24
oxycodone 30 mg tablet 30 mg PO Q4HPRN PRN severe pain 02/07/24
pregabalin 100 mg capsule 100 mg PO TID Neurological Condition 02/07/24
dimethyl fumarate 240 mg capsule,delayed release (Tecfidera) 240 mg PO BID Multiple Sclerosis 12/26/24
sumatriptan succinate 100 mg tablet (Imitrex) 0 mg PO .COMPLEX Headache 12/26/24
Baclofen/Hydromorphone Pump See Rx Instructions .Route .COMPLEX 12/28/24
fluticasone propionate 50 mcg/actuation nasal spray,suspension 1 spray intranasal BID Allergies 12/28/24
loratadine 10 mg tablet (Claritin) 10 mg PO DAILY PRN allergies 12/28/24
--- NOTE | 2025-01-03 09:15 | W.PN.NEPH.PH ---
Today's Communication / Plan
-
follow BMP
Assessment/Plan
-
IMP:
Severe symptomatic hyponatremia
First-time seizure episode, tonic-clonic.
Acute hypoxemic respiratory insufficiency due to aspiration pneumonia
Periorbital/peripheral edema
Hypercapnia-suspect chronic
Leukocytosis
Mild microcytic anemia
Lactic acidosis
Hypoalbuminemia
Protein calorie malnutrition
UTI suspected
COPD suspected without acute exacerbation
Acute on chronic back pain. S/p baclofen pump.
Secondary progressive multiple sclerosis.
Chronic malnutrition
Plan:
follow BMP
po intake determination
no lasix today
alkalosis likely just from rapid diuresis
-
-
Date of Service: January 03, 2025
CC / HPI / ROS
-
Chief Complaint:
Hypoantremia
History of Present Illness:
Na stable 132
BP low but off pressors
Hgb lower 7.4
extubated 01/02
K low 3.1
Review of Systems:
hungry
no CP/SOB
Labs
-
Labs:
WBC 6.5 10^3/uL (4.8-10.8) 01/03/25 03:41
RBC 2.60 10^6/uL (4.20-5.40) L 01/03/25 03:41
Hgb 7.4 g/dL (12.0-16.0) L 01/03/25 03:41
Hct 23.0 % (37.0-47.0) L 01/03/25 03:41
Plt Count 145 10^3/uL (130-400) 01/03/25 03:41
Sodium 132 mmol/L (135-145) L 01/03/25 03:41
Potassium 3.1 mmol/L (3.5-5.1) L 01/03/25 03:41
Chloride 87 mmol/L (98-107) L 01/03/25 03:41
Carbon Dioxide 41 mmol/L (22-30) H 01/03/25 03:41
BUN 11 mg/dl (7-17) 01/03/25 03:41
Creatinine 0.5 mg/dL (0.6-1.0) L 01/03/25 03:41
eGFR > 60.00 01/03/25 03:41
Glucose 74 mg/dl (70-99) 01/03/25 03:41
Calcium 8.6 mg/dl (8.4-10.2) 01/03/25 03:41
Phosphorus 2.7 mg/dl (2.5-4.5) 01/01/25 03:21
Azz-G-Yxjtkixmzit Pept 558 pg/ml 01/01/25 03:21
Albumin 3.3 g/dl (3.5-5.0) L 01/01/25 03:21
Physical Exam
-
Vital Signs:
Vital Signs
Temp Pulse Resp BP Pulse Ox
98 F 68 10 96/59 100
01/03/25 07:12 01/03/25 09:00 01/03/25 09:00 01/03/25 09:00 01/03/25 09:00
Cardiovascular:: Regular rate and rhythm
Respiratory:: Bilateral: Coarse
Lung Excursion:: Normal
Abdomen:: Nontender and Soft
Bowel Sounds:: Normal
Extremity Edema:: None: Bilateral:
[2025-01-03] MEDS: HEPARIN 25000 UNITS/250 ML IV (09:40)
[2025-01-03] MEDS: REMOVE NICOTINE PATCH 1 PATCH REMOVE (10:15)
--- NOTE | 2025-01-03 11:12 | W.PN.HOSP.TC ---
Addendum entered and electronically signed by Sean Maria MD 01/03/25 12:18:
Acute hypoxemic respiratory failure overnight requiring mechanical ventilation
Extubated
Wean o2 as tolerated
Speech to eval
Right-sided likely aspiration
Continue Unasyn. Has completed 5 days will extend
Hyponatremia�severe, overall improved
Initiate tube feeds when possible if fails speech
Follow recommendations per nephrology
Hypokalemia
Replete PRN
Multiple sclerosis
Concern for progressive MS with decompensation
Unsure if some of this hypoxemia is related to restrictive lung disease. Would only be able to diagnose that with PFTs/flow-volume unfortunately not able to do that at this time due to her being intubated
Will speak with outpatient neurologist
Acute left INSTRUMENTATION FITTER territory infarct, neurology believes could be embolic in nature
TAWANNA when able
Thoracic lumbar spine MRI with without lux
Continue aspirin. Not started on statin as LDL less than 70
Original Note:
Today's Communication/Plan
-
Speech eval for diet
MRI spine
Assessment / Plan
Assessment / Plan
Eliana Lucas is a 59yo F with a pmh notable for secondary progressive MS, chronic back pain, & tobacco use who p/w acute worsening of back/bilateral LE pain, w episode c/f seizure in ED, found to have R-sided PNA & severe hyponatremia (improved),
on abx but with development of minimal responsiveness & hypoxia, intubated 12/31, extubated 01/02
#Pneumonia, likely 2/2 aspiration
#Sinusitis
CXR 01/01 am: Concern for pneumonia
Afebrile overnight white count resolved
Continue ceftriaxone given sputum culture positive for Serratia and MRSA swab negative
- Duonebs, mucinex
- Pulm following, appreciate recs
#Acute hypercapnic hypoxemic respiratory failure
- Intubated 12/31, successfully extubated 01/02
- Tolerated bi[a[, now on O2 NC 2L
#Hypotension
Still occasionally hypotensive but off levophed with stable MAP
#CVA:
Acute left INSTRUMENTATION FITTER territory infarct noted on MRI
- Head and neck CTA unremarkable
- UE DVT
- Get TAWANNA when able
Hypokalemia:
3.1 today
- replete
#AMS
- Resolved. Patient is awake, alert, responsive and is able to make needs known
- MRI brain showed area of restricted diffusion in posterior occipital lobe - likely infarction vs demyelinating plaque
- Hold sedative medication
- Appreciate neurology input. Acute INSTRUMENTATION FITTER territory infarct, likely embolic etiology. CTA head and neck, TTE (TAWANNA if unremarkable), thoracic and lumbar spine MRI. No triptans or Eliquis in the future
- Start Aspirin and monitor CBC
#DVT in RUE
Ultrasound 12/31 with acute DVT
- Continue IV heparin
# Severe protein calorie malnutrition
BMI 14, patient admits to reduced p.o. intake at home and failed trial of Ensure at home.
Pt could be candidate for PEG tube depending on family goals of care
- Pt reports eagerness to eat today.
- Will get speech eval and trial p.o. intake
- Nutrition following, appreciate recs
#Severe hyponatremia
Resolving. 131 today
Na 112 on admission. likely in s/o malnutrition 'tea & toast' diet. S/p hypertonic saline 12/26-12/27 w lasix.
- Monitor BMP
- Per renal, will continue to monitor Na levels while respiratory/hemodynamic status stabilized
- Nephrology consulted, appreciate recs
#Urinary retention
Likely neurogenic from progressive MS
- Eckert catheter in
- Pending goals of care conversation with family and likely permanent/progression of retention in setting of her progressing MS, patient to be discharged with straight cathing versus chronic Eckert with antibiotic ppx; to be discussed at later point
in time
#Seizure, one-time
No known hx of seizures. Presumed secondary to severe hyponatremia. S/p 5mg midazolam in ED.
No new events c/f seizure throughout admission. EEG (12/27) with moderate generalized cerebral dysfunction, no focal epileptiform activity. EEG (12/31): There are Lateralized periodic discharges (LPDs) on this record, which can be associated with
underlying cerebral injury and/or hyperexcitability.
- Seizure precautions
#Pulmonary congestion
CXR on 12/31 demonstrated increase of pulmonary congestion throughout bilateral lung quinones. Appearance not concerning for ARDS. Increased congestion potentially in the setting of increased PEEP due to intubation/ventilation cvir tech 12/31,
leading to increased preload and venous congestion. Patient is overall not volume overloaded; received 20 mg Lasix on 12/30 afternoon.
-Appears resolved. Currently on 2L NC s/p extubation. Continue to monitor respiratory status per respiratory team and ICU team on ventilation
#Back/hip/leg pain, chronic
- Await MRI thoracic and MRI lumbar spine
- Pain control
#Recent falls
reports a few recent falls at home without head trauma or LOC. Limited independent ambulatory status at home ambulates on own to bathroom. Likely 2/2 MS, poor nutritional status, deconditioning.
- PT/OT
- Continue to address other causes of dz as above
#Chronic
-Tobacco use - smokes ~5-10 cigarettes/day since 'forever' (likely 40 yrs), 20 pack-yrs; order nicotine patch 14mg
-MS - continue home meds (tecfidera, baclofen via pump, dalfampridine)
#Global
- DVT ppx: on heparin drip
- Diet: to be determined after speech eval after extubation
- Code: full; pending goals of care conversation with family
- Dispo: lives at home w , father, & son/daughter; likely discharge to SNF; pending ongoing goals of care conversations with family & outcome of extubation trial
Anticipated Discharge: 24 - 48 hours
Subjective/Interval History
-
Date of Service: January 03, 2025
Pt reports feeling better today. She reports return of appetite and is eager for PO intake.
Objective Data
-
Labs:
Laboratory Results
01/02/25 01/03/25 01/03/25
23:30 03:41 06:24
WBC 6.5
Hgb 7.4 L
Hct 23.0 L
Plt Count 145
APTT 43.6 H 85.5 H
Sodium 132 L
Potassium 3.1 L
Chloride 87 L
Carbon Dioxide 41 H
BUN 11
Creatinine 0.5 L
Glucose 74
Calcium 8.6
01/03/25 01/03/25
12:30 15:30
WBC
Hgb
Hct
Plt Count
APTT Pending
Sodium Pending
Potassium Pending
Chloride Pending
Carbon Dioxide Pending
BUN Pending
Creatinine Pending
Glucose Pending
Calcium Pending
Vital Signs:
Vital Signs
Temp Pulse Resp BP Pulse Ox
98 F 68 10 96/59 100
01/03/25 07:12 01/03/25 09:00 01/03/25 09:00 01/03/25 09:00 01/03/25 09:00
I&O
01/02/25 01/03/25 01/04/25
06:59 06:59 06:59
Intake Total 1355 / 1402 680 / 965 295 / 295
Output Total 1390 / 1390 3445 / 3475 60 / 60
Balance -35 / 12 -2765 / -2510 235 / 235
Review of Systems
-
History Source: Patient
Constitutional: Denies Fatigue
Respiratory: Denies Trouble Breathing
Cardiac: Denies Chest Pain or Palpitations
Abdomen/GI: Denies Abdominal Pain, Nausea, Vomiting, Diarrhea or Constipated
Genitourinary: Denies Dysuria or Difficulty Voiding
Physical Exam
-
General: No Apparent Distress, Appears Chronically Ill and Cachectic
Respiratory: Clear to Auscultation and Non Labored Respirations; Negative Wheezes, Rales, Rhonchi or Crackles
Cardiac: Regular Rhythm and S1/S2; Negative Murmur, Rub or Calf Tenderness
GI: Soft, Nontender, Nondistended and Normal Bowel Sounds
Musculoskeletal: No Clubbing, No Cyanosis and No Edema
Skin: Warm and Dry
Neuro: Awake, Alert and Oriented
Psych: Calm
--- NOTE | 2025-01-03 11:20 | W.PN.UPDATE ---
Addendum entered and electronically signed by Sean Maria MD 01/03/25 11:35:
Acute left DIESEL ELECTRICIAN territory infarct, neurology believes could be embolic in nature
TAWANNA when able
Thoracic lumbar spine MRI with without lux
Continue aspirin. Not started on statin as LDL less than 70
Original Note:
Update Note
Progress Note Update
Acute hypoxemic respiratory failure overnight requiring mechanical ventilation
Extubated
Wean o2 as tolerated
Speech to eval
Right-sided likely aspiration
Continue Unasyn. Has completed 5 days will extend
Hyponatremia�severe, overall improved
Initiate tube feeds when possible if fails speech
Follow recommendations per nephrology
Hypokalemia
Replete PRN
Multiple sclerosis
Concern for progressive MS with decompensation
Unsure if some of this hypoxemia is related to restrictive lung disease. Would only be able to diagnose that with PFTs/flow-volume unfortunately not able to do that at this time due to her being intubated
Will speak with outpatient neurologist
[2025-01-03] MEDS: SENOKOT-S 1 TABLET PO (12:22)
[2025-01-03] MEDS: ROXICODONE 5 MG PO ×3 (12:22→23:36)
[2025-01-03] MEDS: ROBITUSSIN 200 MG TUBE ×3 (12:22→23:36)
[2025-01-03] MEDS: MIRALAX 17 GRAMS PO (12:27)
[2025-01-03] MEDS: DIAMOX 2.5 MG IV (12:27)
[2025-01-03 12:59] LABS: APTT 78.0 Sec (23.4-35.0)
--- NOTE | 2025-01-03 13:07 | PTCARENOTE ---
patient taken and returned from MRI without issue. patient c/o back and right leg pain medicated with oxy per prn order. patient continues to ooze stool around fecal impaction. able to expel small hard stool. see prn administration. speech therapy
in, ok for diet. family at bedside. updated with plan of care
[2025-01-03] MEDS: STERILE WATER FOR INJECTION 10 ML IV (13:37)
[2025-01-03] MEDS: ROCEPHIN 1000 MG IV (13:37)
--- NOTE | 2025-01-03 14:32 | PTCARENOTE ---
tolerated lunch without overt aspiration. c/o abdominal pain and feeling of having to have a bowel movement. incontinent small amount hard stool. hospitalist and resident updated by hao ellis
--- NOTE | 2025-01-03 16:51 | PTCARENOTE ---
patient reassessed. milk and molasses enema given with good results. had multiple large hard stools post enema
[2025-01-03 17:47] LABS: Venous Blood Gas B.E. 9.0 mmol/L (-4 to +4); Venous Blood Gas O2 Sat % 100.0 %
[2025-01-03 18:28] LABS: Blood Urea Nitrogen 11 mg/dl (7-17); Calcium 8.4 mg/dl (8.4-10.2); Carbon Dioxide 35 mmol/L (22-30); Chloride 93 mmol/L (98-107); Estimated Creatinine Clearance 60 ml/min; Glucose 192 mg/dl (70-99); Magnesium 2.0 mg/dl (1.6-2.3); Potassium 4.3 mmol/L (3.5-5.1); Sodium 130 mmol/L (135-145); eGFR > 60.00
--- NOTE | 2025-01-03 18:30 | PTCARENOTE ---
unable to void. bladder scan and straight cath per orders. having additional soft to hard formed stool.poor oral intake for dinner. nasal cannula@0.5 liters. room air pulse oximeter 88-90. oxycodone for c/o pain. repositioned call gomez in reach
--- NOTE | 2025-01-03 20:38 | PTCARENOTE ---
ax3 sinus 80-90's - afebrile bp wnl- inc of large bm. chg bathed with chg wipes poc for this shift reviewed. . nih was 6 -base same score as day shift-
[2025-01-04] VITALS (16 sets, daily range): BP systolic 93–160; BP diastolic 63–81; PULSE 2; BMI 14.6
--- NOTE | 2025-01-04 00:34 | PTCARENOTE ---
bipap on hs- sinus afebrile bp wnl- medicated with prn pain meds . hep gtt infusing per protocol
--- NOTE | 2025-01-04 04:23 | PTCARENOTE ---
pt voiding on her own- no need for straight cath- having very large bm's after day shift enema
[2025-01-04 04:29] LABS: Hematocrit 24.7 % (37.0-47.0); Hemoglobin 7.8 g/dL (12.0-16.0); Mean Corp Hgb Conc. 31.6 g/dL (33.0-37.0); Mean Corpuscular Volume 87.6 fL (81.0-99.0); Platelet Count 163 10^3/uL (130-400); Red Cell Dist. Width 13.3 % (11.5-14.5)
[2025-01-04 04:30] LABS: Venous Blood Gas B.E. 3.8 mmol/L (-4 to +4); Venous Blood Gas O2 Sat % 99.6 %
[2025-01-04 04:40] LABS: APTT 68.6 Sec (23.4-35.0)
[2025-01-04 04:56] LABS: Blood Urea Nitrogen 10 mg/dl (7-17); Calcium 8.9 mg/dl (8.4-10.2); Carbon Dioxide 30 mmol/L (22-30); Chloride 97 mmol/L (98-107); Estimated Creatinine Clearance 60 ml/min; Glucose 77 mg/dl (70-99); Magnesium 2.0 mg/dl (1.6-2.3); Potassium 4.2 mmol/L (3.5-5.1); Sodium 131 mmol/L (135-145); eGFR > 60.00
[2025-01-04] MEDS: HEPARIN 1500 UNITS IV (04:59)
--- NOTE | 2025-01-04 07:43 | W.PN.NEURO.1 ---
Today's Communication / Plan
-
Would eventually discontinue levetiracetam once sodium levels are normalized and prior to discharge
Continue aspirin, lifelong due to acute ischemic stroke
Would restart dimethyl fumarate to control the patient's underlying multiple sclerosis when patient is able to take by mouth
Neuro Assessment/Plan
Assessment
I. Acute left [employer] territory infarct. Likely etiology�embolic. Not the cause for the patient's respiratory failure
II. Nonocclusive thrombus within the central subclavian and jugular veins and occlusive thrombus of the R brachial vein
III. Symptomatic seizure due to severe hyponatremia.
IV. Multiple Sclerosis, presumed relapsing remitting; severe disability due to same
Plan
Would eventually discontinue levetiracetam once sodium levels are normalized and prior to discharge
Continue aspirin, lifelong due to acute ischemic stroke
Would restart dimethyl fumarate to control the patient's underlying multiple sclerosis when patient is able to take by mouth
Will follow as needed. Patient should follow-up with his usual outpatient neurologist
Subjective/Objective
Subjective Data
Date of Service: January 04, 2025
Objective Data
Vital Signs
Temp Pulse Resp BP Pulse Ox
36.6 C 78 12 110/64 99
01/04/25 04:00 01/04/25 06:05 01/04/25 06:05 01/04/25 06:05 01/04/25 06:05
Lab Results
01/04/25 04:16
01/04/25 04:16
PT 13.2 Sec (11.4-14.6) 12/27/24 05:47
INR 0.97 12/27/24 05:47
APTT 68.6 Sec (23.4-35.0) H 01/04/25 04:16
Sodium 131 mmol/L (135-145) L 01/04/25 04:16
Potassium 4.2 mmol/L (3.5-5.1) 01/04/25 04:16
BUN 10 mg/dl (7-17) 01/04/25 04:16
Glucose 77 mg/dl (70-99) 01/04/25 04:16
Calcium 8.9 mg/dl (8.4-10.2) 01/04/25 04:16
Phosphorus 2.9 mg/dl (2.5-4.5) 01/04/25 04:16
Xno-Y-Ewmciowacdv Pept 558 pg/ml 01/01/25 03:21
LDL Cholesterol, Calc 27 mg/dl 01/02/25 12:08
Vitamin B12 687 pg/ml (354-931) 01/02/25 12:08
Patient Allergies
carbamazepine (From Tegretol) Allergy (Verified 12/26/24 09:44)
Unknown
fentanyl Allergy (Verified 12/31/24 18:45)
PATCH
fingolimod (From Gilenya) Allergy (Verified 12/26/24 09:44)
Unknown
morphine Allergy (Verified 12/26/24 09:44)
Unknown
natalizumab (From Tysabri) Allergy (Verified 12/26/24 09:44)
Unknown
topiramate (From Topamax) Allergy (Verified 12/26/24 09:44)
Unknown
[2025-01-04] MEDS: DUONEB 3 ML INH (07:54)
[2025-01-04] MEDS: NICODERM TRANSDERMAL 14 MG TRANSDERM (08:02)
[2025-01-04] MEDS: PROTONIX IV 40 MG IV (08:03)
[2025-01-04] MEDS: MIRALAX TUBE (08:03)
[2025-01-04] MEDS: NSS (PRESERVATIVE FREE) 10 ML IV (08:03)
[2025-01-04] MEDS: LOW STRENGTH ASPIRIN 81 MG PO (08:03)
[2025-01-04] MEDS: ROBITUSSIN 200 MG TUBE ×3 (08:03→21:08)
--- NOTE | 2025-01-04 08:47 | PTCARENOTE ---
Report received, assessment as noted. patient alert and oriented, nih unchanged. preexisting weakness due to MS. monitor nsr. Rhonchi, NC removed to room air, SpO2 92%, moist weak non productive cough. Denies dyspnea. able to take oral meds crushed
in applesauce without overt signs aspiration. Incontinent large soft BM and urine. reviewed plan of care, need fror ST reevaluation. call gomez in reach.
--- NOTE | 2025-01-04 08:55 | W.PN.HOSP.TC ---
Today's Communication/Plan
-
- Calorie counts
- Straight cath PRN, instructions for home
- TETO herrera re: outpatient kyphoplasty
- Holding on TAWANNA, potential loop recorder outpatient
- Finish 5-day course ceftriaxone for PNA
- Restart tecfidera
- Holding sumatriptan
- Per neuro, no triptans or Eliquis in the future
- Continue heparin
- Continue 81mg daily aspirin
- Continue holding standing sedating pain meds - oxycodone, gabapentin, pregabalin
- Start Ca supplement, check vit D
- Downgrade to tele
Assessment / Plan
Assessment / Plan
Eliana Lucas is a 59yo F with a pmh notable for secondary progressive MS, chronic back pain, & tobacco use who p/w acute worsening of back/bilateral LE pain, w episode c/f seizure in ED, found to have R-sided PNA & severe hyponatremia (improved),
on abx but with development of minimal responsiveness & hypoxia, intubated 12/31, extubated 01/02 with improving respiratory status & mental status, now found to have L occipital CVA and L2 & T12 compression fractures.
#Pneumonia, likely 2/2 aspiration
#Sinusitis
CXR (12/26) demonstrating R basilar airspace opacity concerning for pneumonia. On admission, lactic acid elevated 3.6. Leukocytosis WBC 16.3 w R shift. Sat 93% on 2L NC. Afebrile. Lives w family, daughter has had sore throat for last few days, taking
dayquil. Only recent travel to [place] last week. No change to her chronic (smoker's) cough in last few days, no f/c. Pt did have new rhinorrhea in the last few days. Ddx includes CAP vs. aspiration PNA (suspected) given RLL location of
consolidation and reported hx of choking events. Urine antigen negative for legionella & strep pneumo. Blood cx negative. MRSA negative. On thin liquids w [id number] diet per video swallow study 12/29 ('No fluoroscopic evidence for airway aspiration').
CXR 12/29: 'parenchymal opacity within the right lower lung; mild blunting of the right lateral costophrenic angle compatible with a small right pleural effusion; peribronchial thickening in the left lower lung, suggesting bronchitis; patchy
parenchymal opacity within the medial left lower lung, increased from earlier radiograph.' Patient spiked fevers of 101.1-101.7 on 12/31, although WBC continued to decrease (wnl). S/p acetaminophen 12/31. CXR 01/01 am: 'large amount of opacity in the
right middle lobe, moderate airspace opacity in the inferior right upper lobe, and large amount of subpleural ground-glass opacity in the peripheral left midlung. SEVERE BILATERAL PNEUMONIA is considered most likely given the distribution of the
airspace opacities.' Sputum cx returned positive for serratia; MRSA swab negative.
This am, afebrile, WBC has remained wnl since 12/31.
- Continue ceftriaxione 5-day course (01/02-)
- Duonebs, mucinex
- Pulm following, appreciate recs
- S/p vanc/zosyn (01/01-), s/p unasyn 1.5g q6hr 12/27-12/31; s/p vanc & zosyn 12/26-12/27)
#Acute hypercapnic hypoxemic respiratory failure, resolving
12/31 early am: not responding to verbal / tactile stimuli, hypoxic with Spo2 85 % on 4 L, and noted with slow breathing; transferred to ICU and intubated. Pt RR was ranging 16-18 in lead-up to decompensation on 12/31 early am, so unlikely 2/2
opioid-induced respiratory depression. Pt remained with WBC tending down to wnl on 12/31 on unasyn abx course for RLL PNA (likely aspiration), although intermittent fever 12/31 leaves PNA/sepsis on differential. Likely 2/2 combination of poor
ventilation in s/o progressive MS & PNA. Intubated 12/31, successfully extubated 01/02.
This am, weaned to RA from 2L O2 NC; satting 100% O2 on RA.
- Continue to monitor
- Downgrade to tele today
#L2 & T12 compression fractures
MRI L & T spine (01/03): 'There is a severe compression fracture of the L2 vertebral body with associated 6 mm retropulsion of the fracture fragment superiorly and resultant severe canal stenosis. There are additional mild degenerative changes with
resultant mild bilateral neuroforaminal narrowing of L4-L5 and L5-S1.' 'There is a mild compression fracture of the T12 vertebral body with associated mild edema suggestive of acute fracture.' Likely in s/o severe protein calorie malnutrition &
fragility with recent falls at home, per . Limited independent ambulatory status at home ambulates on own to bathroom. Likely underlying osteoporosis
- Continue to address other causes of dz as above
- Pain mgmt: oxycodone 5mg q6hr prn & tylenol prn ; 20% dilaudid pump output
- Check vit D levels, supplement if low
- Start daily Ca supplement
- Change PPI to famotidine
- IR curbside today to discuss possibility of outpatient kyphoplasty vs. can refer to outpt neurosurg if not
- Consult PT/OT
#Posterior L occipital CVA
MRI (01/01): 'There is a 5.6 mm focus of restricted diffusion within the posterior left occipital lobe which may represent an infarction, less likely a demyelinating plaque. There is extensive periventricular and subcortical white matter T2/FLAIR
hyperintense signal which is likely related to known multiple sclerosis and likely chronic small vessel disease.' CTA head/neck (01/02): No areas of significant stenosis; unremarkable. TTE (12/28/24): 'Mild to moderate tricuspid regurgitation.' C/f
embolic etiology vs. ischemic from hypotensive/hypoxic episode. Without overt vision changes (denies blurriness, black portions of visual field; some limited peripheral vision).
- Holding on plan for TAWANNA, consider loop recorder outpatient
- Per neuro, no triptans or Eliquis in the future
- Continue aspirin 81mg daily with close hemoglobin and platelet monitoring
- Neuro following, appreciate recs
#Hypotension, resolving
Patient BP ranging from 80s/40s to 120s/60s. On levophed in ICU since 12/31. Over 01/02-, off levophed with stable MAP.
Today, MAP 84.
- Continue to monitor
#AMS, resolving
CT head (12/26) without signs of ICH, mass effect, ventricular dilation; likely MS progression, given dx of secondary progressive MS. Unknown date of last MRI. On tecfidera 240mg as dz modifying therapy & dalfampridine for sx mgmt. Pt smokes. On
chronic oxycodone, gabapentin, pregabalin; also w baclofen pump, recently refilled - this pump contains dilaudid (dose pending, Dr. Woods at [place]). Encephalopathic/AMS likely 2/2 hyponatremia +/- pain meds & underlying [employer]IC dz on admission. Patient
mental status had been improving to baseline when sodium levels had increased to 134. However, on morning of 12/30 patient was more tired/groggy. 12/30 night, patient narcotic medications were held. Patient unresponsive to noxious stimuli on 12/31
pigs feet cleaner. EEG at that time did not demonstrate any epileptiform activity. CT scan of the head did not demonstrate any intracranial hemorrhage or mass effect. Pt intubated 12/31, extubated 01/02. AMS was likely multifactorial but primarily
driven by progression of underlying secondary progressive MS, malnutrition, sedating pain medication use, poor respiratory effort, in combination w new CVA.
Over weekend, patient awake, alert, responsive and able to make needs known. Same today.
- Continue holding standing sedating pain meds - oxycodone, gabapentin, pregabalin (holding since 12/30 pm)
- See above plan for CVA mgmt
#Severe protein calorie malnutrition
Patient with BMI 14 and subacute decline in p.o. intake at home, per . Patient only intaking pieces of toast, occasional cheese sandwiches. Drinking lots of water. Per , patient previously failed trial of Ensure. Patient appears
malnourished. Per nutrition and neurology curbside, likely in setting of underlying secondary progressive MS. Patient lacking motivation to eat. At this time not considering appetite stimulant medications, as options like Remeron are also
sedating. Patient could be candidate for PEG tube depending on family goals of care.
01/03 pt reporting eagerness to eat. Today, states that she has okay appetite.
- Start calorie counts
- Nutrition following, appreciate recs
#Hyponatremia, resolving
Na 112 on admission. Per , pt stopped eating full dinners in October; only eats a piece of toast & coffee, plus two cheese sandwiches daily. Does drink a fair amount of water. Not hypotensive on admission. Pt low weight, thin appearing.
Hyponatremia likely in s/o malnutrition, 'tea & toast' syndrome. Pt eating protein-deficient diet, limiting solute excretion. Likely also element of SIADH in s/o [employer]IC dz (MS) and pain. Urine Na 35, urine osm order cancelled. Random cortisol
unremarkable. Pt with normal eGFR. No meds on home list are known to cause hyponatremia other than gabapentin/pregabalin. S/p hypertonic saline 12/26-12/27 w lasix.
12/29: Urine Cr 52.9, urine Na 109, urine osm 533. Hyponatremia w urine osm>100 supports suspected SIADH. Likely an element of ongoing SIADH. Pt had PO solid intake 12/29-12/30. S/p lasix 12/30, 01/01, 01/02. Na peaked 134 on 12/29.
Today, Na 131.
- Monitor BMP
- Nephrology consulted, appreciate recs
#DVT in RUE
R arm swelling 12/31. US (12/31) demonstrated: 'acute DVT within the upper arm. There is nonocclusive thrombus within the central subclavian and jugular veins and occlusive thrombus within the distal brachial vein within the upper arm. Occlusive
thrombus also appreciated within the cephalic vein and nonocclusive thrombus within the basilic vein.' Likely in s/o PICC line.
- Continue IV heparin
#Urinary retention
Pt last independent void on 12/27. Does not straight cath at home. RN has been doing straight cath since 12/28. On bladder scan 12/29, had 400 cc. Pt with bilat LE weakness at baseline & chronic neuropathic pain at baseline in s/o MS. per , patient
had began to complain of episodes of urge to urinate but inability to urinate over the past few weeks at home prior to admission, although she had been able to still urinate independently at times. Patient intubated/ventilated on 12/31 pigs feet cleaner,
now with Salas catheter in place. Worsening urinary retention likely a symptom of suspected progression of her underlying MS; neurology curbside agreed 12/31. Pt with salas catheter out by 01/04.
- Intermittent straight cath PRN
- Pending goals of care conversation with family and likely permanent/progression of retention in setting of her progressing MS, patient to be discharged with straight cathing versus chronic Salas with antibiotic ppx; to be discussed at later point
in time
#Pulmonary congestion
CXR on 12/31 demonstrated increase of pulmonary congestion throughout bilateral lung quinones. Appearance not concerning for ARDS. Increased congestion potentially in the setting of increased PEEP due to intubation/ventilation pigs feet cleaner 12/31,
leading to increased preload and venous congestion. Patient is overall not volume overloaded; has received lasix per renal (12/30, , ). Over weekend, on 2L O2 NC s/p extubation 01/02. Congestion appears resolved.
- Continue to monitor respiratory status per respiratory team and ICU team on ventilation
#Seizure, one-time
No known hx of seizures. Event in ED on admission likely precipitated by severe hyponatremia. S/p 5mg midazolam in ED. No new events c/f seizure throughout admission. EEG (12/27) with moderate generalized cerebral dysfunction, no focal epileptiform
activity. EEG (12/31): There are Lateralized periodic discharges (LPDs) on this record, which can be associated with underlying cerebral injury and/or hyperexcitability.
- Seizure precautions
#Chronic
-Tobacco use - smokes ~5-10 cigarettes/day since 'forever' (likely 40 yrs), 20 pack-yrs; nicotine patch 14mg
-MS - home meds (tecfidera, baclofen via pump, dalfampridine), mgmt per above
#Global
- DVT ppx: on heparin drip
- Diet: IDDSI 6, meds in puree, 1:1 assistance, aspiration precautions
- Code: full
- Dispo: lives at home w , father, & son/daughter; likely discharge to SNF; pending ongoing goals of care conversations with family & outcome of extubation trial
Anticipated Discharge: 24 - 48 hours
Subjective/Interval History
-
Date of Service: January 04, 2025
Pt awake, conversant. Fell asleep w eyes closed in between speaking. However, easily arousable and maintains eye contact while conversing. Able to answer questions appropriately, interact as normal. Denies any SOB or CP. Also states that back/leg
pain is well-controlled. Says that she has been able to empty bladder sometimes and sometimes requires RN straight cath. Denies any vision changes. Ate some applesauce, says appetite okay, able to eat.
Objective Data
-
Labs:
Laboratory Results
01/04/25 01/04/25
04:16 11:00
WBC 8.1
Hgb 7.8 L
Hct 24.7 L
Plt Count 163
APTT 68.6 H Pending
Sodium 131 L
Potassium 4.2
Chloride 97 L
Carbon Dioxide 30
BUN 10
Creatinine 0.5 L
Glucose 77
Calcium 8.9
Vital Signs:
Vital Signs
Temp Pulse Resp BP Pulse Ox
98.0 F 67 17 104/74 100
01/04/25 07:52 01/04/25 08:00 01/04/25 08:00 01/04/25 08:00 01/04/25 08:08
I&O
01/03/25 01/04/25 01/05/25
06:59 06:59 06:59
Intake Total 680 / 965 1763 / 1763
Output Total 3445 / 3475 1160 / 1160
Balance -2765 / -2510 603 / 603
Review of Systems
-
History Source: Patient
Constitutional: Reports No Symptoms
Physical Exam
-
General: Conversant, Appears Chronically Ill and Cachectic
HEENT: Normocephalic, Atraumatic and Anicteric
Respiratory: Non Labored Respirations
Cardiac: Regular Rhythm
GI: Nondistended
Musculoskeletal: No Edema
Skin: Warm and Dry
Neuro: Awake and Alert
Psych: Calm
Data Reviewed
-
Total Time Spent with Patient (in minutes): 15
Critical Care Time (in minutes): 60
Diagnostic Radiology: Report Reviewed by me
MRI: Report Reviewed by me
Labs: Labs Reviewed by me
--- NOTE | 2025-01-04 09:56 | W.PN.NEPH.PH ---
Today's Communication / Plan
-
cont FR.
Assessment/Plan
-
IMP:
Severe symptomatic hyponatremia
First-time seizure episode, tonic-clonic.
Acute hypoxemic respiratory insufficiency due to aspiration pneumonia
Periorbital/peripheral edema
Hypercapnia-suspect chronic
Leukocytosis
Mild microcytic anemia
Lactic acidosis
Hypoalbuminemia
Protein calorie malnutrition
UTI suspected
COPD suspected without acute exacerbation
Acute on chronic back pain. S/p baclofen pump.
Secondary progressive multiple sclerosis.
Chronic malnutrition
Plan:
follow BMP
leroy stable
cont Fr
sp eval
-
-
Date of Service: January 04, 2025
CC / HPI / ROS
-
Chief Complaint:
Hypoantremia
History of Present Illness:
Na stable 132
BP low but off pressors
Hgb lower 7.4
extubated 01/02
K low 3.1
Review of Systems:
hungry
no CP/SOB
Labs
-
Labs:
WBC 8.1 10^3/uL (4.8-10.8) 01/04/25 04:16
RBC 2.82 10^6/uL (4.20-5.40) L 01/04/25 04:16
Hgb 7.8 g/dL (12.0-16.0) L 01/04/25 04:16
Hct 24.7 % (37.0-47.0) L 01/04/25 04:16
Plt Count 163 10^3/uL (130-400) 01/04/25 04:16
Sodium 131 mmol/L (135-145) L 01/04/25 04:16
Potassium 4.2 mmol/L (3.5-5.1) 01/04/25 04:16
Chloride 97 mmol/L (98-107) L 01/04/25 04:16
Carbon Dioxide 30 mmol/L (22-30) 01/04/25 04:16
BUN 10 mg/dl (7-17) 01/04/25 04:16
Creatinine 0.5 mg/dL (0.6-1.0) L 01/04/25 04:16
eGFR > 60.00 01/04/25 04:16
Glucose 77 mg/dl (70-99) 01/04/25 04:16
Calcium 8.9 mg/dl (8.4-10.2) 01/04/25 04:16
Phosphorus 2.9 mg/dl (2.5-4.5) 01/04/25 04:16
Bqe-Y-Rpekhzrsblm Pept 558 pg/ml 01/01/25 03:21
Albumin 3.3 g/dl (3.5-5.0) L 01/01/25 03:21
Physical Exam
-
Vital Signs:
Vital Signs
Temp Pulse Resp BP Pulse Ox
98.0 F 74 10 104/74 93
01/04/25 07:52 01/04/25 09:00 01/04/25 09:00 01/04/25 08:00 01/04/25 09:00
Cardiovascular:: Regular rate and rhythm
Lung Excursion:: Normal
Abdomen:: Nontender and Soft
Bowel Sounds:: Normal
Extremity Edema:: None: Bilateral:
[2025-01-04] MEDS: HEPARIN 25000 UNITS/250 ML IV (10:54)
[2025-01-04] MEDS: PEPCID PO (11:21)
[2025-01-04 11:24] LABS: APTT 74.2 Sec (23.4-35.0)
--- NOTE | 2025-01-04 11:57 | W.PN.PUL3 ---
Today's Communication / Plan
-
- Await CT chest for further evaluation
- Patient can be transferred out of ICU
- Pulmonary team will continue to follow along
Assessment
-
59-year-old smoking chronically ill-appearing cachectic female with MS, baclofen pump, chronic back pain admitted with periorbital and pedal edema, hyponatremia, seizure, and pneumonia-kardex clerk consulted for pneumonia, seizure, severe
hyponatremia and critical care management 12/26/2024.
Impression:
Community-acquired pneumonia involving RLL/RML-increased aspiration risk with oral + pharyngeal dysphagia per video swallow exam on 12/29/2024
Severe hyponatremia-serum sodium 112 - now near normal at 134 as of 12/29/2024
Circulatory shock on vasopressors - resolved as of 12/28/2024
Tonic-clonic seizure - resolved
Acute CVA, detected on MRI 01/01/2025
?Pleural effusion on right side, await CT Chest
Hypercapnia-suspect chronic
Leukocytosis
Mild microcytic anemia
Lactic acidosis - resolved as of 12/26/2024
Hypoalbuminemia
Protein calorie malnutrition
UTI suspected (although negative UCx)
COPD suspected without acute exacerbation
Severe right maxillary and right ethmoid sinusitis
Conditions present prior to admission:
Chronic back pain.
Chronic opioid dependence.
Baclofen pump.
POTS.
Multiple sclerosis on Tecfidera.
Cigarette smoker.
Multiple bilateral pulmonary nodules incidentally noted measuring up to 1.[address] abdomen 03/2022-PET scan was recommended-never obtained
Protein calorie malnutrition.
Appendectomy. .
Overview 01/04: Patient saturating 94% on room air. MAP is normal, not requiring any pressors. Current infusions heparin drip.
Plan
Patient's mental status has markedly improved compared to 12/28/2024 where she was minimally responsive
Serum sodium continues to improve; she is s/p 3% NS per nephrology (last dose given on evening of 12/27)
Pt also has a baclofen pump --> per ICU pharmacist, patient's pump includes baclofen and hydromorphone. She receives 5.5 mg/day of hydromorphone and 1070 mcg/day of baclofen. Pump last filled on 12/08/2024. No recent change in dose. Patient
follows with Dr. Woods ([phone]), with next appointment 01/19 and next time to fill pump is 01/27/2025
Patient off vasopressors since evening of 12/28/2024; keep MAP>65
Supplemental oxygen as needed-currently on room air breathing comfortably
Intubated mechanically ventilated if necessary-Dr. Lopez reviewed CODE STATUS with patient's 12/26/2024-for now would like full code including intubation, CPR, shocking if needed
Nebulizers as needed-currently not bronchospastic
Aspiration precautions
Cultures reviewed
Sputum culture-growing Serratia, continue antibiotics as ordered, ceftriaxone daily.
Urine for Legionella and streptococcal antigen-pending
MRSA screen-negative
Pneumonia and severe right maxillary + ethmoid air cell sinusitis noted
Given her shock state, would favor 10-14-day course of antibiotics assuming she continues to clinically improve and remains afebrile for 48 hours prior to stopping antibiotics
Trend WBC and monitor temperature curve
Follow radiographically; ultimately she will need repeat CXR in 4-6 weeks to assess for resolution of her pneumonia
Follow serum sodium level closely
Goal correction of <8-10 mmol/L in 24 hours and <16-18 mL/L in 48 hours
Monitor neurologic status closely-rapid correction can rarely lead to osmotic demyelination syndrome
Nephrology evaluation ongoing-correspondence reviewed
Diuretics and potential use of Samsca per nephrology
TSH-normal 2.4
Random cortisol-36
Urine osmolarity - 533 (12/29/2024)
Urine sodium 35 --> 109 (12/29/2024)
Monitor for recurrent seizure-no recurrence noted, Neurology service on case
Seizure probably related to severe hyponatremia in setting of infection
CT head 12/26/2024-moderate bilateral volume loss with severe white matter disease probably demyelinating disease from multiple sclerosis which is increased since 01/2024, severe right maxillary and right ethmoid air cell sinusitis
Smoking cessation counseling ongoing
DVT prophylaxis-on Lovenox
Early nutrition with aspiration precautions
Bedside range of motion/early mobilization/eventual physical therapy/Occupational Therapy
Dr. Lopez reviewed with in the emergency room as well as emergency room physician and nursing 12/26/2024
Pulmonary nodule recommendation was seen from 04/19/2022-letter was written 05/14/2022 that a pulmonary nodule was seen on an image study done [facility] emergency room and PET scan was recommended-I do not see a PET scan or pulmonary
follow-up thereafter
Outpatient radiographic follow-up recommended
Patient qualifies for yearly low-dose lung cancer screening CT-obtain CT chest and pulmonary follow-up after pneumonia clears
Outpatient pulmonary [id number], smoking cessation counseling, yearly low-dose lung cancer screening CT, etc.
Pulmonary service will continue to briefly follow along.
Total time spent on this consultation/encounter _48___ minutes which includes review of history, physical exam, medications, laboratory data, personal review of imaging, extensive review of outpatient records, discussion with care team and
respiratory therapy.
Diagnostic data:
Chest x-ray 10/23/2022-NAD
Chest x-ray 02/11/2024-NAD
Chest x-ray 12/26/2024-right basilar pneumonia
CT head 01/22/2024-moderate to severe white matter disease, mild bilateral parietal lobe volume loss,
CT abdomen and pelvis 04/19/2022-no acute fracture T12, severe biliary dilation without obstructing mass, prior cholecystectomy, hepatic hemangioma, severe constipation, multiple solid pulmonary nodules both lower lobes measuring up to 1.2 cm
Echocardiogram 02/11/2024-EF 60-65%, normal diastolic function, mild mitral regurgitation, PA systolic 20
Subjective Data
-
Date of Service:
Date of Service: January 04, 2025
Chief Complaint: Pulmonary Follow Up
Subjective:
Patient comfortably lying in bed in no acute distress.
Review of Systems
Genitourinary: Other (All 14 systems reviewed and negative except as stated above in the history of present illness.)
Objective Data
Data Reviewed
Vital Signs / I&O / Oxygen:
Vital Signs
Temp Pulse Resp BP Pulse Ox
98.0 F 78 13 110/66 96
01/04/25 07:52 01/04/25 11:00 01/04/25 11:00 01/04/25 11:00 01/04/25 10:00
Intake and Output
01/03/25 01/04/25 01/05/25
06:59 06:59 06:59
Intake Total 680 / 965 1763 / 1763 284 / 284
Output Total 3445 / 3475 1160 / 1160
Balance -2765 / -2510 603 / 603 284 / 284
SaO2 [CPAP/PSV] 96
SaO2 [A/C] 97
SaO2 96
Nasal Cannula flow liters per 2
minute
Physical Exam
General: Respiratory Distress (negative), Comfortable, Chills (negative), Sweats (negative) and Other (chronically ill-appearing/deconditioned)
HEENT: Normocephalic and Anicteric
Cardiovascular: S1-S2, Regular Rhythm and Peripheral Edema (negative)
Respiratory: Wheeze (negative), Crackles (negative), Rhonchi (Bilaterally), Non-Labored Respirations and Stridor (negative)
GI: Soft, Non Distended, Non Tender and Normal Bowel Sounds
Neurology: Tremors (negative) and Lethargic (Easily arousable and answer my questions appropriately)
Skin: Warm, Dry, Cyanosis (negative) and Jaundice (negative)
Labs/Micro/Reports
Lab Data
01/04/25 04:16
01/04/25 04:16
Laboratory Results
01/03/25 01/04/25 01/04/25
12:34 04:16 10:37
APTT 78.0 H 68.6 H 74.2 H
Microbiology
12/31/24 14:36 Sputum Respiratory Culture - Final
Serratia marcescens
12/31/24 14:36 Sputum Gram Stain - Final
01/01/25 11:50 Nose Nasal Screen MRSA (PCR) - Final
MRSA not detected - performed by PCR methodology.
--- NOTE | 2025-01-04 12:08 | PTCARENOTE ---
Assessment unchanged. PTT therapeutic.
[2025-01-04] MEDS: ROBITUSSIN TUBE (12:29)
[2025-01-04] MEDS: ZOFRAN 4 MG IV (12:44)
[2025-01-04] MEDS: STERILE WATER FOR INJECTION 10 ML IV (13:37)
[2025-01-04] MEDS: ROCEPHIN 1000 MG IV (13:37)
--- NOTE | 2025-01-04 15:00 | CM ---
Addendum entered by Magdi Lopez 01/04/25 15:05:
Several SNF denials from previous referrals. [employer] list provided for additional preferences.
Original Note:
IV/Rocephin-PNA, IV heparin drip-DVT RUE, Baclofen pump, Await CT chest. Discharge POC: Therapy recommendation for SNF. [employer] list explained and provided.
--- NOTE | 2025-01-04 15:09 | CM ---
Original Note:
IV/Rocephin-PNA, IV heparin drip-DVT RUE, Baclofen pump, Await CT chest. Discharge POC: Therapy recommendation for SNF. Referrals previously forwarded.
Initialized on 01/04/25 15:00 - END OF NOTE
[2025-01-04] MEDS: ROXICODONE 5 MG PO ×2 (15:17→23:05)
--- NOTE | 2025-01-04 15:43 | PTCARENOTE ---
Pt off floor to CT scan on telemetry.
[2025-01-04 15:56] LABS: Vitamin D, 25-OH*** < 12.8 ng/mL (30-80)
--- NOTE | 2025-01-04 17:44 | PTCARENOTE ---
Bladder scanned for >547. Straight cath with 550cc dark yellow urine. Report given to 2N. Pt escorted to 2138 on tele.
[2025-01-04 20:35] LABS: APTT 44.3 Sec (23.4-35.0)
[2025-01-04] MEDS: HEPARIN 3000 UNITS IV (20:49)
[2025-01-04] MEDS: REMOVE NICOTINE PATCH 1 PATCH REMOVE (21:07)
[2025-01-04] MEDS: NON-FORMULARY ITEM 240 MG PO (21:09)
[2025-01-05] VITALS (7 sets, daily range): BP systolic 116–139; BP diastolic 61–73; PULSE 2
--- NOTE | 2025-01-05 01:00 | PTCARENOTE ---
Patient requesting to remove Bipap, states device is uncomfortable
[2025-01-05 03:24] LABS: APTT 116.0 Sec (23.4-35.0)
--- NOTE | 2025-01-05 07:37 | W.PN.HOSP.TC ---
Addendum entered and electronically signed by Donaldo Khan DO 01/06/25 12:56:
CDI: Sepsis was present, now resolved with antibiotics
Original Note:
Today's Communication/Plan
-
- Last day ceftriaxone tmrw
- T/b w case mgmt re: SNF
- Possible discharge tomorrow
- T/b w neuro re: long-term anticoagulation, likely convert heparin>DOAC today
- T/b w nutrition re: long-term planning for nutritional status outpt
- F/u outpt w neurosurg for cord compression
- F/u outpt w pulm for eval/reimaging of lungs
Assessment / Plan
Assessment / Plan
Eliana Lucas is a 59yo F with a pmh notable for secondary progressive MS, chronic back pain, & tobacco use who p/w acute worsening of back/bilateral LE pain, w episode c/f seizure in ED, found to have R-sided PNA & severe hyponatremia (improved),
on abx but with development of minimal responsiveness & hypoxia, intubated 12/31, extubated 01/02 with improving respiratory status & mental status, now found to have L occipital CVA and L2 & T12 compression fractures.
#Pneumonia, likely 2/2 aspiration
#Sinusitis
CXR (12/26) demonstrating R basilar airspace opacity concerning for pneumonia. On admission, lactic acid elevated 3.6. Leukocytosis WBC 16.3 w R shift. Sat 93% on 2L NC. Afebrile. Lives w family, daughter has had sore throat for last few days, taking
dayquil. Only recent travel to [place] last week. No change to her chronic (smoker's) cough in last few days, no f/c. Pt did have new rhinorrhea in the last few days. Ddx includes CAP vs. aspiration PNA (suspected) given RLL location of
consolidation and reported hx of choking events. Urine antigen negative for legionella & strep pneumo. Blood cx negative. MRSA negative. On thin liquids w [id number] diet per video swallow study 12/29 ('No fluoroscopic evidence for airway aspiration').
CXR 12/29: 'parenchymal opacity within the right lower lung; mild blunting of the right lateral costophrenic angle compatible with a small right pleural effusion; peribronchial thickening in the left lower lung, suggesting bronchitis; patchy
parenchymal opacity within the medial left lower lung, increased from earlier radiograph.' Patient spiked fevers of 101.1-101.7 on 12/31, although WBC continued to decrease (wnl). S/p acetaminophen 12/31. CXR 01/01 am: 'large amount of opacity in the
right middle lobe, moderate airspace opacity in the inferior right upper lobe, and large amount of subpleural ground-glass opacity in the peripheral left midlung. SEVERE BILATERAL PNEUMONIA is considered most likely given the distribution of the
airspace opacities.' Sputum cx returned positive for serratia; MRSA swab negative.
CT chest (01/04): 'Small to moderate right pleural effusion predominantly layering posteriorly, though a loculated component is suggested. Fluid is noted extending into the major fissure. 1.7 cm pleural-based density in the posterior right
costophrenic angle corresponding to the MRI finding. Nonspecific. Uncertain if this represents a mass, or possible blood clot there has been recent trauma or other invasive interventional procedure. 1.9 cm mass in the right pericardiophrenic angle,
suspicious for adenopathy.'
This am, afebrile, WBC has remained wnl since 12/31.
- Continue ceftriaxione 5-day course (01/02-), last day 01/06
- Duonebs, mucinex
- Pulm following, appreciate recs
- Consider f/u of potential lung mass given smoking hx, for outpatient follow-up, likely re-image in ~1mo; defer to pulm
- S/p vanc/zosyn (01/01-), s/p unasyn 1.5g q6hr 12/27-12/31; s/p vanc & zosyn 12/26-12/27)
#Acute hypercapnic hypoxemic respiratory failure, resolving
12/31 early am: not responding to verbal / tactile stimuli, hypoxic with Spo2 85 % on 4 L, and noted with slow breathing; transferred to ICU and intubated. Pt RR was ranging 16-18 in lead-up to decompensation on 12/31 early am, so unlikely 2/2
opioid-induced respiratory depression. Pt remained with WBC tending down to wnl on 12/31 on unasyn abx course for RLL PNA (likely aspiration), although intermittent fever 12/31 leaves PNA/sepsis on differential. Likely 2/2 combination of poor
ventilation in s/o progressive MS & PNA. Intubated 12/31, successfully extubated 01/02. Weaned to RA 01/04.
This am, satting 96% on RA.
- Continue to monitor
#L2 & T12 compression fractures
MRI L & T spine (01/03): 'There is a severe compression fracture of the L2 vertebral body with associated 6 mm retropulsion of the fracture fragment superiorly and resultant severe canal stenosis. There are additional mild degenerative changes with
resultant mild bilateral neuroforaminal narrowing of L4-L5 and L5-S1.' 'There is a mild compression fracture of the T12 vertebral body with associated mild edema suggestive of acute fracture.' Likely in s/o severe protein calorie malnutrition &
fragility with recent falls at home, per . Limited independent ambulatory status at home ambulates on own to bathroom. Likely underlying osteoporosis. Vit F-84-ajkubge low <12.8.
- Pain mgmt: oxycodone 5mg q6hr prn & tylenol prn ; 20% dilaudid pump output
- Restart home pregabalin 50mg tid
- Patient has appointment on 01/[address] Woods pain management; at that point Dilaudid pump output will be readjusted to baseline
- Continue holding sedating pain meds - oxycodone, gabapentin (holding since 12/30 pm)
- Start cholecalciferol 175mcg daily for 6 weeks, then recheck vit D
- Continue Ca carbonate supplement 500mg daily
- Continue famotidine (rather than PPI)
- Refer to outpt neurosurg on discharge for eval of L2 canal stenosis (per IR, no intervention from them)
- Consult PT/OT
#Posterior L occipital CVA
MRI (01/01): 'There is a 5.6 mm focus of restricted diffusion within the posterior left occipital lobe which may represent an infarction, less likely a demyelinating plaque. There is extensive periventricular and subcortical white matter T2/FLAIR
hyperintense signal which is likely related to known multiple sclerosis and likely chronic small vessel disease.' CTA head/neck (01/02): No areas of significant stenosis; unremarkable. TTE (12/28/24): 'Mild to moderate tricuspid regurgitation.' C/f
embolic etiology vs. ischemic from hypotensive/hypoxic episode. Without overt vision changes (denies blurriness, black portions of visual field; some limited peripheral vision).
- Continue aspirin 81mg daily with close hemoglobin and platelet monitoring
- Per neuro, no triptans or Eliquis in the future
- Holding on plan for TAWANNA, consider loop recorder outpatient
- Neuro following, appreciate recs
#Hypotension, resolving
Patient BP ranging from 80s/40s to 120s/60s. On levophed in ICU since 12/31. Over 01/02-, off levophed with stable MAP.
Today, MAP 84.
- Continue to monitor
#AMS, resolving
CT head (12/26) without signs of ICH, mass effect, ventricular dilation; likely MS progression, given dx of secondary progressive MS. Unknown date of last MRI. On tecfidera 240mg as dz modifying therapy & dalfampridine for sx mgmt. Pt smokes. On
chronic oxycodone, gabapentin, pregabalin; also w baclofen pump, recently refilled - this pump contains dilaudid (dose pending, Dr. Woods at [place]). 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 Patient
mental status had been improving to baseline when sodium levels had increased to 134. However, on morning of 12/30 patient was more tired/groggy. 12/30 night, patient narcotic medications were held. Patient unresponsive to noxious stimuli on 12/31
spindle carver. EEG at that time did not demonstrate any epileptiform activity. CT scan of the head did not demonstrate any intracranial hemorrhage or mass effect. Pt intubated 12/31, extubated 01/02. AMS was likely multifactorial but primarily
driven by progression of underlying secondary progressive MS, malnutrition, sedating pain medication use, poor respiratory effort, in combination w new CVA.
Over weekend, patient awake, alert, responsive and able to make needs known. Same today.
- NTD
#Severe protein calorie malnutrition
Patient with BMI 14 and subacute decline in p.o. intake at home, per . Patient only intaking pieces of toast, occasional cheese sandwiches. Drinking lots of water. Per , patient previously failed trial of Ensure. Patient appears
malnourished. Per nutrition and neurology curbside, likely in setting of underlying secondary progressive MS. Patient lacking motivation to eat. At this time not considering appetite stimulant medications, as options like Remeron are also
sedating. Patient could be candidate for PEG tube depending on family goals of care.
Since 01/03, patient has been endorsing willingness to eat, improved appetite.
- Calorie counts
- Nutrition following, appreciate recs
#Hyponatremia, resolving
Na 112 on admission. Per , pt stopped eating full dinners in October; only eats a piece of toast & coffee, plus two cheese sandwiches daily. Does drink a fair amount of water. Not hypotensive on admission. Pt low weight, thin appearing.
Hyponatremia likely in s/o malnutrition, 'tea & toast' syndrome. Pt eating protein-deficient diet, limiting solute excretion. 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 Urine Na 35, urine osm order cancelled. Random cortisol
unremarkable. Pt with normal eGFR. No meds on home list are known to cause hyponatremia other than gabapentin/pregabalin. S/p hypertonic saline 12/26-12/27 w lasix.
12/29: Urine Cr 52.9, urine Na 109, urine osm 533. Hyponatremia w urine osm>100 supports suspected SIADH. Likely an element of ongoing SIADH. Pt had PO solid intake 12/29-12/30. S/p lasix 12/30, 01/01, 01/02. Na peaked 134 on 12/29.
Today, Na 132.
- Monitor BMP
- Nephrology consulted, appreciate recs
#DVT in RUE
R arm swelling 12/31. US (12/31) demonstrated: 'acute DVT within the upper arm. There is nonocclusive thrombus within the central subclavian and jugular veins and occlusive thrombus within the distal brachial vein within the upper arm. Occlusive
thrombus also appreciated within the cephalic vein and nonocclusive thrombus within the basilic vein.' Likely in s/o PICC line.
- Continue IV heparin
#Urinary retention
Pt last independent void on 12/27. Does not straight cath at home. RN has been doing straight cath since 12/28. On bladder scan 12/29, had 400 cc. Pt with bilat LE weakness at baseline & chronic neuropathic pain at baseline in s/o MS. per , patient
had began to complain of episodes of urge to urinate but inability to urinate over the past few weeks at home prior to admission, although she had been able to still urinate independently at times. Patient intubated/ventilated on 12/31 spindle carver,
now with Salas catheter in place. Worsening urinary retention likely a symptom of suspected progression of her underlying MS; neurology curbside agreed 12/31. Pt with salas catheter out by 01/04.
- Intermittent straight cath PRN
- Discussed family education re: straight cathing at home with RN
#Pulmonary congestion
CXR on 12/31 demonstrated increase of pulmonary congestion throughout bilateral lung quinones. Appearance not concerning for ARDS. Increased congestion potentially in the setting of increased PEEP due to intubation/ventilation spindle carver 12/31,
leading to increased preload and venous congestion. Patient is overall not volume overloaded; has received lasix per renal (12/30, , ). Congestion appears resolved s/p extubation, wean off of O2 NC.
- Pulm following, appreciate recs
#Seizure, one-time
No known hx of seizures. Event in ED on admission likely precipitated by severe hyponatremia. S/p 5mg midazolam in ED. No new events c/f seizure throughout admission. EEG (12/27) with moderate generalized cerebral dysfunction, no focal epileptiform
activity. EEG (12/31): There are Lateralized periodic discharges (LPDs) on this record, which can be associated with underlying cerebral injury and/or hyperexcitability.
- Seizure precautions
#Chronic
-Tobacco use - smokes ~5-10 cigarettes/day since 'forever' (likely 40 yrs), 20 pack-yrs; nicotine patch 14mg
-MS - home meds (tecfidera, baclofen via pump, dalfampridine), mgmt per above
#Global
- DVT ppx: on heparin drip
- Diet: IDDSI 6, meds in puree, 1:1 assistance, aspiration precautions
- Code: full
- Dispo: lives at home w , father, & son/daughter; likely discharge tomorrow (SNF, pending discussions) once finalize anticoag & nutrition
Anticipated Discharge: 24 - 48 hours
Subjective/Interval History
-
Date of Service: January 05, 2025
Patient sitting up in bed this morning, conversant. Just finished eating her breakfast. Said that she had a strong appetite before eating, then ate a lot and is now full. Said that she had an accident in the bed (urine). However, says that she
sometimes has accidents and sometimes feels like she needs to pee and cannot empty her bladder. Says she has never straight cath'd at home before; discussed possibility of that after discharge. Denies any shortness of breath, chest pain. However,
in a significant amount of pain in her lower back and legs. Severe pain with minimal amount of movement of legs/back.
Objective Data
-
Labs:
Laboratory Results
01/04/25 01/05/25 01/05/25
20:17 02:56 06:00
WBC Pending
Hgb Pending
Hct Pending
Plt Count Pending
APTT 44.3 H 116.0 H
Sodium Pending
Potassium Pending
Chloride Pending
Carbon Dioxide Pending
BUN Pending
Creatinine Pending
Glucose Pending
Calcium Pending
Total Bilirubin Pending
AST Pending
ALT Pending
Alkaline Phosphatase Pending
01/05/25
09:30
WBC
Hgb
Hct
Plt Count
APTT Pending
Sodium
Potassium
Chloride
Carbon Dioxide
BUN
Creatinine
Glucose
Calcium
Total Bilirubin
AST
ALT
Alkaline Phosphatase
Vital Signs:
Vital Signs
Temp Pulse Resp BP Pulse Ox
98.0 F 77 16 136/61 96
01/05/25 03:33 01/05/25 03:33 01/05/25 03:33 01/05/25 03:33 01/05/25 03:33
I&O
01/04/25 01/05/25 01/06/25
06:59 06:59 06:59
Intake Total 1763 / 1763 1190 / 1190
Output Total 1160 / 1160 950 / 950
Balance 603 / 603 240 / 240
Review of Systems
-
History Source: Patient
Constitutional: Reports No Symptoms
Respiratory: Reports Cough (chronic) and Trouble Breathing (denies)
Cardiac: Reports Chest Pain (denies)
Genitourinary: Reports Incontinence, Difficulty Voiding and Urgency
Musculoskeletal: Reports Joint Pain, Muscle Pain, Arthralgias, Myalgias and Other (pain in back & legs )
Physical Exam
-
General: Pain (appears in pain), Conversant, Appears Chronically Ill and Cachectic
HEENT: Normocephalic, Atraumatic and Anicteric
Respiratory: Non Labored Respirations
Cardiac: Regular Rhythm
GI: Nondistended
Musculoskeletal: No Edema
Skin: Warm and Dry
Neuro: Awake and Alert
Psych: Calm
Data Reviewed
-
Total Time Spent with Patient (in minutes): 15
Critical Care Time (in minutes): 45
CT Scan: Report Reviewed by me
Labs: Labs Reviewed by me
[2025-01-05] MEDS: HEPARIN 25000 UNITS/250 ML IV (09:21)
[2025-01-05] MEDS: VITAMIN D3 (cholecalciferol) 50 MCG PO (09:22)
[2025-01-05] MEDS: PEPCID 20 MG PO (09:22)
[2025-01-05] MEDS: VITAMIN D3 (cholecalciferol) 125 MCG PO (09:22)
[2025-01-05] MEDS: OSCAL CAL 500 500 MG PO (09:22)
[2025-01-05] MEDS: ROBITUSSIN 200 MG TUBE (09:22)
[2025-01-05] MEDS: LOW STRENGTH ASPIRIN 81 MG PO (09:22)
[2025-01-05] MEDS: NON-FORMULARY ITEM 240 MG PO ×2 (09:23→19:25)
[2025-01-05] MEDS: NICODERM TRANSDERMAL 14 MG TRANSDERM (09:23)
[2025-01-05] MEDS: MIRALAX TUBE (09:23)
[2025-01-05] MEDS: ROXICODONE 5 MG PO ×3 (09:28→23:34)
[2025-01-05 09:42] LABS: Hematocrit 28.9 % (37.0-47.0); Hemoglobin 9.3 g/dL (12.0-16.0); Mean Corp Hgb Conc. 32.2 g/dL (33.0-37.0); Mean Corpuscular Volume 86.0 fL (81.0-99.0); Nucleated Red Blood Cells % 0 %; Platelet Count 180 10^3/uL (130-400); Red Cell Dist. Width 13.4 % (11.5-14.5)
[2025-01-05 10:08] LABS: APTT 35.9 Sec (23.4-35.0)
[2025-01-05 10:13] LABS: ALT (SGPT) 11 U/L (0-35); AST (SGOT) 16 U/L (14-36); Albumin 3.4 g/dl (3.5-5.0); Alkaline Phosphatase 70 U/L (38-126); Blood Urea Nitrogen 10 mg/dl (7-17); Calcium 8.9 mg/dl (8.4-10.2); Carbon Dioxide 28 mmol/L (22-30); Chloride 98 mmol/L (98-107); Estimated Creatinine Clearance 60 ml/min; Glucose 101 mg/dl (70-99); Potassium 4.7 mmol/L (3.5-5.1); Sodium 132 mmol/L (135-145); Total Protein 5.9 g/dl (6.3-8.2); eGFR > 60.00
--- NOTE | 2025-01-05 10:19 | W.PN.PUL3 ---
Today's Communication / Plan
-
Remains on abx
Repeat CT scan as OP to FU nodules, patient agreeable
PT/OT eval needed, progressive weakness noted
Discharge planning per team
Assessment
-
59-year-old smoking chronically ill-appearing cachectic female with MS, baclofen pump, chronic back pain admitted with periorbital and pedal edema, hyponatremia, seizure, and pneumonia-paperhanger consulted for pneumonia, seizure, severe
hyponatremia and critical care management 12/26/2024.
Impression:
Community-acquired pneumonia involving RLL/RML-increased aspiration risk with oral + pharyngeal dysphagia per video swallow exam on 12/29/2024
Severe hyponatremia-serum sodium 112 - now near normal at 134 as of 12/29/2024
Circulatory shock on vasopressors - resolved as of 12/28/2024
Tonic-clonic seizure - resolved
Acute CVA, detected on MRI 01/01/2025
?Pleural effusion on right side, await CT Chest
Hypercapnia-suspect chronic
Leukocytosis
Mild microcytic anemia
Lactic acidosis - resolved as of 12/26/2024
Hypoalbuminemia
Protein calorie malnutrition
UTI suspected (although negative UCx)
COPD suspected without acute exacerbation
Severe right maxillary and right ethmoid sinusitis
Conditions present prior to admission:
Chronic back pain.
Chronic opioid dependence.
Baclofen pump.
POTS.
Multiple sclerosis on Tecfidera.
Cigarette smoker.
Multiple bilateral pulmonary nodules incidentally noted measuring up to 1.[address] abdomen 03/2022-PET scan was recommended-never obtained
Protein calorie malnutrition.
Appendectomy. .
Plan
Overview 01/04: Patient saturating 94% on room air. MAP is normal, not requiring any pressors. Current infusions heparin drip.
Supplemental oxygen as needed-currently on room air breathing comfortably
Intubated mechanically ventilated if necessary-Dr. Lopez reviewed CODE STATUS with patient's 12/26/2024-for now would like full code including intubation, CPR, shocking if needed
Nebulizers as needed-currently not bronchospastic
Aspiration precautions
CT chest obtained-reviewed w/ LLL consolidation associated with loculated pockets superiorly
This is likely too small to sample for culture
Complete abx and would need repeat imaging as OP for follow-up
She has nodules noted but could be due to fall, would need FU imaging as OP to decide on biopsy in 4-6 weeks
Cultures reviewed
Sputum culture-growing Serratia, continue antibiotics as ordered, ceftriaxone daily.
Urine for Legionella and streptococcal antigen-pending
MRSA screen-negative
Pneumonia and severe right maxillary + ethmoid air cell sinusitis noted
Given her presenting shock state, would favor 10-14-day course of antibiotics assuming she continues to clinically improve and remains afebrile for 48 hours prior to stopping antibiotics
Trend WBC and monitor temperature curve
Follow radiographically; ultimately she will need repeat CXR in 4-6 weeks to assess for resolution of her pneumonia
Follow serum sodium level closely
Nephrology evaluation ongoing-correspondence reviewed
Diuretics and potential use of Samsca per nephrology
TSH-normal 2.4
Random cortisol-36
Urine osmolarity - 533 (12/29/2024)
Urine sodium 35 --> 109 (12/29/2024)
Seizure precautions
Smoking cessation counseling ongoing
DVT prophylaxis-on Lovenox
Early nutrition with aspiration precautions
Bedside range of motion/early mobilization/eventual physical therapy/Occupational Therapy
Dr. Lopez reviewed with in the emergency room as well as emergency room physician and nursing 12/26/2024
Pulmonary nodule recommendation was seen from 04/19/2022-letter was written 05/14/2022 that a pulmonary nodule was seen on an image study done [facility] emergency room and PET scan was recommended-I do not see a PET scan or pulmonary
follow-up thereafter
Patient qualifies for yearly low-dose lung cancer screening CT-obtain CT chest and pulmonary follow-up after pneumonia clears
Outpatient pulmonary [id number], smoking cessation counseling, yearly low-dose lung cancer screening CT, etc.
Pulmonary service will continue to briefly follow along.
Diagnostic data:
Chest x-ray 10/23/2022-NAD
Chest x-ray 02/11/2024-NAD
Chest x-ray 12/26/2024-right basilar pneumonia
CT head 01/22/2024-moderate to severe white matter disease, mild bilateral parietal lobe volume loss,
CT head 12/26/2024-moderate bilateral volume loss with severe white matter disease probably demyelinating disease from multiple sclerosis which is increased since 01/2024, severe right maxillary and right ethmoid air cell sinusitis
CT abdomen and pelvis 04/19/2022-no acute fracture T12, severe biliary dilation without obstructing mass, prior cholecystectomy, hepatic hemangioma, severe constipation, multiple solid pulmonary nodules both lower lobes measuring up to 1.2 cm
Echocardiogram 02/11/2024-EF 60-65%, normal diastolic function, mild mitral regurgitation, PA systolic 20
Total time spent on this consultation/encounter __51__ minutes which includes review of history, physical exam, medications, laboratory data, personal review of imaging, extensive review of outpatient records, discussion with care team and
respiratory therapy.
Subjective Data
-
Date of Service:
Date of Service: January 05, 2025
Chief Complaint: Pulmonary Follow Up
Subjective:
no new complaints, stable on RA
overall feels progressive weakness
very thin appearing
Objective Data
Data Reviewed
Vital Signs / I&O / Oxygen:
Vital Signs
Temp Pulse Resp BP Pulse Ox
98.5 F 73 18 139/69 94
01/05/25 07:00 01/05/25 07:00 01/05/25 07:00 01/05/25 07:00 01/05/25 07:00
Intake and Output
01/04/25 01/05/25 01/06/25
06:59 06:59 06:59
Intake Total 1763 / 1763 1190 / 1190
Output Total 1160 / 1160 950 / 950
Balance 603 / 603 240 / 240
SaO2 [CPAP/PSV] 96
SaO2 [A/C] 97
SaO2 94
Nasal Cannula flow liters per 2
minute
Physical Exam
General: Respiratory Distress (negative), Comfortable, Chills (negative), Sweats (negative) and Other (chronically ill-appearing/deconditioned/thin)
HEENT: Normocephalic and Anicteric
Cardiovascular: S1-S2, Regular Rhythm and Peripheral Edema (negative)
Respiratory: Wheeze (negative), Crackles (bilateral), Non-Labored Respirations and Stridor (negative)
GI: Soft, Non Distended, Non Tender and Normal Bowel Sounds
Neurology: Awake, Alert, Oriented, Tremors (negative) and Other (weakness noted overall)
Skin: Warm, Dry, Cyanosis (negative) and Jaundice (negative)
Labs/Micro/Reports
Lab Data
01/05/25 09:32
01/05/25 09:32
Laboratory Results
01/04/25 01/04/25 01/05/25
10:37 20:17 02:56
APTT 74.2 H 44.3 H 116.0 H
01/05/25
09:32
APTT 35.9 H
Microbiology
12/31/24 14:36 Sputum Respiratory Culture - Final
Serratia marcescens
12/31/24 14:36 Sputum Gram Stain - Final
[2025-01-05] MEDS: HEPARIN 3000 UNITS IV (10:33)
[2025-01-05] MEDS: ROCEPHIN 1000 MG IV (14:49)
[2025-01-05] MEDS: ZOFRAN 4 MG IV ×2 (15:01→23:07)
[2025-01-05] MEDS: ROBITUSSIN 200 MG PO ×3 (15:01→21:16)
[2025-01-05] MEDS: STERILE WATER FOR INJECTION 10 ML IV (15:01)
[2025-01-05] MEDS: DULCOLAX 10 MG RECTAL (15:19)
[2025-01-05] MEDS: LYRICA 50 MG PO ×2 (15:29→21:16)
--- NOTE | 2025-01-05 15:37 | W.PN.NEPH.PH ---
Today's Communication / Plan
-
Continue fluid restriction
Sodium stable over last several days at 132
Will sign off please call if needed
Assessment/Plan
-
IMP:
Severe symptomatic hyponatremia
First-time seizure episode, tonic-clonic.
Acute hypoxemic respiratory insufficiency due to aspiration pneumonia
Periorbital/peripheral edema
Hypercapnia-suspect chronic
Leukocytosis
Mild microcytic anemia
Lactic acidosis
Hypoalbuminemia
Protein calorie malnutrition
UTI suspected
COPD suspected without acute exacerbation
Acute on chronic back pain. S/p baclofen pump.
Secondary progressive multiple sclerosis.
Chronic malnutrition
Plan:
follow BMP
leroy stable 132
cont Fr
-
-
Date of Service: January 05, 2025
CC / HPI / ROS
-
Chief Complaint:
Hypoantremia
History of Present Illness:
Na stable 132
extubated 01/02
Review of Systems:
hungry
no CP/SOB
Labs
-
Labs:
WBC 6.6 10^3/uL (4.8-10.8) 01/05/25 09:32
RBC 3.36 10^6/uL (4.20-5.40) L 01/05/25 09:32
Hgb 9.3 g/dL (12.0-16.0) L 01/05/25 09:32
Hct 28.9 % (37.0-47.0) L 01/05/25 09:32
Plt Count 180 10^3/uL (130-400) 01/05/25 09:32
Sodium 132 mmol/L (135-145) L 01/05/25 09:32
Potassium 4.7 mmol/L (3.5-5.1) 01/05/25 09:32
Chloride 98 mmol/L (98-107) 01/05/25 09:32
Carbon Dioxide 28 mmol/L (22-30) 01/05/25 09:32
BUN 10 mg/dl (7-17) 01/05/25 09:32
Creatinine 0.4 mg/dL (0.6-1.0) L 01/05/25 09:32
eGFR > 60.00 01/05/25 09:32
Glucose 101 mg/dl (70-99) H 01/05/25 09:32
Calcium 8.9 mg/dl (8.4-10.2) 01/05/25 09:32
Phosphorus 2.9 mg/dl (2.5-4.5) 01/04/25 04:16
Rfy-G-Dllcydqttil Pept 558 pg/ml 01/01/25 03:21
Albumin 3.4 g/dl (3.5-5.0) L 01/05/25 09:32
Physical Exam
-
Vital Signs:
Vital Signs
Temp Pulse Resp BP Pulse Ox
98.7 F 83 18 117/62 98
01/05/25 11:00 01/05/25 11:00 01/05/25 11:00 01/05/25 11:00 01/05/25 11:00
Cardiovascular:: Regular rate and rhythm
Lung Excursion:: Normal
Abdomen:: Nontender and Soft
Bowel Sounds:: Normal
Extremity Edema:: None: Bilateral:
[2025-01-05 16:26] LABS: APTT 82.2 Sec (23.4-35.0)
--- NOTE | 2025-01-05 16:26 | CM ---
Reviewed the chart notes and spoke with the patient at the bedside and spouse via telephone. [facility], only facility to accept. Patient and spouse agreeable.
[facility]
Dr. Houser
Auth started for 01/06/2025; Ref# [id number]; Faxed to [phone]
--- NOTE | 2025-01-05 19:12 | PTCARENOTE ---
heparin gtt d/c eliquis dose to be given 1900. straight cathed for 500ml after bladderscan of greater than 400.
[2025-01-05] MEDS: ELIQUIS 5 MG PO (19:24)
[2025-01-05] MEDS: REMOVE NICOTINE PATCH 1 PATCH REMOVE (21:17)
[2025-01-05] MEDS: SENOKOT-S 1 TABLET PO (23:00)
[2025-01-05] MEDS: AYR SALINE NASAL GEL 1 APPLIC NASAL (23:35)
[2025-01-06] VITALS (7 sets, daily range): BP systolic 110–134; BP diastolic 56–77; PULSE 92; O2SAT 94; BMI 14.8
[2025-01-06 05:02] LABS: Hematocrit 26.0 % (37.0-47.0); Hemoglobin 8.2 g/dL (12.0-16.0); Mean Corp Hgb Conc. 31.5 g/dL (33.0-37.0); Mean Corpuscular Volume 89.0 fL (81.0-99.0); Nucleated Red Blood Cells % 0 %; Platelet Count 210 10^3/uL (130-400); Red Cell Dist. Width 13.3 % (11.5-14.5)
[2025-01-06 05:30] LABS: ALT (SGPT) < 10 U/L (0-35); AST (SGOT) 12 U/L (14-36); Albumin 3.0 g/dl (3.5-5.0); Alkaline Phosphatase 80 U/L (38-126); Blood Urea Nitrogen 9 mg/dl (7-17); Calcium 8.7 mg/dl (8.4-10.2); Carbon Dioxide 32 mmol/L (22-30); Chloride 98 mmol/L (98-107); Estimated Creatinine Clearance 60 ml/min; Glucose 78 mg/dl (70-99); Potassium 4.4 mmol/L (3.5-5.1); Sodium 133 mmol/L (135-145); Total Protein 5.5 g/dl (6.3-8.2); eGFR > 60.00
--- NOTE | 2025-01-06 07:58 | W.PN.HOSP.TC ---
Addendum entered and electronically signed by Izzy Reyes MD, Resident 01/06/25 12:50:
CDI:
Pt acute hypercapnic hypoxemic respiratory failure and RLL PNA met SIRs criteria was without end organ dysfunction. No longer active problems for pt.
Original Note:
Today's Communication/Plan
-
- Pending PM&R eval for [facility]; otherwise to SNF
- Continue straight cath
- Last day ceftriaxone today
- F/u outpatient with pulm, nutrition, neuro, +/- spine surg
- Increase pregabalin to 100mg tid today
- Continue eliquis
Assessment / Plan
Assessment / Plan
Eliana Lucas is a 59yo F with a pmh notable for secondary progressive MS, chronic back pain, & tobacco use who p/w acute worsening of back/bilateral LE pain, w episode c/f seizure in ED, found to have R-sided PNA & severe hyponatremia (improved),
on abx but with development of minimal responsiveness & hypoxia, intubated 12/31, extubated 01/02 with improving respiratory status & mental status, found to have L occipital CVA and L2 & T12 compression fractures, now stable for discharge.
#Pneumonia, likely 2/2 aspiration, resolved
#Sinusitis
CXR (12/26) demonstrating R basilar airspace opacity concerning for pneumonia. On admission, lactic acid elevated 3.6. Leukocytosis WBC 16.3 w R shift. Sat 93% on 2L NC. Afebrile. Lives w family, daughter has had sore throat for last few days, taking
dayquil. Only recent travel to [place] last week. No change to her chronic (smoker's) cough in last few days, no f/c. Pt did have new rhinorrhea in the last few days. Ddx includes CAP vs. aspiration PNA (suspected) given RLL location of
consolidation and reported hx of choking events. Urine antigen negative for legionella & strep pneumo. Blood cx negative. MRSA negative. On thin liquids w [id number] diet per video swallow study 12/29 ('No fluoroscopic evidence for airway aspiration').
CXR 12/29: 'parenchymal opacity within the right lower lung; mild blunting of the right lateral costophrenic angle compatible with a small right pleural effusion; peribronchial thickening in the left lower lung, suggesting bronchitis; patchy
parenchymal opacity within the medial left lower lung, increased from earlier radiograph.' Patient spiked fevers of 101.1-101.7 on 12/31, although WBC continued to decrease (wnl). S/p acetaminophen 12/31. CXR 01/01 am: 'large amount of opacity in the
right middle lobe, moderate airspace opacity in the inferior right upper lobe, and large amount of subpleural ground-glass opacity in the peripheral left midlung. SEVERE BILATERAL PNEUMONIA is considered most likely given the distribution of the
airspace opacities.' Sputum cx returned positive for serratia; MRSA swab negative.
CT chest (01/04): 'Small to moderate right pleural effusion predominantly layering posteriorly, though a loculated component is suggested. Fluid is noted extending into the major fissure. 1.7 cm pleural-based density in the posterior right
costophrenic angle corresponding to the MRI finding. Nonspecific. Uncertain if this represents a mass, or possible blood clot there has been recent trauma or other invasive interventional procedure. 1.9 cm mass in the right pericardiophrenic angle,
suspicious for adenopathy.'
This am, afebrile, WBC has remained wnl since 12/31.
- Continue ceftriaxione 5-day course (01/02-), last day today
- Duonebs, mucinex
- Pulm following, appreciate recs
- Plan for outpatient f/u and repeat CT chest in 4-6 weeks for eval of potential mass
- S/p vanc/zosyn (01/01-), s/p unasyn 1.5g q6hr 12/27-12/31; s/p vanc & zosyn 12/26-12/27)
#Acute hypercapnic hypoxemic respiratory failure, resolved
12/31 early am: not responding to verbal / tactile stimuli, hypoxic with Spo2 85 % on 4 L, and noted with slow breathing; transferred to ICU and intubated. Pt RR was ranging 16-18 in lead-up to decompensation on 12/31 early am, so unlikely 2/2
opioid-induced respiratory depression. Pt remained with WBC tending down to wnl on 12/31 on unasyn abx course for RLL PNA (likely aspiration), although intermittent fever 12/31 leaves PNA/sepsis on differential. Likely 2/2 combination of poor
ventilation in s/o progressive MS & PNA. Intubated 12/31, successfully extubated 01/02. Weaned to RA 01/04.
This am, satting 98% on RA.
- Continue to monitor
#L2 & T12 compression fractures
#Back pain, leg pain
MRI L & T spine (01/03): 'There is a severe compression fracture of the L2 vertebral body with associated 6 mm retropulsion of the fracture fragment superiorly and resultant severe canal stenosis. There are additional mild degenerative changes with
resultant mild bilateral neuroforaminal narrowing of L4-L5 and L5-S1.' 'There is a mild compression fracture of the T12 vertebral body with associated mild edema suggestive of acute fracture.' Likely in s/o severe protein calorie malnutrition &
fragility with recent falls at home, per . Limited independent ambulatory status at home ambulates on own to bathroom. Likely underlying osteoporosis. Vit G-48-obmiyfv low <12.8.
- Pain mgmt: oxycodone 5mg q6hr prn & tylenol prn ; 20% dilaudid pump output; increase pregabalin to 100mg tid today
- Continue holding sedating pain meds - oxycodone, gabapentin (holding since 12/30 pm)
- Dilaudid pump to be readjusted outpatient 01/[address] Woods at [facility]
- Start cholecalciferol 175mcg daily for 6 weeks, then recheck vit D
- Continue Ca carbonate supplement 500mg daily
- Continue famotidine (rather than PPI)
- Refer to outpt neurosurg on discharge for eval of L2 canal stenosis (per IR, no intervention from them)
- PT/OT consulted
- Consult PM&R today
#Posterior L occipital CVA
MRI (01/01): 'There is a 5.6 mm focus of restricted diffusion within the posterior left occipital lobe which may represent an infarction, less likely a demyelinating plaque. There is extensive periventricular and subcortical white matter T2/FLAIR
hyperintense signal which is likely related to known multiple sclerosis and likely chronic small vessel disease.' CTA head/neck (01/02): No areas of significant stenosis; unremarkable. TTE (12/28/24): 'Mild to moderate tricuspid regurgitation.' C/f
embolic etiology vs. ischemic from hypotensive/hypoxic episode. Without overt vision changes (denies blurriness, black portions of visual field; some limited peripheral vision).
- Convert heparin to eliquis
- Stop aspirin
- Per neuro, no triptans in the future
- Holding on plan for [facility], consider loop recorder outpatient
- Neuro following, appreciate recs
#Severe protein calorie malnutrition
Patient with BMI 14 and subacute decline in p.o. intake at home, per . Patient only intaking pieces of toast, occasional cheese sandwiches. Drinking lots of water. Per , patient previously failed trial of Ensure. Patient appears
malnourished. Per nutrition and neurology curbside, likely in setting of underlying secondary progressive MS. Patient lacking motivation to eat. At this time not considering appetite stimulant medications, as options like Remeron are also
sedating. Patient could be candidate for PEG tube depending on family goals of care.
Since 01/03, patient has been endorsing willingness to eat, improved appetite.
- Calorie counts
- Nutrition following, appreciate recs - plan for outpatient f/u with RD
#Hypotension, resolved
Patient BP ranging from 80s/40s to 120s/60s. On levophed in ICU since 12/31. Over 01/02-, off levophed with stable MAP.
- Continue to monitor
#AMS, resolved
CT head (12/26) without signs of ICH, mass effect, ventricular dilation; likely MS progression, given dx of secondary progressive MS. Unknown date of last MRI. On tecfidera 240mg as dz modifying therapy & dalfampridine for sx mgmt. Pt smokes. On
chronic oxycodone, gabapentin, pregabalin; also w baclofen pump, recently refilled - this pump contains dilaudid (dose pending, Dr. Woods at [facility]). Encephalopathic/AMS likely 2/2 hyponatremia +/- pain meds & underlying [employer] dz on admission. Patient
mental status had been improving to baseline when sodium levels had increased to 134. However, on morning of 12/30 patient was more tired/groggy. 12/30 night, patient narcotic medications were held. Patient unresponsive to noxious stimuli on 12/31
backing in machine tender. EEG at that time did not demonstrate any epileptiform activity. CT scan of the head did not demonstrate any intracranial hemorrhage or mass effect. Pt intubated 12/31, extubated 01/02. AMS was likely multifactorial but primarily
driven by progression of underlying secondary progressive MS, malnutrition, sedating pain medication use, poor respiratory effort, in combination w new CVA.
Over weekend, patient awake, alert, responsive and able to make needs known. Same today.
- NTD
#Hyponatremia, resolving
Na 112 on admission. Per , pt stopped eating full dinners in October; only eats a piece of toast & coffee, plus two cheese sandwiches daily. Does drink a fair amount of water. Not hypotensive on admission. Pt low weight, thin appearing.
Hyponatremia likely in s/o malnutrition, 'tea & toast' syndrome. Pt eating protein-deficient diet, limiting solute excretion. 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 Urine Na 35, urine osm order cancelled. Random cortisol
unremarkable. Pt with normal eGFR. No meds on home list are known to cause hyponatremia other than gabapentin/pregabalin. S/p hypertonic saline 12/26-12/27 w lasix. 12/29: Urine Cr 52.9, urine Na 109, urine osm 533. Hyponatremia w urine osm>100 supports
suspected SIADH. Likely an element of ongoing SIADH. Pt had PO solid intake 12/29-12/30. S/p lasix 12/30, 01/01, 01/02. Na peaked 134 on 12/29.
Today, Na 133.
- Monitor BMP
- Continue fluid restriction (48oz)
- Nephrology signed off
#DVT in RUE
R arm swelling 12/31. US (12/31) demonstrated: 'acute DVT within the upper arm. There is nonocclusive thrombus within the central subclavian and jugular veins and occlusive thrombus within the distal brachial vein within the upper arm. Occlusive
thrombus also appreciated within the cephalic vein and nonocclusive thrombus within the basilic vein.' Likely in s/o PICC line.
- Transition IV heparin to eliquis today
#Urinary retention
Pt last independent void on 12/27. Does not straight cath at home. RN has been doing straight cath since 12/28. On bladder scan 12/29, had 400 cc. Pt with bilat LE weakness at baseline & chronic neuropathic pain at baseline in s/o MS. per , patient
had began to complain of episodes of urge to urinate but inability to urinate over the past few weeks at home prior to admission, although she had been able to still urinate independently at times. Patient intubated/ventilated on 12/31 backing in machine tender,
now with Salas catheter in place. Worsening urinary retention likely a symptom of suspected progression of her underlying MS; neurology curbside agreed 12/31. Pt with salas catheter out by 01/04.
- Intermittent straight cath PRN
- Discussed family education re: straight cathing at home with RN
#Pulmonary congestion, resolved
CXR on 12/31 demonstrated increase of pulmonary congestion throughout bilateral lung quinones. Appearance not concerning for ARDS. Increased congestion potentially in the setting of increased PEEP due to intubation/ventilation backing in machine tender 12/31,
leading to increased preload and venous congestion. Patient is overall not volume overloaded; has received lasix per renal (12/30, , ). Congestion appears resolved s/p extubation, wean off of O2 NC.
- Pulm following, appreciate recs
#Seizure, one-time
No known hx of seizures. Event in ED on admission likely precipitated by severe hyponatremia. S/p 5mg midazolam in ED. No new events c/f seizure throughout admission. EEG (12/27) with moderate generalized cerebral dysfunction, no focal epileptiform
activity. EEG (12/31): There are Lateralized periodic discharges (LPDs) on this record, which can be associated with underlying cerebral injury and/or hyperexcitability.
- Seizure precautions
#Chronic
-Tobacco use - smokes ~5-10 cigarettes/day since 'forever' (likely 40 yrs), 20 pack-yrs; nicotine patch 14mg
-MS - home meds (tecfidera, baclofen via pump, dalfampridine), mgmt per above
#Global
- DVT ppx: eliquis
- Diet: regular w thin liquids, fluid restriction
- Code: full
- Dispo: lives at home w , father, & son/daughter; ready for discharge to SNF today, pending acceptance; appreciate case mgmt recs
Anticipated Discharge: Within 24 hours
Subjective/Interval History
-
Date of Service: January 06, 2025
Patient was asleep in the room; seems to have fallen asleep while eating �had spoon in hand and empty yogurt in front of her. Also looked to have eaten her full tray of breakfast food. Was very easy to wake up and was then alert/conversant. Very
oriented to situation, fully conversant. Said her right leg pain is a 7 out of 10 and that her back is a 9 out of 10. Adding the pregabalin did help; however, still in pain. We discussed planning for discharge to rehab. Patient states that she
feels anxious about leaving, but is not quite sure why. Unable to pinpoint a specific cause of anxiety. Asking whether or not the rehab facility would be able to do straight catheterization, because she has not been able to empty her bladder
recently. States that the nurse straight cath'd her this morning. States that she has a relationship with [facility] and would prefer to go there, where she is familiar with the people. Says that her appetite has been very good for the past few
days. Denies any shortness of breath, pain. Understands the plan and that it may take a while for rehab placement to be established.
Objective Data
-
Labs:
Laboratory Results
01/06/25
04:32
WBC 7.2
Hgb 8.2 L
Hct 26.0 L
Plt Count 210
Sodium 133 L
Potassium 4.4
Chloride 98
Carbon Dioxide 32 H
BUN 9
Creatinine 0.4 L
Glucose 78
Calcium 8.7
Total Bilirubin 0.3
AST 12 L
ALT < 10
Alkaline Phosphatase 80
Vital Signs:
Vital Signs
Temp Pulse Resp BP Pulse Ox
98.2 F 82 18 134/77 98
01/06/25 03:09 01/06/25 03:09 01/06/25 03:09 01/06/25 03:09 01/06/25 03:09
I&O
01/05/25 01/06/25 01/07/25
06:59 06:59 06:59
Intake Total 1190 / 1190 1260 / 1260
Output Total 1775 / 1775 1000 / 1000
Balance -585 / -585 260 / 260
Review of Systems
-
History Source: Patient
Musculoskeletal: Reports Other (Pain in low back and right leg)
Physical Exam
-
General: Conversant, Appears Chronically Ill and Cachectic
HEENT: Normocephalic, Atraumatic and Anicteric
Respiratory: Non Labored Respirations
Cardiac: Regular Rhythm
GI: Nondistended
Musculoskeletal: No Edema
Skin: Warm and Dry
Neuro: Awake, Alert and Oriented
Psych: Calm
Data Reviewed
-
Total Time Spent with Patient (in minutes): 15
Critical Care Time (in minutes): 35
CT Scan: Image personally visualized and interpreted and Report Reviewed by me
Labs: Labs Reviewed by me
[2025-01-06] MEDS: ELIQUIS 5 MG PO ×2 (08:14→20:12)
[2025-01-06] MEDS: VITAMIN D3 (cholecalciferol) 125 MCG PO (08:14)
[2025-01-06] MEDS: OSCAL CAL 500 500 MG PO (08:14)
[2025-01-06] MEDS: VITAMIN D3 (cholecalciferol) 50 MCG PO (08:14)
[2025-01-06] MEDS: PEPCID 20 MG PO (08:14)
[2025-01-06] MEDS: LYRICA 50 MG PO (08:14)
[2025-01-06] MEDS: ROBITUSSIN 200 MG PO ×4 (08:14→22:06)
[2025-01-06] MEDS: NICODERM TRANSDERMAL 14 MG TRANSDERM (08:15)
[2025-01-06] MEDS: MIRALAX 17 GRAMS PO (08:16)
[2025-01-06] MEDS: NON-FORMULARY ITEM 240 MG PO ×2 (08:16→20:15)
[2025-01-06] MEDS: ROXICODONE 5 MG PO ×3 (08:23→18:38)
--- NOTE | 2025-01-06 09:27 | W.PN.PUL3 ---
Today's Communication / Plan
-
Remains stable on RA, no new respiratory complaints
PM&R eval for possible SNF placement, progressive weakness is an issue
We discussed OP FU again today, she was in agreement
Discharge planning otherwise per team pending PT eval
No further recs. We will sign off at this time, please call with questions
Assessment
-
59-year-old smoking chronically ill-appearing cachectic female with MS, baclofen pump, chronic back pain admitted with periorbital and pedal edema, hyponatremia, seizure, and pneumonia-pediatric nephrologist consulted for pneumonia, seizure, severe
hyponatremia and critical care management 12/26/2024.
Impression:
Community-acquired pneumonia involving RLL/RML-increased aspiration risk with oral + pharyngeal dysphagia per video swallow exam on 12/29/2024
Severe hyponatremia-serum sodium 112 - now near normal at 134 as of 12/29/2024
Circulatory shock on vasopressors - resolved as of 12/28/2024
Tonic-clonic seizure - resolved
Acute CVA, detected on MRI 01/01/2025
?Pleural effusion on right side, await CT Chest
Hypercapnia-suspect chronic
Leukocytosis
Mild microcytic anemia
Lactic acidosis - resolved as of 12/26/2024
Hypoalbuminemia
Protein calorie malnutrition
UTI suspected (although negative UCx)
COPD suspected without acute exacerbation
Severe right maxillary and right ethmoid sinusitis
Conditions present prior to admission:
Chronic back pain.
Chronic opioid dependence.
Baclofen pump.
POTS.
Multiple sclerosis on Tecfidera.
Cigarette smoker.
Multiple bilateral pulmonary nodules incidentally noted measuring up to 1.[address] abdomen 03/2022-PET scan was recommended-never obtained
Protein calorie malnutrition.
Appendectomy. .
Plan
Overview 01/04: Patient saturating 94% on room air. MAP is normal, not requiring any pressors. Current infusions heparin drip.
Supplemental oxygen as needed-currently on room air breathing comfortably
Intubated mechanically ventilated if necessary-Dr. Lopez reviewed CODE STATUS with patient's 12/26/2024-for now would like full code including intubation, CPR, shocking if needed
Nebulizers as needed-currently not bronchospastic
Aspiration precautions
CT chest obtained-reviewed w/ LLL consolidation associated with loculated pockets superiorly
This is likely too small to sample for culture
Complete abx and would need repeat imaging as OP for follow-up
She has nodules noted but could be due to fall, would need FU imaging as OP to decide on biopsy in 4-6 weeks
Cultures reviewed
Sputum culture-growing Serratia, continue antibiotics as ordered, ceftriaxone daily.
Urine for Legionella and streptococcal antigen-pending
MRSA screen-negative
Pneumonia and severe right maxillary + ethmoid air cell sinusitis noted
Given her presenting shock state, would favor 10-14-day course of antibiotics assuming she continues to clinically improve and remains afebrile for 48 hours prior to stopping antibiotics
Trend WBC and monitor temperature curve
Follow radiographically; ultimately she will need repeat CXR in 4-6 weeks to assess for resolution of her pneumonia
Follow serum sodium level closely
Nephrology evaluation ongoing-correspondence reviewed
Diuretics and potential use of Samsca per nephrology
TSH-normal 2.4
Random cortisol-36
Urine osmolarity - 533 (12/29/2024)
Urine sodium 35 --> 109 (12/29/2024)
Seizure precautions
Smoking cessation counseling ongoing
DVT prophylaxis-on Lovenox
Early nutrition with aspiration precautions
Bedside range of motion/early mobilization/eventual physical therapy/Occupational Therapy
Dr. Lopez reviewed with in the emergency room as well as emergency room physician and nursing 12/26/2024
Pulmonary nodule recommendation was seen from 04/19/2022-letter was written 05/14/2022 that a pulmonary nodule was seen on an image study done [facility] emergency room and PET scan was recommended-I do not see a PET scan or pulmonary
follow-up thereafter
Patient qualifies for yearly low-dose lung cancer screening CT-obtain CT chest and pulmonary follow-up after pneumonia clears
Outpatient pulmonary [id number], smoking cessation counseling, yearly low-dose lung cancer screening CT, etc.
Pulmonary service will continue to briefly follow along.
Diagnostic data:
Chest x-ray 10/23/2022-NAD
Chest x-ray 02/11/2024-NAD
Chest x-ray 12/26/2024-right basilar pneumonia
CT head 01/22/2024-moderate to severe white matter disease, mild bilateral parietal lobe volume loss,
CT head 12/26/2024-moderate bilateral volume loss with severe white matter disease probably demyelinating disease from multiple sclerosis which is increased since 01/2024, severe right maxillary and right ethmoid air cell sinusitis
CT abdomen and pelvis 04/19/2022-no acute fracture T12, severe biliary dilation without obstructing mass, prior cholecystectomy, hepatic hemangioma, severe constipation, multiple solid pulmonary nodules both lower lobes measuring up to 1.2 cm
Echocardiogram 02/11/2024-EF 60-65%, normal diastolic function, mild mitral regurgitation, PA systolic 20
Total time spent on this consultation/encounter __45__ minutes which includes review of history, physical exam, medications, laboratory data, personal review of imaging, extensive review of outpatient records, discussion with care team and
respiratory therapy.
Subjective Data
-
Date of Service:
Date of Service: January 06, 2025
Chief Complaint: Pulmonary Follow Up
Subjective:
No new complaints, stable on RA
Weakness noted
Objective Data
Data Reviewed
Vital Signs / I&O / Oxygen:
Vital Signs
Temp Pulse Resp BP Pulse Ox
97.6 F 79 16 110/60 89
01/06/25 07:40 01/06/25 07:40 01/06/25 07:40 01/06/25 07:40 01/06/25 07:40
Intake and Output
01/05/25 01/06/25 01/07/25
06:59 06:59 06:59
Intake Total 1190 / 1190 1260 / 1260
Output Total 1775 / 1775 1000 / 1000
Balance -585 / -585 260 / 260
SaO2 [CPAP/PSV] 96
SaO2 [A/C] 97
SaO2 89
Nasal Cannula flow liters per 2
minute
Physical Exam
General: Respiratory Distress (negative), Comfortable, Chills (negative), Sweats (negative) and Other (chronically ill-appearing/deconditioned/thin)
HEENT: Normocephalic and Anicteric
Cardiovascular: S1-S2, Regular Rhythm and Peripheral Edema (negative)
Respiratory: Wheeze (negative), Crackles (bilateral), Non-Labored Respirations and Stridor (negative)
GI: Soft, Non Distended, Non Tender and Normal Bowel Sounds
Neurology: Awake, Alert, Oriented, Tremors (negative) and Other (weakness noted overall)
Skin: Warm, Dry, Cyanosis (negative) and Jaundice (negative)
Labs/Micro/Reports
Lab Data
01/06/25 04:32
01/06/25 04:32
Laboratory Results
01/05/25 01/05/25 01/05/25
:32 16:06 22:06
APTT 35.9 H 82.2 H Cancelled
--- NOTE | 2025-01-06 11:32 | CM ---
Reviewed the chart notes. Received call from [facility]. PT/OT notes were cut off from faxed clinicals. Re-faxed the PT/OT notes. PMR consult now placed for the patient. CM continues to be available to patient/family and is monitoring
medical plan for needs at discharge.
Plan: Discharge plans are now [facility] vs [facility]. Auth started for [facility].
[2025-01-06] MEDS: LYRICA 100 MG PO ×3 (12:17→22:06)
--- NOTE | 2025-01-06 12:23 | PN.CDI ---
CDI
- -
CDI:
Physician Documentation Request
Admit Date: 12/26/24 12:40
Dear Doctor Amy,
Patient admitted with aspiration pneumonia.
12/30 hospitalist progress note states 'SIRs criteria was without end organ dysfunction'
01/01, 01/04,01/05/ and 01/06 hospitalist progress notes states 'Pt remained with WBC tending down to wnl on 12/31 on unasyn abx course for RLL PNA (likely aspiration), although intermittent fever 12/31 leaves PNA/sepsis on differential.'
After careful study, please clarify the following most accurately describes the status of the patient's infection:
Sepsis
SIRS without organ dysfunction
Other
Use of terms such as suspected, likely, concern for, or probable (associated with a specific diagnosis that is being evaluated, monitored, or treated as if it exists) are acceptable and can be coded in the inpatient setting, when documented at the
time of discharge.
Thank you,
Sirisha Cueto RN BSN
CDI Specialist
tiger text
Please use your independent medical judgment in providing your response.
--- NOTE | 2025-01-06 12:31 | CON.MR ---
Documented by User: Jann Roe MD, Resident 01/06/25 16:52
Consultation
Consultation Request
Date/Time Consultation Requested: 01/06/2025
Date/Time Consultation Performed: 01/06/2025
Requesting Provider: Izzy Gunn
Performing Provider: Dr. Ellsworth
Reason for Consultation: Rehab eval
Medical History
-
Chief Complaint: AMS/CVA
History of Present Illness:
Ms. 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
bilateral leg pain in the s/o chronic decline in appetite, multiple falls at home, and subacute swelling of bilateral feet. Patient at baseline spends much time in wheelchair and in bed but is able to ambulate to the bathroom on her own; 12/26 morning
patient had extreme tenderness to touch on low back and hips and bilateral legs. States she was screaming in pain with being touched and with moving. She also has a baclofen/Dilaudid pump which was recently refilled. Over the last 1 to 2 days prior
to presentation she has had a few fall. No loss of consciousness, no trauma to the head. Just has bruising/scabs on right arm from falls. notes that since October there has been a decline in the patient's overall appetite. She has stopped
eating dinner with the family and just use in her room. All she eats every day is a piece of toast and coffee in the breakfast, followed by 2 grilled cheese sandwiches throughout the rest of the day. He endorses good p.o. water intake, she drinks
a lot of water each day.
In the ED, patient experienced possible seizure. describes episode of torso tensing up shaking/twitching of arms/face, grimace. Patient was given midazolam. AVSS on admission. Notable labs on admission: Leukocytosis (WBC 16.3) with right
shift, hyponatremia (Na 112), lactic acid 3.6, chloride 82, bicarb 21, albumin 3.1. Chest x-ray in ED demonstrated right basilar opacity concerning for pneumonia. Head CT in ED demonstrated moderate bilateral volume loss and severe white matter
disease in both parietal lobes, mild white matter disease in the frontal lobes, severe sinusitis and right maxillary and right ethmoid air cells. Nephrology and pulm were consulted, patient given 3% saline and vancomycin/Zosyn. Patient admitted to
ICU with pressor requirements for sepsis hyponatremia seizures. EEG (12/27) with moderate generalized cerebral dysfunction, no focal epileptiform activity. On 12/29 patient was downgraded to telemetry as sodium continue to improve and there were no more
seizures. Hyponatremia was thought to be due to pain medications suspecting SIADH versus polydipsia with tea and toast diet, patient was placed on fluid restriction and nephrology started diuresis. On 12/31 patient was unresponsive to verbal
tactile stimuli and desatting she was transferred to ICU and intubated and put on pressors for hypotension. Patient's ABG showed hypoxemia and hypercapnia. Peripheral ultrasound showed Nonocclusive thrombus within the central subclavian and jugular
veins and occlusive thrombus of the R brachial vein. Repeat EEG at that time did not demonstrate any epileptiform activity. CT scan of the head did not demonstrate any intracranial hemorrhage or mass effect. Brain MRI (01/01/2025) showed moderate
atrophy, acute infarct within the posterior left occipital lobe with neurology thinking an embolic source although TAWANNA unremarkable. On 01/02 patient was extubated and had improved mental status. MRI L and T-spine showed severe compression of L2
with a 6 mm retropulsion with mild compression fracture of the T12 vertebral body likely acute, IR considering outpatient kyphoplasty. Neurology okay to discontinue levetiracetam at discharge, no statin as LDL less than 70, patient to continue
Eliquis.
Past Medical History
Past Medical History: Other (Secondary progressive MS, POTS, chronic back pain, cervical myelopathy)
Procedure History:
Baclofen pump
Family History
Family History: Reviewed & Not Pertinent
Social History
Functional Level Premorbidity:
Assisted for all activities
Uses wheelchair
Patient spends most time in wheelchair and in bed but is able to ambulate to bathroom on own
assist with transfers out of bed
Current Funct Level: Ambulation, Transfer, UE/LE Dressing:
Bed mobility: Max assist
Transfers: Not assessed due to safety
Ambulation: Not assessed due to safety, does not perform
ADL status: Eating min a, toileting dependent
Tobacco: Smoker (Half a pack a day)
Alcohol: None
Drug: None
Personal:
Living: With Family
Is 24 hour care available: Yes
Number of Floors: 2
# Steps to Enter: 4
# Steps to Second Floor: 12
Potential First Floor Set Up: No
Driving: No
Employment: Not Employed
Allergies / Home Medications
Allergy/AdvReac Type Severity Reaction Status Date / Time
carbamazepine (From Tegretol) Allergy Unknown Verified 12/26/24 09:44
fentanyl Allergy PATCH Verified 12/31/24 18:45
fingolimod (From Gilenya) Allergy Unknown Verified 12/26/24 09:44
morphine Allergy Unknown Verified 12/26/24 09:44
natalizumab (From Tysabri) Allergy Unknown Verified 12/26/24 09:44
topiramate (From Topamax) Allergy Unknown Verified 12/26/24 09:44
�Medication �Instructions �Recorded �Confirmed �Last Taken �Type
dalfampridine 10 mg 10 mg PO Q12H Multiple Sclerosis 02/07/24 12/26/24 Unknown History
tablet,extended release,12 hr
gabapentin 400 mg capsule 800 mg PO QID Neurological 02/07/24 12/26/24 Unknown History
Condition
oxycodone 20 mg tablet,crush 20 mg PO Q8H Pain 02/07/24 12/26/24 Unknown History
resistant,extended release 12 hr
(OxyContin)
oxycodone 30 mg tablet 30 mg PO Q4HPRN PRN severe pain 02/07/24 12/26/24 Unknown History
pregabalin 100 mg capsule 100 mg PO TID Neurological 02/07/24 12/26/24 Unknown History
Condition
dimethyl fumarate 240 mg 240 mg PO BID Multiple Sclerosis 12/26/24 12/26/24 Unknown History
capsule,delayed release (Tecfidera)
sumatriptan succinate 100 mg 0 mg PO .COMPLEX Headache 12/26/24 12/26/24 Unknown History
tablet (Imitrex)
Baclofen/Hydromorphone Pump See Rx Instructions .Route .COMPLEX 12/28/24 12/28/24 12/28/24 History
fluticasone propionate 50 1 spray intranasal BID Allergies 12/28/24 12/28/24 Unknown History
mcg/actuation nasal
spray,suspension
loratadine 10 mg tablet (Claritin) 10 mg PO DAILY PRN allergies 12/28/24 12/28/24 Unknown History
Review Of Systems
-
History Source: Patient
Constitutional: Reports Weight Loss; Denies Fever
Eye: Reports No Symptoms; Denies Blurry Vision or Visual Field Cut
EENT: Reports No Symptoms; Denies Sore Throat or Runny Nose
Respiratory: Reports No Symptoms; Denies Cough or Trouble Breathing
Cardiac: Reports No Symptoms; Denies Chest Pain or Palpitations
Abdomen/GI: Reports Constipated; Denies Abdominal Pain, Nausea, Vomiting or Diarrhea
: Reports No Symptoms; Denies Dysuria
Musculoskeletal: Reports Joint Pain (back pain radiating into R)
Integumentary: Reports No Symptoms
Neurological: Reports Dizzy and Weakness; Denies Headache
Physical Exam
Active Medications
Generic Name Dose Route Start Last Admin
Trade Name Freq PRN Reason Stop Dose Admin
Acetaminophen 650 mg 01/06/25 08:02
Acetaminophen (Oral Solution) 650 Mg/20.3 Ml Cup PO 01/28/25 12:35
Q4HPRN PRN
Temperature >100.4/mild pain
Albuterol/Ipratropium 3 ml 12/27/24 11:01
Ipratropium 0.5/Albuterol 3 Mg (3 Ml Ampul) INH
R Q4HPRN PRN
Wheeze
Protocol
Apixaban 5 mg 01/05/25 20:00 01/06/25 08:14
Apixaban (Eliquis) 5 Mg Tablet PO 02/02/25 19:59 5 mg
BID TROY Administration
Bisacodyl 10 mg 12/26/24 14:42 01/05/25 15:19
Bisacodyl 10 Mg Rectal Suppository RECTAL 01/23/25 14:41 10 mg
[id number] PRN Administration
constipation
Calcium Carbonate 500 mg 01/05/25 08:00 01/06/25 08:14
Calcium Carbonate 500 Mg Tablet PO 02/02/25 07:59 500 mg
DAILY TROY Administration
Ceftriaxone Sodium 1,000 mg 01/02/25 14:00 01/05/25 14:49
Ceftriaxone 1000 Mg / 10 Ml Vial IV 1,000 mg
Q24H TROY Administration
Cholecalciferol 125 mcg 01/05/25 08:00 01/06/25 08:14
Cholecalciferol (Vitamin D3) 125 Mcg Tablet (5,000 Units) PO 02/02/25 07:59 125 mcg
DAILY TROY Administration
Cholecalciferol 50 mcg 01/05/25 08:00 01/06/25 08:14
Cholecalciferol (Vitamin D3) 50 Mcg Tablet (2,000 Units) PO 02/02/25 07:59 50 mcg
DAILY TROY Administration
Device 0 each 12/28/24 16:00
Patient's Own Medication Pump- Baclofen And Hydromorphone SC 01/25/25 15:59
DIRECTED TROY
Dextrose 12.5 grams 12/27/24 22:17
Dextrose 50% (0.5 Grams/Ml) 50 Ml Syringe IV 01/24/25 22:16
[id number] PRN
hypoglycemia
Protocol
Famotidine 20 mg 01/04/25 08:00 01/06/25 08:14
Famotidine 20 Mg Tablet PO 02/01/25 07:59 20 mg
DAILY TROY Administration
Gabapentin 800 mg 12/26/24 18:00 12/31/24 12:00
Gabapentin 400 Mg Capsule PO 01/23/25 17:59 Not Given
On Hold: 12/31/24 11:47 QID TRYO
Glucagon 1 mg 12/27/24 22:17
Glucagon 1 Mg Vial IM 01/24/25 22:16
PRN PRN
hypoglycemia
Protocol
Guaifenesin 200 mg 01/05/25 09:38 01/06/25 12:17
Guaifenesin Oral Solution (200 Mg/10 Ml) Cup PO 01/07/25 08:01 200 mg
QID TROY Administration
Nicotine 14 mg 12/26/24 15:00 01/06/25 08:15
Nicotine 14 Mg Patch TRANSDERM 01/23/25 14:59 14 mg
DAILY TROY Administration
Dimethyl Fumarate [ 0 mg 12/27/24 13:00 01/06/25 08:16
Tecfidera] [address] PO 01/24/25 12:59 240 mg
Capsule Po Bid BID TROY Administration
Ondansetron HCl 4 mg 01/04/25 12:33 01/05/25 23:07
Ondansetron 4 Mg/2 Ml Vial IV 02/01/25 12:32 4 mg
Q6HPRN PRN Administration
NAUSEA/VOMITING
Oxycodone HCl 5 mg 01/03/25 09:21 01/06/25 12:17
Oxycodone 5 Mg Regular Release Tablet PO 01/17/25 09:20 5 mg
Q6HPRN PRN Administration
moderate to severe pain
Patch Removal 0 patch 12/28/24 22:00 01/05/25 21:17
Remove Nicotine Patch REMOVE 01/25/25 21:59 1 patch
HS TROY Administration
Polyethylene Glycol 17 grams 12/26/24 14:42 01/03/25 12:27
Polyethylene Glycol Powder 17 Grams Packet PO 01/23/25 14:41 17 grams
DAILYPRN PRN Administration
constipation
Polyethylene Glycol 17 grams 01/05/25 09:26 01/06/25 08:16
Polyethylene Glycol Powder 17 Grams Packet PO 01/29/25 07:59 17 grams
DAILY TROY Administration
Pregabalin 100 mg 01/06/25 12:00 01/06/25 12:17
Pregabalin 50 Mg Capsule PO 01/27/25 11:59 100 mg
TID TROY Administration
Senna/Docusate Sodium 1 tablet 12/26/24 14:42 01/05/25 23:00
Docusate W/Senna (Bree-Colace) Tablet PO 01/23/25 14:41 1 tablet
BIDPRN PRN Administration
constipation
Sodium Chloride 0 flush 12/27/24 12:00
Sodium Chloride 0.9% (Flush) Syringe IV 01/24/25 11:59
PER PROTOCOL TROY
Sodium Chloride 0 applic 12/27/24 12:20 01/05/25 23:35
[place] (Sodium Chloride/Aloe Vera) Nasal Gel 14.1 Gm Tube NASAL 01/24/25 12:19 1 applic
Q2HPRN PRN Administration
congestion
Sterile Water 10 ml 01/02/25 14:00 01/05/25 15:01
Sterile Water For Injection 10 Ml Vial IV 01/30/25 13:59 10 ml
Q24H TROY Administration
Vital Signs
Temp Pulse Resp BP Pulse Ox
98.0 F 81 18 129/73 90
01/06/25 11:49 01/06/25 11:49 01/06/25 11:49 01/06/25 11:49 01/06/25 11:49
Height 5 ft 3 in
Actual Weight 37.4 kg
Body Mass Index (BMI) 14.6
Physical Exam
Physical Exam:
General Appearance/Observation: cachectic individual in no apparent distress, somnolent
Pain/Comfort Assessment: radiating back pain RLE
Mood/Affect: Appropriate
Integumentary/Operative Site:
Pressure Ulcer: absent
Other Type of Wound:gonzalez wounds
Eyes: Conjunctiva/Lids: normal Pupils: pupils equal round and reactive to light and Accommodation
Ears/Nose/Throat: oral mucosa moist, throat clear. Lips/Teeth/Gums: normal
Neck: No muscle spasm or tenderness
Cardiovascular: Heart: regular rate rhythm, no murmur
Pulses: dorsalis pedis 2+ bilaterally
Respiratory: Respiratory Effort/Chest Expansion: normal Auscultation: Clear to auscultation bilaterally
Gastrointestinal: abdomen not tender, no distension, minimal abdominal bowel sounds
Genitourinary: No Eckert
Rectal Exam: Deferred
Extremities: Edema: None Cyanosis: None Trophic changes:generalized muscle loss
Neurology Exam:
Orientation: Alert, Oriented to self, Time, Place
Memory: Intact immediately
Higher cortical function
Speech: Intact
Repetition: Intact
Comprehension: Intact
Two step command: Intact
Naming: Intact
Cranial Nerves:
CNII: Pupillary light reflex: Intact Visual Field: Intact
CN III, IV, : Extraocular muscles: Intact
CN V: Facial Sensation at Forehead: Intact , Maxilla: Intact, Mandible: Intact
CN VII: Facial movement: Symmetric
CN VIII: Hearing: Normal
CN IX/X: Speech & swallow: Normal, Position of Uvula: Midline
CN XI: Shoulder shrug: Symmetric
CN XII: Tongue protrusion: Midline
Sensory:
Light touch: Intact in bilateral upper and lower extremities
Reflexes:
Biceps: 0 bilaterally
Brachioradialis: 0 bilaterally
Triceps: 0 bilaterally
Patellar: 0 bilaterally
Achilles: 0 bilaterally
Babinski: Downgoing bilaterally
Clonus: None
Shaquille: Negative bilaterally
Cerebellar: Dysmetria/Ataxia: None
Musculoskeletal:
Motor: (Manual muscle scale 0-5)
Muscle SA EF WE EE FF FA HF KE DF EHL PF
Right 4 3 4 3 4 4 1 1 3 4 3
Left 4 3 4 3 4 4 1 1 3 4 3
Tone: Normal in all extremities
Range of Motion: Passively within normal limits in all extremities
Lab Results
01/06/25 04:32
01/06/25 04:32
WBC 7.2 10^3/uL (4.8-10.8) 01/06/25 04:32
Hgb 8.2 g/dL (12.0-16.0) L 01/06/25 04:32
Hct 26.0 % (37.0-47.0) L 01/06/25 04:32
MCV 89.0 fL (81.0-99.0) 01/06/25 04:32
Plt Count 210 10^3/uL (130-400) 01/06/25 04:32
PT 13.2 Sec (11.4-14.6) 12/27/24 05:47
INR 0.97 12/27/24 05:47
Sodium 133 mmol/L (135-145) L 01/06/25 04:32
Potassium 4.4 mmol/L (3.5-5.1) 01/06/25 04:32
Chloride 98 mmol/L (98-107) 01/06/25 04:32
Carbon Dioxide 32 mmol/L (22-30) H 01/06/25 04:32
BUN 9 mg/dl (7-17) 01/06/25 04:32
Creatinine 0.4 mg/dL (0.6-1.0) L 01/06/25 04:32
eGFR > 60.00 01/06/25 04:32
Glucose 78 mg/dl (70-99) 01/06/25 04:32
Calcium 8.7 mg/dl (8.4-10.2) 01/06/25 04:32
Phosphorus 2.9 mg/dl (2.5-4.5) 01/04/25 04:16
Magnesium 2.0 mg/dl (1.6-2.3) 01/04/25 04:16
Total Bilirubin 0.3 mg/dl (0.2-1.3) 01/06/25 04:32
AST 12 U/L (14-36) L 01/06/25 04:32
ALT < 10 U/L (0-35) 01/06/25 04:32
Alkaline Phosphatase 80 U/L (38-126) 01/06/25 04:32
Total Protein 5.5 g/dl (6.3-8.2) L 01/06/25 04:32
Albumin 3.0 g/dl (3.5-5.0) L 01/06/25 04:32
Diagnostic Results
As per HPI.
Assessment / Plan
Plan
PM&R PT/OT to increase independence with ADLs, improve balance, coordination, endurance, strength, mobility, community reintegration, decreased burden of care on others and family education.
MS: Continue medications. Continue to monitor neurologic status.
Seizures: monitor seizures, seizure precautions
Vertebral fracture: Has new vertebral fracture on L2/ T12. Current pain seems related to acute on chronic back pain due to new fractures. No decreased light touch in lower extremities, lower extremity strength chronically diminished. Does not
appear to be a neurologic concern in the legs. Bowel and bladder continent
- Tramadol 50- 100 mg Q6H PRN
- Tylenol 1,000 mg a Q8H
- NSAIDs if no renal or stomach concerns
- Lidocaine patch
- Try ice to the area to help break up muscle spasm and decrease inflammation.
- No heavy lifting
- Continue physical therapy to help with core strengthening.
- DEXA scan with her primary care provider and consider bisphosphonate if warranted with PCP or endocrinology.
- There are other options if goes from an acute to a chronic pain state.
- Can consider Calcitonin in future.
- Vertebroplasty
- follow up outpatient with neurosurgery regarding fractures
Anemia: Likely multifactorial. Continue to monitor.
Skin: monitor for pressure sores/rashes/lesions.
Pain: acetaminophen or oxycodone as needed.
Bowel: Colace and Senna, PRN bisacodyl.
Bladder: Time void, PVRs, PRN straight cath.
Tobacco Abuse: Smoking cessation counseling.
GI Prophylaxis: Pantoprazole
DVT Prophylaxis: eliquis
Pulmonary: Incentive spirometry
Safety: Continue to reinforce assistance with all transfers.
Code Status: Full code
Dispo: Acute rehab patient will benefit from PT/OT to increase independence with ADLs, improve balance, coordination, endurance, strength, mobility, community reintegration, decreased burden of care on others and family education.
Functional and Medical Goals: Modified Independent with ADL�s, ambulation, transfers
Summary
-
Things that must be addressed in Hospital prior to discharge:
Patient must be stable on oral pain medications.
Blood pressure must be less than 180 systolic and 100 diastolic for 24 hours before being stable for transfer to SNF/acute rehab.
Please give blood pressure parameters.
Please comment on ROM, bracing and weight bearing precautions.
Discharge Destination: Acute rehab patient will benefit from PT/OT to increase independence with ADLs, improve balance, coordination, endurance, strength, mobility, community reintegration, decreased burden of care on others and family education.
Summary of recommendations:
- Discharge Destination: Acute rehab patient will benefit from PT/OT to increase independence with ADLs, improve balance, coordination, endurance, strength, mobility, community reintegration, decreased burden of care on others and family education.
Will sign off, please re-consult if needed.
Thank you for allowing me to care for your patient. Please contact me with any questions or concerns.
Comments
-
This note was dictated using a voice recognition system. Please excuse any typographical errors from delivery analyst. If you believe there are any discrepancies, please notify our office.

Documented by User: Pito Ellsworth MD 01/06/25 22:32
Medical History
-
History of Present Illness:
Ms. 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
bilateral leg pain in the s/o chronic decline in appetite, multiple falls at home, and subacute swelling of bilateral feet. Patient at baseline spends much time in wheelchair and in bed but is able to ambulate to the bathroom on her own; 12/26 morning
patient had extreme tenderness to touch on low back and hips and bilateral legs. States she was screaming in pain with being touched and with moving. She also has a baclofen pump which was recently refilled. Over the last 1 to 2 days prior to
presentation she has had a few fall. No loss of consciousness, no trauma to the head. Just has bruising/scabs on right arm from falls. notes that since October there has been a decline in the patient's overall appetite. She has stopped
eating dinner with the family and just use in her room. All she eats every day is a piece of toast and coffee in the breakfast, followed by 2 grilled cheese sandwiches throughout the rest of the day. He endorses good p.o. water intake, she drinks
a lot of water each day.
In the ED, patient experienced possible seizure. describes episode of torso tensing up shaking/twitching of arms/face, grimace. Patient was given midazolam. AVSS on admission. Notable labs on admission: Leukocytosis (WBC 16.3) with right
shift, hyponatremia (Na 112), lactic acid 3.6, chloride 82, bicarb 21, albumin 3.1. Chest x-ray in ED demonstrated right basilar opacity concerning for pneumonia. Head CT in ED demonstrated moderate bilateral volume loss and severe white matter
disease in both parietal lobes, mild white matter disease in the frontal lobes, severe sinusitis and right maxillary and right ethmoid air cells. Nephrology and pulm were consulted, patient given 3% saline and vancomycin/Zosyn. Patient admitted to
ICU with pressor requirements for sepsis hyponatremia seizures. EEG (12/27) with moderate generalized cerebral dysfunction, no focal epileptiform activity. On 12/29 patient was downgraded to telemetry as sodium continue to improve and there were no more
seizures. Hyponatremia was thought to be due to pain medications suspecting SIADH versus polydipsia with tea and toast diet, patient was placed on fluid restriction and nephrology started diuresis. On 12/31 patient was unresponsive to verbal
tactile stimuli and desatting she was transferred to ICU and intubated and put on pressors for hypotension. Patient's ABG showed hypoxemia and hypercapnia. Peripheral ultrasound showed Nonocclusive thrombus within the central subclavian and jugular
veins and occlusive thrombus of the R brachial vein. Repeat EEG at that time did not demonstrate any epileptiform activity. CT scan of the head did not demonstrate any intracranial hemorrhage or mass effect. Brain MRI (01/01/2025) showed moderate
atrophy, acute infarct within the posterior left occipital lobe with neurology thinking an embolic source although TAWANNA unremarkable. On 01/02 patient was extubated and had improved mental status. MRI L and T-spine showed severe compression of L2
with a 6 mm retropulsion with mild compression fracture of the T12 vertebral body likely acute, IR considering outpatient kyphoplasty. Neurology okay to discontinue levetiracetam at discharge, no statin as LDL less than 70, patient to continue
Eliquis.
Physical Exam
Physical Exam
Physical Exam:
General Appearance/Observation: cachectic appearing female in no apparent distress
Pain/Comfort Assessment: radiating back pain RLE
Mood/Affect: Appropriate
Integumentary/Operative Site:
Pressure Ulcer: absent
Other Type of Wound: gonzalez wounds with dressings
Eyes: Conjunctiva/Lids: normal Pupils: pupils equal round and reactive to light and Accommodation
Ears/Nose/Throat: oral mucosa moist, throat clear. Lips/Teeth/Gums: normal
Neck: No muscle spasm or tenderness
Cardiovascular: Heart: regular rate rhythm, no murmur
Pulses: dorsalis pedis 2+ bilaterally
Respiratory: Respiratory Effort/Chest Expansion: normal Auscultation: Clear to auscultation bilaterally
Gastrointestinal: abdomen not tender, no distension, minimal abdominal bowel sounds
Genitourinary: No Eckert
Rectal Exam: Deferred
Extremities: Edema: None Cyanosis: None Trophic changes:generalized muscle loss
Neurology Exam:
Orientation: Alert, Oriented to self, Time, Place
Memory: Intact immediately
Comprehension: Intact
Two step command: Intact
Cranial Nerves:
CNII: Pupillary light reflex: Intact Visual Field: Intact
CN III, IV, : Extraocular muscles: Intact
CN V: Facial Sensation at Forehead: Intact , Maxilla: Intact, Mandible: Intact
CN VII: Facial movement: Symmetric
CN VIII: Hearing: Normal
CN IX/X: Speech & swallow: Normal, Position of Uvula: Midline
CN XI: Shoulder shrug: Symmetric
CN XII: Tongue protrusion: Midline
Sensory:
Light touch: Intact in bilateral upper and lower extremities
Reflexes:
Biceps: 2 bilaterally
Brachioradialis: 2 bilaterally
Triceps: 2 bilaterally
Patellar: 2 bilaterally
Achilles: 0 bilaterally
Babinski: Downgoing bilaterally
Clonus: None
Shaquille: Negative bilaterally
Cerebellar: Dysmetria/Ataxia: None
Musculoskeletal: Motor: (Manual muscle scale 0-5)
Muscle SA EF WE EE FF FA HF KE DF EHL PF
Right 3 3 4 3 4 3 1 1 3 3 3
Left 3 3 4 3 3 3 1 1 3 3 3
Tone: Normal in all extremities
Range of Motion: Passively within normal limits in all extremities
Assessment / Plan
Assessment
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
multiple falls at home, and subacute swelling of bilateral feet with hyponatremia (Na 112), pneumonia, sepsis, hyponatremia seizures, VDRF requiring intubation, Nonocclusive thrombus within the central subclavian and jugular veins and occlusive
thrombus of the R brachial vein, acute infarct within the posterior left occipital lobe with neurology thinking an embolic source, severe compression of L2 with a 6 mm retropulsion with mild compression fracture of the T12 vertebral body likely
acute, IR considering outpatient kyphoplasty resulting in ADL and ambulatory dysfunction.
Plan
PM&R PT/OT to increase independence with ADLs, improve balance, coordination, endurance, strength, mobility, community reintegration, decreased burden of care on others and family education.
Left occipital lobe ischemic CVA: possible emobic source per neuro. On Eliquis
Nonocclusive thrombus within the central subclavian and jugular veins and occlusive thrombus of the R brachial vein: Eliquis
MS: Tecfidera. Continue to monitor neurologic status.
Spasticity: Has Baclofen pump
Seizures: felt to be related to hyponatremia, no further seizure meds needed per neuro
Hyponatremia:Continue fluid restriction (48oz), monitor
Pneumonia with Sepsis: Thought to be from aspiration, resolved per primary team.
Sinusitis: Ceftriaxone completed 01/06
Vertebral fractures: Has new vertebral fracture on L2/ T12. Current pain seems related to acute on chronic back pain due to new fractures. Patient notes that current sensory and motor concerns are her baseline.
- Oxycodone 5 mg Q6H PRN
- Tylenol 1,000 mg a Q8H
- Lidocaine patch
- Try ice to the area to help break up muscle spasm and decrease inflammation.
- No heavy lifting
- Continue physical therapy to help with core strengthening.
- DEXA scan with her primary care provider and consider bisphosphonate if warranted with PCP or endocrinology.
- There are other options if goes from an acute to a chronic pain state.
- Outpatient neurosurgery eval for canal stenosis
- Can consider vertebroplasty or calcitonin in the future if needed.
Anemia: Likely multifactorial. Continue to monitor.
Protein calorie malnutrition: calorie counts by nutrition. Suggest supplements.
Skin: monitor for pressure sores/rashes/lesions.
Neuropathic Pain: Lyrica. Would not use gabapentin with Lyrica.
Bowel: Miralax and Senna, PRN bisacodyl.
Bladder: Urinary retention during stay, Time void, PVRs, PRN straight cath.
Tobacco Abuse: Smoking cessation counseling. Nicotine patch.
GI Prophylaxis: Pepcid
DVT Prophylaxis: mechanical and Eliquis
Pulmonary: Incentive spirometry
Safety: Continue to reinforce assistance with all transfers.
Code Status: Full code
Dispo: Acute rehab patient will benefit from PT/OT to increase independence with ADLs, improve balance, coordination, endurance, strength, mobility, community reintegration, decreased burden of care on others and family education.
Functional and Medical Goals: Modified Independent with basic ADL�s, transfers, wheelchair mobility. Return back to baseline level of assistance for stairs and IADLs
Attending Statement: I performed a history and examined the patient today.� I reviewed the care plan with therapy, nursing, and the resident.� I agree with the history and ROS above as modified.� The physical exam and plan documented reflects my
examination and plan.� �A total of 60 minutes were spent with the patient preparing for the evaluation, obtaining history, performing examination and evaluation, counseling, data review, case management, care coordination, ordering box operator, and EMR
documentation.
Summary
-
Summary of recommendations:
- Discharge Destination: Acute rehab patient will benefit from PT/OT to increase independence with ADLs, improve balance, coordination, endurance, strength, mobility, community reintegration, decreased burden of care on others and family education.
Vertebral fractures: Has new vertebral fracture on L2/ T12. Current pain seems related to acute on chronic back pain due to new fractures. Patient notes that current sensory and motor concerns are her baseline.
- Oxycodone 5 mg Q6H PRN
- Tylenol 1,000 mg a Q8H
- Lidocaine patch
- Try ice to the area to help break up muscle spasm and decrease inflammation.
- No heavy lifting
- Continue physical therapy to help with core strengthening.
- DEXA scan with her primary care provider and consider bisphosphonate if warranted with PCP or endocrinology.
- There are other options if goes from an acute to a chronic pain state.
- Outpatient neurosurgery eval for canal stenosis
- Can consider vertebroplasty or calcitonin in the future if needed.
Protein calorie malnutrition: calorie counts by nutrition. Suggest supplements.
Neuropathic Pain: Lyrica. Would not use gabapentin with Lyrica.
Bowel: Miralax and Senna, PRN bisacodyl.
Bladder: Urinary retention during stay, Time void, PVRs, PRN straight cath.
Will sign off, please re-consult if needed.
Thank you for allowing me to care for your patient. Please contact me with any questions or concerns.
[2025-01-06] MEDS: ROCEPHIN 1000 MG IV (13:47)
[2025-01-06] MEDS: STERILE WATER FOR INJECTION 10 ML IV (13:47)
[2025-01-06] MEDS: ZOFRAN 4 MG IV (15:40)
[2025-01-06] MEDS: SENOKOT-S 1 TABLET PO (17:37)
[2025-01-06] MEDS: REMOVE NICOTINE PATCH 1 PATCH REMOVE (22:06)
[2025-01-07] MEDS: ROXICODONE 5 MG PO ×3 (00:40→16:25)
[2025-01-07 03:40] VITALS: BP 118/62
[2025-01-07 06:43] LABS: Hematocrit 25.3 % (37.0-47.0); Hemoglobin 7.9 g/dL (12.0-16.0); Mean Corp Hgb Conc. 31.2 g/dL (33.0-37.0); Mean Corpuscular Volume 89.1 fL (81.0-99.0); Nucleated Red Blood Cells % 0 %; Platelet Count 233 10^3/uL (130-400); Red Cell Dist. Width 13.7 % (11.5-14.5)
[2025-01-07 07:00] VITALS: BP 107/53
[2025-01-07 07:06] LABS: ALT (SGPT) < 10 U/L (0-35); AST (SGOT) 12 U/L (14-36); Albumin 3.0 g/dl (3.5-5.0); Alkaline Phosphatase 81 U/L (38-126); Blood Urea Nitrogen 9 mg/dl (7-17); Calcium 9.2 mg/dl (8.4-10.2); Carbon Dioxide 35 mmol/L (22-30); Chloride 98 mmol/L (98-107); Estimated Creatinine Clearance 60 ml/min; Glucose 76 mg/dl (70-99); Potassium 4.9 mmol/L (3.5-5.1); Sodium 136 mmol/L (135-145); Total Protein 5.5 g/dl (6.3-8.2); eGFR > 60.00
--- NOTE | 2025-01-07 07:21 | W.PN.HOSP.TC ---
Today's Communication/Plan
-
- Awaiting discharge auth for [facility]
- Convert pregabalin to gabapentin
- Wean off O2 NC
Assessment / Plan
Assessment / Plan
Eliana Lucas is a 59yo F with a pmh notable for secondary progressive MS, chronic back pain, & tobacco use who p/w acute worsening of back/bilateral LE pain, w episode c/f seizure in ED, found to have R-sided PNA & severe hyponatremia (improved),
on abx but with development of minimal responsiveness & hypoxia, intubated 12/31, extubated 01/02 with improving respiratory status & mental status, found to have L occipital CVA and L2 & T12 compression fractures, now awaiting discharge to acute
rehab.
#Pneumonia, likely 2/2 aspiration, resolved
#Sinusitis
CXR (12/26) demonstrating R basilar airspace opacity concerning for pneumonia. On admission, lactic acid elevated 3.6. Leukocytosis WBC 16.3 w R shift. Sat 93% on 2L NC. Afebrile. Lives w family, daughter has had sore throat for last few days, taking
dayquil. Only recent travel to [place] last week. No change to her chronic (smoker's) cough in last few days, no f/c. Pt did have new rhinorrhea in the last few days. Ddx includes CAP vs. aspiration PNA (suspected) given RLL location of
consolidation and reported hx of choking events. Urine antigen negative for legionella & strep pneumo. Blood cx negative. MRSA negative. On thin liquids w [id number] diet per video swallow study 12/29 ('No fluoroscopic evidence for airway aspiration').
CXR 12/29: 'parenchymal opacity within the right lower lung; mild blunting of the right lateral costophrenic angle compatible with a small right pleural effusion; peribronchial thickening in the left lower lung, suggesting bronchitis; patchy
parenchymal opacity within the medial left lower lung, increased from earlier radiograph.' Patient spiked fevers of 101.1-101.7 on 12/31, although WBC continued to decrease (wnl). S/p acetaminophen 12/31. CXR 01/01 am: 'large amount of opacity in the
right middle lobe, moderate airspace opacity in the inferior right upper lobe, and large amount of subpleural ground-glass opacity in the peripheral left midlung. SEVERE BILATERAL PNEUMONIA is considered most likely given the distribution of the
airspace opacities.' Sputum cx returned positive for serratia; MRSA swab negative.
CT chest (01/04): 'Small to moderate right pleural effusion predominantly layering posteriorly, though a loculated component is suggested. Fluid is noted extending into the major fissure. 1.7 cm pleural-based density in the posterior right
costophrenic angle corresponding to the MRI finding. Nonspecific. Uncertain if this represents a mass, or possible blood clot there has been recent trauma or other invasive interventional procedure. 1.9 cm mass in the right pericardiophrenic angle,
suspicious for adenopathy.'
This am, afebrile, WBC has remained wnl since 12/31. S/p 5-day course of ceftriaxone (01/02-). S/p vanc/zosyn (01/01-), s/p unasyn 1.5g q6hr 12/27-12/31; s/p vanc & zosyn 12/26-12/27). Decrease in O2 to 88-89% likely 2/2 discomfort/disruption from
straight cath & nausea, also likely underlying COPD w smoking hx. Pt appears comfortable.
- Duonebs, mucinex
- Pulm signed off
- Wean off O2 NC today
- Plan for outpatient f/u and repeat CT chest in 4-6 weeks for eval of potential mass
#Acute hypercapnic hypoxemic respiratory failure, resolved
12/31 early am: not responding to verbal / tactile stimuli, hypoxic with Spo2 85 % on 4 L, and noted with slow breathing; transferred to ICU and intubated. Pt RR was ranging 16-18 in lead-up to decompensation on 12/31 early am, so unlikely 2/2
opioid-induced respiratory depression. Pt remained with WBC tending down to wnl on 12/31 on unasyn abx course for RLL PNA (likely aspiration), although intermittent fever 12/31 leaves PNA/sepsis on differential. Likely 2/2 combination of poor
ventilation in s/o progressive MS & PNA. Intubated 12/31, successfully extubated 01/02. Weaned to RA 01/04.
This am, satting 98% on RA.
- Continue to monitor
#L2 & T12 compression fractures
#Back pain, leg pain
MRI L & T spine (01/03): 'There is a severe compression fracture of the L2 vertebral body with associated 6 mm retropulsion of the fracture fragment superiorly and resultant severe canal stenosis. There are additional mild degenerative changes with
resultant mild bilateral neuroforaminal narrowing of L4-L5 and L5-S1.' 'There is a mild compression fracture of the T12 vertebral body with associated mild edema suggestive of acute fracture.' Likely in s/o severe protein calorie malnutrition &
fragility with recent falls at home, per . Limited independent ambulatory status at home ambulates on own to bathroom. Likely underlying osteoporosis. Vit [id number] low <12.8.
- Pain mgmt: oxycodone 5mg q6hr prn & tylenol prn ; 20% dilaudid pump output; convert pregabalin to gabapentin 100mg tid
- Continue holding sedating pain meds - oxycodone, gabapentin (holding since 12/30 pm)
- Dilaudid pump to be readjusted outpatient 01/[address] Woods at [facility]
- Start cholecalciferol 175mcg daily for 6 weeks, then recheck vit D
- Continue Ca carbonate supplement 500mg daily
- Continue famotidine (rather than PPI)
- Refer to outpt neurosurg on discharge for eval of L2 canal stenosis (per IR, no intervention from them)
- PT/OT and PM&R following
#Hallucinations
Envisioning 'bugs' on ceiling, black dots on johnston. Likely 2/2 hospital-induced delirium rather than pregabalin (on home dose). Also likely contribution of visual disturbance from recent L occipital lobe stroke w Jared Bonnet syndrome type
picture. Pt otherwise lucid, clear thinking patterns.
- Continue to monitor
#Posterior L occipital CVA
MRI (01/01): 'There is a 5.6 mm focus of restricted diffusion within the posterior left occipital lobe which may represent an infarction, less likely a demyelinating plaque. There is extensive periventricular and subcortical white matter T2/FLAIR
hyperintense signal which is likely related to known multiple sclerosis and likely chronic small vessel disease.' CTA head/neck (01/02): No areas of significant stenosis; unremarkable. TTE (12/28/24): 'Mild to moderate tricuspid regurgitation.' C/f
embolic etiology vs. ischemic from hypotensive/hypoxic episode. Without overt vision changes (denies blurriness, black portions of visual field; some limited peripheral vision).
- Eliquis
- Per neuro, no triptans in the future
- Neuro signed off
#Urinary retention
Pt last independent void on 12/27. Does not straight cath at home. RN has been doing straight cath since 12/28. On bladder scan 12/29, had 400 cc. Pt with bilat LE weakness at baseline & chronic neuropathic pain at baseline in s/o MS. per , patient
had began to complain of episodes of urge to urinate but inability to urinate over the past few weeks at home prior to admission, although she had been able to still urinate independently at times. Patient intubated/ventilated on 12/31 ankle patch molder,
now with Salas catheter in place. Worsening urinary retention likely a symptom of suspected progression of her underlying MS; neurology curbside agreed 12/31. Pt with salas catheter out by 01/04.
Today: requiring straight cath
- Intermittent straight cath PRN
- Will need chronic straight cath long-term
- Discussed family education re: straight cathing at home with RN
#Severe protein calorie malnutrition
Patient with BMI 14 and subacute decline in p.o. intake at home, per . Patient only intaking pieces of toast, occasional cheese sandwiches. Drinking lots of water. Per , patient previously failed trial of Ensure. Patient appears
malnourished. Per nutrition and neurology curbside, likely in setting of underlying secondary progressive MS. Patient lacking motivation to eat. At this time not considering appetite stimulant medications, as options like Remeron are also
sedating. Patient could be candidate for PEG tube depending on family goals of care.
Since 01/03, patient has been endorsing willingness to eat, improved appetite.
- Calorie counts
- Nutrition following, appreciate recs - plan for outpatient f/u with RD
#Hypotension, resolved
Patient BP ranging from 80s/40s to 120s/60s. On levophed in ICU since 12/31. Over 01/02-, off levophed with stable MAP.
- Continue to monitor
#AMS, resolved
CT head (12/26) without signs of ICH, mass effect, ventricular dilation; likely MS progression, given dx of secondary progressive MS. Unknown date of last MRI. On tecfidera 240mg as dz modifying therapy & dalfampridine for sx mgmt. Pt smokes. On
chronic oxycodone, gabapentin, pregabalin; also w baclofen pump, recently refilled - this pump contains dilaudid (dose pending, Dr. Woods at [facility]). Encephalopathic/AMS likely 2/2 hyponatremia +/- pain meds & underlying [employer] dz on admission. Patient
mental status had been improving to baseline when sodium levels had increased to 134. However, on morning of 12/30 patient was more tired/groggy. 12/30 night, patient narcotic medications were held. Patient unresponsive to noxious stimuli on 12/31
ankle patch molder. EEG at that time did not demonstrate any epileptiform activity. CT scan of the head did not demonstrate any intracranial hemorrhage or mass effect. Pt intubated 12/31, extubated 01/02. AMS was likely multifactorial but primarily
driven by progression of underlying secondary progressive MS, malnutrition, sedating pain medication use, poor respiratory effort, in combination w new CVA.
Over weekend, patient awake, alert, responsive and able to make needs known. Same today.
- NTD
#Hyponatremia, resolving
Na 112 on admission. Per , pt stopped eating full dinners in October; only eats a piece of toast & coffee, plus two cheese sandwiches daily. Does drink a fair amount of water. Not hypotensive on admission. Pt low weight, thin appearing.
Hyponatremia likely in s/o malnutrition, 'tea & toast' syndrome. Pt eating protein-deficient diet, limiting solute excretion. 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 Urine Na 35, urine osm order cancelled. Random cortisol
unremarkable. Pt with normal eGFR. No meds on home list are known to cause hyponatremia other than gabapentin/pregabalin. S/p hypertonic saline 12/26-12/27 w lasix. 12/29: Urine Cr 52.9, urine Na 109, urine osm 533. Hyponatremia w urine osm>100 supports
suspected SIADH. Likely an element of ongoing SIADH. Pt had PO solid intake 12/29-12/30. S/p lasix 12/30, 01/01, 01/02. Na peaked 134 on 12/29.
Today, Na 133.
- Monitor BMP
- Continue fluid restriction (48oz)
- Nephrology signed off
#DVT in RUE
R arm swelling 12/31. US (12/31) demonstrated: 'acute DVT within the upper arm. There is nonocclusive thrombus within the central subclavian and jugular veins and occlusive thrombus within the distal brachial vein within the upper arm. Occlusive
thrombus also appreciated within the cephalic vein and nonocclusive thrombus within the basilic vein.' Likely in s/o PICC line.
- Eliquis
#Pulmonary congestion, resolved
CXR on 12/31 demonstrated increase of pulmonary congestion throughout bilateral lung quinones. Appearance not concerning for ARDS. Increased congestion potentially in the setting of increased PEEP due to intubation/ventilation ankle patch molder 12/31,
leading to increased preload and venous congestion. Patient is overall not volume overloaded; has received lasix per renal (12/30, , ). Congestion appears resolved s/p extubation, wean off of O2 NC.
- Pulm following, appreciate recs
#Seizure, one-time
No known hx of seizures. Event in ED on admission likely precipitated by severe hyponatremia. S/p 5mg midazolam in ED. No new events c/f seizure throughout admission. EEG (12/27) with moderate generalized cerebral dysfunction, no focal epileptiform
activity. EEG (12/31): There are Lateralized periodic discharges (LPDs) on this record, which can be associated with underlying cerebral injury and/or hyperexcitability.
- Seizure precautions
#Chronic
-Tobacco use - smokes ~5-10 cigarettes/day since 'forever' (likely 40 yrs), 20 pack-yrs; nicotine patch 14mg
-MS - home meds (tecfidera, baclofen via pump, dalfampridine), mgmt per above
#Global
- DVT ppx: eliquis
- Diet: regular w thin liquids, fluid restriction
- GI: schedule senna along w the miralax
- Code: full
- Dispo: lives at home w , father, & son/daughter; awaiting discharge to acute rehab
Anticipated Discharge: Within 24 hours
Subjective/Interval History
-
Date of Service: January 07, 2025
Patient with nausea this am. Saying she's feeling a bit weak. Says that her hip and leg pain is a bit worse than yesterday. Per RN, patient was hallucinating bugs on the ceiling earlier this am. Otherwise, no complaints. Per RN, stool has been a bit
hard. Still requiring straight cath.
Objective Data
-
Labs:
Laboratory Results
01/07/25
06:15
WBC 7.5
Hgb 7.9 L
Hct 25.3 L
Plt Count 233
Sodium 136
Potassium 4.9
Chloride 98
Carbon Dioxide 35 H
BUN 9
Creatinine 0.4 L
Glucose 76
Calcium 9.2
Total Bilirubin 0.3
AST 12 L
ALT < 10
Alkaline Phosphatase 81
Vital Signs:
Vital Signs
Temp Pulse Resp BP Pulse Ox
97.9 F 82 16 118/62 93
01/07/25 03:40 01/07/25 03:40 01/07/25 03:40 01/07/25 03:40 01/07/25 03:40
I&O
01/06/25 01/07/25 01/08/25
06:59 06:59 06:59
Intake Total 1260 / 1260 1080 / 1080 360 / 360
Output Total 1000 / 1000 1000 / 1000
Balance 260 / 260 80 / 80 360 / 360
Review of Systems
-
History Source: Patient
Abdomen/GI: Reports Nausea
Musculoskeletal: Reports Other (Pain in low back and right leg)
Physical Exam
-
General: Conversant, Appears Chronically Ill and Cachectic
HEENT: Normocephalic, Atraumatic and Anicteric
Respiratory: Non Labored Respirations
Cardiac: Regular Rhythm
GI: Nondistended
Musculoskeletal: No Edema
Skin: Warm and Dry
Neuro: Awake, Alert and Oriented
Psych: Calm
Data Reviewed
-
Total Time Spent with Patient (in minutes): 15
Critical Care Time (in minutes): 35
Labs: Labs Reviewed by me
[2025-01-07] MEDS: NICODERM TRANSDERMAL 14 MG TRANSDERM (09:11)
[2025-01-07] MEDS: ELIQUIS 5 MG PO (09:12)
[2025-01-07] MEDS: OSCAL CAL 500 500 MG PO (09:12)
[2025-01-07] MEDS: ROBITUSSIN 200 MG PO (09:12)
[2025-01-07] MEDS: MIRALAX 17 GRAMS PO (09:12)
[2025-01-07] MEDS: VITAMIN D3 (cholecalciferol) 125 MCG PO (09:12)
[2025-01-07] MEDS: NON-FORMULARY ITEM 240 MG PO (09:12)
[2025-01-07] MEDS: LYRICA 100 MG PO (09:12)
[2025-01-07] MEDS: PEPCID 20 MG PO (09:12)
[2025-01-07] MEDS: VITAMIN D3 (cholecalciferol) 50 MCG PO (09:12)
--- NOTE | 2025-01-07 10:54 | CM ---
Addendum entered by Airam Mayo 01/07/25 15:47:
Ambulance picking table worker scheduled for 1730. If transport is delayed and patient is not in the ambulance before 1800, transport will need to be rescheduled until the morning. Patient's nurse is aware of plan.
[facility] Supervisor spoke with patient's via phone. If transport is cancelled, patient's nurse was instructed to call .
Addendum entered by Airam Mayo 01/07/25 14:06:
ambulance transport requested
Addendum entered by Airam Mayo 01/07/25 13:46:
Plan: Discharge today to [facility] located at [address] [place] [address]
Report # [phone]

Addendum entered by Airam Mayo 01/07/25 13:41:
Authorization for [facility] approved starting today, 01/07 to 01/14
Update due 01/14/25; send clinicals via fax # [phone]
Authorization # [id number]
Original Note:
Received a call from Lydia at [facility] # [phone]; she reported that referral was accepted pending authorization approval.
LINDA spoke with patient's , Estuardo # [phone]; he is agreeable; his has been at this location before
New authorization was submitted; pending referral # [id number]
Clinicals faxed to # [phone]
Plan: Discharge to [facility] located at [address] [place] [address] pending authorization approval
[2025-01-07 15:13] VITALS: BP 125/76
[2025-01-07] MEDS: NEURONTIN 100 MG PO (16:25)
[2025-01-07] MEDS: DULCOLAX 10 MG RECTAL (16:25)
--- NOTE | 2025-01-07 17:04 | PTCARENOTE ---
pt bladderscanned for 700ml at 0700 this morning. straight cathed. pt with O2 sat less than 90. pt placed on 2L. MD made aware. pt received prn pain medications for whole body pain this shift. see MAR for proper documentation. when completing bed
bath RN noted +2 swelling to inner R thigh. US obtained, negative for DVT. MD made aware. O2 weaned off pt and she remains between 96-99%. preventative foams placed on bony prominences and pt bladder scanned for >400 this afternoon. straight cathed
for 1000ml. MD and resident made aware pt continually retaining. MD and resident noting could be progression of MS and no salas placement at this time.
--- NOTE | 2025-01-07 18:07 | W.DCSUMMARY ---
Documented by User: Izzy Reyes MD, Resident 01/07/25 19:09
Discharge Summary
Discharge Data
Date of Admission: 12/26/24
Date of Discharge: 01/07/25
Total time spent discharging patient (in min): 40
-
Pending Results: No
Hospital Course
Discharging Physician : Donaldo Khan; Izzy Reyes
Disposition : to acute rehab ([facility])
Primary care physician : Matthew Walls
Principal Discharge diagnosis : Severe hyponatremia; left occipital CVA; right upper extremity DVT; hypoxic hypercapnic respiratory failure; lumbar and thoracic compression fractures; protein calorie malnutrition; urinary retention; RLL pneumonia
Chronic Discharge diagnosis : Secondary progressive multiple sclerosis; tobacco use; chronic pain; sinusitis
Hospital Course :
Presentation: Patient presented to [place] ED on 12/26, brought from home by her due to severe leg and lower back pain at home. Per , patient had been screaming in pain with touching her legs/back and with minor movements earlier
that day. Patient has chronic pain at baseline, but is typically able to move herself from the bed to the wheelchair to the toilet and back. In the ED, she was found to have severe hyponatremia with Na of 112. Patient was started on 3% hypertonic
saline. WBC was elevated to 16.3 with right shift, lactic acid was 3.6. Patient was afebrile, normotensive. Satting 93% on 2L NC. CXR demonstrated right basilar lung opacity concerning for pneumonia. Patient was started on empiric vancomycin
and Zosyn. Shortly after arrival in the ED, patient had an episode that was witnessed by ED provider and concerning for seizure. Episode was described as torso tensing up/shaking/twitching of arms and face/grimacing. Patient had never had an
episode like this prior, and has no documented history of epilepsy. Patient was given 5 mg of midazolam, and EEG was negative. Per , patient's appetite had been diminishing over the past few weeks at home, and she had had a couple of falls
at home over the past couple of days prior to admission. Head CT in ED demonstrated no ICH; positive for severe sinusitis. Admitted from ED.
1. Severe hyponatremia
CVA neurology discontinued patient's sodium of 112 on admission was thought to be due to a combination of 'tea and toast diet' potomania and SIADH. reports that patient was only having a piece of toast with jam and a cheese sandwich during
the day, very little protein, very small amounts; however, she was drinking many bottles of water each day. Patient also with UNIVERSAL GRINDER TOOL disease (MS) and severe pain in back and legs -contributors to SIADH. Urine Cr 52.9, urine Na 109, urine osm 533.
Patient received hypertonic saline for 48 hours, in combination with Lasix. Her serum Na reached 134 by 12/29, and continued to range from 130�133 throughout the remainder of her admission. When she began p.o. intake, she was placed on 48 ounce
daily fluid restrictions, which were continued at discharge. Patient's mental status improved as her serum sodium improved; thought to have experienced acute metabolic encephalopathy. She had no more events concerning for seizure; thought to have
been triggered by severe hyponatremia. Will be important to optimize her PO solute intake, MS treatment, and pain mgmt in outpatient setting to avoid future event.
2. Pneumonia
CXR (12/26) demonstrated R basilar airspace opacity concerning for pneumonia. Denied any change to her chronic cough (active smoker) or f/c prior to admission, although noted that daughter had a sore throat for the last few days and that
patient had rhinorrhea. also noted that patient has episodes of choking at home. Urine antigen negative for legionella & strep pneumo. Blood cx negative. MRSA negative. Given history and right lower lobe location of pneumonia, presumed
aspiration pneumonia. Patient's empiric Vanco/Zosyn was transitioned to Unasyn on 12/27, which was continued for a 5�day course through 12/31. Patient evaluated periodically by speech therapy while inpatient to ensure diet appropriate for aspiration
risk.
On 12/31, patient spiked fevers of 101.1�101.7, although WBC had continued to decrease and was within normal limits. CXR on 01/01 demonstrated severe bilateral pneumonia, given opacity in right middle lobe along with large amount of subpleural
ground-glass opacity in the peripheral left midlung. Empiric Vanco/Zosyn were restarted, pending sputum cultures. Sputum culture returned positive for Serratia. Given this, patient was started on a 5-day course of ceftriaxone (01/02 - 01/06).
Patient remained afebrile without leukocytosis further remainder of her admission; was discharged after multiple days of satting above 90% on room air. Antibiotic course complete at time of discharge.
3. Acute hypercapnic hypoxemic respiratory failure
Patient was admitted on 2 L O2 nasal cannula. Following treatment course (above) with Unasyn and normalization of serum sodium to 134, patient was clinically improving in terms of mental status and respiratory status. However on 12/31 in the
morning, patient was found to be unresponsive to noxious stimuli, hypoxic with O2 saturation 85% on 4L NC, and with slow breathing. She was transferred to the ICU on 12/31 and intubated. Given hypotension with fluctuating blood pressure dipping to
80s/40s, patient was started on Levophed drip, which was only required for 1 day. This event was thought to be precipitated by a combination of over sedation with her home regimen of pain meds that had been continued inpatient, progression of her
underlying MS, ongoing pneumonia infection, weakness/low effort in the setting of malnutrition and low p.o. intake, and recovery from her severe hyponatremia. Given this, her sedating standing pain meds (oxycodone, gabapentin, pregabalin) were held
for multiple days following 12/31. Only reduced doses of pregabalin or gabapentin, along with as needed oxycodone, were eventually reintroduced closer to discharge. A retail wireless sales representative from [facility] also reduced the Dilaudid flow from her implanted
baclofen/Dilaudid pump to 20%. The patient was able to be successfully extubated on 01/02, and she was able to be weaned to room air on 01/04.
4. L2 & T12 compression fractures; back & leg pain
Patient with chronic pain in the setting of her MS. Follows with pain management at [facility] (Dr. Woods). As described above, she was on a home regimen of pregabalin, gabapentin, oxycodone, baclofen pump containing Dilaudid. Following 12/31,
patient was only on as needed oxycodone, Dilaudid pump at 20%, and reduced doses of either pregabalin or gabapentin. Patient was discharged on 100 mg 3 times daily of gabapentin and PRN oxycodone and 20% dilaudid pump. She has appointment on 01/[address] Woods, who will readjust her Dilaudid pump to baseline and manage pain outpatient. We continued holding her standing oxycodone, due to concern for over sedation leading to AMS. Patient continued to endorse low back and leg pain throughout
admission. MRI of lumbar and thoracic spine on 01/03 demonstrated: severe compression fracture of the L2 vertebral body with associated 6 mm retropulsion of fracture fragment superiorly, resulting in severe canal stenosis; mild compression fracture
of the T12 vertebral body with associated edema suggestive of acute fracture. Patient vitamin D 25-hydroxy levels were checked and found to be low, less than 12.8. Curbside of IR regarding potential for lumbar kyphoplasty -IR favored no surgical
intervention. Patient may follow-up with spinal surgery (neurosurgery) in the outpatient setting, should she want to investigate further options for surgical intervention. Given patient's undernourished status, low weightbearing activity level,
and low vitamin D levels, concern for underlying osteoporosis. Patient was started on calcium carbonate supplement 500 mg daily as well as cholecalciferol on 175 mcg daily, to be continued for 6 weeks until vitamin D levels are rechecked. We also
transitioned her PPI to famotidine. Recommend continuing on calcium and vitamin D supplements long-term and outpatient evaluation for osteoporosis.
5. Posterior L occipital CVA
MRI brain obtained on 01/01 demonstrated a 5.6 mm infarction in the posterior left occipital lobe, along with lesions associated with known MS and likely chronic small vessel disease. CTA of head and neck on 01/02 demonstrated no areas of significant
stenosis. Her prior TTE from 12/28 demonstrated only mild to moderate tricuspid regurgitation. Patient denied any overt vision changes; perhaps with some impaired peripheral vision on exam. Per neurology, patient to avoid triptan medications in the
future. Etiology cardioembolic vs atheroembolic vs ischemic in s/o hypotensive/hypoxic episode & chronic small vessel disease. Given LDL cholesterol of 27, she was not started on empiric statins at this time. Patient will be continued on Eliquis
outpatient, rather than aspirin, due to her history of DVT (see below). Patient should follow-up with her outpatient neurologist (Dr. Curry).
6. Right upper extremity DVT
Patient was noted to have right arm swelling on 12/31. Ultrasound demonstrated acute DVT within the upper arm, with nonocclusive thrombus within the central subclavian, jugular, and basilic veins and occlusive thrombus within the distal brachial
vein and cephalic vein. Patient was started on heparin drip, which was transitioned to Eliquis at discharge. Etiology of DVT thought to be secondary to prior placement of PICC line in the right upper extremity. Patient with area of swelling on right
thigh noted by RN on 01/07�ultrasound obtained, which demonstrated no evidence of DVT.
7. Urinary retention
Patient per , patient had been able to empty her bladder often at home prior to admission, but at times endorsed needing to go but not being able to. During admission, patient was largely unable to empty her bladder herself, with the
exception of a few episodes of spontaneous urination. Worsening urinary retention is likely secondary to progression of her underlying MS. We discussed likely need for ongoing straight catheterization following discharge. Patient was receiving
frequent intermittent straight catheterizations by nursing staff in the 48 hours prior to discharge.
Other
- CT chest on 01/04 demonstrated 1.7 cm pleural based density in the posterior right costophrenic angle, which may represent a mass or possible old blood clot in the setting of prior falls - Pulmonary team evaluated patient and discussed; recommend
repeat chest CT in the outpatient setting in 4 to 6 weeks for further evaluation.
- Severe protein calorie malnutrition - Patient with BMI of 14.8, appearing cachectic, with severe protein calorie malnutrition. Was seen by nutrition team inpatient, who recommended outpatient follow-up for optimization of her nutritional status
and caloric intake moving forward. References for two registered dietitians, along with their contact information, are included in the discharge documents for the patient.
- Secondary progressive multiple sclerosis - Patient was continued on Tecfidera and dalfampridine while inpatient. To be continued outpatient. Recommend follow-up with outpatient neurologist, given suspicion for further progression of her MS in
the setting of worsening urinary retention, leg and back pain, low appetite.
- Tobacco use - Smokes ~5-10 cigarettes/day since 'forever' (likely 40 yrs), 20 pack-yrs., which may be continued while she is in acute rehab to control cravings. Recommend counseling on smoking cessation, given contribution of smoking to more rapid
progression of MS.
Patient was given nicotine patch while inpatient
Important imaging findings :
CXR (12/26): Pneumonia in the right lung base.
CXR (12/31): Interval worsening of mixed lucent and alveolar airspace opacity within the right lung base. Nonspecific increased interstitial and reticular opacities within the left lung. No sizable effusions or pneumothorax appreciated.
CXR (01/01): Large amount of opacity in the right middle lobe, moderate airspace opacity in the inferior right upper lobe, and large amount of subpleural ground-glass opacity in the peripheral left midlung. SEVERE BILATERAL PNEUMONIA is considered
most likely given the distribution of the airspace opacities. Alveolar pulmonary edema or pulmonary hemorrhage are less likely alternative diagnostic possibilities. No definitive change from 12/31/2024. Small right pleural effusion.
Peripheral vascular US RUE (12/31): Findings compatible with acute DVT within the upper arm. There is nonocclusive thrombus within the central subclavian and jugular veins and occlusive thrombus within the distal brachial vein within the upper arm.
Occlusive thrombus also appreciated within the cephalic vein and nonocclusive thrombus within the basilic vein.
Brain MRI w/o contrast (01/01): There is a 5.6 mm focus of restricted diffusion within the posterior left occipital lobe which may represent an infarction, less likely a demyelinating plaque. There is extensive periventricular and subcortical white
matter T2/FLAIR hyperintense signal which is likely related to known multiple sclerosis and likely chronic small vessel disease.
Head/neck CTA (01/01): Head with no significant arterial stenosis. No aneurysm. Neck with no significant arterial stenosis. Aortic origin of left vertebral artery.
Lumbar spine MRI w & w/o contrast (01/03): There is a severe compression fracture of the L2 vertebral body with associated 6 mm retropulsion of the fracture fragment superiorly and resultant severe canal stenosis. There are additional mild
degenerative changes with resultant mild bilateral neuroforaminal narrowing of L4-L5 and L5-S1.
Thoracic spine MRI w & w/o contrast (01/03): There is a mild compression fracture of the T12 vertebral body with associated mild edema suggestive of acute fracture.
Chest CT w/o contrast (01/04): Small to moderate right pleural effusion predominantly layering posteriorly, though a loculated component is suggested. Fluid is noted extending into the major fissure. 1.7 cm pleural-based density in the posterior
right costophrenic angle corresponding to the MRI finding. Nonspecific. Uncertain if this represents a mass, or possible blood clot there has been recent trauma or other invasive interventional procedure. Trace left pleural effusion. 1.9 cm mass in
the right pericardiophrenic angle, suspicious for adenopathy. Scattered interstitial and groundglass opacities noted, bilaterally.
Procedure findings : N/A
Discharge Plan
-
Patient Disposition: Fdc/SNF
Discharge Diagnosis/Procedures: severe hyponatremia; protein calorie malnutrition; L occipital CVA; RUE DVT; aspiration pneumonia
Condition: Fair
Diet: Regular and Restrict fluids to 48 oz
Additional Diets: Follow up with the advanced registered nurse (instructions below) to help optimize your caloric intake
Activity: With assistance and As tolerated
Driving Restrictions: As prior to admission
Bathing Restrictions: None
Blood Work: BMP, CBC, Mag level in 1 week
Others Tests: CT chest in 4-6 weeks
Other Services: PT
Activity Restrictions/Additional Instructions:
- Continue straight catheterization for urinary retention as needed
Follow-ups:
- Call registered dieticians - either Iliana Ferraro ([phone]) or Yessenia Matthew ([phone]) - in 1 week to set up a meeting plan to optimize your nutritional & caloric intake moving forward.
- See Dr. Geraldo Lopez (pulmonology) for a repeat CT of your chest in 4-6 weeks to evaluate the area that was concerning for a mass (vs. fluid vs. old blood)
- See Dr. Sarahi Curry (neurology) in 1-2 weeks to discuss the progression of your MS and the new L occipital stroke that was found this admission
- See Dr. Amy Walls (your primary care physician) in 1-2 weeks for general follow-up
- See Dr. Haris Woods (pain mgmt) for your 01/19 appointment to reset your baclofen/dilaudid pump back to its normal settings and to discuss sedation from your standing pain medications
- See Dr. Poly Rowe (neurosurgery, spine surgery) at any time if you would like to discuss options for decompressing your spinal cord at the L2 level where you have a fracture of your vertebrae
Referrals:
Sarahi Millard MD [Other, Neurology] - in one to two weeks
Referral Note: MS progression, new L occipital CVA
Poly Rowe MD, MS, FAANS [Other, Neurosurgery]
Referral Note: L2 compression fracture, cord compression
Matthew Walls MD [Family Provider, Internal Medicine] - in one to two weeks
Yessenia Matthew [Dietitian, General] - in one week
Referral Note: call either Yessenia or Iliana (registered dieticians) to set up appointment.
Yessenia: [phone]
Haris Woods MD [Non-Admitting Privileges, Physical Medicine / Rehab] - 01/19/25
Iliana Ferraro [Dietitian, General] - in one week
Referral Note: call either Yessenia or Iliana (registered dieticians) to set up appointment.
Yessenia: [phone]
Geraldo Lopez MD [Active, Pulmonary Medicine] - in four to six weeks
Referral Note: follow-up chest CT in 4-6 weeks
Additional Discharge Medication Instructions: Medications:
- Start eliquis (apixaban) 5mg, twice daily (to prevent blood clots)
- Start calcium carbonate 500mg daily (to strengthen your bones)
- Start cholecalciferol (vitamin D3) 175 mcg daily through 01/12, then have your primary care physician re-check your Vitamin D levels (to strengthen your bones)
- Start taking famotidine INSTEAD of taking omeprazole (to prevent heartburn)
- Do NOT take aspirin while taking eliquis
- Do NOT continue to take sumatriptan or triptan medications (this increases blood clot risk)
- Continue taking your home MS medications as prior
- Continue taking gabapentin 100mg three times/day, along with oxycodone 30mg every 4 hours as needed for severe pain
- You may use the nicotine patch while you are not smoking in rehab to help with any cravings
Follow-up appointments:
- See Dr. Haris Woods (pain mgmt) for your 01/19 appointment to reset your baclofen/dilaudid pump back to its normal settings
- Call registered dieticians - either Iliana Ferraro ([phone]) or Yessenia Matthew ([phone]) - in 1 week to set up a meeting plan to optimize your nutritional & caloric intake moving forward.
- See Dr. Geraldo Lopez (pulmonology) for a repeat CT of your chest in 4-6 weeks to evaluate the area that was concerning for a mass (vs. fluid vs. old blood)
- See Dr. Sarahi Curry (neurology) in 1-2 weeks to discuss the progression of your MS and the new L occipital stroke that was found this admission
- See Dr. Amy Walls (your primary care physician) in 1-2 weeks
- See Dr. Poly Rowe (neurosurgery, spine surgery) at any time if you would like to discuss options for decompressing your spinal cord at the L2 level where you have a fracture of your vertebrae
Prescriptions:
New
Eliquis 5 mg Tablet
5 mg PO BID 60 Days Qty: 120 0RF
nicotine 14 mg/24 hr Patch 24 Hour
14 mg transdermal DAILY 30 Days Qty: 28 0RF
calcium carbonate 500 mg calcium (1,250 mg) Tablet
500 mg PO DAILY 60 Days Qty: 60 0RF
famotidine 20 mg Tablet
20 mg PO DAILY 60 Days Qty: 60 0RF
cholecalciferol (vitamin D3) 125 mcg (5,000 unit) Tablet
125 mcg PO DAILY 60 Days Qty: 60 0RF
gabapentin 100 mg Capsule
100 mg PO TID 60 Days Qty: 180 0RF
cholecalciferol (vitamin D3) 50 mcg (2,000 unit) Tablet
50 mcg PO DAILY 35 Days Qty: 35 0RF
Continued
oxycodone 30 mg Tablet
30 mg PO Q4HPRN PRN (Reason: severe pain)
dalfampridine 10 mg Tablet Extended Release 12 Hr
10 mg PO Q12H
dimethyl fumarate [Tecfidera] 240 mg Capsule,Delayed Release(Dr/Ec)
240 mg PO BID
fluticasone propionate 50 mcg/actuation [place],Suspension
1 spray INTRANASAL BID
loratadine [Claritin] 10 mg Tablet
10 mg PO DAILY PRN (Reason: allergies)
Baclofen/Hydromorphone Pump
See Rx Instructions .ROUTE .COMPLEX
Rx Instructions:
baclofen 1,070mcg and hydromorphone 5.5mg/day, last filled 12/08, next fill due 01/27.
Discontinued
gabapentin 400 mg Capsule
800 mg PO QID
pregabalin 100 mg Capsule
100 mg PO TID
oxycodone [OxyContin] 20 mg Tablet,Oral Only,Ext.Rel.12 Hr
20 mg PO Q8H
sumatriptan succinate [Imitrex] 100 mg Tablet
0 mg PO .COMPLEX
Rx Instructions:
take 1 tab at onset of headache; if no relief, may repeat 1 tab after at least 2 hrs; max = 2 tabs/24 hrs
Discharge Orders:
Discharge Patient (As Directed); Ordered 01/07/25
Ordered By: Izzy Reyes
Discharge Date and Time
Discharge Date/Time: 01/07/25 18:43
Print Language: QATARI

Documented by User: Donaldo Khan DO 01/08/25 09:10
Discharge Summary
Discharge Data
Date of Admission: 12/26/24
Date of Discharge: 01/07/25
Discharge Plan
-
Patient Disposition: [facility]dc/SNF
Discharge Diagnosis/Procedures: severe hyponatremia; protein calorie malnutrition; L occipital CVA; RUE DVT; aspiration pneumonia
Condition: Fair
Diet: Regular and Restrict fluids to 48 oz
Additional Diets: Follow up with the advanced registered nurse (instructions below) to help optimize your caloric intake
Activity: With assistance and As tolerated
Driving Restrictions: As prior to admission
Bathing Restrictions: None
Blood Work: BMP, CBC, Mag level in 1 week
Others Tests: CT chest in 4-6 weeks
Other Services: PT
Activity Restrictions/Additional Instructions:
- Continue straight catheterization for urinary retention as needed
Follow-ups:
- Call registered dieticians - either Iliana Ferraro ([phone]) or Yessenia Matthew ([phone]) - in 1 week to set up a meeting plan to optimize your nutritional & caloric intake moving forward.
- See Dr. Geraldo Lopez (pulmonology) for a repeat CT of your chest in 4-6 weeks to evaluate the area that was concerning for a mass (vs. fluid vs. old blood)
- See Dr. Sarahi Curry (neurology) in 1-2 weeks to discuss the progression of your MS and the new L occipital stroke that was found this admission
- See Dr. Amy Walls (your primary care physician) in 1-2 weeks for general follow-up
- See Dr. Haris Woods (pain mgmt) for your 01/19 appointment to reset your baclofen/dilaudid pump back to its normal settings and to discuss sedation from your standing pain medications
- See Dr. Poly Rowe (neurosurgery, spine surgery) at any time if you would like to discuss options for decompressing your spinal cord at the L2 level where you have a fracture of your vertebrae
Referrals:
Sarahi Millard MD [Other, Neurology] - in one to two weeks
Referral Note: MS progression, new L occipital CVA
Poly Rowe MD, MS, [facility] [Other, Neurosurgery]
Referral Note: L2 compression fracture, cord compression
Matthew Walls MD [Family Provider, Internal Medicine] - in one to two weeks
Yessenia Matthew [Dietitian, General] - in one week
Referral Note: call either Yessenia or Iliana (registered dieticians) to set up appointment.
Yessenia: [phone]
Haris Woods MD [Non-Admitting Privileges, Physical Medicine / Rehab] - 01/19/25
Iliana Ferraro [Dietitian, General] - in one week
Referral Note: call either Yessenia or Iliana (registered dieticians) to set up appointment.
Yessenia: [phone]
Geraldo Lopez MD [Active, Pulmonary Medicine] - in four to six weeks
Referral Note: follow-up chest CT in 4-6 weeks
Additional Discharge Medication Instructions: Medications:
- Start eliquis (apixaban) 5mg, twice daily (to prevent blood clots)
- Start calcium carbonate 500mg daily (to strengthen your bones)
- Start cholecalciferol (vitamin D3) 175 mcg daily through 01/12, then have your primary care physician re-check your Vitamin D levels (to strengthen your bones)
- Start taking famotidine INSTEAD of taking omeprazole (to prevent heartburn)
- Do NOT take aspirin while taking eliquis
- Do NOT continue to take sumatriptan or triptan medications (this increases blood clot risk)
- Continue taking your home MS medications as prior
- Continue taking gabapentin 100mg three times/day, along with oxycodone 30mg every 4 hours as needed for severe pain
- You may use the nicotine patch while you are not smoking in rehab to help with any cravings
Follow-up appointments:
- See Dr. Haris Woods (pain mgmt) for your 01/19 appointment to reset your baclofen/dilaudid pump back to its normal settings
- Call registered dieticians - either Iliana Ferraro ([phone]) or Yessenia Matthew ([phone]) - in 1 week to set up a meeting plan to optimize your nutritional & caloric intake moving forward.
- See Dr. Geraldo Lopez (pulmonology) for a repeat CT of your chest in 4-6 weeks to evaluate the area that was concerning for a mass (vs. fluid vs. old blood)
- See Dr. Sarahi Curry (neurology) in 1-2 weeks to discuss the progression of your MS and the new L occipital stroke that was found this admission
- See Dr. Amy Walls (your primary care physician) in 1-2 weeks
- See Dr. Poly Rowe (neurosurgery, spine surgery) at any time if you would like to discuss options for decompressing your spinal cord at the L2 level where you have a fracture of your vertebrae
Prescriptions:
New
Eliquis 5 mg Tablet
5 mg PO BID 60 Days Qty: 120 0RF
nicotine 14 mg/24 hr Patch 24 Hour
14 mg transdermal DAILY 30 Days Qty: 28 0RF
calcium carbonate 500 mg calcium (1,250 mg) Tablet
500 mg PO DAILY 60 Days Qty: 60 0RF
famotidine 20 mg Tablet
20 mg PO DAILY 60 Days Qty: 60 0RF
cholecalciferol (vitamin D3) 125 mcg (5,000 unit) Tablet
125 mcg PO DAILY 60 Days Qty: 60 0RF
gabapentin 100 mg Capsule
100 mg PO TID 60 Days Qty: 180 0RF
cholecalciferol (vitamin D3) 50 mcg (2,000 unit) Tablet
50 mcg PO DAILY 35 Days Qty: 35 0RF
Continued
oxycodone 30 mg Tablet
30 mg PO Q4HPRN PRN (Reason: severe pain)
dalfampridine 10 mg Tablet Extended Release 12 Hr
10 mg PO Q12H
dimethyl fumarate [Tecfidera] 240 mg Capsule,Delayed Release(Dr/Ec)
240 mg PO BID
fluticasone propionate 50 mcg/actuation [place],Suspension
1 spray INTRANASAL BID
loratadine [Claritin] 10 mg Tablet
10 mg PO DAILY PRN (Reason: allergies)
Baclofen/Hydromorphone Pump
See Rx Instructions .ROUTE .COMPLEX
Rx Instructions:
baclofen 1,070mcg and hydromorphone 5.5mg/day, last filled 12/08, next fill due 01/27.
Discontinued
gabapentin 400 mg Capsule
800 mg PO QID
pregabalin 100 mg Capsule
100 mg PO TID
oxycodone [OxyContin] 20 mg Tablet,Oral Only,Ext.Rel.12 Hr
20 mg PO Q8H
sumatriptan succinate [Imitrex] 100 mg Tablet
0 mg PO .COMPLEX
Rx Instructions:
take 1 tab at onset of headache; if no relief, may repeat 1 tab after at least 2 hrs; max = 2 tabs/24 hrs
Discharge Orders:
Discharge Patient (As Directed); Ordered 01/07/25
Ordered By: Izzy Reyes
Discharge Date and Time
Discharge Date/Time: 01/07/25 18:43
Print Language: QATARI
== END 2025-01-07 18:43 | DRG 208 ==
LOC: 2 NORTH 12:40
PROVIDERS: Hospitalist; Internal Medicine Critical Care Medicine; Nurse Practitioner Family; Nurse Practitioner Primary Care; Psychiatry & Neurology Neurology; Radiology Diagnostic Radiology; Specialist; Student in an Organized Health Care Education/Training Program; ADMITTING PHYSICIAN Internal Medicine; CONSULT PHYSICIAN Internal Medicine Critical Care Medicine; CONSULT PHYSICIAN Physical Medicine & Rehabilitation; CONSULT PHYSICIAN Psychiatry & Neurology Neurology; EMERGENCY PHYSICIAN Emergency Medicine; FAMILY PHYSICIAN Internal Medicine; OTHER PHYSICIAN Internal Medicine
PROC: 02HV33Z Insertion of Infusion Device into Superior Vena Cava, Percutaneous Approach (ICD-10-PCS; 2024-12-28)
PROC: 0BH17EZ Insertion of Endotracheal Airway into Trachea, Via Natural or Artificial Opening (ICD-10-PCS; 2024-12-31)
PROC: 5A1945Z Respiratory Ventilation, 24-96 Consecutive Hours (ICD-10-PCS; 2024-12-31)
PROC: XX20X89 Monitoring of Brain Electrical Activity, Computer-aided Detection and Notification, New Technology Group 9 (ICD-10-PCS; 2024-12-31)
PROC: 5A09357 Assistance with Respiratory Ventilation, Less than 24 Consecutive Hours, Continuous Positive Airway Pressure (ICD-10-PCS; 2025-01-02)
DX: J69.0 Pneumonitis due to inhalation of food and vomit (principal); E43 Unspecified severe protein-calorie malnutrition; A41.9 Sepsis, unspecified organism; G93.41 Metabolic encephalopathy; J96.01 Acute respiratory failure with hypoxia; I63.532 Cerebral infarction due to unspecified occlusion or stenosis of left posterior cerebral artery; J96.22 Acute and chronic respiratory failure with hypercapnia; E87.20 Acidosis, unspecified; R64 Cachexia; F11.20 Opioid dependence, uncomplicated; Z68.1 Body mass index [BMI] 19.9 or less, adult; N39.0 Urinary tract infection, site not specified; E22.2 Syndrome of inappropriate secretion of antidiuretic hormone; I82.621 Acute embolism and thrombosis of deep veins of right upper extremity; M80.08XA Age-related osteoporosis with current pathological fracture, vertebra(e), initial encounter for fracture; F05 Delirium due to known physiological condition; J18.9 Pneumonia, unspecified organism; M79.89 Other specified soft tissue disorders; D50.9 Iron deficiency anemia, unspecified; E88.09 Other disorders of plasma-protein metabolism, not elsewhere classified; R29.6 Repeated falls; G35 Multiple sclerosis; F17.210 Nicotine dependence, cigarettes, uncomplicated; B96.89 Other specified bacterial agents as the cause of diseases classified elsewhere; J43.2 Centrilobular emphysema; G62.9 Polyneuropathy, unspecified; R44.1 Visual hallucinations; I95.9 Hypotension, unspecified; G89.4 Chronic pain syndrome; R60.0 Localized edema; G40.901 Epilepsy, unspecified, not intractable, with status epilepticus; R63.1 Polydipsia; M48.061 Spinal stenosis, lumbar region without neurogenic claudication; I07.1 Rheumatic tricuspid insufficiency; E87.6 Hypokalemia; G90.A Postural orthostatic tachycardia syndrome [POTS]; Z96.89 Presence of other specified functional implants; Z88.5 Allergy status to narcotic agent; Z88.8 Allergy status to other drugs, medicaments and biological substances; Z74.01 Bed confinement status; Z99.3 Dependence on wheelchair; Z80.1 Family history of malignant neoplasm of trachea, bronchus and lung; Z91.81 History of falling; Z79.899 Other long term (current) drug therapy; Z71.6 Tobacco abuse counseling
CPT/HCPCS: 36600; 70450; 70496; 70498; 70551; 71045; 71250; 72157; 72158; 74230; 80048; 80053; 80061; 80202; 81003; 81015; 82306; 82330; 82533; 82550; 82570; 82607; 82805; 82962; 83605; 83735; 83880; 83935; 84100; 84156; 84207; 84295; 84300; 84443; 84478; 84484; 85014; 85018; 85025; 85027; 85610; 85730; 86850; 86900; 86901; 87040; 87070; 87077; 87086; 87186; 87205; 87449; 87641; 87899; 92526; 92610; 92611; 93005; 93306; 93971; 94002; 94003; 94640; 94660; 96361; 96374; 97163; 97164; 97167; 97530; 97535; 99291; A9575; P9047; Q9967